=== PATIENT | male | born 1935 | race Caucasian/White ===

== ENCOUNTER → 2016-07-04 | Outpatient (CLI) | payer MEDICARE, OTHER ==
[~2016-07-04] MED LIST: CALCTAB5 PO; CARB200T PO; CHOL20009 PO; CYAN500T13 PO; DOXA4TAB2 PO; FRRS300 PO; MULT-190 PO; MULTTAB63 PO; OFLO0.3S4; PRDFOPS; RIVA1TAB4 PO; SIMV40TA2 PO
[2016-07-04 12:12] LABS: HEMATOCRIT 36.6 % (42-52); MEAN CELL VOLUME 89.5 fL (80-100); MEAN CORPUSCULAR HEMOGLOBIN 30.6 pg (25-34); MEAN CORPUSCULAR HGB CONC 34.2 g/dl (32-36); MEAN PLATELET VOLUME 10.5 fL (7.4-10.4); PLATELET COUNT 210 K/uL (130-400); RED BLOOD COUNT 4.09 M/uL (4.7-6.1); WHITE BLOOD COUNT 5.32 K/uL (4.8-10.8)
[2016-07-04 12:43] LABS: BLOOD UREA NITROGEN 10 mg/dl (7-18); BUN/CREATININE RATIO 10.7 (10-20); CALCIUM 8.6 mg/dl (8.5-10.1); CARBON DIOXIDE 29 mmol/L (21-32); CHLORIDE 95 mmol/L (98-107); GLUCOSE 104 mg/dl (70-99); POTASSIUM 4.4 mmol/L (3.5-5.1); SODIUM 131 mmol/L (136-145)
--- NOTE | 2016-07-05 09:42 | CODING QUERY NO DIAGNOSIS ---
TREATMENT RENDERED WITHOUT A DIAGNOSIS To promote full compliance with coding requirements relating to patient care, physician participation is requested in all cases of biomedical service engineer uncertainty. Please assist us with providing a diagnosis/symptom for the test(s) below: A diagnosis/symptom was not documented on your Order. A valid diagnosis/symptom is required to bill all insurances. Please remember that we are unable to code a diagnosis of rule out, probable, possible, questionable, or suspected. Tests that require a diagnosis: DOS: 07/04/16 * CBC DIAGNOSIS: * PRP DIAGNOSIS: * CARBAMAZEPINE DIAGNOSIS: Provider Signature: Date: Thank you Cande Dominguez [facility] Information Management Once completed, please kindly fax back to [phone] For questions please call [phone]
== END | disposition home or self-care (01) ==
LOC: C.LABWYN 15:02
PROVIDERS: ATTEND Internal Medicine
DX: D64.9 Anemia, unspecified (principal); R56.9 Unspecified convulsions; E87.5 Hyperkalemia

== ENCOUNTER → 2016-11-13 | Outpatient (CLI) | payer MEDICARE ==
[2016-11-13 16:57] LABS: URINE APPEARANCE CLEAR (CLEAR); URINE BILIRUBIN NEG (NEG); URINE COLOR DK YELLOW; URINE NITRITE NEG (NEG); URINE SPECIFIC GRAVITY 1.024 (1.000-1.030); UROBILINOGEN NEG (NEG)
[2016-11-13 16:59] LABS: MANUAL MICROSCOPIC REQUIRED? NO; REVIEW REQ? NO
== END | disposition home or self-care (01) ==
LOC: C.LAB 15:13
PROVIDERS: ATTEND Internal Medicine
DX: N39.0 Urinary tract infection, site not specified (principal)

== ENCOUNTER → 2017-04-17 | Outpatient (CLI) | payer MEDICARE ==
[2017-04-17 09:33] LABS: HEMATOCRIT 35.4 % (42-52); HEMOGLOBIN 12.3 g/dL (14.0-18.0); MEAN CELL VOLUME 90.8 fL (80-100); MEAN CORPUSCULAR HEMOGLOBIN 31.5 pg (25-34); MEAN CORPUSCULAR HGB CONC 34.7 g/dl (32-36); MEAN PLATELET VOLUME 10.1 fL (7.4-10.4); PLATELET COUNT 213 K/uL (130-400); RED CELL DISTRIBUTION WIDTH CV 12.6 % (11.5-14.5); RED CELL DISTRIBUTION WIDTH SD 41.7 fL (36.4-46.3); WHITE BLOOD COUNT 4.66 K/uL (4.8-10.8)
[2017-04-17 09:40] LABS: BLOOD UREA NITROGEN 9 mg/dl (7-18); CALCIUM 8.5 mg/dl (8.5-10.1); CARBON DIOXIDE 27 mmol/L (21-32); CREATININE 0.82 mg/dl (0.60-1.40); GLUCOSE 118 mg/dl (70-99); POTASSIUM 3.9 mmol/L (3.5-5.1); SODIUM 126 mmol/L (136-145)
== END | disposition home or self-care (01) ==
LOC: C.LABWYN 08:12
PROVIDERS: ATTEND Internal Medicine
DX: G40.909 Epilepsy, unspecified, not intractable, without status epilepticus (principal); I26.99 Other pulmonary embolism without acute cor pulmonale; R53.1 Weakness; I45.10 Unspecified right bundle-branch block; N40.0 Benign prostatic hyperplasia without lower urinary tract symptoms; I10 Essential (primary) hypertension; E78.5 Hyperlipidemia, unspecified; F32.9 Major depressive disorder, single episode, unspecified; D47.2 Monoclonal gammopathy

== ENCOUNTER → 2017-05-01 | Outpatient (CLI) | payer MEDICARE ==
[2017-05-01 09:26] LABS: BLOOD UREA NITROGEN 12 mg/dl (7-18); CALCIUM 8.7 mg/dl (8.5-10.1); CARBON DIOXIDE 25 mmol/L (21-32); CREATININE 0.83 mg/dl (0.60-1.40); GLUCOSE 109 mg/dl (70-99); POTASSIUM 4.2 mmol/L (3.5-5.1); SODIUM 127 mmol/L (136-145)
== END | disposition home or self-care (01) ==
LOC: C.LABWYN 08:33
PROVIDERS: ATTEND Internal Medicine
DX: E87.1 Hypo-osmolality and hyponatremia (principal)

== ENCOUNTER → 2017-06-19 | Outpatient (CLI) | payer MEDICARE ==
[2017-06-19 09:37] LABS: BLOOD UREA NITROGEN 12 mg/dl (7-18); CALCIUM 8.4 mg/dl (8.5-10.1); CARBON DIOXIDE 28 mmol/L (21-32); GLUCOSE 103 mg/dl (70-99); POTASSIUM 4.3 mmol/L (3.5-5.1); SODIUM 128 mmol/L (136-145)
== END | disposition home or self-care (01) ==
LOC: C.LABWYN 08:59
PROVIDERS: ATTEND Internal Medicine
DX: E87.1 Hypo-osmolality and hyponatremia (principal)

== ENCOUNTER 2018-06-22 23:30 | Inpatient (IN) ==
[2018-06-22 23:39] LABS: Basophils # (auto) 0.07 K/uL (0-0.2); Eosinophils # (auto) 0.13 K/uL (0-0.5); Eosinophils % (auto) 1.9 %; Hematocrit (blood only) 33.2 % (42-52); Hemoglobin 11.2 g/dL (14.0-18.0); Immature Granulocytes # (auto) 0.01 K/uL (0.00-0.02); Immature Granulocytes % (auto) 0.1 %; Lymphocytes # (auto) 2.01 K/uL (1.2-3.4); Lymphocytes % (auto) 29.9 %; Mean Corpuscular Hgb Conc 33.7 g/dL (32-36); Mean Corpuscular Volume 95.1 fL (80-100); Mean Platelet Volume 9.7 fL (7.4-10.4); Monocytes # (auto) 0.88 K/uL (0.11-0.59); Monocytes % (auto) 13.1 %; Neutrophils # (auto) 3.63 K/uL (1.4-6.5); Platelet Count 169 K/uL (130-400); RDW Coefficient of Variation 12.9 % (11.5-14.5); RDW Standard Deviation 44.1 fL (36.4-46.3); Red Blood Count 3.49 M/uL (4.7-6.1); White Blood Count 6.73 K/uL (4.8-10.8)
[2018-06-22 23:53] LABS: INR 1.1 (0.9-1.1); Partial Thromboplastin Ratio 1.3; Partial Thromboplastin Time 34.2 Seconds (21.0-31.0); Prothrombin Time 11.2 Seconds (9.0-12.0)
[2018-06-23] LABS: Alanine Aminotransferase 21 U/L (12-78); Albumin Level 3.3 gm/dl (3.4-5.0); Aspartate Aminotransferase 14 U/L (15-37); Blood Urea Nitrogen 21 mg/dl (7-18); Calcium 8.4 mg/dl (8.5-10.1); Carbon Dioxide 27 mmol/L (21-32); Chloride 106 mmol/L (98-107); Creatinine Clr Calc Pharmacy 55.7 ml/min; Est GFR (African American) 68.1; Est GFR (Non-African American) 58.7; Glucose 106 mg/dl (70-99); Magnesium 2.1 mg/dl (1.8-2.4); Potassium 4.3 mmol/L (3.5-5.1); Sodium 139 mmol/L (136-145)
[2018-06-23 00:05] LABS: Albumin Globulin Ratio 0.8 (0.9-2); Alkaline Phosphatase 52 U/L (45-117); Bilirubin,Total 0.3 mg/dl (0.2-1); Globulin 4.3 gm/dl (2.5-4.0); Total Protein 7.6 gm/dl (6.4-8.2); Troponin I < 0.015 ng/ml (0-0.045)
[2018-06-23 00:48] LABS: Lyme Ab IgM w/WB Rflx Negative (Negative)
[2018-06-23 01:05] LABS: Lyme Ab IgG w/WB Rflx Positive (Negative)
--- NOTE | 2018-06-23 03:18 | Emergency Department Note ---
Entered by Owen Bhatti acting as a scribe for Sumanth Hernandez MD History of Present Illness General Chief complaint: Stroke/CVA Symptoms Source: patient and EMS Limitations: no limitations History of Present Illness Onset (ago): hour(s) (4 and half) Location: head Pain Consistency: + constant Quality: + constant Associated symptoms: + denies other symptoms (numbness), + weakness and + other (slurred speech, falls); no headaches The patient is a 83 year old male who presents to the Emergency Room with complaints of stroke-like symptoms starting possibly 4 and half hours ago. Per EMS, the patient lives at a intermediate and his last well time was before 1900 but they are unsure the exact time. EMS notes the patient fell more than 3 times tonight. EMS states the patient has difficulty walking and has slurred speech. The patient he does not know when his symptoms started and notes it could have been yesterday. He thinks he had trouble speaking starting yesterday. He states he feels weak but notes his head does not hurt. He notes he had brain surgery before for having too much fluid. He denies numbness on one side, headache, and tick bites. He states he got the flu shot this year and his tetanus is UTD. He states he smoked before but does not now. RN notes sow the patient has a hx of PE, and takes xarelto. Home Medications Home Medications Medication Instructions Recorded Confirmed Type acetaminophen [Tylenol] 325 - 650 mg PO Q4 PRN 06/23/18 06/23/18 History amlodipine 5 mg PO DAILY 06/23/18 06/23/18 History amoxicillin 500 mg PO QID 06/23/18 06/23/18 History ascorbic acid (vitamin C) 1 g PO DAILY 06/23/18 06/23/18 History calcium carbonate [Calcium 600] 600 mg PO DAILY 06/23/18 06/23/18 History carbamazepine 200 mg PO UD 06/23/18 06/23/18 History carbamazepine 300 mg PO QAM 06/23/18 06/23/18 History cholecalciferol (vitamin D3) 1,000 unit PO DAILY 06/23/18 06/23/18 History [Vitamin D3] cyanocobalamin (vitamin B-12) 500 mcg PO DAILY 06/23/18 06/23/18 History dextromethorphan-guaifenesin 5 ml PO Q4 PRN 06/23/18 06/23/18 History [Tussin DM] diclofenac sodium 50 mg PO BID PRN 06/23/18 06/23/18 History doxazosin 4 mg PO DAILY 06/23/18 06/23/18 History ferrous sulfate 325 mg PO DAILY 06/23/18 06/23/18 History ipratropium-albuterol 3 ml INHALATION TID PRN 06/23/18 06/23/18 History levothyroxine 25 mg PO DAILY 06/23/18 06/23/18 History loperamide 2 mg PO Q4 PRN 06/23/18 06/23/18 History lorazepam 0.5 mg PO TID PRN 06/23/18 06/23/18 History quetiapine 50 mg PO HS 06/23/18 06/23/18 History rivaroxaban [Xarelto] 20 mg PO QPM 06/23/18 06/23/18 History sennosides-docusate sodium 1 tab PO BID PRN 06/23/18 06/23/18 History [Senexon-S] sertraline 75 mg PO DAILY 06/23/18 06/23/18 History simvastatin 40 mg PO QPM 06/23/18 06/23/18 History vit C-E-zinc afm-jlaujy-ntvjih 1 tab PO DAILY 06/23/18 06/23/18 History [[facility]] Allergies Allergy/AdvReac Type Severity Reaction Status Date / Time No Known Allergies Allergy Unverified 06/23/18 00:36 Past Med/Surg History Medical History Hyperlipidemia (Chronic) Pulmonary embolism Social History Communication Ability: Effective Feels Safe at Home: Yes Smoking Status: Former smoker Review of Systems See HPI for pertinent positives & negatives. and A total of 10 systems reviewed and were otherwise negative Physical Exam Vital Signs Vital Signs - 24 hr 06/22/18 23:47 06/23/18 00:08 06/23/18 02:00 Temperature 37.1 C Temperature Source Oral Sepsis Recent Fever Within 48 Hours No Sepsis New/Unexplained Change in Mental Status No Sepsis Action Taken by Nursing No Action Required Pulse Rate 68 Pulse Rate [Apical] 59 L 61 Respiratory Rate 18 18 19 Blood Pressure 203/81 H Blood Pressure [Right Arm] 195/77 H 160/115 H Blood Pressure Mean 121 Blood Pressure Mean [Right Arm] 116 130 Pulse Oximetry 92 93 93 Oxygen Delivery Method Room Air Room Air Constitutional: Vital signs reviewed. Eyes: Pupils are equal round reactive to light. Conjunctiva are noninjected. ENT: Pharynx is clear without erythema or exudate. Mucous membranes are moist. Neck supple without meningeal signs. Respiratory: Clear to auscultation bilaterally. Breath sounds are equal bilaterally. Cardiovascular: Regular rate and rhythm. No rubs or gallops. GI: Soft, nondistended and nontender. Bowel sounds are present. Musculoskeletal: No peripheral edema. No lower extremity tenderness. Integumentary: No cyanosis. Neurological: The patient is awake and alert. Cranial nerves II-XII are intact except for right sided facial droop sparing the forehead. Motor is 5 out of 5 all extremities. Sensation is intact to light touch all extremities. No pronator drift. No limb ataxia. Speech is very slurred. Psychiatric: Normal affect. Course 2330: Past medical records reviewed. The patient was evaluated in room B1, and a complete history and physical examination were performed. 2354: I spoke with Dr. Jerez - Radiology. He states there are no acute findings on the CT head. 0123: I reevaluated the patient. He has no changes in symptoms. Administered Medications Medical Decision Making Differential Diagnosis Differential Diagnosis: ICH, CVA, concussion, Quintana's palsy, and metabolic derangement. Medical Records Attestation: I reviewed the patient's medical records. Home Medications Current Medication List: was personally reviewed by me Laboratory Data Attestation: I reviewed the patient's lab results. Result diagrams: 06/22/18 23:31 06/22/18 23:31 Lab Results 06/22/18 06/22/18 06/22/18 Range/Units 23:31 23:31 23:31 WBC 6.73 (4.8-10.8) K/uL RBC 3.49 L (4.7-6.1) M/uL Hgb 11.2 L (14.0-18.0) g/dL Hct 33.2 L (42-52) % MCV 95.1 (80-100) fL MCH 32.1 (25-34) pg MCHC 33.7 (32-36) g/dL RDW Std Deviation 44.1 (36.4-46.3) fL RDW Coeff of Luis 12.9 (11.5-14.5) % Plt Count 169 (130-400) K/uL MPV 9.7 (7.4-10.4) fL Immature Gran % (Auto) 0.1 % Neut % (Auto) 54.0 % Lymph % (Auto) 29.9 % [place] % (Auto) 13.1 % Eos % (Auto) 1.9 % Baso % (Auto) 1.0 % Immature Gran # (Auto) 0.01 (0.00-0.02) K/uL Neut # (Auto) 3.63 (1.4-6.5) K/uL Lymph # (Auto) 2.01 (1.2-3.4) K/uL [place] # (Auto) 0.88 H (0.11-0.59) K/uL Eos # (Auto) 0.13 (0-0.5) K/uL Baso # (Auto) 0.07 (0-0.2) K/uL PT 11.2 (9.0-12.0) Seconds INR 1.1 (0.9-1.1) APTT 34.2 H (21.0-31.0) Seconds PTT Ratio 1.3 Sodium 139 (136-145) mmol/L Potassium 4.3 (3.5-5.1) mmol/L Chloride 106 (98-107) mmol/L Carbon Dioxide 27 (21-32) mmol/L Anion Gap 5.0 (3-11) BUN 21 H (7-18) mg/dl Creatinine 1.14 (0.6-1.4) mg/dl Est Cr Clr Drug Dosing 55.7 ml/min Est GFR ( Amer) 68.1 Est GFR (Non-Af Amer) 58.7 BUN/Creatinine Ratio 18.0 (10-20) Glucose 106 H (70-99) mg/dl Calcium 8.4 L (8.5-10.1) mg/dl Magnesium 2.1 (1.8-2.4) mg/dl Total Bilirubin 0.3 (0.2-1) mg/dl AST 14 L (15-37) U/L ALT 21 (12-78) U/L Alkaline Phosphatase 52 (45-117) U/L Troponin I < 0.015 (0-0.045) ng/ml Total Protein 7.6 (6.4-8.2) gm/dl Albumin 3.3 L (3.4-5.0) gm/dl Globulin 4.3 H (2.5-4.0) gm/dl Albumin/Globulin Ratio 0.8 L (0.9-2) Lyme Disease IgG Ab (Negative) Lyme Disease IgM Ab (Negative) 06/22/18 Range/Units 23:31 WBC (4.8-10.8) K/uL RBC (4.7-6.1) M/uL Hgb (14.0-18.0) g/dL Hct (42-52) % MCV (80-100) fL MCH (25-34) pg MCHC (32-36) g/dL RDW Std Deviation (36.4-46.3) fL RDW Coeff of Luis (11.5-14.5) % Plt Count (130-400) K/uL MPV (7.4-10.4) fL Immature Gran % (Auto) % Neut % (Auto) % Lymph % (Auto) % [place] % (Auto) % Eos % (Auto) % Baso % (Auto) % Immature Gran # (Auto) (0.00-0.02) K/uL Neut # (Auto) (1.4-6.5) K/uL Lymph # (Auto) (1.2-3.4) K/uL [place] # (Auto) (0.11-0.59) K/uL Eos # (Auto) (0-0.5) K/uL Baso # (Auto) (0-0.2) K/uL PT (9.0-12.0) Seconds INR (0.9-1.1) APTT (21.0-31.0) Seconds PTT Ratio Sodium (136-145) mmol/L Potassium (3.5-5.1) mmol/L Chloride (98-107) mmol/L Carbon Dioxide (21-32) mmol/L Anion Gap (3-11) BUN (7-18) mg/dl Creatinine (0.6-1.4) mg/dl Est Cr Clr Drug Dosing ml/min Est GFR ( Amer) Est GFR (Non-Af Amer) BUN/Creatinine Ratio (10-20) Glucose (70-99) mg/dl Calcium (8.5-10.1) mg/dl Magnesium (1.8-2.4) mg/dl Total Bilirubin (0.2-1) mg/dl AST (15-37) U/L ALT (12-78) U/L Alkaline Phosphatase (45-117) U/L Troponin I (0-0.045) ng/ml Total Protein (6.4-8.2) gm/dl Albumin (3.4-5.0) gm/dl Globulin (2.5-4.0) gm/dl Albumin/Globulin Ratio (0.9-2) Lyme Disease IgG Ab Positive H (Negative) Lyme Disease IgM Ab Negative (Negative) Imaging Data Radiologist's Impression: Radiology results as stated below per my review and the radiologist's interpretation: ADDENDUM - Added by Ryan Barragan M.D. on 06/22/2018 at 11:57 (-7:00) Clarification: The volume loss involving the left frontal lobe could be from prior insult such as infarct; however, it could also be from removal of previous tumor. Please correlate with neuro surgical history. ADDENDUM - Added by Ryan Barragan M.D. on 06/22/2018 11:55 Pm (-7:00) Left frontal lobe and overlying calvarium postsurgical changes have been present since the prior study from 06/11/15. 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 Chronic ischemic small vessel white matter disease without midline shift or hydrocephalus. 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. Diffuse parenchymal atrophy, No acute intracranial hemorrhage or acute infarct. Calvarial posterior changes involving the frontal regions anteriorly and laterally. Radiologist: Ryan Barragan M.D. ECG Data Attestation: I personally reviewed and interpreted this ECG as follows: Indication: other (stroke) Rate (beats per minute): 67 Rhythm: normal sinus Findings: no PVC and no ST elevation Blood Pressure Blood Pressure Findings: Elevated blood pressure Blood Pressure Disposition: Referred to patients primary care provider [facility] Narrative I did perform a limited focused review of portions of the patient's old chart on the electronic medical record. The patient has had no recent pertinent visits to this hospital. I did provide medical command for the patient. I did call a stroke alert. I did evaluate the patient as noted above. He is presenting with a right facial droop sparing the forehead. He also has dysarthria. He was also noted to have difficulty walking at his home and he fell 3 times. IV access was established. The patient was placed on a continuous monitoring analyst. I did order and p ersonally review the patient's 12-lead EKG as described above. Twelve-lead EKG is unremarkable. I did order and review the patient's blood work as noted in the electronic medical record. His blood work is unremarkable. Lyme IgG is positive but Lyme IgM is negative. I did order a CT of the head. I did review the images myself as well as the radiology report as described above. He has no evidence of acute intracranial abnormality. I did discuss the test results with the patient. He has persistent symptoms. I did recommend hospitalization for further workup for CVA including MRI of the brain. I did discuss the case with the hospitalist and geriatric case manager. Impression & Plan Facial droop, Ataxia, Dysarthria, Multiple falls Discharge Plan Visit Data Chief Complaint: Stroke/CVA Symptoms ED Provider: Sumanth Hernandez Discharge Problem: Facial droop, Ataxia, Dysarthria, Multiple falls Patient Disposition: Being Evaluated by Hospitalist Forms Stand Alone Forms: My [facility] Prescriptions Prescriptions: No Action amlodipine 5 mg tablet 5 mg PO DAILY RF: 0 levothyroxine 25 mcg tablet 25 mg PO DAILY RF: 0 calcium carbonate [Calcium 600] 600 mg calcium (1,500 mg) Tablet 600 mg PO DAILY RF: 0 ferrous sulfate 325 mg (65 mg iron) Tablet 325 mg PO DAILY RF: 0 doxazosin 4 mg tablet 4 mg PO DAILY RF: 0 carbamazepine 200 mg capsule, ER multiphase 12 hr 200 mg PO UD RF: 0 carbamazepine 300 mg capsule, ER multiphase 12 hr 300 mg PO QAM RF: 0 cholecalciferol (vitamin D3) [Vitamin D3] 1,000 unit Tablet 1,000 unit PO DAILY RF: 0 Ocuvite [facility] 50 mg-15 unit- 4.5 mg-2.5 mg Tablet,Chewable 1 tab PO DAILY RF: 0 amoxicillin 500 mg capsule 500 mg PO QID RF: 0 ascorbic acid (vitamin C) 1,000 mg Tablet 1 g PO DAILY RF: 0 simvastatin 40 mg tablet 40 mg PO QPM RF: 0 cyanocobalamin (vitamin B-12) 500 mcg Tablet 500 mcg PO DAILY RF: 0 sertraline 50 mg tablet 75 mg PO DAILY RF: 0 quetiapine 50 mg tablet 50 mg PO HS RF: 0 Xarelto 20 mg tablet 20 mg PO QPM RF: 0 acetaminophen [Tylenol] 325 mg Tablet 325 - 650 mg PO Q4 PRN (Reason: Fever Or Pain) RF: 0 ipratropium-albuterol 0.5 mg-3 mg(2.5 mg base)/3 mL Solution For Nebulization 3 ml INHALATION TID PRN (Reason: Cough) RF: 0 loperamide 2 mg Capsule 2 mg PO Q4 PRN (Reason: Diarrhea) RF: 0 sennosides-docusate sodium [Senexon-S] 8.6-50 mg Tablet 1 tab PO BID PRN (Reason: Constipation) RF: 0 dextromethorphan-guaifenesin [Tussin DM] 10-100 mg/5 mL Syrup 5 ml PO Q4 PRN (Reason: Cough) RF: 0 lorazepam 0.5 mg Tablet 0.5 mg PO TID PRN (Reason: Anxiety) RF: 0 diclofenac sodium 50 mg tablet,delayed release (DR/EC) 50 mg PO BID PRN (Reason: Pain) RF: 0 Referrals Referrals: Conner Elias [Primary Care Provider] - The scribe's documentation has been prepared under my direction and personally reviewed by me in its entirety. I confirm that the note above accurately reflects all work, treatment, procedures, and medical decision making performed by me.
--- NOTE | 2018-06-23 03:41 | History & Physical Report ---
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 Concern for CVA. Stroke like Symptoms: -CT head: L frontal lobe volume loss likely from prior infarct vs removal of previous tumor; Left frontal lobe and overlying calvarium postsurgical changes present since prior study from 06/11/15; Chronic ischemic small vessel white matter disease without midline shift or hydrocephalus. 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; Diffuse parenchymal atrophy; No acute intracranial hemorrhage or acute infarct -Lyme IgM neg, IgG +, western blot pending -EKG 67 NSR QTc 409 -MRI brain w/ot contrast ordered -CTA head and neck ordered -Started on Aspirin 81mg daily -Continued home Simvastatin -HgA1c and lipid profile ordered -NPO pending speech eval on mIVF NS 100mls/hr -On Stroke protocol HTN -continue home amlodipine Hypothyroidism -continue home levothyroxine ?COPD -Continue home ipratropium/albuterol prn and guaifenesin for cough Hx of diarrhea -Continue home loperamide PRN Hx of anemia -Hgb 11.2 previous Hgb 12 -Continue home iron supplement -Contnue to monitor CBC BPH -Continue home doxazosin Mood disorder -Continue home ativan for anxiety -Continue home quetiapine, sertraline and carbamazepine DVT prop: Xarelto Dispo: med tele Ordered PT/OT/Speech (2) Multiple falls: (3) Dysarthria: (4) Hx of pulmonary embolus: History of Present Illness Primary Care Provider: Wanda Ledezmahills 83yoM with hx of resected brain tumor?, previous CVA, 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 Per EMS, pt had > 3 falls today. Pt was reported to have difficulty walking, slurred speech and R sided facial droop. Per pt fell couple of days ago and again yesterday "while trying to put clothes in dresser drawers". Pt reports no hx of facial changes/droop previously. Able to report accurately full name, , being in hospital in [place] but reports it is July 2017. Pt denies any BOLAND/dizziness, neck pain, back pain; pain, weakness/numbness/tingling in extremties; cp, sob, abdominal pain, n/v, d/c, hematuria, increased urinary requency, dysuria, hematochezia, melena. Allergies Allergy/AdvReac Type Severity Reaction Status Date / Time No Known Allergies Allergy Unverified 06/23/18 00:36 Home Medications Home Medications Medication Instructions Recorded Confirmed Type acetaminophen [Tylenol] 325 - 650 mg PO Q4 PRN 06/23/18 06/23/18 History amlodipine 5 mg PO DAILY 06/23/18 06/23/18 History amoxicillin 500 mg PO QID 06/23/18 06/23/18 History ascorbic acid (vitamin C) 1 g PO DAILY 06/23/18 06/23/18 History calcium carbonate [Calcium 600] 600 mg PO DAILY 06/23/18 06/23/18 History carbamazepine 200 mg PO UD 06/23/18 06/23/18 History carbamazepine 300 mg PO QAM 06/23/18 06/23/18 History cholecalciferol (vitamin D3) 1,000 unit PO DAILY 06/23/18 06/23/18 History [Vitamin D3] cyanocobalamin (vitamin B-12) 500 mcg PO DAILY 06/23/18 06/23/18 History dextromethorphan-guaifenesin 5 ml PO Q4 PRN 06/23/18 06/23/18 History [Tussin DM] diclofenac sodium 50 mg PO BID PRN 06/23/18 06/23/18 History doxazosin 4 mg PO DAILY 06/23/18 06/23/18 History ferrous sulfate 325 mg PO DAILY 06/23/18 06/23/18 History ipratropium-albuterol 3 ml INHALATION TID PRN 06/23/18 06/23/18 History levothyroxine 25 mg PO DAILY 06/23/18 06/23/18 History loperamide 2 mg PO Q4 PRN 06/23/18 06/23/18 History lorazepam 0.5 mg PO TID PRN 06/23/18 06/23/18 History quetiapine 50 mg PO HS 06/23/18 06/23/18 History rivaroxaban [Xarelto] 20 mg PO QPM 06/23/18 06/23/18 History sennosides-docusate sodium 1 tab PO BID PRN 06/23/18 06/23/18 History [Senexon-S] sertraline 75 mg PO DAILY 06/23/18 06/23/18 History simvastatin 40 mg PO QPM 06/23/18 06/23/18 History vit C-E-zinc trc-glotpc-[id number] 1 tab PO DAILY 06/23/18 06/23/18 History [Ocuvite [facility]] Past Med/Surg History Medical History Hyperlipidemia (Chronic) Pulmonary embolism Social History Communication Ability: Effective Beliefs That Will Affect Care: None Current Living Situation: Alone and Personal Care Facility Feels Safe at Home: Yes Safety Concerns: Feels Safe At This Time Smoking Status: Former smoker Hx Alcohol Use: No Hx Substance Use: No Review of Systems as per HPI Physical Exam Vital Signs (Past 24 Hours): Last Vital Signs Temp 37.1 C 06/22/18 23:47 Pulse 61 06/23/18 02:00 Resp 19 06/23/18 02:00 BP 160/115 H 06/23/18 02:00 Pulse Ox 93 06/23/18 02:00 Physical Exam: General: In NAD, resting comfortably in bed Neuro: Alert and oriented x 3 (person, place, situation but not time); exhibiting significant dysarthria, CN 2-12 intact except for facial droop on R side sparing forehead, strength 5/5 bilateral upper and lower extremities, sensation equal bilateral upper and lower extremities CV: RRR, no m/r/g Pulm: CTAB, equal breath sounds bilaterally, On RA GI: +BS, non-distened, NTTP in all quadrants Extremities: trace b/l LE edema, no calf TTP MSK: no C-spine, T or L spine tenderness to palpation of spinous processes Skin: abrasions with dried blood on bilateral face (temporal regions) and R sided neck region Results & Data Laboratory Results Abnormal lab results 06/22/18 06/22/18 06/22/18 Range/Units 23:31 23:31 23:31 RBC 3.49 L (4.7-6.1) M/uL Hgb 11.2 L (14.0-18.0) g/dL Hct 33.2 L (42-52) % [place] # (Auto) 0.88 H (0.11-0.59) K/uL APTT 34.2 H (21.0-31.0) Seconds BUN 21 H (7-18) mg/dl Glucose 106 H (70-99) mg/dl Calcium 8.4 L (8.5-10.1) mg/dl AST 14 L (15-37) U/L Albumin 3.3 L (3.4-5.0) gm/dl Globulin 4.3 H (2.5-4.0) gm/dl Albumin/Globulin Ratio 0.8 L (0.9-2) Lyme Disease IgG Ab (Negative) 06/22/18 Range/Units 23:31 RBC (4.7-6.1) M/uL Hgb (14.0-18.0) g/dL Hct (42-52) % [place] # (Auto) (0.11-0.59) K/uL APTT (21.0-31.0) Seconds BUN (7-18) mg/dl Glucose (70-99) mg/dl Calcium (8.5-10.1) mg/dl AST (15-37) U/L Albumin (3.4-5.0) gm/dl Globulin (2.5-4.0) gm/dl Albumin/Globulin Ratio (0.9-2) Lyme Disease IgG Ab Positive H (Negative) Code Status & VTE Plan Code Status Full VTE Prophylaxis Plan VTE Prophylaxis will be ordered: Yes Supervising Physician Co-Signing Physician Notes Attending addendum: I have physically seen this patient, have supervised the medical residents activities, and agree with the H&P unless as otherwise noted. Assessment and Plan: Strokelike symptoms-- Admit via stroke without TPA protocol. Order CTA head and neck. Order MRI brain without contrast. Aspirin 81 mg daily. Order hemoglobin A1c and fasting lipid panel. NSS at 100 mils per hour. Permissive hypertension. Remainder of orders and notations as noted.
[2018-06-23] MEDS ORDERED: ACETAMINOPHEN 325 MG TAB PO PRN (07:20)
[2018-06-23] MEDS ORDERED: ALUMINUM/MAGNESIUM SUSP 30 ML UDC PO PRN (07:20)
[2018-06-23] MEDS ORDERED: ONDANSETRON INJ 2 MG/ML 2 ML VIAL IV PRN (07:20)
[2018-06-23] MEDS ORDERED: LOPERAMIDE HCL 2 MG CAP PO PRN (07:20)
[2018-06-23] MEDS ORDERED: LORazepam 0.5 MG TAB PO PRN (07:20)
[2018-06-23] MEDS ORDERED: ALBUT/IPRATROP 3MG/0.5MG NEB 3 ML VIAL INH PRN (07:20)
[2018-06-23] MEDS ORDERED: GUAIFENESIN/DEXTROM SYRUP 100MG/10MG 5ML UDC PO PRN (07:20)
[2018-06-23] MEDS ORDERED: POLYETHYLENE (MIRALAX) 17 GM PACK PO PRN (07:20)
[2018-06-23] MEDS ORDERED: MAGNESIUM HYDROXIDE SUSP 30 ML UDC PO PRN (07:20)
[2018-06-23] MEDS ORDERED: PHARMACIST DISCHARGE MED REC CONSULT PRN (07:20)
[2018-06-23] MEDS ORDERED: carBAMazepine 200 MG TABLET PO SCH ×2 (08:00→12:00)
--- NOTE | 2018-06-23 08:57 | CT Scan Report ---
CT OF THE HEAD WITHOUT CONTRAST CLINICAL HISTORY: Stroke evaluation. Facial droop. Confusion. COMPARISON STUDY: Head CT June 11, 2015. CT DOSE: 614.27 mGy.cm TECHNIQUE: Helical axial images of the head were obtained without IV contrast. Automated exposure con trol was utilized for the study. A dose lowering technique was utilized adhering to the principles o f ALARA. FINDINGS: No acute intracranial hemorrhage, midline shift or mass effect is present. Encephalomalacia within the left frontal lobe is unchanged. Ventricular system is stable. Basilar cisterns are patent . There are no extra axial collections. Hypodensity within left basal ganglia is chronic. White matte r hypodensity suggests small vessel disease. There are no findings to suggest acute dural sinus throm bosis or acute territorial infarct. The left frontal parietal craniotomy is noted. IMPRESSION: No acute intracranial findings. No change in appearance of the brain. Electronically signed by: Joey Cruz M.D. 06/23/2018 8:56 AM
[2018-06-23] MEDS ORDERED: OPTIRAY 320 125ml IV PRN (09:52)
--- NOTE | 2018-06-23 10:25 | CT Scan Report ---
CT ANGIOGRAPHY OF THE NECK WITH CONTRAST CLINICAL HISTORY: NEW R sided facial droop and slurred speech COMPARISON STUDY: No previous studies for comparison. Technique: CT angiography of the carotid and vertebral arteries was obtained using [employer] 320 IV and 3D reconstruction on an independent workstation. NASCET criteria was utilized. Automated exposure c ontrol was utilized for the study. A dose lowering technique was utilized adhering to the principles of ALARA. Findings: There is moderate plaque within the proximal left internal carotid artery without stenosis. There is mild plaque within the proximal right internal carotid artery without stenosis. The right v ertebral is dominant and patent. There is moderate to severe stenosis at the origin of the left verte bral artery which is difficult to assess given extensive calcified plaque. There is no dissection wit hin the major vessels of the neck. Lung apices are clear. There is no cervical lymphadenopathy. There is mild enlargement of the left submandibular gland. There is left facial infiltration. There is no abscess. There is a periapical lucency of a left mandibular molar. Note is made of a tiny 8 mm rim-en hancing fluid collection along the medial aspect of the left body of the mandible. IMPRESSION: 1. Mild to moderate atherosclerotic plaque within the bilateral internal carotid arteries without sig nificant stenosis. 2. 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 Dominant, patent right kalen tebral artery. 3. Left facial infiltration consistent with cellulitis. This is due to a periapical abscess of a left mandibular molar with a tiny associated 8 mm abscess along the medial aspect of the body of the left hemimandible. Electronically signed by: Joey Cruz M.D. 06/23/2018 10:23 AM
--- NOTE | 2018-06-23 10:31 | CT Scan Report ---
CTA ANGIOGRAPHY OF THE HEAD CLINICAL HISTORY: NEW R sided facial droop and slurred speech COMPARISON STUDY: Head CT June 11, [address] June 22, 2018. TECHNIQUE: Helical axial images of the head were obtained following uneventful intravenous administr ation of 118 cc of Optiray 320. Automated exposure control was utilized for the study. A dose lower ing technique was utilized adhering to the principles of ALARA. CT DOSE: 593.99 mGy.cm FINDINGS: Please note that the CTA of the neck will be reported separately. 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 Postoperative appearance is unchanged since CT of June 11, 2015. Surgical clips wi thin the left frontal convexity are noted. Encephalomalacia within the left frontal lobe is noted. Ve ntricular system is stable. Basilar cisterns are patent. No acute intracranial hemorrhage, midline sh ift or mass effect is present. Note is made of severe narrowing versus short segment occlusion within a sylvian branch of the left middle cerebral artery shown on axial image 108 of 263. Otherwise, the anterior circulation is unremarkable with exception of moderate plaque within the bilateral cavernous carotids. The right vertebral artery is dominant. The left vertebral artery is diminutive, likely on a congenital basis. Bilateral posterior cerebral arteries are patent. There is no intracranial aneur ysm or dissection. IMPRESSION: 1. Severe stenosis versus short segment occlusion of a sylvian branch of the left middle cerebral art maral. 2. No intracranial aneurysm. 3. Status post left frontoparietal craniotomy. Encephalomalacia within the left frontal lobe. Stable postoperative findings since CT of June 11, 2015. Electronically signed by: Joey Cruz M.D. 06/23/2018 10:30 AM
[2018-06-23] MEDS: DOXAZosin MESYLATE 4 MG TAB PO SCH (10:56)
[2018-06-23] MEDS: SODIUM CHLORIDE 0.9% 1000ML 1,000 ML IV SCH ×2 (10:56→20:15)
[2018-06-23] MEDS: ASPIRIN 81 MG ECTAB PO SCH (10:57)
[2018-06-23] MEDS: FERROUS SULFATE 325 MG TAB PO SCH (10:57)
[2018-06-23] MEDS: AMLODIPINE BESYLATE 5 MG TAB PO SCH (10:58)
[2018-06-23] MEDS: CEROVITE ADV FORMULA TAB PO SCH (10:58)
[2018-06-23] MEDS: CYANOCOBALAMIN 500 MCG TABLET (VITAMIN B-12) PO SCH (10:58)
[2018-06-23] MEDS: SERTRALINE HCL 50 MG TABLET PO SCH (10:59)
[2018-06-23] MEDS: LEVOTHYROXINE SODIUM 25 MCG TABLET PO SCH (11:00)
--- NOTE | 2018-06-23 12:08 | Neurology Consultation ---
Date of Consultation June 23, 2018 Assessment & Plan (1) Acute CVA (cerebrovascular accident): This is a 83-year-old right-handed male who presents with acute to subacute symptoms of moderate to severe right facial droop, moderate dysarthria, mild mixed aphasia, and multiple falls which seem consistent with left hemispheric ischemic stroke. I believe he probably has some cognitive deficits at baseline per my previous evaluation of him in 2013 due to left frontal hemorrhagic stroke. Etiology is not clear at this time and is somewhat concerning considering that he appears to have had a stroke while on Xarelto. At this time my guess would be most likely etiology would be large vessel atherosclerotic disease considering findings on CTA. Stroke risk factors include dyslipidemia and history of PE. 2) patient is on Tegretol since his initial neurosurgery for seizure prophylaxis, but per my knowledge and previous evaluation he has never had a clinical seizure. Recommendations: Agree with trying to obtain an MRI if we are able to. Typically do not advocate for adding antiplatelets to anticoagulation for stroke prevention, but considering his CTA with significant atherosclerotic disease in multiple areas, I think he may benefit from low-dose aspirin 81 mg daily in addition to his home Xarelto. Patient needs an echocardiogram to complete his stroke workup to look for cardioembolic sources for stroke. I did order a Tegretol level to monitor for drug toxicity (since this could also contribute to dizziness and falls if in a toxic level) Follow-up PT/OT and speech therapies for discharge planning. Blood pressure recommendations while in hospital 175/95-150/80 (MAPS 90-110) Avoid hypotension and dehydration Stroke risk factor modifications and recommendations: Blood pressure recommendations for the first month post hospital discharge 150/ 90-130/80, and after that blood pressure recommendations 130/80-110/70 Total cholesterol goal 100- 200 and LDL goal less than 100 Hemoglobin A1c goal less than 7 Encourage cardiovascular exercise at least 3 times a week for 30 minutes. Follow-up in neurology clinic in 1 month for post stroke hospital follow-up. If there is any questions or concerns, feel free to call/page me. History of Present Illness Reason for Consultation: Consult for stroke symptoms Attending Physician: Carlitos Julio, DO History of Present Illness This is a 83-year-old male who presents for evaluation of stroke symptoms. This morning the patient reports that his symptoms have been going on for a couple weeks, but by ER and admission notes, it was reported as more like days. There may be some expressive or mixed aphasia contributing to the confusion between days and weeks by the patient's report. Patient has never had any focal weakness before. The patient was sent from his assisted due to multiple for falls in the last 24 hours. He also had new right facial droop and slurred speech. Patient also reports that he is having trouble swallowing. He denies any focal weakness with his extremities. Denies any numbness. Denies any changes with his vision. Denies any pain or abnormal headaches. Patient has been on Xarelto for history of a PE. I did review his outpatient chart. The patient did see me in neurology clinic a few times for evaluation and management of antiepileptics in 2013. Per his history at that time he had had some sort of hemorrhagic stroke in the left frontal area that sounded like it was due to aneurysm status post clipping. The patient did not have any facial droop or dysarthria at that time. The patient at that time reporting no history of seizures but was on Tegretol for seizure prophylaxis after his neurosurgery. We did discuss at the time potentially taking him off antiepileptics, understanding that there would be some risk of seizures considering his encephalomalacia in the left frontal area. Patient decided to stay on Tegretol since he was not having any side effects at the time. Patient has not been seen in neurology clinic since 2013. CT of the head did not show any acute changes CTA of the head and neck noted severe stenosis versus occlusion of the sylvian branch of the left MCA. CTA of the neck noted mild to moderate atherosclerotic plaque bilaterally in the ICAs as well as moderate to severe left vertebral stenosis. Also was noted abscess of the left mandibular molar. CBC and complete metabolic panel are unremarkable. Lipid profile and hemoglobin A1c are pending. Past medical history significant for what sounds like aneurysm clipping secondary to hemorrhagic stroke. Denies any family history of stroke or heart attack or clotting disorder. Social history: Patient lives in a assisted. Reports that staff manages his medications. Denies any missed medications. For the last year has been walking with the assistance of a walker. Denies any current tobacco use. No regular alcohol use. Allergies Allergy/AdvReac Type Severity Reaction Status Date / Time No Known Allergies Allergy Unverified 06/23/18 00:36 Home Medications Home Medications Medication Instructions Recorded Confirmed Type acetaminophen [Tylenol] 325 - 650 mg PO Q4 PRN 06/23/18 06/23/18 History amlodipine 5 mg PO DAILY 06/23/18 06/23/18 History amoxicillin 500 mg PO QID 06/23/18 06/23/18 History ascorbic acid (vitamin C) 1 g PO DAILY 06/23/18 06/23/18 History calcium carbonate [Calcium 600] 600 mg PO DAILY 06/23/18 06/23/18 History carbamazepine 200 mg PO UD 06/23/18 06/23/18 History carbamazepine 300 mg PO QAM 06/23/18 06/23/18 History cholecalciferol (vitamin D3) 1,000 unit PO DAILY 06/23/18 06/23/18 History [Vitamin D3] cyanocobalamin (vitamin B-12) 500 mcg PO DAILY 06/23/18 06/23/18 History dextromethorphan-guaifenesin 5 ml PO Q4 PRN 06/23/18 06/23/18 History [Tussin DM] diclofenac sodium 50 mg PO BID PRN 06/23/18 06/23/18 History doxazosin 4 mg PO DAILY 06/23/18 06/23/18 History ferrous sulfate 325 mg PO DAILY 06/23/18 06/23/18 History ipratropium-albuterol 3 ml INHALATION TID PRN 06/23/18 06/23/18 History levothyroxine 25 mg PO DAILY 06/23/18 06/23/18 History loperamide 2 mg PO Q4 PRN 06/23/18 06/23/18 History lorazepam 0.5 mg PO TID PRN 06/23/18 06/23/18 History quetiapine 50 mg PO HS 06/23/18 06/23/18 History rivaroxaban [Xarelto] 20 mg PO QPM 06/23/18 06/23/18 History sennosides-docusate sodium 1 tab PO BID PRN 06/23/18 06/23/18 History [Senexon-S] sertraline 75 mg PO DAILY 06/23/18 06/23/18 History simvastatin 40 mg PO QPM 06/23/18 06/23/18 History vit C-E-zinc dro-povbht-ednrxk 1 tab PO DAILY 06/23/18 06/23/18 History [facility] Patient History Medical History Hyperlipidemia (Chronic) Pulmonary embolism Social History Preferred Language: [place] Communication Ability: Impaired Home Health Billing Specialist Required: No Beliefs That Will Affect Care: None Current Living Situation: Alone and Personal Care Facility Feels Safe at Home: Yes Safety Concerns: Feels Safe At This Time Smoking Status: Former smoker Hx Alcohol Use: No Hx Substance Use: No Review of Systems Complete review of systems otherwise negative except for the above-noted in HPI Physical Exam Vital Signs (Past 24 Hours): Last Vital Signs Temp 36.6 C 06/23/18 11:16 Pulse 59 L 06/23/18 11:16 Resp 16 06/23/18 11:16 BP 180/71 H 06/23/18 11:16 Pulse Ox 92 06/23/18 11:16 Physical Exam: Gen.: Patient is alert and oriented in no acute distress lying in bed Heart: Regular rate and rhythm Extremities: No gross deformities or rashes noted Neurological examination: Mental status: Patient is alert and oriented to person place and year. Able to give his own history, although question how accurate some of the details are. ok fund of knowledge. Attention concentration normal for the situation. Remote and recent memory may have some impairment Speech is often fluent but does seem to have some component of mild mixed aphasia and moderate dysarthria. Cranial nerves: Visual barnett intact to counting. Funduscopic examination was unremarkable with no signs of papilledema. Pupils equally round and reactive to light. Extraocular muscles intact without nystagmus. Moderate to severe right lower facial droop. Facial sensation intact. Tongue midline. Good palatal elevation. Good shoulder shrug bilaterally. Hearing grossly intact voice. Strength: 5/5 both proximal and distal in all extremities. No arm drift.Tone is normal. Sensation: Grossly intact to light touch in all extremities Deep tendon reflexes: +1 in bilateral biceps and patellar. Toes are downgoing to plantar stimulation bilaterally Coordination: Patient has good finger to nose without dysmetria and good heel to thomas without ataxia. Station within the bed is normal.
[2018-06-23] MEDS: ENOXAPARIN 100 MG/1ML SYR SQ SCH (20:16)
[2018-06-23] MEDS: SIMVASTATIN 40 MG TAB PO SCH (20:18)
[2018-06-23] MEDS: carBAMazepine 200 MG TABLET PO SCH (20:18)
[2018-06-23] MEDS: QUETIAPINE FUMARATE 25 MG TABLET PO SCH (20:18)
[2018-06-23] MEDS ORDERED: RIVAROXABAN 20 MG TAB PO SCH (21:00)
--- NOTE | 2018-06-23 22:55 | History & Physical Bridge Note ---
Date of Service June 23, 2018 History & Physical Bridge Note I have examined the patient, reviewed the History & Physical and in the interval since the performance of the History & Physical I have noted the following changes of clinical significance: discussed the case with Dr. Cosme, appreciate her recommendations cannot get MRI due to prior aneurysm clips, there are no records for this procedure could consider getting repeat CT in 48 hours pharmacy expressed concern over the interaction with Xarelto and Tegretol Tegretol actually decreases the efficacy of Xarelto by 30%, so in theory the patient could have been undercoagulated discussed with Dr. Cosme, she recommended tapering off of Tegretol 200mg BID x 2 weeks then 200mg daily x 2 weeks then stop in the meantime, for full anticoagulation, will start Lovenox 1mg/Kg q12 hold Xarelto for a month until off of Tegretol could either use Lovenox as outpatient or start Coumadin but that would only be for a month
[2018-06-24] MEDS: SODIUM CHLORIDE 0.9% 1000ML 1,000 ML IV SCH ×2 (05:47→13:37)
[2018-06-24] MEDS: LEVOTHYROXINE SODIUM 25 MCG TABLET PO SCH (05:47)
[2018-06-24] MEDS: FERROUS SULFATE 325 MG TAB PO SCH (07:40)
[2018-06-24] MEDS: carBAMazepine 200 MG TABLET PO SCH ×2 (07:40→21:31)
[2018-06-24] MEDS: SERTRALINE HCL 50 MG TABLET PO SCH (07:41)
[2018-06-24] MEDS: AMLODIPINE BESYLATE 5 MG TAB PO SCH (07:41)
[2018-06-24] MEDS: CYANOCOBALAMIN 500 MCG TABLET (VITAMIN B-12) PO SCH (07:41)
[2018-06-24] MEDS: CEROVITE ADV FORMULA TAB PO SCH (07:41)
[2018-06-24] MEDS: ASPIRIN 81 MG ECTAB PO SCH (07:41)
[2018-06-24] MEDS: DOXAZosin MESYLATE 4 MG TAB PO SCH (07:41)
[2018-06-24] MEDS: ENOXAPARIN 100 MG/1ML SYR SQ SCH ×2 (07:42→21:30)
[2018-06-24 09:03] LABS: Basophils # (auto) 0.07 K/uL (0-0.2); Basophils % (auto) 1.5 %; Eosinophils # (auto) 0.16 K/uL (0-0.5); Eosinophils % (auto) 3.4 %; Hematocrit (blood only) 33.6 % (42-52); Hemoglobin 11.5 g/dL (14.0-18.0); Lymphocytes # (auto) 1.27 K/uL (1.2-3.4); Lymphocytes % (auto) 27.2 %; Mean Corpuscular Hgb Conc 34.2 g/dL (32-36); Mean Corpuscular Volume 94.9 fL (80-100); Mean Platelet Volume 9.3 fL (7.4-10.4); Monocytes # (auto) 0.34 K/uL (0.11-0.59); Monocytes % (auto) 7.3 %; Neutrophils # (auto) 2.83 K/uL (1.4-6.5); Neutrophils % (auto) 60.6 %; Platelet Count 163 K/uL (130-400); RDW Coefficient of Variation 12.5 % (11.5-14.5); RDW Standard Deviation 43.1 fL (36.4-46.3); Red Blood Count 3.54 M/uL (4.7-6.1); White Blood Count 4.67 K/uL (4.8-10.8)
[2018-06-24 09:44] LABS: BUN Creatinine Ratio 11.8 (10-20); Calcium 8.3 mg/dl (8.5-10.1); Creatinine Clr Calc Pharmacy 59.8 ml/min; Est GFR (African American) 81.7; Est GFR (Non-African American) 70.5; Potassium 3.9 mmol/L (3.5-5.1)
[2018-06-24 09:51] LABS: Estimated Average Glucose 120 mg/dl; Hemoglobin A1C 5.8 % (4.5-5.6)
--- NOTE | 2018-06-24 15:06 | Hospitalist Progress Note ---
Date of Service June 24, 2018 Assessment & Plan (1) Facial droop: 83yoM with hx of intracranial hemorrhage from aneurysm status post clipping 40 years ago, previous CVA, DVT with PE in 2016 on xarelto, hypothyroidism, COPD, HTN, HL, anemia, BPH, and anxiety presents with multiple falls, slurred speech and R sided facial droop. -Initial CT head: L frontal lobe volume loss likely from prior infarct vs removal of previous tumor; Left frontal lobe and overlying calvarium postsurgical changes present since prior study from 06/11/15; Chronic ischemic small vessel white matter disease without midline shift or hydrocephalus. 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; Diffuse parenchymal atrophy; No acute intracranial hemorrhage or acute infarct MRI of the brain cannot be performed due to history of aneurysm clipping-a repeat CT of the head 36 hours after admission shows: There is a new 6 mm hypodense focus adjacent to the left basal ganglia. This could represent a subacute infarct. CT angiogram of the head does show stenosis versus occlusion of the sylvian branch of the left MCA-small vessel-no intervention possible New ischemic CVA is responsible for his symptoms-this is likely secondary to microvascular disease as he has no documented atrial fibrillation -Started on aspirin 81 mg daily which was added to his Xarelto due to cerebrovascular disease -Despite this occurring in the setting of taking Xarelto, is possible that the Tegretol decreased the efficacy of his Xarelto-weaning off Tegretol and will give Lovenox in the meantime x1 month, then can restart Xarelto -Lyme IgM neg, IgG +, western blot pending-ordered at the time of admission -Continued home Simvastatin -PT/OT/speech therapy consults appreciated -Neurology consultation appreciated -Continue telemetry monitoring for arrhythmia -Echocardiogram shows normal LVEF, no source of emboli (2) Acute CVA (cerebrovascular accident): As above (3) Multiple falls: Secondary to stroke as above (4) Dysarthria: Secondary to acute stroke as above (5) Hyperlipidemia: -Continue statin (6) History of pulmonary embolism: Holding Xarelto for now as above as Tegretol can decrease its efficacy -Bridged with full dose anticoagulation with Lovenox x1 month during Tegretol wean -Restart Xarelto in 1 month (7) HTN (hypertension), benign: Allow permissive hypertension in the setting of acute CVA -continue home amlodipine 5 mg daily -Can DC IV fluids at this point (8) Dental abscess: -Continue amoxicillin from home -He recently started taking p.o. diclofenac as prescribed by his dentist-we will avoid this in the setting of being on anticoagulation and with recent stroke -Treat pain with tramadol as needed-note, although this can lower the seizure threshold, he has never had a seizure and is being weaned off of his Tegretol (9) Hypothyroidism: -continue home levothyroxine -Check TSH in the morning (10) Reactive airway disease: Unclear diagnosis-need to check outpatient records Is on albuterol at home (11) Anemia: -Hgb 11.5 previous Hgb 12 and chronic for many years, normocytic, other cell lines and CBC are normal -Continue home iron supplement -Continue to monitor CBC (12) BPH (benign prostatic hyperplasia): Continue doxazosin Follow blood pressures and hold doxazosin if blood pressures drop below 140/90 (13) Depression with anxiety: -Continue home ativan for anxiety -Continue home quetiapine, sertraline (14) History of cerebral aneurysm repair: This was approximately 40 years ago and involved a hemorrhagic stroke with aneurysm clipping He has been on Tegretol ever since procedure prophylaxis but is never had a seizure -Weaning off Tegretol as above -He cannot have an MRI because of this clipping (15) DVT prophylaxis: Lovenox full dose Disposition-remain on telemetry Plan for SNF referral and rehab placement Subjective Patient denies headache but is having significant tooth pain at the site of his recent dental abscess infection. Still with slurred speech and facial droop. His daughter accompanies him at the bedside and says he did not have that prior to the day or 2 before admission. He does feel strong though throughout his body and was up with physical therapy today. Denies chest pain or shortness of breath. He is eating the pur�ed diet okay but is frustrated by that. No problems with constipation or diarrhea, no problems with urinary retention. Telemetry with sinus bradycardia and normal sinus rhythm with rates in the 50s to 60s I discussed the case with neurology on the phone. Review of Systems All systems reviewed & are unremarkable except as noted in HPI & below Physical Exam Vital Signs (Past 24 Hours): Last Vital Signs Temp 36.6 C 06/24/18 15:03 Pulse 62 06/24/18 15:03 Resp 18 06/24/18 15:03 BP 175/69 H 06/24/18 15:03 Pulse Ox 94 06/24/18 15:03 Constitutional: WD/WN, vitals as above Eyes: PERRL, conjunctivae normal, anicteric sclerae ENMT: external ear and nose normal, oropharynx normal Neck: trachea midline, no thyromegaly Respiratory: normal respiratory effort, lungs clear to auscultation Cardiovascular: RRR, no murmur, no edema Gastrointestinal (Abdomen): normal bowel sounds, soft, nontender, no hepatosplenomegaly Musculoskeletal: Extremities: extremities normal to inspection; no cyanosis and no clubbing Skin: no rashes, warm and dry Neurologic: normal touch/pain/proprioception, moves all extremities (5 out of 5 strength in upper and lower extremities bilaterally) and awake; + CN's not intact (With right-sided facial droop, otherwise intact) and + abnormal deep tendon reflexes (DTRs 1+ throughout) Speech / Cognition: + abnormal speech (With some dysarthria) Psychiatric: A+Ox3, euthymic affect Results & Data Laboratory Results 06/24/18 06/24/18 06/23/18 Range/Units 08:49 08:49 08:44 WBC 4.67 L (4.8-10.8) K/uL RBC 3.54 L (4.7-6.1) M/uL Hgb 11.5 L (14.0-18.0) g/dL Hct 33.6 L (42-52) % MCV 94.9 (80-100) fL MCH 32.5 (25-34) pg MCHC 34.2 (32-36) g/dL RDW Std Deviation 43.1 (36.4-46.3) fL RDW Coeff of Luis 12.5 (11.5-14.5) % Plt Count 163 (130-400) K/uL MPV 9.3 (7.4-10.4) fL Immature Gran % (Auto) 0.0 % Neut % (Auto) 60.6 % Lymph % (Auto) 27.2 % Mingo % (Auto) 7.3 % Eos % (Auto) 3.4 % Baso % (Auto) 1.5 % Immature Gran # (Auto) 0.00 (0.00-0.02) K/uL Neut # (Auto) 2.83 (1.4-6.5) K/uL Lymph # (Auto) 1.27 (1.2-3.4) K/uL Mingo # (Auto) 0.34 (0.11-0.59) K/uL Eos # (Auto) 0.16 (0-0.5) K/uL Baso # (Auto) 0.07 (0-0.2) K/uL Sodium 135 L (136-145) mmol/L Potassium 3.9 (3.5-5.1) mmol/L Chloride 103 (98-107) mmol/L Carbon Dioxide 28 (21-32) mmol/L Anion Gap 4.0 (3-11) BUN 12 (7-18) mg/dl Creatinine 0.98 (0.6-1.4) mg/dl Est Cr Clr Drug Dosing 59.8 ml/min Est GFR ( Amer) 81.7 Est GFR (Non-Af Amer) 70.5 BUN/Creatinine Ratio 11.8 (10-20) Glucose 164 H (70-99) mg/dl Estimat Average Glucose 120 mg/dl Hemoglobin A1c 5.8 H (4.5-5.6) % Calcium 8.3 L (8.5-10.1) mg/dl Triglycerides 129 (0-150) mg/dl Cholesterol 159 (0-200) mg/dl LDL Cholesterol, Calc 72 mg/dl VLDL Cholesterol, Calc 26 mg/dl HDL Cholesterol 61 mg/dl Cholesterol/HDL Ratio [address] head noncontrast today: HEAD CT NONCONTRAST CT DOSE: 614.27 mGy.cm HISTORY: Facial droop. Stroke symptoms. TECHNIQUE: Multiaxial CT images of the head were performed without the use of intravenous contrast. Automated exposure control was utilized for this study. A dose lowering technique was utilized adhering to the principles of ALARA. Comparison: Head CT 06/22/2018. Findings: The paranasal sinuses and mastoid air cells are clear. Prior left frontal craniotomy is again noted with underlying encephalomalacia within the left frontal lobe. This remains unchanged. Atrophy and microvascular ischemic changes are again noted. Left basilar ganglia hypodensity appears chronic. There is no mass, hematoma, midline shift. There appears be a new 6 mm hypodense focus adjacent to the left basal ganglia on image 18. This could represent a subacute infarct. Impression: 1. There is a new 6 mm hypodense focus adjacent to the left basal ganglia. This could represent a subacute infarct. 2. Chronic and postoperative changes are again noted as described above.
[2018-06-24] MEDS ORDERED: TRAMADOL HCL 50 MG TABLET PO PRN (15:09)
--- NOTE | 2018-06-24 17:03 | CT Scan Report ---
HEAD CT NONCONTRAST CT DOSE: 614.27 mGy.cm HISTORY: Facial droop. Stroke symptoms. TECHNIQUE: Multiaxial CT images of the head were performed without the use of intravenous contrast. A utomated exposure control was utilized for this study. A dose lowering technique was utilized adheri ng to the principles of ALARA. Comparison: Head CT 06/22/2018. Findings: The paranasal sinuses and mastoid air cells are clear. Prior left frontal craniotomy is aga in noted with underlying encephalomalacia within the left frontal lobe. This remains unchanged. Atrop hy and microvascular ischemic changes are again noted. Left basilar ganglia hypodensity appears chron ic. There is no mass, hematoma, midline shift. There appears be a new 6 mm hypodense focus adjacent t o the left basal ganglia on image 18. This could represent a subacute infarct. Impression: 1. There is a new 6 mm hypodense focus adjacent to the left basal ganglia. This could represent a sub acute infarct. 2. Chronic and postoperative changes are again noted as described above. Electronically signed by: Antoni Salguero M.D. 06/24/2018 5:01 PM
[2018-06-24] MEDS: AMOXICILLIN 500 MG CAP PO SCH ×2 (17:12→21:29)
[2018-06-24] MEDS: QUETIAPINE FUMARATE 25 MG TABLET PO SCH (21:30)
[2018-06-24] MEDS: SIMVASTATIN 40 MG TAB PO SCH (21:31)
[2018-06-25] MEDS: LEVOTHYROXINE SODIUM 25 MCG TABLET PO SCH (05:45)
[2018-06-25 07:10] LABS: Basophils # (auto) 0.06 K/uL (0-0.2); Basophils % (auto) 1.3 %; Eosinophils % (auto) 4.5 %; Hematocrit (blood only) 32.8 % (42-52); Hemoglobin 11.2 g/dL (14.0-18.0); Immature Granulocytes # (auto) 0.01 K/uL (0.00-0.02); Immature Granulocytes % (auto) 0.2 %; Lymphocytes # (auto) 1.52 K/uL (1.2-3.4); Lymphocytes % (auto) 34.2 %; Mean Corpuscular Hgb Conc 34.1 g/dL (32-36); Mean Corpuscular Volume 93.4 fL (80-100); Mean Platelet Volume 9.8 fL (7.4-10.4); Monocytes # (auto) 0.54 K/uL (0.11-0.59); Monocytes % (auto) 12.1 %; Neutrophils # (auto) 2.12 K/uL (1.4-6.5); Neutrophils % (auto) 47.7 %; Platelet Count 186 K/uL (130-400); RDW Coefficient of Variation 12.5 % (11.5-14.5); RDW Standard Deviation 42.3 fL (36.4-46.3); Red Blood Count 3.51 M/uL (4.7-6.1); White Blood Count 4.45 K/uL (4.8-10.8)
[2018-06-25 07:43] LABS: BUN Creatinine Ratio 11.5 (10-20); Calcium 8.3 mg/dl (8.5-10.1); Creatinine Clr Calc Pharmacy 67.3 ml/min; Est GFR (African American) 91.9; Est GFR (Non-African American) 79.3; Potassium 3.8 mmol/L (3.5-5.1)
[2018-06-25] MEDS: AMLODIPINE BESYLATE 5 MG TAB PO SCH (08:19)
[2018-06-25] MEDS: CYANOCOBALAMIN 500 MCG TABLET (VITAMIN B-12) PO SCH (08:19)
[2018-06-25] MEDS: CEROVITE ADV FORMULA TAB PO SCH (08:19)
[2018-06-25] MEDS: AMOXICILLIN 500 MG CAP PO SCH ×4 (08:20→20:01)
[2018-06-25] MEDS: ENOXAPARIN 100 MG/1ML SYR SQ SCH ×2 (08:20→20:02)
[2018-06-25] MEDS: carBAMazepine 200 MG TABLET PO SCH ×2 (08:21→20:02)
[2018-06-25] MEDS: ASPIRIN 81 MG ECTAB PO SCH (08:21)
[2018-06-25] MEDS: FERROUS SULFATE 325 MG TAB PO SCH (08:21)
[2018-06-25] MEDS: SERTRALINE HCL 50 MG TABLET PO SCH (08:22)
[2018-06-25] MEDS: DOXAZosin MESYLATE 4 MG TAB PO SCH (08:22)
--- NOTE | 2018-06-25 09:58 | Neurology Progress Note ---
Date of Service June 25, 2018 Assessment & Plan (1) Acute CVA (cerebrovascular accident): Acute subcortical left hemispheric ischemic stroke with evidence of a left MCA branch occlusion on angiography. Clinically, this patient has a very mild aphasia and right facial droop. He does not appear to have an associated hemiparesis or hemiplegia. patient should continue with Xarelto and aspirin. (2) Encounter for monitoring anticonvulsant therapy: This patient has been taking Tegretol since his initial Neurosurgery for seizure prophylaxis. In reviewing Dr. Sandy's consultation report and in speaking with the patient further, it sounds like he has never had a clinical seizure. It has been recommended that he taper off his Tegretol as there is a potential interaction with his Xarelto. For the time being, I agree with reducing his dosage of Tegretol to 200 milligrams twice daily. He should probably follow up with either Dr. Sandy or myself for further management of his anticonvulsant taper. Subjective Follow-up for stroke and anticonvulsant management The patient is an 83-year-old male who presented with acute/subacute moderate right facial droop, dysarthria, and mild aphasia. He was found to have a new 6 millimeter infarct within the left basal ganglia and a short segment occlusion of the sylvian branch of the left middle cerebral artery. History also notable for prior left frontal craniotomy with residual left frontal encephalomalacia. He has been taking Tegretol for many years for seizure prevention although in reviewing available records it appears as if he has never had a seizure. He has a history of DVT and pulmonary embolism and his been taking Xarelto. The patient continues to exhibit a moderate right facial droop and dysarthria this morning. He denies headache, vision loss, or weakness of the limbs. Constitutional: no fever Eyes: no blind spots Neurologic: as per Subjective / HPI Physical Exam Vital Signs (Past 24 Hours): Last Vital Signs Temp 37 C 06/25/18 07:00 Pulse 60 06/25/18 08:18 Resp 18 06/25/18 07:00 BP 173/67 H 06/25/18 08:18 Pulse Ox 95 06/25/18 07:00 Physical Exam: The patient is alert and oriented to person and hospital. Attention normal. He has mild difficulty with naming, repetition, and reading. He appears to have a normal fund of knowledge with regards to vocabulary. Visual barnett full to confrontation. Pupils equal round reactive to light and accommodation. Eye movements intact. There is mild right facial weakness. Hearing intact. Palate elevates to midline. Shoulder shrug intact. Tongue protrudes to midline. Sensation intact in all 4 limbs. Deep tendon reflexes intact and symmetrical. Plantar responses equivocal. There is no dysmetria with [id number] or heel to thomas bilaterally. Patient appears to have normal strength for all 4 limbs. There is no hemiparesis. Muscle tone normal. No abnormal movements observed. Results & Data Diagnostic Findings A CT of the head completed on June 23, 2018 revealed a new 6 millimeter hypodense focus adjacent to the left basal ganglia, likely consistent with a subacute infarct. There chronic postoperative changes noted with evidence of a prior left frontal craniotomy and underlying encephalomalacia of the left frontal lobe. Images and report reviewed. CTA of the neck reveals mild to moderate atherosclerotic plaque within the bilateral internal carotid arteries, no significant stenosis. There is moderate to severe stenosis at the origin of the left vertebral artery. CTA of the head reveals severe stenosis versus short segment occlusion of the sylvian branch of the left middle cerebral artery. No intracranial aneurysms.
--- NOTE | 2018-06-25 14:21 | Fluoroscopy Report ---
FL video swallow CLINICAL HISTORY: 83 years-old Male with assess for aspiration, coughing with meals. Chronic dysphag ia with clinical concern for aspiration TECHNIQUE: Video fluoroscopic evaluation of swallowing was performed in the AP and lateral projection s by the speech pathology staff. The patient is fed nectar-thick and thin liquid barium, a barium coa cherelle wafer, and barium pudding. FLUOROSCOPY TIME: 2.7 minutes. COMPARISON STUDY: CTA of the chest 06/11/2015. FINDINGS: There is laryngeal penetration without aspiration noted with nectar thick liquid. Mild esop hageal dysmotility with nectar thick and pudding consistencies. No aspiration identified. Pooling of contrast noted within the piriform sinuses and vallecula. Degenerative spurring noted about the spine . Distal esophageal dysmotility. IMPRESSION: 1. Penetration with nectar thick liquid. No aspiration. 2. Please see the speech pathologist report for detailed findings and recommendations. Electronically signed by: Sina Sanchez M.D. 06/25/2018 2:20 PM
--- NOTE | 2018-06-25 18:41 | Hospitalist Progress Note ---
Date of Service June 25, 2018 Assessment & Plan (1) Facial droop: This pt is an 83yoM with hx of intracranial hemorrhage from aneurysm status post clipping 40 years ago, previous CVA, DVT with PE in 2016 on xarelto, hypothyroidism, COPD, HTN, HL, anemia, BPH, and anxiety presents with multiple falls, slurred speech and R sided facial droop. -Initial CT head: L frontal lobe volume loss likely from prior infarct vs removal of previous tumor; Left frontal lobe and overlying calvarium posts urgical changes present since prior study from 06/11/15; Chronic ischemic small vessel white matter disease without midline shift or hydrocephalus. 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; Diffuse parenchymal atrophy; No acute intracranial hemorrhage or acute infarct MRI of the brain could not be performed due to history of aneurysm clipping-a repeat CT of the head 36 hours after admission shows: There is a new 6 mm hypodense focus adjacent to the left basal ganglia. This could represent a subacute infarct. CT angiogram of the head does show stenosis versus occlusion of the sylvian branch of the left MCA-small vessel-no intervention possible New ischemic CVA is responsible for his symptoms-this is likely secondary to microvascular disease as he has no documented atrial fibrillation -Started on aspirin 81 mg daily which was added to his Xarelto due to cerebrovascular disease -Despite this occurring in the setting of taking Xarelto, is possible that the Tegretol decreased the efficacy of his Xarelto-weaning off Tegretol and will give Lovenox in the meantime x1 month, then can restart Xarelto -Lyme IgM neg, IgG +, western blot pending-ordered at the time of admission -Continued home Simvastatin -PT/OT/speech therapy consults appreciated -with associated mild-moderate oropharyngeal dysphagia-needs continued speech therapy -Neurology consultation appreciated-recommends f/u in Neuro clinic within 1 month of discharge for further management of antiepileptic drugs and post-stroke follow up -Continue telemetry monitoring for arrhythmia-none so far -Echocardiogram shows normal LVEF, no source of emboli (2) Acute CVA (cerebrovascular accident): As above (3) Multiple falls: Secondary to stroke as above (4) Dysarthria: Persists, secondary to acute stroke as above (5) Hyperlipidemia: -Continue statin (6) History of pulmonary embolism: Holding Xarelto for now as above as Tegretol can decrease its efficacy -Bridged with full dose anticoagulation with Lovenox x1 month during Tegretol wean -Restart Xarelto in 1 month once off Tegretol (7) HTN (hypertension), benign: Allow permissive hypertension in the setting of acute CVA -continue home amlodipine 5 mg daily (8) Dental abscess: -Continue amoxicillin from home x 10 day course-today day#5 -He recently started taking p.o. diclofenac as prescribed by his dentist-we will avoid this in the setting of being on anticoagulation and with recent stroke -Treat pain with tramadol as needed-note, although this can lower the seizure threshold, he has never had a seizure and is being weaned off of his Tegretol (9) Hypothyroidism: TSH here is mildly elevated at 5.08 -continue home levothyroxine (10) Reactive airway disease: Unclear diagnosis-review of outpatient records shows no PFs and no Pulm consults, however he has not been seen in the [facility] system in almost 4 years. Does have a remote history of smoking, so could be COPD Is on albuterol at home (11) Anemia: -Hgb 11.5 previous Hgb 12 and chronic for many years, normocytic, other cell lines and CBC are normal. 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, then records state it "resolved" and no further f/u was needed -Continue home iron supplement -Continue to monitor CBC (12) BPH (benign prostatic hyperplasia): Continue doxazosin Follow blood pressures and hold doxazosin if blood pressures drop below 140/90 (13) History of cerebral aneurysm repair: This was approximately 40 years ago and involved a hemorrhagic stroke with aneurysm clipping He has been on Tegretol ever since procedure prophylaxis but is never had a seizure -Weaning off Tegretol as above -He cannot have an MRI because of this clipping (14) Dysphagia: mild-moderate OP dysphagia on Video swallow, no aspiration With some esophageal dysmotility -appreciate Speech recommendations -needs continued speech therapy after discharge (15) Bipolar 1 disorder: Diagnosed in young adulthood and reports to me he was actually seprated from the [employer] because of this diagnosis. Case Man notes report he was hospitalized for inpatient Mental Health treatment as recent as 2018 -Continue home ativan for anxiety -Continue home quetiapine, sertraline -he is being weaned off the Tegretol for seizure prophylaxis, but question if on this as a mood stabilizer as well?? Will watch mood carefully as weaning off Tegretol (16) DVT prophylaxis: Lovenox full dose Disposition-remain on telemetry Plan for SNF referral and rehab placement-awaiting placement Physical Exam Vital Signs (Past 24 Hours): Last Vital Signs Temp 36.9 C 06/25/18 15:17 Pulse 69 06/25/18 16:16 Resp 18 06/25/18 15:17 BP 150/71 H 06/25/18 15:17 Pulse Ox 94 06/25/18 15:17 Constitutional: WD/WN, vitals as above Eyes: PERRL, conjunctivae normal, anicteric sclerae ENMT: external ear and nose normal, oropharynx normal Neck: trachea midline, no thyromegaly Respiratory: normal respiratory effort, lungs clear to auscultation Cardiovascular: RRR, no murmur, no edema Gastrointestinal (Abdomen): normal bowel sounds, soft, nontender, no hepatosplenomegaly Musculoskeletal: Extremities: extremities normal to inspection; no cyanosis and no clubbing Skin: no rashes, warm and dry Neurologic: normal touch/pain/proprioception, moves all extremities (5 out of 5 strength in upper and lower extremities bilaterally) and awake; + CN's not intact (With right-sided facial droop, otherwise intact) and + abnormal deep tendon reflexes (DTRs 1+ throughout) Speech / Cognition: + abnormal speech (With some dysarthria) Psychiatric: A+Ox3, euthymic affect
[2018-06-25] MEDS: QUETIAPINE FUMARATE 25 MG TABLET PO SCH (20:01)
[2018-06-25] MEDS: SIMVASTATIN 40 MG TAB PO SCH (20:02)
[2018-06-26] MEDS: LEVOTHYROXINE SODIUM 25 MCG TABLET PO SCH (06:02)
[2018-06-26] MEDS ORDERED: FERROUS SULFATE 325 MG/7.4 ML UDP PO SCH (09:00)
[2018-06-26] MEDS: CYANOCOBALAMIN 500 MCG TABLET (VITAMIN B-12) PO SCH (09:02)
[2018-06-26] MEDS: CEROVITE ADV FORMULA TAB PO SCH (09:02)
[2018-06-26] MEDS: SERTRALINE HCL 50 MG TABLET PO SCH (09:02)
[2018-06-26] MEDS: AMLODIPINE BESYLATE 5 MG TAB PO SCH (09:02)
[2018-06-26] MEDS: ASPIRIN 81 MG CHEW PO SCH (09:02)
[2018-06-26] MEDS: DOXAZosin MESYLATE 4 MG TAB PO SCH (09:04)
[2018-06-26] MEDS: AMOXICILLIN 500 MG CAP PO SCH ×4 (09:04→20:38)
[2018-06-26] MEDS: ENOXAPARIN 100 MG/1ML SYR SQ SCH ×2 (09:04→20:38)
[2018-06-26] MEDS: carBAMazepine 200 MG TABLET PO SCH ×2 (09:06→20:38)
--- NOTE | 2018-06-26 15:08 | Psychiatric Consultation ---
Date of Consultation June 26, 2018 Impression / Recommendations Impression 83-year-old gentleman admitted medically with stroke symptoms. He is being referred to [facility] for rehab thus requiring the target process. We are consulted to participate in that as well as evaluate mood. The patient readily admits that he is sad because a woman he had fallen in love with rejected him and then . His amorous behaviors do not seem to be associated with his bipolar disorder, and are confirmed with his daughter that these have been long-standing baseline behaviors. He is being weaned off of Tegretol due to its interactions with his anticoagulants. I think this is a fine idea as I think Tegretol has a lot of dirty side effects that an elderly man can do without. That having been said, the question would be does he need another mood stabilizer. It is difficult to know in this case as the patient denies that he has been symptomatic with either sophie or severe depression over the years until now. He is certainly still on Zoloft 75 mg which is a good medicine to target his low mood, but without a mood stabilizer in place, places him at risk of activation. He is on Seroquel 50 mg at bedtime which could be used as a low level mood stabilizer if the patient begins to be activated as I would like to increase his Zoloft to 100 mg daily. I think that he would benefit from seeing a talk therapist given the sadness over this relationship and perhaps to identify some of the behaviors that have been causing him problems as the daughter says his amorous side has caused them to move him from at least one previous personal long term. If the patient needs a mood stabilizer down the road, one could consider Lamictal which would have fewer side effects and I do not see an obvious interaction between that and Xarelto. At this point I do not think that he meets criteria for inpatient mental health treatment, I believe that he is safe to move forward to a intermediate as his bipolarity is not causing him any behavioral difficulties. I will asked the liaison nurse to explore possible options for counseling once he returns to [place]. (1) Bipolar 1 disorder: - TARGET- the patient is stable psychiatrically to receive treatment in a intermediate environment - Recommend increasing Zoloft to 100 mg to target mood, but with caution to activating bipolar disorder - If mood unstable, consider lamictal which would have fewer side effects, and no obvious interaction with Xaralto - Will have liaison explore possible counseling option s Risk Factors Assessment Do You Have Access To A Gun?: No CPT Code 09054 Psych History Identifying Data 83-year-old resident of [facility], admitted with stroke symptoms. We are consulted to evaluate bipolar disorder in the setting of the need to go to a intermediate for rehab. Information is gathered from the patient, the electronic medical record and his daughter who is at the bedside. Chief Complaint "Really sad.". History of Present Illness He is admitted medically. the patient is an 83-year-old gentleman, currently residing at [facility], who is experiencing multiple falls and was referred to the emergency department due to concerns for a stroke. It is now being recommended that he go for rehab at [facility] and will need to go through the target process. The patient tells me that he has carried a diagnosis of bipolar disorder for a very long time but says that he has not seen a psychiatrist in is much is 40-50 years. His daughter said that he recently had a hospitalization at [facility] in March because of somewhat aggressive and amorous behavior toward females at his personal long term. Apparently he was tried on lithium where he had multiple elevated lithium levels with some degree of renal impairment. This was therefore discontinued and he came to our hospital on carbamazepine. Because carbamazepine can interfere with the anticoagulants they have started to wean off of this. Other psychiatric medications currently include Zoloft 75 mg daily as well as Seroquel 50 mg at at bedtime. The patient is a somewhat dubious historian, frequently deferring to his daughter to help answer questions. It is unclear whether this is long- standing or whether this is secondary to his most recent cerebral event. In terms of his mood, the patient describes himself as "really sad" and this relates to the fact that a woman he had fallen in love with at the personal long term recently . Prior to that however she had told him that she wanted nothing to do with him and so had already been feeling depressed. His daughter describes that this has been a lifelong pattern for him. The patient has been 3 times, twice and once , and the patient does not wait very long before he goes about finding another partner. The daughter and her brother both believe that the patient needs to be in a relationship in order to feel whole. Patient himself agrees with this. Nonetheless, they describe this as baseline behaviors, not something necessarily associated with a manic episode. The patient reports that he is not having and has never had suicidal thoughts. He reports good sleep and appetite. The daughter however says that he refused both breakfast and lunch today saying that he was too sad to eat. T he patient denies anxiety. He denies ever having had auditory or visual hallucinations. When asked about manic episodes, he says he has not had one in as long as he can remember. The daughter denies seeing anything that would be congruent with a manic episode either. Past Psychiatric History Previous Psych History: Remote diagnosis of bipolar disorder per the patient. Not currently in any psychiatric services Current Psychiatric Diagnosis: Bipolar disorder Outpatient Services: None Previous Psych Admissions: [facility] in March 2018 Do You Have Access To A Gun?: No History of Previous Suicide Attempt: Yes Describe Attempts in the Past: 40 years ago Allergies Allergy/AdvReac Type Severity Reaction Status Date / Time No Known Allergies Allergy Unverified 06/23/18 00:36 Home Medications Home Medications Medication Instructions Recorded Confirmed Type acetaminophen [Tylenol] 325 - 650 mg PO Q4 PRN 06/23/18 06/23/18 History amlodipine 5 mg PO DAILY 06/23/18 06/23/18 History amoxicillin 500 mg PO QID 06/23/18 06/23/18 History ascorbic acid (vitamin C) 1 g PO DAILY 06/23/18 06/23/18 History calcium carbonate [Calcium 600] 600 mg PO DAILY 06/23/18 06/23/18 History carbamazepine 200 mg PO UD 06/23/18 06/23/18 History carbamazepine 300 mg PO QAM 06/23/18 06/23/18 History cholecalciferol (vitamin D3) 1,000 unit PO DAILY 06/23/18 06/23/18 History [Vitamin D3] cyanocobalamin (vitamin B-12) 500 mcg PO DAILY 06/23/18 06/23/18 History dextromethorphan-guaifenesin 5 ml PO Q4 PRN 06/23/18 06/23/18 History [Tussin DM] diclofenac sodium 50 mg PO BID PRN 06/23/18 06/23/18 History doxazosin 4 mg PO DAILY 06/23/18 06/23/18 History ferrous sulfate 325 mg PO DAILY 06/23/18 06/23/18 History ipratropium-albuterol 3 ml INHALATION TID PRN 06/23/18 06/23/18 History levothyroxine 25 mg PO DAILY 06/23/18 06/23/18 History loperamide 2 mg PO Q4 PRN 06/23/18 06/23/18 History lorazepam 0.5 mg PO TID PRN 06/23/18 06/23/18 History quetiapine 50 mg PO HS 06/23/18 06/23/18 History rivaroxaban [Xarelto] 20 mg PO QPM 06/23/18 06/23/18 History sennosides-docusate sodium 1 tab PO BID PRN 06/23/18 06/23/18 History [Senexon-S] sertraline 75 mg PO DAILY 06/23/18 06/23/18 History simvastatin 40 mg PO QPM 06/23/18 06/23/18 History vit C-E-zinc fon-yfsoaz-zlamwo 1 tab PO DAILY 06/23/18 06/23/18 History [[facility]] Family History Noncontributory Substance Abuse History Denies drugs and alcohol Personal History Living Arrangements: Personal Care Facility Highest Grade Completed: Graduate School Highest Grade Completed Comment: Masters degree in [employer] Employment Status: Retired (Worked in [employer] at [employer]) Marital Status: ( 3 times, once , twice ) Number Of Children: 2 Beliefs That Will Affect Care: None Patient History Medical History Hyperlipidemia (Chronic) Pulmonary embolism Social History Communication Ability: Effective Beliefs That Will Affect Care: None Current Living Situation: Alone and Personal Care Facility Feels Safe at Home: Yes Safety Concerns: Feels Safe At This Time Smoking Status: Former smoker Hx Alcohol Use: No Hx Substance Use: No Physical Exam Psychiatric Orientation: alert and cooperative Difficulty retrieving information but new to look to the paper for the current day date and year Apperance: appropriately dressed and appropriately groomed Right-sided facial droop, wearing glasses Eye Contact: good eye contact Motor Behavior: no abnormal motor movements Speech: normal rate/rhythm/volume of speech (Minor slur, slightly dysarthric) Affect: + depressed affect and + tearful affect Mood: + depressed mood Thought Process: goal directed thought process Thought Content: reality based without delusions (Trouble retrieving words and information) Suicidal Thoughts: denies suicidal thoughts Homicidal Thoughts: denies homicidal thoughts Hallucinations: no auditory hallucinations and no visual hallucinations Cognition: recent memory grossly intact, attention grossly intact and language grossly intact Estimated Intelligence: average estimated intelligence Insight: + limited insight Judgement: + limited judgement Vital Signs (Past 24 Hours) Last Vital Signs Temp 36.7 C 06/26/18 11:21 Pulse 63 06/26/18 11:21 Resp 18 06/26/18 11:21 BP 176/70 H 06/26/18 11:21 Pulse Ox 94 06/26/18 11:21 Review of Systems All systems reviewed & are unremarkable except as noted in HPI & below Results & Data Medications Administered Acetaminophen (Tylenol) 650 mg PO Q4H PRN PRN Reason: Pain or Fever Stop: 07/23/18 07:19 Last Admin: 06/26/18 13:19 Dose: 650 mg Documented by: [id number] Amlodipine Besylate (Norvasc) 5 mg PO DAILY [facility] Stop: 07/23/18 08:59 Last Admin: 06/26/18 09:02 Dose: 5 mg Documented by: [id number] Admin: 06/25/18 08:19 Dose: 5 mg Documented by: [id number] Admin: 06/24/18 07:41 Dose: 5 mg Documented by: [id number] Admin: 06/23/18 10:58 Dose: 5 mg Documented by: [id number] Amoxicillin (Amoxil) 500 mg PO QID [facility]; Protocol Stop: 06/26/18 23:59 Last Admin: 06/26/18 12:24 Dose: 500 mg Documented by: [id number] Admin: 06/26/18 09:04 Dose: 500 mg Documented by: [id number] Admin: 06/25/18 20:01 Dose: 500 mg Documented by: [id number] Admin: 06/25/18 17:26 Dose: 500 mg Documented by: [id number] Admin: 06/25/18 12:19 Dose: 500 mg Documented by: [id number] Admin: 06/25/18 08:20 Dose: 500 mg Documented by: [id number] Admin: 06/24/18 21:29 Dose: 500 mg Documented by: [id number] Admin: 06/24/18 17:12 Dose: 500 mg Documented by: [id number] Aspirin (Aspirin Chew) 81 mg PO QAM TONIE Stop: 07/26/18 08:59 Last Admin: 06/26/18 09:02 Dose: 81 mg Documented by: [id number] Carbamazepine (Tegretol) 200 mg PO BID TONIE Stop: 07/23/18 20:59 Last Admin: 06/26/18 09:06 Dose: 200 mg Documented by: [id number] Admin: 06/25/18 20:02 Dose: 200 mg Documented by: [id number] Admin: 06/25/18 08:21 Dose: 200 mg Documented by: [id number] Admin: 06/24/18 21:31 Dose: 200 mg Documented by: [id number] Admin: 06/24/18 07:40 Dose: 200 mg Documented by: [id number] Admin: 06/23/18 20:18 Dose: 200 mg Documented by: [id number] Cyanocobalamin (Vitamin B-12) 500 mcg PO DAILY TONIE Stop: 07/23/18 08:59 Last Admin: 06/26/18 09:02 Dose: 500 mcg Documented by: [id number] Admin: 06/25/18 08:19 Dose: 500 mcg Documented by: [id number] Admin: 06/24/18 07:41 Dose: 500 mcg Documented by: [id number] Admin: 06/23/18 10:58 Dose: 500 mcg Documented by: [id number] Doxazosin Mesylate (Cardura) 4 mg PO DAILY TONIE Stop: 07/23/18 08:59 Last Admin: 06/26/18 09:04 Dose: 4 mg Documented by: [id number] Admin: 06/25/18 08:22 Dose: 4 mg Documented by: [id number] Admin: 06/24/18 07:41 Dose: 4 mg Documented by: [id number] Admin: 06/23/18 10:56 Dose: 4 mg Documented by: [id number] Enoxaparin Sodium (Lovenox) 90 mg SQ Q12 TONIE Stop: 07/23/18 20:59 Last Admin: 06/26/18 09:04 Dose: 90 mg Documented by: [id number] Admin: 06/25/18 20:02 Dose: 90 mg Documented by: [id number] Admin: 06/25/18 08:20 Dose: 90 mg Documented by: [id number] Admin: 06/24/18 21:30 Dose: 90 mg Documented by: [id number] Admin: 06/24/18 07:42 Dose: 90 mg Documented by: [id number] Admin: 06/23/18 20:16 Dose: 90 mg Documented by: [id number] Ioversol (Optiray 320 125ml) 118 ml IV ONCE PRN PRN Reason: Interaction Checking Stop: 06/27/18 09:51 Last Admin: 06/23/18 09:53 Dose: 118 ml Documented by: [id number] Levothyroxine Sodium (Synthroid) 25 mcg PO DAILYBB [facility] Stop: 07/23/18 07:59 Last Admin: 06/26/18 06:02 Dose: 25 mcg Documented by: [id number] Admin: 06/25/18 05:45 Dose: 25 mcg Documented by: [id number] Admin: 06/24/18 05:47 Dose: 25 mcg Documented by: [id number] Admin: 06/23/18 11:00 Dose: 25 mcg Documented by: [id number] Multivitamins/Minerals (Multivitamin W/ Minerals Tab) 1 tab PO DAILY TONIE Stop: 07/23/18 08:59 Last Admin: 06/26/18 09:02 Dose: 1 tab Documented by: [id number] Admin: 06/25/18 08:19 Dose: 1 tab Documented by: [id number] Admin: 06/24/18 07:41 Dose: 1 tab Documented by: [id number] Admin: 06/23/18 10:58 Dose: 1 tab Documented by: [id number] Quetiapine Fumarate (Seroquel) 50 mg PO HS TONIE Stop: 07/23/18 20:59 Last Admin: 06/25/18 20:01 Dose: 50 mg Documented by: [id number] Admin: 06/24/18 21:30 Dose: 50 mg Documented by: [id number] Admin: 06/23/18 20:18 Dose: 50 mg Documented by: [id number] Sertraline HCl (Zoloft) 75 mg PO DAILY TONIE Stop: 07/23/18 08:59 Last Admin: 06/26/18 09:02 Dose: 75 mg Documented by: [id number] Admin: 06/25/18 08:22 Dose: 75 mg Documented by: [id number] Admin: 06/24/18 07:41 Dose: 75 mg Documented by: [id number] Admin: 06/23/18 10:59 Dose: 75 mg Documented by: [id number] Simvastatin (Zocor) 40 mg PO QPM TONIE Stop: 07/23/18 20:59 Last Admin: 06/25/18 20:02 Dose: 40 mg Documented by: [id number] Admin: 06/24/18 21:31 Dose: 40 mg Documented by: [id number] Admin: 06/23/18 20:18 Dose: 40 mg Documented by: [id number]
[2018-06-26] MEDS: QUETIAPINE FUMARATE 25 MG TABLET PO SCH (20:38)
[2018-06-26] MEDS: SIMVASTATIN 40 MG TAB PO SCH (20:38)
--- NOTE | 2018-06-26 23:52 | Hospitalist Progress Note ---
Date of Service June 26, 2018 Assessment & Plan (1) Facial droop: This pt is an 83yoM with hx of intracranial hemorrhage from aneurysm status post clipping 40 years ago, previous CVA, DVT with PE in 2016 on xarelto, hypothyroidism, COPD, HTN, HL, anemia, BPH, and anxiety presents with multiple falls, slurred speech and R sided facial droop. -Initial CT head: L frontal lobe volume loss likely from prior infarct vs removal of previous tumor; Left frontal lobe and overlying calvarium posts urgical changes present since prior study from 06/11/15; Chronic ischemic small vessel white matter disease without midline shift or hydrocephalus. 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; Diffuse parenchymal atrophy; No acute intracranial hemorrhage or acute infarct MRI of the brain could not be performed due to history of aneurysm clipping-a repeat CT of the head 36 hours after admission shows: There is a new 6 mm hypodense focus adjacent to the left basal ganglia. This could represent a subacute infarct. CT angiogram of the head does show stenosis versus occlusion of the sylvian branch of the left MCA-small vessel-no intervention possible New ischemic CVA is responsible for his symptoms-this is likely secondary to microvascular disease as he has no documented atrial fibrillation -Started on aspirin 81 mg daily which was added to his Xarelto due to cerebrovascular disease -Despite this occurring in the setting of taking Xarelto, is possible that the Tegretol decreased the efficacy of his Xarelto-weaning off Tegretol and will give Lovenox in the meantime x1 month, then can restart Xarelto -Lyme IgM neg, IgG +, western blot pending-ordered at the time of admission -Continued home Simvastatin -PT/OT/speech therapy consults appreciated -with associated mild-moderate oropharyngeal dysphagia-needs continued speech therapy -Neurology consultation appreciated-recommends f/u in Neuro clinic within 1 month of discharge for further management of antiepileptic drugs and post-stroke follow up -Continue telemetry monitoring for arrhythmia-none so far -Echocardiogram shows normal LVEF, no source of emboli (2) Acute CVA (cerebrovascular accident): As above (3) Multiple falls: Secondary to stroke as above (4) Dysarthria: Persists, secondary to acute stroke as above (5) Hyperlipidemia: -Continue statin (6) History of pulmonary embolism: Holding Xarelto for now as above as Tegretol can decrease its efficacy -Bridged with full dose anticoagulation with Lovenox x1 month during Tegretol wean -Restart Xarelto in 1 month once off Tegretol (7) HTN (hypertension), benign: Allow permissive hypertension in the setting of acute CVA -continue home amlodipine 5 mg daily (8) Dental abscess: -Continue amoxicillin from home x 7 day course-today day#7 -He recently started taking p.o. diclofenac as prescribed by his dentist-we will avoid this in the setting of being on anticoagulation and with recent stroke -Treat pain with tramadol as needed-note, although this can lower the seizure threshold, he has never had a seizure and is being weaned off of his Tegretol (9) Hypothyroidism: TSH here is mildly elevated at 5.08 -continue home levothyroxine (10) Reactive airway disease: Unclear diagnosis-review of outpatient records shows no PFs and no Pulm consults, however he has not been seen in the [facility] system in almost 4 years. Does have a remote history of smoking, so could be COPD Is on albuterol at home (11) Anemia: -Hgb 11.5 previous Hgb 12 and chronic for many years, normocytic, other cell lines and CBC are normal. 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, then records state it "resolved" and no further f/u was needed -dc home iron supplement as cannot tolerate liquid iron needed here as cannot crush Fe tabs -Continue to monitor CBC (12) BPH (benign prostatic hyperplasia): Continue doxazosin Follow blood pressures and hold doxazosin if blood pressures drop below 140/90 (13) History of cerebral aneurysm repair: This was approximately 40 years ago and involved a hemorrhagic stroke with aneurysm clipping He has been on Tegretol ever since procedure prophylaxis but is never had a seizure -Weaning off Tegretol as above -He cannot have an MRI because of this clipping (14) Dysphagia: mild-moderate OP dysphagia on Video swallow, no aspiration With some esophageal dysmotility -appreciate Speech recommendations -needs continued speech therapy after discharge (15) Bipolar 1 disorder: Diagnosed in young adulthood and reports to me he was actually seprated from the [employer] because of this diagnosis. Case Man notes report he was hospitalized for inpatient Mental Health treatment as recent as 2018 and he was started on ZOloft and Seroquel then Now with tearful affect, perseveration on topic of a lady friend from personal custodial who . Consult Psych appreciated--> increase ZOloft to 100mg daily, ok to wean off Tegretol and consider lamictal possibly as mood stabilizer -Continue ativan for anxiety prn -Continue home quetiapine, sertraline -he is being weaned off the Tegretol for seizure prophylaxis (16) DVT prophylaxis: Lovenox full dose Disposition-remain on telemetry Plan for SNF referral and rehab placement-awaiting placement Subjective Pt very tearful today, keeps saying he "lost the love of my life." Says "she used my name and then went with other men." Daughter confirms that he is referring to a woman who did pass away at his personal custodial that he became infatuated with who did not return his favor. Pt denies nausea but does not want to eat. Denies SI. Denies headache, no chest pain, no SOB. Review of Systems All systems reviewed & are unremarkable except as noted in HPI & below Physical Exam Vital Signs (Past 24 Hours): Last Vital Signs Temp 36.7 C 06/26/18 22:55 Pulse 63 06/26/18 22:55 Resp 18 06/26/18 22:55 BP 181/78 H 06/26/18 22:55 Pulse Ox 95 06/26/18 22:55 Constitutional: WD/WN, vitals as above Eyes: PERRL, conjunctivae normal, anicteric sclerae ENMT: external ear and nose normal, oropharynx normal Neck: trachea midline, no thyromegaly Respiratory: normal respiratory effort, lungs clear to auscultation Cardiovascular: RRR, no murmur, no edema Gastrointestinal (Abdomen): normal bowel sounds, soft, nontender, no hepatosplenomegaly Musculoskeletal: Extremities: extremities normal to inspection; no cyanosis and no clubbing Skin: no rashes, warm and dry Neurologic: normal touch/pain/proprioception, moves all extremities (5 out of 5 strength in upper and lower extremities bilaterally) and awake; + CN's not intact (With right-sided facial droop, otherwise intact) and + abnormal deep tendon reflexes (DTRs 1+ throughout) Speech / Cognition: + abnormal speech (With some dysarthria) Psychiatric: Orientation: alert, oriented to person and cooperative Affect: + depressed affect and + tearful affect Suicidal Thoughts: denies suicidal thoughts
[2018-06-27] MEDS: LEVOTHYROXINE SODIUM 25 MCG TABLET PO SCH (06:18)
[2018-06-27] MEDS: carBAMazepine 200 MG TABLET PO SCH (09:00)
[2018-06-27] MEDS ORDERED: SERTRALINE HCL 100 MG TABLET PO SCH (09:00)
[2018-06-27] MEDS: CEROVITE ADV FORMULA TAB PO SCH (09:01)
[2018-06-27] MEDS: DOXAZosin MESYLATE 4 MG TAB PO SCH (09:01)
[2018-06-27] MEDS: AMLODIPINE BESYLATE 5 MG TAB PO SCH (09:01)
[2018-06-27] MEDS: CYANOCOBALAMIN 500 MCG TABLET (VITAMIN B-12) PO SCH (09:01)
[2018-06-27] MEDS: ASPIRIN 81 MG CHEW PO SCH (09:01)
[2018-06-27] MEDS: ENOXAPARIN 100 MG/1ML SYR SQ SCH (09:01)
--- NOTE | 2018-06-27 13:23 | Discharge Summary ---
Date of Service June 27, 2018 Admission HPI Per Admitting Provider He is admitted medically. the patient is an 83-year-old gentleman, currently residing at [facility], who is experiencing multiple falls and was referred to the emergency department due to concerns for a stroke. It is now being recommended that he go for rehab at [facility] and will need to go through the target process. The patient tells me that he has carried a diagnosis of bipolar disorder for a very long time but says that he has not seen a psychiatrist in is much is 40-50 years. His daughter said that he recently had a hospitalization at [facility] in March because of somewhat aggr essive and amorous behavior toward females at his personal half-way. Apparently he was tried on lithium where he had multiple elevated lithium levels with some degree of renal impairment. This was therefore discontinued and he came to our hospital on carbamazepine. Because carbamazepine can interfere with the anticoagulants they have started to wean off of this. Other psychiatric medications currently include Zoloft 75 mg daily as well as Seroquel 50 mg at at bedtime. The patient is a somewhat dubious historian, frequently deferring to his daughter to help answer questions. It is unclear whether this is long- standing or whether this is secondary to his most recent cerebral event. In terms of his mood, the patient describes himself as "really sad" and this relates to the fact that a woman he had fallen in love with at the personal half-way recently . Prior to that however she had told him that she wanted nothing to do with him and so had already been feeling depressed. His daughter describes that this has been a lifelong pattern for him. The patient has been 3 times, twice and once , and the patient does not wait very long before he goes about finding another partner. The daughter and her brother both believe that the patient needs to be in a relationship in order to feel whole. Patient himself agrees with this. Nonetheless, they describe this as baseline behaviors, not something necessarily associated with a manic episode. The patient reports that he is not having and has never had suicidal thoughts. He reports good sleep and appetite. The daughter however says that he refused both breakfast and lunch today saying that he was too sad to eat. The patient denies anxiety. He denies ever having had auditory or visual hallucinations. When asked about manic episodes, he says he has not had one in as long as he can remember. The daughter denies seeing anything that would be congruent with a manic episode either. Principal Diagnosis Acute ischemic CVA Discharge Exam Constitutional WD/WN, vitals as above Eyes PERRL, conjunctivae normal, anicteric sclerae ENMT external ear and nose normal, oropharynx normal Neck trachea midline, no thyromegaly Respiratory normal respiratory effort, lungs clear to auscultation Cardiovascular RRR, no murmur, no edema Gastrointestinal (Abdomen) normal bowel sounds, soft, nontender, no hepatosplenomegaly Musculoskeletal Extremities: extremities normal to inspection; no cyanosis and no clubbing Skin no rashes, warm and dry Neurologic normal touch/pain/proprioception, moves all extremities (5 out of 5 strength in upper and lower extremities bilaterally) and awake; + CN's not intact (With right-sided facial droop, otherwise intact) and + abnormal deep tendon reflexes (DTRs 1+ throughout) Speech / Cognition: + abnormal speech (With some dysarthria) Psychiatric A+Ox3, euthymic affect Affect: euthymic affect Discharge Data Allergies Allergy/AdvReac Type Severity Reaction Status Date / Time No Known Allergies Allergy Unverified 06/23/18 00:36 Consultations 06/23/18 00:24 ED Decision to Admit Stat 06/23/18 07:20 Consult Case Management - Discharge Planning Routine Consult Neurology Routine 06/25/18 10:27 Consult Case Management - Discharge Planning Routine 06/26/18 09:38 Consult Psychiatry Routine Ordered Studies 06/22/18 23:26 CT head/brain wo con Urgent 06/23/18 07:20 CT angio head w con Routine CT angio neck with con Routine 06/24/18 15:07 CT head/brain wo con Routine 06/25/18 13:30 FL video swallow Routine ECHO Hospital Course (1) Facial droop: This pt is an 83yoM with hx of intracranial hemorrhage from aneurysm status post clipping 40 years ago, previous CVA, DVT with PE in 2016 on xarelto, hypothyroidism, COPD, HTN, HL, anemia, BPH, and anxiety presents with multiple falls, slurred speech and R sided facial droop. -Initial CT head: L frontal lobe volume loss likely from prior infarct vs removal of previous tumor; Left frontal lobe and overlying calvarium postsurgical changes present since prior study from 06/11/15; Chronic ischemic small vessel white matter disease without midline shift or hydrocephalus. 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; Diffuse parenchymal atrophy; No acute intracranial hemorrhage or acute infarct MRI of the brain could not be performed due to history of aneurysm clipping-a repeat CT of the head 36 hours after admission shows: There is a new 6 mm hypodense focus adjacent to the left basal ganglia. This could represent a subacute infarct. CT angiogram of the head does show stenosis versus occlusion of the sylvian branch of the left MCA-small vessel-no intervention possible New ischemic CVA is responsible for his symptoms-this is likely secondary to microvascular disease as he has no documented atrial fibrillation -Started on aspirin 81 mg daily which was added to his Xarelto due to cerebrovas cular disease -Despite this occurring in the setting of taking Xarelto, is possible that the Tegretol decreased the efficacy of his Xarelto-weaning off Tegretol and will give Lovenox in the meantime x1 month, then can restart Xarelto -Lyme IgM neg, IgG +, western blot pending-ordered at the time of admission -Continued home Simvastatin -PT/OT/speech therapy consults appreciated -with associated mild-moderate oropharyngeal dysphagia-needs continued speech therapy -Neurology consultation appreciated-recommends f/u in Neuro clinic within 1 month of discharge for further management of antiepileptic drugs and post-stroke follow up -was on telemetry monitoring for arrhythmia-none so far -Echocardiogram shows normal LVEF, no source of emboli (2) Acute CVA (cerebrovascular accident): As above (3) Multiple falls: Secondary to stroke as above (4) Dysarthria: Persists but with some improvement, secondary to acute stroke as above (5) Hyperlipidemia: -Continue statin (6) History of pulmonary embolism: Holding Xarelto for now as above as Tegretol can decrease its efficacy -Bridged with full dose anticoagulation with Lovenox x1 month during Tegretol wean -Restart Xarelto in 1 month once off Tegretol (7) HTN (hypertension), benign: Allow permissive hypertension in the setting of acute CVA -continue home amlodipine 5 mg daily (8) Dental abscess: -compelted a 7 day course of amoxicillin from his dentist -He recently started taking p.o. diclofenac as prescribed by his dentist-we will avoid this in the setting of being on anticoagulation and with recent stroke -Treat pain with tramadol as needed-note, although this can lower the seizure threshold, he has never had a seizure and is being weaned off of his Tegretol -f/u with Dentist for tooth extraction in August as scheduled or sooner prn worsening dental pain (9) Hypothyroidism: TSH here is mildly elevated at 5.08 -continue home levothyroxine -check TSH in 4 weeks (10) Reactive airway disease: Unclear diagnosis-review of outpatient records shows no PFs and no Pulm consults, however he has not been seen in the [facility] system in almost 4 years. Does have a remote history of smoking, so could be COPD Is on albuterol at home (11) Anemia: -Hgb 11.5 previous Hgb 12 and chronic for many years, normocytic, other cell lines and CBC are normal. 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, then records state it "resolved" and no further f/u was needed -dcd home iron supplement as cannot tolerate liquid iron needed here as cannot crush Fe tabs -Continue to monitor CBC (12) BPH (benign prostatic hyperplasia): Continue doxazosin (13) History of cerebral aneurysm repair: This was approximately 40 years ago and involved a hemorrhagic stroke with aneurysm clipping He has been on Tegretol ever since procedure prophylaxis but is never had a seizure -Weaning off Tegretol as above -He cannot have an MRI because of this clipping (14) Dysphagia: mild-moderate OP dysphagia on Video swallow, no aspiration With some esophageal dysmotility -appreciate Speech recommendations -needs continued speech therapy after discharge (15) Bipolar 1 disorder: Diagnosed in young adulthood and reports to me he was actually seprated f [employer] because of this diagnosis. Case Managment notes report he was hospitalized for inpatient Mental Health treatment as recent as 2018 and he was started on ZOloft and Seroquel then On day prior to discharge, he had a tearful affect, perseveration on topic of a lady friend from personal half-way who . Consult Psych appreciated--> increase ZOloft to 100mg daily, ok to wean off Te gretol and consider lamictal possibly as mood stabilizer Pt much improved on the day of discharge, stating "I'm happy" -Continue home quetiapine, sertraline at increased dose of 100mg daily -he is being weaned off the Tegretol for seizure prophylaxis -should have f/u with Psychiatry as an outpt (16) DVT prophylaxis: Lovenox full dose Disposition-stable for dc to SNF for rehab Total Time Total Time Spent Total Time Spent (In Minutes): >30 min Total Time Includes: Examination of the Patient, Discharge Planning and Medication Reconciliation Discharge Plan Discharge Items Patient Disposition: Transfer Long Term Fac Reason For Visit: CONCERN FOR CVA Discharge Diagnosis: Acute CVA Condition: Good Discharge Goals: Diagnostic testing, Improve disease control, Learn about illness and Therapeutic intervention Activity: As commented below Lifting: Gradually increase as tolerated Bathing: No limitations Exercise/Sports: As tolerated Driving/Machine Use Comment: No driving Non-emergency contact: Primary Care Provider and Neurologist Call non-emergency contact if: you have any medication questions and your symptoms worsen Follow-up/Referrals: Erin Sandy DO [Physician] - (Please make appointment within 2-3 weeks) Conner Elias [Primary Care Provider] - Diet: Heart Healthy Addtl Provider Instructions: Mr. Velazquez was admitted with a new onset right facial droop and right sided weakness with falls. He was found to have a new ischemic stroke. He was on Xarelto at the time of admission and it was thought that perhaps the Tegretol was decreasing the efficacy of the Xarelto. His Tegretol is being weaned off and he should follow with Neurology for this. He will be on Lovenox full dose until Tegretol weaned off, and then can restart Xarelto in approximately one month from now. A baby ASA was added to his regimen as well. He has persistent dysphagia, dysarthria, and right sided facial droop but strength in extremities is good. He needs continued PT/OT, and Speech therapy after discharge. Prescriptions: New enoxaparin 100 mg/mL Syringe 90 mg subcut Q12 25 Days Qty: 45 RF: 0 acetaminophen [Mapap (acetaminophen)] 325 mg Tablet 650 mg PO Q4H PRN (Reason: pain) Qty: 30 RF: 0 sertraline 100 mg Tablet 100 mg PO DAILY Qty: 30 RF: 0 tramadol 50 mg Tablet 50 mg PO Q4H PRN (Reason: pain) Qty: 12 RF: 0 aspirin 81 mg Tablet,Chewable 81 mg PO QAM Qty: 30 RF: 0 Continued amlodipine 5 mg tablet 5 mg PO DAILY RF: 0 levothyroxine 25 mcg tablet 25 mg PO DAILY RF: 0 calcium carbonate [Calcium 600] 600 mg calcium (1,500 mg) Tablet 600 mg PO DAILY RF: 0 doxazosin 4 mg tablet 4 mg PO DAILY RF: 0 cholecalciferol (vitamin D3) [Vitamin D3] 1,000 unit Tablet 1,000 unit PO DAILY RF: 0 Ocuvite Eye Health 50 mg-15 unit- 4.5 mg-2.5 mg Tablet,Chewable 1 tab PO DAILY RF: 0 ascorbic acid (vitamin C) 1,000 mg Tablet 1 g PO DAILY RF: 0 simvastatin 40 mg tablet 40 mg PO QPM RF: 0 cyanocobalamin (vitamin B-12) 500 mcg Tablet 500 mcg PO DAILY RF: 0 quetiapine 50 mg tablet 50 mg PO HS RF: 0 acetaminophen [Tylenol] 325 mg Tablet 325 - 650 mg PO Q4 PRN (Reason: Fever Or Pain) RF: 0 ipratropium-albuterol 0.5 mg-3 mg(2.5 mg base)/3 mL Solution For Nebulization 3 ml INHALATION TID PRN (Reason: Cough) RF: 0 loperamide 2 mg Capsule 2 mg PO Q4 PRN (Reason: Diarrhea) RF: 0 sennosides-docusate sodium [Senexon-S] 8.6-50 mg Tablet 1 tab PO BID PRN (Reason: Constipation) RF: 0 dextromethorphan-guaifenesin [Tussin DM] 10-100 mg/5 mL Syrup 5 ml PO Q4 PRN (Reason: Cough) RF: 0 Changed carbamazepine 200 mg capsule, ER multiphase 12 hr 200 mg PO BID Qty: 0 RF: 0 Discontinued ferrous sulfate 325 mg (65 mg iron) Tablet 325 mg PO DAILY RF: 0 carbamazepine 300 mg capsule, ER multiphase 12 hr 300 mg PO QAM RF: 0 amoxicillin 500 mg capsule 500 mg PO QID RF: 0 sertraline 50 mg tablet 75 mg PO DAILY RF: 0 Xarelto 20 mg tablet 20 mg PO QPM RF: 0 lorazepam 0.5 mg Tablet 0.5 mg PO TID PRN (Reason: Anxiety) RF: 0 diclofenac sodium 50 mg tablet,delayed release (DR/EC) 50 mg PO BID PRN (Reason: Pain) RF: 0 Stand-Alone Forms: [facility] Discharge Orders: Discharge Order (Routine); Ordered 06/27/18 Ordered By: Dominique Tate Skilled Items Patient informed of condition?: Yes DNR: Yes Discharge Level of Care: Skilled Communicable Disease: No Discharge Prognosis: Improving Admission Data Admit Date/Time: 06/23/18 04:04 Attending Provider: Dominique Tate Admit Provider: Abdiel Ba Primary Care Provider: Conner Elias Other Providers: Abdiel Ba ; Erin Sandy Melissa C Service: Telemetry Medical Other Pending Studies at Discharge: No
[2018-06-29 00:59] LABS: 18KDIGG Band REACTIVE (NONREACTIVE); 23KDIGG Band REACTIVE (NONREACTIVE); 23KDIGM Band NONREACTIVE (NONREACTIVE); 28KDIGG Band REACTIVE (NONREACTIVE); 30KDIGG Band NONREACTIVE (NONREACTIVE); 39KDIGG Band REACTIVE (NONREACTIVE); 39KDIGM Band REACTIVE (NONREACTIVE); 41KDIGG Band REACTIVE (NONREACTIVE); 41KDIGM Band NONREACTIVE (NONREACTIVE); 45KDIGG Band REACTIVE (NONREACTIVE); 58KDIGG Band REACTIVE (NONREACTIVE); 66KDIGG Band REACTIVE (NONREACTIVE); 93KDIGG Band REACTIVE (NONREACTIVE); Lyme Antibodies, WB IgG POSITIVE (NEGATIVE); Lyme Antibodies, WB IgM NEGATIVE (NEGATIVE)
== END 2018-06-27 15:30 | DRG 66 ==
LOC: ED 23:30 → SUATTDRO 06-23 04:04 → 2W 06-23 04:04

== ENCOUNTER 2020-04-28 19:49 | Observation (INO) ==
--- NOTE | 2020-04-28 20:04 | Emergency Department Note ---
History of Present Illness General Chief complaint: Chest Pain Stated complaint: CHEST PAIN Time Seen by Provider: 04/28/20 19:49 Source: patient and EMS Mode of arrival: EMS Limitations: no limitations History of Present Illness Provider complaint: Chest pain Onset (ago): hour(s) less than 1 Location: chest Radiation: non-radiation Severity: moderate Pain Consistency: + now resolved Quality: + other (Pressure) Relieved By: + medication (Nitroglycerin and fentanyl) Associated symptoms: + shortness of breath; no cough, no diaphoresis, no fever/chills, no malaise and no nausea/vomiting Treatments prior to arrival: aspirin and other (2 sublingual nitroglycerin and fentanyl 50 mcg IV) This is an 85-year-old male who presents with chest discomfort starting less than an hour prior to arrival. The patient describes it as a pressure in the middle of his chest without radiation. He states it is better now after he was given aspirin, nitroglycerin and IV fentanyl by the ambulance. He no longer has any chest discomfort. He described it as a pressure and heaviness. It was ass ociated with shortness of breath and the ug designer noted that his O2 saturation was 88% on room air. He is not normally on oxygen. He denies any leg swelling or pain. He did have a Covid test recently but he does not know when and that was negative. He did have some loss of taste but denies any other symptoms such as fever, cough, myalgias or chills. He denies any abdominal pain, vomiting or diarrhea or urinary symptoms. He has had no leg swelling or pain. He denies any history of cardiac disease. Home Medications Medication Instructions Recorded Confirmed [facility] 1 tab PO DAILY 06/23/18 04/28/20 History amlodipine 5 mg PO DAILY 06/23/18 04/28/20 History ascorbic acid (vitamin C) 1,000 mg PO DAILY 06/23/18 04/28/20 History calcium carbonate [Calcium 600] 600 mg PO DAILY 06/23/18 04/28/20 History cholecalciferol (vitamin D3) 1,000 unit PO DAILY 06/23/18 04/28/20 History [Vitamin D3] cyanocobalamin (vitamin B-12) 500 mcg PO DAILY 06/23/18 04/28/20 History doxazosin 4 mg PO DAILY 06/23/18 04/28/20 History levothyroxine 25 mg PO DAILY 06/23/18 04/28/20 History loperamide 2 mg PO Q4H PRN 06/23/18 04/28/20 History quetiapine 50 mg PO HS 06/23/18 04/28/20 History simvastatin 40 mg PO QPM 06/23/18 04/28/20 History aspirin 81 mg PO QAM #30 tab 06/27/18 04/28/20 Rx rivaroxaban 20 mg tablet 20 mg PO QPM 12/31/18 04/28/20 History docusate sodium 100 mg PO BID 10/01/19 04/28/20 History sennosides-docusate sodium [Senna 1 tab-cap PO DAILY 10/01/19 04/28/20 History Plus] acetaminophen 325 mg tablet 650 mg PO BID MDD 3 GMS APAP10/10/19 04/28/20 History HOURS amoxicillin 2,000 mg PO DIRECTED PRN 04/28/20 04/28/20 History sertraline 50 mg PO DAILY 04/28/20 04/28/20 History sertraline 100 mg PO DAILY 04/28/20 04/28/20 History tramadol [Ultram] 50 mg PO Q6H PRN 04/28/20 04/28/20 History Allergies Allergy/AdvReac Type Severity Reaction Status Date / Time No Known Allergies Allergy Verified 04/28/20 20:54 Past Med/Surg History Medical History (Updated 04/28/20 @ 20:52 by Sumanth Hernandez MD) Epistaxis History of pulmonary embolism Hyperlipidemia Ischemic stroke Pulmonary embolism Surgical History History of brain surgery Family History Family/Other No pertinent family history Social History Smoking Status: Never smoker Hx Alcohol Use: No Hx Substance Use: No Preferred Language: Ukrainian Communication Ability: Effective 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 and A total of 10 systems reviewed and were otherwise negative Physical Exam Vital Signs Vital Signs - 24 hr 04/28/20 19:55 04/28/20 20:07 04/28/20 20:43 Temperature 37.1 C Temperature Source Oral Pulse Rate 71 57 L Pulse Rate from SpO2 Sensor 56 L Respiratory Rate 20 19 Respiratory Effort / Characteristics Non-Labored Spontaneous Respiratory Depth Normal Respiratory Pattern Regular Blood Pressure 136/70 140/53 L Blood Pressure Mean 92 82 Blood Pressure Position Semi-fowlers Pulse Oximetry 90 90 96 Oxygen Delivery Method Room Air Room Air Nasal Cannula Oxygen Flow Rate 2 Sepsis Recent Fever Within 48 Hours No Sepsis New/Unexplained Change in Mental Status No Sepsis Action Taken by Nursing No Action Required Oxygen Flow Rate - Titration 2 Pulse Oximetry Post Tiitration 94 04/28/20 21:00 04/28/20 21:30 04/28/20 22:00 Temperature Temperature Source Pulse Rate 56 L 56 L 59 L Pulse Rate from SpO2 Sensor 56 L 57 L 59 L Respiratory Rate 19 17 16 Respiratory Effort / Characteristics Respiratory Depth Respiratory Pattern Blood Pressure 136/59 L 133/61 121/96 Blood Pressure Mean 84 85 104 Blood Pressure Position Pulse Oximetry 95 96 95 Oxygen Delivery Method Nasal Cannula Nasal Cannula Nasal Cannula Oxygen Flow Rate 2 2 2 Sepsis Recent Fever Within 48 Hours Sepsis New/Unexplained Change in Mental Status Sepsis Action Taken by Nursing Oxygen Flow Rate - Titration Pulse Oximetry Post Tiitration 04/28/20 22:30 Temperature Temperature Source Pulse Rate 56 L Pulse Rate from SpO2 Sensor 57 L Respiratory Rate 18 Respiratory Effort / Characteristics Respiratory Depth Respiratory Pattern Blood Pressure 145/69 H Blood Pressure Mean 94 Blood Pressure Position Pulse Oximetry 95 Oxygen Delivery Method Nasal Cannula Oxygen Flow Rate 2 Sepsis Recent Fever Within 48 Hours Sepsis New/Unexplained Change in Mental Status Sepsis Action Taken by Nursing Oxygen Flow Rate - Titration Pulse Oximetry Post Tiitration Constitutional: Vital signs reviewed. Room air O2 saturation is 89%. Eyes: Pupils are equal round reactive to light. Conjunctiva are noninjected. ENT: Pharynx is clear without erythema or exudate. Mucous membranes are moist. Neck supple without meningeal signs. Respiratory: Clear to auscultation bilaterally. Breath sounds are equal bilaterally. Cardiovascular: Regular rate and rhythm. No rubs or gallops. GI: Soft, nondistended and nontender. Bowel sounds are present. Musculoskeletal: No peripheral edema. No lower extremity tenderness. Integumentary: No cyanosis. or jaundice. Neurological: The patient is awake and alert. No focal deficits. Psychiatric: Normal affect. Not anxious appearing. Medical Decision Making Differential Diagnosis Unstable angina, [place], pneumonia, COVID-19, pulmonary embolism, GERD Medical Records Attestation: I reviewed the patient's medical records. I did perform a limited focused review of portions of the patient's old chart on the electronic medical record. The patient has had no recent pertinent visits to this hospital. Home Medications Current Medication List: was personally reviewed by me Additional Comments: He is anticoagulated with rivaroxaban Laboratory Data Attestation: I reviewed the patient's lab results. Result diagrams: 04/28/20 Unknown 04/28/20 Unknown Lab Results 04/28/20 04/28/20 04/28/20 Range/Units 20:15 20:15 Unknown WBC 6.01 (4.8-10.8) K/uL RBC 3.91 L (4.7-6.1) M/uL Hgb 11.5 L (14.0-18.0) g/dL Hct 35.5 L (42-52) % MCV 90.8 (80-100) fL MCH 29.4 (25-34) pg MCHC 32.4 (32-36) g/dL RDW Std Deviation 47.3 H (36.4-46.3) fL RDW Coeff of Luis 14.3 (11.5-14.5) % Plt Count 164 (130-400) K/uL MPV 10.5 H (7.4-10.4) fL Immature Gran % (Auto) 0.0 % Neut % (Auto) 58.9 % Lymph % (Auto) 26.3 % [place] % (Auto) 10.1 % Eos % (Auto) 4.2 % Baso % (Auto) 0.5 % Neut # (Auto) 3.54 (1.4-6.5) K/uL Lymph # (Auto) 1.58 (1.2-3.4) K/uL [place] # (Auto) 0.61 H (0.11-0.59) K/uL Eos # (Auto) 0.25 (0-0.5) K/uL Baso # (Auto) 0.03 (0-0.2) K/uL Immature Gran # (Auto) 0.00 (0.00-0.02) K/uL PT (9.0-12.0) Seconds INR (0.9-1.1) APTT (21.0-31.0) Seconds PTT Ratio Sodium (136-145) mmol/L Potassium (3.5-5.1) mmol/L Chloride (98-107) mmol/L Carbon Dioxide (21-32) mmol/L Anion Gap (3-11) BUN (7-18) mg/dl Creatinine (0.6-1.4) mg/dl Est Cr Clr Drug Dosing ml/min Est GFR ( Amer) Est GFR (Non-Af Amer) BUN/Creatinine Ratio (10-20) Glucose (70-99) mg/dl Calcium (8.5-10.1) mg/dl Total Bilirubin (0.2-1) mg/dl AST (15-37) U/L ALT (12-78) U/L Alkaline Phosphatase (45-117) U/L Troponin I (0-0.045) ng/ml Total Protein (6.4-8.2) gm/dl Albumin (3.4-5.0) gm/dl Globulin (2.5-4.0) gm/dl Albumin/Globulin Ratio (0.9-2) Lipase (73-393) U/L COVID-19 Eval Order Covid19 [facility]Now [facility] SARS-CoV-2, RNA, NAAT NEGATIVE (NEGATIVE) 04/28/20 04/28/20 Range/Units Unknown Unknown WBC (4.8-10.8) K/uL RBC (4.7-6.1) M/uL Hgb (14.0-18.0) g/dL Hct (42-52) % MCV (80-100) fL MCH (25-34) pg MCHC (32-36) g/dL RDW Std Deviation (36.4-46.3) fL RDW Coeff of Luis (11.5-14.5) % Plt Count (130-400) K/uL MPV (7.4-10.4) fL Immature Gran % (Auto) % Neut % (Auto) % Lymph % (Auto) % [place] % (Auto) % Eos % (Auto) % Baso % (Auto) % Neut # (Auto) (1.4-6.5) K/uL Lymph # (Auto) (1.2-3.4) K/uL [place] # (Auto) (0.11-0.59) K/uL Eos # (Auto) (0-0.5) K/uL Baso # (Auto) (0-0.2) K/uL Immature Gran # (Auto) (0.00-0.02) K/uL PT 13.0 H (9.0-12.0) Seconds INR 1.2 H (0.9-1.1) APTT 38.3 H (21.0-31.0) Seconds PTT Ratio 1.4 Sodium 139 (136-145) mmol/L Potassium 4.1 (3.5-5.1) mmol/L Chloride 108 H (98-107) mmol/L Carbon Dioxide 26 (21-32) mmol/L Anion Gap 5.0 (3-11) BUN 22 H (7-18) mg/dl Creatinine 1.30 (0.6-1.4) mg/dl Est Cr Clr Drug Dosing 47.4 ml/min Est GFR ( Amer) 57.3 Est GFR (Non-Af Amer) 49.4 BUN/Creatinine Ratio 16.8 (10-20) Glucose 132 H (70-99) mg/dl Calcium 8.6 (8.5-10.1) mg/dl Total Bilirubin 0.4 (0.2-1) mg/dl AST 9 L (15-37) U/L ALT 16 (12-78) U/L Alkaline Phosphatase 56 (45-117) U/L Troponin I < 0.015 (0-0.045) ng/ml Total Protein 7.7 (6.4-8.2) gm/dl Albumin 3.4 (3.4-5.0) gm/dl Globulin 4.3 H (2.5-4.0) gm/dl Albumin/Globulin Ratio 0.8 L (0.9-2) Lipase 165 (73-393) U/L COVID-19 Eval Order SARS-CoV-2, RNA, NAAT (NEGATIVE) Imaging Data Radiologist's Impression: SINGLE VIEW CHEST CLINICAL HISTORY: Atypical chest pain. FINDINGS: 2 AP, portable, upright chest radiographs are compared to chest x-ray and chest CT dated 10/01/2019. The examination is degraded by portable technique and patient rotation. The heart is enlarged noting atherosclerotic calcification of the thoracic aorta. The pulmonary vasculature is noncongested. A large hiatal hernia is noted. Bilateral calcified granulomas are similar to previous. There is bibasilar scarring/atelectasis. No airspace consolidation, large pleural effusion, or pneumothorax is seen. The skeletal structures are osteopenic. The bony thorax is grossly intact. IMPRESSION: 1. Cardiomegaly without radiographic evidence of congestive failure. 2. Large hiatal hernia. 3. No airspace consolidation or large pleural effusion is identified. ACT 112: Negative or not required by law. Electronically signed by: Bogdan Garnett M.D. 04/28/2020 8:35 PM Dictated: 04/28/202032 Transcribed: 04/28/202032 ECG Data Attestation: I personally reviewed and interpreted this ECG as follows: Indication: + chest pain Rate (beats per minute): 77 Rhythm: + normal sinus ECG [place]: + Normal ECG ST segments: no ST elevation ECG Findings: no PVCs Comparison ECG Date: from (October 01, 2019) Change: no significant change MDM Narrative I did provide prehospital medical command for the patient. He was given aspirin, 2 sublingual nitroglycerin and fentanyl 50 mcg IV prior to arrival. I did evaluate the patient as noted above. He is chest pain-free. I did place an order for continuous cardiac monitoring. The monitor showed normal sinus rhythm at a rate of 78 bpm. His O2 saturation is 89% on room air. He was placed on 2 L of oxygen via nasal cannula. I did order and personally review the patient's 12-lead EKG as described above. He has no acute ischemic changes on his twelve-lead EKG. I did order and personally reviewed the images of the patient's chest x-ray as described above. There is no evidence of pneumonia. I did order and review the patient's blood work as noted in the electronic medical record. He does not have leukocytosis. His hemoglobin is 11.5. Platelets are within normal limits. Electrolytes are unremarkable and troponin is negative. I did reassess the patient. He is not having any chest discomfort at this time. I did discuss the test results with him. COVID-19 screening is pending. He will be hospitalized for repeat cardiac biomarkers and further evaluation. I did discuss the case with the shoe caser and the hospitalist was informed. Impression & Plan Chest pain Discharge Plan Visit Data Chief Complaint: Chest Pain Stated Complaint: CHEST PAIN ED Provider: Sumanth Hernandez Discharge Problem: Chest pain Patient Disposition: Being Evaluated by Hospitalist Forms Stand Alone Forms: [facility] Prescriptions Prescriptions: No Action Xarelto 20 mg tablet 20 mg PO QPM RF: 0 amlodipine 5 mg tablet 5 mg PO DAILY RF: 0 levothyroxine 25 mcg tablet 25 mg PO DAILY RF: 0 calcium carbonate [Calcium 600] 600 mg calcium (1,500 mg) Tablet 600 mg PO DAILY RF: 0 doxazosin 4 mg tablet 4 mg PO DAILY RF: 0 cholecalciferol (vitamin D3) [Vitamin D3] 1,000 unit Tablet 1,000 unit PO DAILY RF: 0 Ocuvite [facility] 50 mg-15 unit- 4.5 mg-2.5 mg Tablet,Chewable 1 tab PO DAILY RF: 0 ascorbic acid (vitamin C) 1,000 mg Tablet 1,000 mg PO DAILY RF: 0 simvastatin 40 mg tablet 40 mg PO QPM RF: 0 cyanocobalamin (vitamin B-12) 500 mcg Tablet 500 mcg PO DAILY RF: 0 quetiapine 50 mg tablet 50 mg PO HS RF: 0 loperamide 2 mg Capsule 2 mg PO Q4H PRN (Reason: Diarrhea) RF: 0 aspirin 81 mg Tablet,Chewable 81 mg PO QAM Qty: 30 RF: 0 acetaminophen [Tylenol] 325 mg tablet 650 mg PO BID MDD 3 GMS APAP/24 HOURS RF: 0 docusate sodium 100 mg Capsule 100 mg PO BID RF: 0 sennosides-docusate sodium [Senna Plus] 8.6-50 mg Tablet 1 tab-cap PO DAILY RF: 0 amoxicillin 500 mg Capsule 2,000 mg PO DIRECTED PRN (Reason: Pre Treat - Dental Procedure) RF: 0 sertraline 50 mg tablet 50 mg PO DAILY RF: 0 sertraline 100 mg tablet 100 mg PO DAILY RF: 0 tramadol [Ultram] 50 mg tablet 50 mg PO Q6H PRN (Reason: Pain) RF: 0 Referrals Referrals: Conner Elias [Primary Care Provider] - Discharge Problem: Chest pain Qualifiers: Chest pain type: unspecified Qualified Code(s): R07.9 - Chest pain, unspecified
[2020-04-28 20:14] LABS: Basophils # (auto) 0.03 K/uL (0-0.2); Basophils % (auto) 0.5 %; Eosinophils # (auto) 0.25 K/uL (0-0.5); Eosinophils % (auto) 4.2 %; Hematocrit (blood only) 35.5 % (42-52); Hemoglobin 11.5 g/dL (14.0-18.0); Lymphocytes # (auto) 1.58 K/uL (1.2-3.4); Lymphocytes % (auto) 26.3 %; Mean Corpuscular Hemoglobin 29.4 pg (25-34); Mean Corpuscular Hgb Conc 32.4 g/dL (32-36); Mean Corpuscular Volume 90.8 fL (80-100); Mean Platelet Volume 10.5 fL (7.4-10.4); Monocytes # (auto) 0.61 K/uL (0.11-0.59); Monocytes % (auto) 10.1 %; Neutrophils # (auto) 3.54 K/uL (1.4-6.5); Neutrophils % (auto) 58.9 %; Platelet Count 164 K/uL (130-400); RDW Coefficient of Variation 14.3 % (11.5-14.5); RDW Standard Deviation 47.3 fL (36.4-46.3); Red Blood Count 3.91 M/uL (4.7-6.1); White Blood Count 6.01 K/uL (4.8-10.8)
[2020-04-28 20:19] LABS: INR 1.2 (0.9-1.1); Partial Thromboplastin Ratio 1.4; Partial Thromboplastin Time 38.3 Seconds (21.0-31.0)
[2020-04-28 20:29] LABS: Alanine Aminotransferase 16 U/L (12-78); Albumin Level 3.4 gm/dl (3.4-5.0); Aspartate Aminotransferase 9 U/L (15-37); BUN Creatinine Ratio 16.8 (10-20); Blood Urea Nitrogen 22 mg/dl (7-18); Calcium 8.6 mg/dl (8.5-10.1); Carbon Dioxide 26 mmol/L (21-32); Chloride 108 mmol/L (98-107); Creatinine Clr Calc Pharmacy 47.4 ml/min; Est GFR (African American) 57.3; Est GFR (Non-African American) 49.4; Glucose 132 mg/dl (70-99); Lipase 165 U/L (73-393); Potassium 4.1 mmol/L (3.5-5.1); Sodium 139 mmol/L (136-145)
[2020-04-28 20:34] LABS: Albumin Globulin Ratio 0.8 (0.9-2); Alkaline Phosphatase 56 U/L (45-117); Bilirubin,Total 0.4 mg/dl (0.2-1); Globulin 4.3 gm/dl (2.5-4.0); Total Protein 7.7 gm/dl (6.4-8.2); Troponin I < 0.015 ng/ml (0-0.045)
--- NOTE | 2020-04-28 20:37 | XRay Report ---
SINGLE VIEW CHEST CLINICAL HISTORY: Atypical chest pain. FINDINGS: 2 AP, portable, upright chest radiographs are compared to chest x-ray and chest CT dated 10/01/2019. The examination is degraded by portable technique and patient rotation. The heart is enlarged noting atherosclerotic calcification of the thoracic aorta. The pulmonary vasculature is noncongeste d. A large hiatal hernia is noted. Bilateral calcified granulomas are similar to previous. There is b ibasilar scarring/atelectasis. No airspace consolidation, large pleural effusion, or pneumothorax is seen. The skeletal structures are osteopenic. The bony thorax is grossly intact. IMPRESSION: 1. Cardiomegaly without radiographic evidence of congestive failure. 2. Large hiatal hernia. 3. No airspace consolidation or large pleural effusion is identified. ACT 112: Negative or not required by law. Electronically signed by: Bogdan Garnett M.D. 04/28/2020 8:35 PM
--- NOTE | 2020-04-28 21:41 | History & Physical Report ---
Date of Service April 28, 2020 Assessment & Plan (1) Chest pain: Suhas Velazquez is an 85 y/o M w/ hx of large hiatal hernia, HTN, HLD, ischemic stroke, PE (on Xarelto 20 mg daily), hypothyroidism, bipolar 1, and anxiety/depression who presents from [facility] w/ chest pressure complaint vs diffuse abdominal tightness. Stable. - chest pressure initially described as atypical angina (location, not exertional, relieved by nitro) - lower suspicion for PE despite slightly increased O2 requirement and mild SOB at onset of symptoms - on chronic anticoagulation. abrupt resolution of symptoms upon EMS ASA, nitro, fentanyl IV - HPI hx somewhat inconsistent: midsternal chest pressure vs diffuse abdominal tightness - HEART score calculated at time of inpatient admission by resident: 6: moderate, risk of MACE 12-16.6% (moderately suspicious hx, nonspecific repol disturbance, age >65, 3 or more risk factors or hx of atherosclerotic disease, normal troponin) - GIULIANA score: 3 points (13% risk at 14 days for all-cause mortality, new or recurrent NH, or severe recurrent ischemia requiring urgent revascularization). (1 point each for age, asa use, st changes >0.5mm) - compared patient's ecg obtained at arrival w/ ecg x2 performed by EMS en- route, and w/ old eg in 10/2019. No significant changes. The borderline ST elevations in V1-V2 were previously present. - med/surg w/ tele - CBC, CMP in AM, TTE (last in 06/24/18 EF 55-60% normal echo) , trend troponins. ecg prn per nursing if chest pain returns - if cardiac workup negative, consider outpatient GI workup because of the large hiatal hernia which may contribute to patient's symptoms (e.g. -> gastric ulcer). also need to consider aspiration pna/pneumonitis - nitrate relieving symptoms may also be consistent w/ relieving pressure from hiatal hernia because of vasodiation - less likely mesenteric ischemia because lack of pain out of proportion w/ presentation - no reproducible chest wall TTP. less likely musculoskeletal etiology - if reoccurrence of chest or abdominal pain this admission, and cardiac workup negative, consider GI consult - ordered pantoprazole 40 mg PO qam - ordered nitro sl prn for chest pain medications update: scheduled tylenol and amoxicillin which were on meds list held because per patient, no recent dental work in at least 6 months. held home Ultram prn. held home Imodium prn - patient took evening medications prior to ED arrival. Therefore, no doses were missed. - per [facility] paper documentation, POA is patient's son (not first contact listed in chart). FEN/GI: heart healthy diet. no mIVF dvt ppx: continue home Xarelto 20 mg PO qhs therapeutic anticoag code status: DNR/DNI dispo: med/surg tele Present on Admission?: Yes (2) HTN (hypertension), benign: - some elevated blood pressures during admission, max of 167/81 - continue home amlodipine 5 mg PO qam and home doxazosin 5 mg PO qam - caution against orthostatic hypotension; consider changing timing of administration or the medication during outpatient f/u Present on Admission?: Yes (3) Hiatal hernia: - large hiatal hernia on 04/28/20 - was also present on 10/01/19 chest CTA, which also showed mild mass effect along the heart - mild thickening of distal esophagus - refer to chest pain section above Present on Admission?: Yes (4) History of pulmonary embolism: - episode in 2016 - on chronic anticoagulation - symptom resolution upon EMS administration of nitro, asa, fentanyl -> less consistent w/ acute PE this admission - continue home Xarelto 20 mg PO qhs Present on Admission?: Yes (5) Bipolar 1 disorder: - continue home quetiapine 50 mg PO qhs Present on Admission?: Yes (6) Hypothyroidism: - continue home levothyroxine 25 mcg PO daily Present on Admission?: Yes (7) BPH (benign prostatic hyperplasia): - one possible contributor to generalized abdominal pain - less likely responsible for patient's symptoms Present on Admission?: Yes (8) Hyperlipidemia: - continue home simvastatin 40 mg PO qhs Present on Admission?: Yes (9) Anxiety and depression: - continue home sertraline hcl 100 mg PO daily. chart lists both 100mg and 50 mg. please verify amount. only 100mg is ordered for now Present on Admission?: Yes (10) History of cerebral aneurysm repair: Present on Admission?: Yes (11) History of seizure: - hx of seizure disorder, off medications since 2019 - does not follow neurology regularly Present on Admission?: Yes (12) Reactive airway disease: - no inhalers on home meds list - no SOB and no O2 use at baseline Present on Admission?: Yes (13) History of ischemic stroke: - 2019 stroke. acute subcortical L hemispheric ischemic stroke. pt said mild facial droop resolved. per dr almanzar in old note, very mild aphasia and r facial droop at the time - continue Xarelto as per above Present on Admission?: Yes (14) Encounter for screening for COVID-19: - 04/28/20 covid RNA, NAAT negative (15) DVT prophylaxis: - continue home therapeutic Xarelto 20 mg PO daily - not held at time of admission because lower suspicion for need for surgical procedure; patient's hx of stroke and PE, so at higher risk if held compared to patient taking for afib History of Present Illness Suhas Velazquez is an 85 y/o M w/ hx of HTN, HLD, ischemic stroke, PE (on Xarelto 20 mg daily), hypothyroidism, bipolar 1, anxiety/depression, and large hiatal hernia who presents from [facility] w/ chest pressure complaint. The episode started at 1900 today (5/10 intensity, not alleviated by laying down, no alleviating or exacerbating factors) while he was casually walking back to his bed. Mid chest pressure, felt tight, like someone was sitting on chest. + associated sob. No radiation. No back pain. No headache, blurry vision, dizziness, f/c, v, diaphoresis, palpitations, jaw pain, arm pain, numbness/tingling, abd pain, constipation, bloody stool/urine, dysuria, urinary symptoms, weakness, myalgias. Before EMS arrival, took home meds ~7pm. Ambulance was called by [facility] promptly. [facility] staff did not give him any medications for the chest pain. He denies hx similar pains. No recent exercise or falls/trauma. No recent travel. not taking hormones. denies loss of taste/smell. Denies covid exposures or sick contact. Denies constipation, bloating, flatus, or burping. Denies falls. 20 pack year tobacco hx, quit 30 years ago. No current SOB or chest pain. These symptoms resolved completely after EMS administered nitro SL x2, asa 325, and 50 mg IV fentanyl. Last meal at 5pm. update: 10 minutes after completion of initial interview, patient clarified that the discomfort/tightness was actually abdominal, from groin up to epigastrium and not midsternal cp. Some minor memory issues noted on exam, but patient appeared to be mostly reliable historian. collaborated w/ EMS records. ED course: ecg, cxr, labs, continued 2L nasal cannula Primary Care Provider: Wanda Prieto Allergies Allergy/AdvReac Type Severity Reaction Status Date / Time No Known Allergies Allergy Verified 04/28/20 20:54 Home Medications Medication Instructions Recorded Confirmed Type Ocuvite Eye Health 1 tab PO DAILY 06/23/18 04/28/20 History amlodipine 5 mg PO DAILY 06/23/18 04/28/20 History ascorbic acid (vitamin C) 1,000 mg PO DAILY 06/23/18 04/28/20 History calcium carbonate [Calcium 600] 600 mg PO DAILY 06/23/18 04/28/20 History cholecalciferol (vitamin D3) 1,000 unit PO DAILY 06/23/18 04/28/20 History [Vitamin D3] cyanocobalamin (vitamin B-12) 500 mcg PO DAILY 06/23/18 04/28/20 History doxazosin 4 mg PO DAILY 06/23/18 04/28/20 History levothyroxine 25 mg PO DAILY 06/23/18 04/28/20 History loperamide 2 mg PO Q4H PRN 06/23/18 04/28/20 History quetiapine 50 mg PO HS 06/23/18 04/28/20 History simvastatin 40 mg PO QPM 06/23/18 04/28/20 History aspirin 81 mg PO QAM #30 tab 06/27/18 04/28/20 Rx rivaroxaban 20 mg tablet 20 mg PO QPM 12/31/18 04/28/20 History docusate sodium 100 mg PO BID 10/01/19 04/28/20 History sennosides-docusate sodium [Senna 1 tab-cap PO DAILY 10/01/19 04/28/20 History Plus] acetaminophen 325 mg tablet 650 mg PO BID MDD 3 GMS APAP10/10/19 04/28/20 History HOURS amoxicillin 2,000 mg PO DIRECTED PRN 04/28/20 04/28/20 History sertraline 50 mg PO DAILY 04/28/20 04/28/20 History sertraline 100 mg PO DAILY 04/28/20 04/28/20 History tramadol [Ultram] 50 mg PO Q6H PRN 04/28/20 04/28/20 History pantoprazole 40 mg PO QAM 30 Days #30 tab 04/29/20 Rx Past Med/Surg History Medical History (Updated 04/30/20 @ 00:05 by Ramos Coyne) Chest pain DVT prophylaxis Epistaxis Hiatal hernia History of pulmonary embolism Hx of pulmonary embolus Hyperlipidemia Ischemic stroke Pulmonary embolism Seizure Surgical History History of brain surgery Family History Family/Other No pertinent family history Social History (Updated 04/28/20 @ 23:34 by Warren Castrejon MD) Smoking Status: Former smoker packs per day: 1; Years Smoked: 20; Number of Years Since Quit: 30; Hx Alcohol Use: No Hx Substance Use: No Preferred Language: French Communication Ability: Effective Wedding Planning Internship Required: No Beliefs That Will Affect Care: None marital status: Single Current Living Situation: Alone and Personal Care Facility Feels Safe at Home: Yes Assistive Devices: Walker Review of Systems Review of Systems: All systems reviewed & are unremarkable except as noted in HPI & below + nausea + diarrhea x 1 episode Physical Exam Physical Exam: Vitals reviewed. satting 95 on 2L. hypertensive 160s systolic / 60s-80s diastolic. normotensive earlier in evening. afebrile. General: A&Ox4. NAD. Cooperative. HEENT: Atraumatic, normocephalic. EOMI. Pulm: CTAB. -wheezes, -rales, -rhonchi. No respiratory distress. slightly diminished air movement bibasilar on expiration Cardiac: RRR, -mrg. Radial pulses intact and symmetrical. No LE edema. Abdominal: Nontender, nondistended, soft to deep palpation. + bowel sounds. Musculoskeletal: no chest wall tenderness Neuro: CN II-XII intact. 5+/5 strength of extremities, sensation intact. Results & Data Results & Data ([facility]) Vital Signs (Past 12 Hours) Vital Signs Temp Pulse Resp BP Pulse Ox 04/28/20 20:43 57 L 19 140/53 L 96 04/28/20 20:07 90 04/28/20 19:55 37.1 C 71 20 136/70 90 Diagnostic Findings 04/28/20 cxr 1. Cardiomegaly without radiographic evidence of congestive failure. 2. Large hiatal hernia. 3. No airspace consolidation or large pleural effusion is identified. ECG Additional Comments: no acute ischemic changes per ED physician interpretation. per my (resident Dr. Castrejon) interpretation, no significant change from EMS ecg and prior 10/01/19 ecg, mainly some borderline ST elevations in leads V1-V2 Code Status & VTE Plan Code Status DNR/DNI VTE Prophylaxis Plan VTE Prophylaxis will be ordered: Yes Supervising Physician Co-Signing Physician Notes Attending addendum: I have physically seen this patient, have supervised the medical residents activities, and agree with the H&P unless as otherwise noted. Assessment and Plan: Chest pain/hypertension- The patient will be admitted to telemetry for serial cardiac enzymes, serial EKG's, cardiac rhythm monitoring and a 2-D echocardiogram with Dopplers. Relieved by sublingual nitroglycerin Continue amlodipine, aspirin, doxazosin. Pulmonary embolism history- Continue Xarelto Hyperlipidemia- Continue simvastatin 40 mg every evening. Check a fasting lipid panel GERD- Continue pantoprazole 40 mg every morning Anxiety and depression/bipolar disorder type I- Continue quetiapine, and sertraline. Remaining orders and notations as noted Resident Activity Tracking Resident Involvement: Resident Care Provided Care Provided: Adult Hospital Medicine (1) Chest pain Chest pain type: unspecified Qualified Code(s): R07.9 - Chest pain, unspecified
[2020-04-28] MEDS ORDERED: QUEtiapine FUMARATE 25 MG TABLET PO SCH (23:12)
[2020-04-28] MEDS ORDERED: SIMVASTATIN 40 MG TAB PO SCH (23:12)
[2020-04-28] MEDS ORDERED: RIVAROXABAN 20 MG TAB PO ONE (23:27)
[2020-04-29] MEDS ORDERED: QUEtiapine FUMARATE 25 MG TABLET PO ONE (00:02)
[2020-04-29] MEDS ORDERED: RIVAROXABAN 20 MG TAB PO ONE (00:02)
[2020-04-29] MEDS ORDERED: NITROGLYCERIN SL 0.4 MG/TAB TAB SL PRN (00:03)
[2020-04-29] MEDS ORDERED: SIMVASTATIN 40 MG TAB PO ONE (00:03)
[2020-04-29] MEDS ORDERED: ACETAMINOPHEN 325 MG TAB PO PRN (00:03)
[2020-04-29 06:19] LABS: Basophils # (auto) 0.05 K/uL (0-0.2); Basophils % (auto) 0.9 %; Eosinophils # (auto) 0.25 K/uL (0-0.5); Eosinophils % (auto) 4.3 %; Hemoglobin 11.3 g/dL (14.0-18.0); Immature Granulocytes # (auto) 0.01 K/uL (0.00-0.02); Immature Granulocytes % (auto) 0.2 %; Lymphocytes # (auto) 2.04 K/uL (1.2-3.4); Lymphocytes % (auto) 35.4 %; Mean Corpuscular Hemoglobin 29.4 pg (25-34); Mean Corpuscular Hgb Conc 32.3 g/dL (32-36); Mean Corpuscular Volume 90.9 fL (80-100); Mean Platelet Volume 10.3 fL (7.4-10.4); Monocytes # (auto) 0.55 K/uL (0.11-0.59); Monocytes % (auto) 9.5 %; Neutrophils # (auto) 2.86 K/uL (1.4-6.5); Neutrophils % (auto) 49.7 %; Platelet Count 155 K/uL (130-400); RDW Coefficient of Variation 14.4 % (11.5-14.5); RDW Standard Deviation 47.8 fL (36.4-46.3); Red Blood Count 3.85 M/uL (4.7-6.1); White Blood Count 5.76 K/uL (4.8-10.8)
[2020-04-29] MEDS ORDERED: LEVOTHYROXINE SODIUM 25 MCG TABLET PO SCH (06:30)
[2020-04-29 06:53] LABS: Albumin Level 3.1 gm/dl (3.4-5.0); BUN Creatinine Ratio 18.8 (10-20); Calcium 8.5 mg/dl (8.5-10.1); Creatinine Clr Calc Pharmacy 53.6 ml/min; Est GFR (African American) 69.3; Est GFR (Non-African American) 59.8; Potassium 3.9 mmol/L (3.5-5.1)
[2020-04-29 06:56] LABS: Albumin Globulin Ratio 0.8 (0.9-2); Bilirubin,Total 0.6 mg/dl (0.2-1); Globulin 3.9 gm/dl (2.5-4.0)
[2020-04-29] MEDS ORDERED: PANTOprazole 40 MG TAB PO SCH (09:00)
[2020-04-29] MEDS ORDERED: SERTRALINE HCL 50 MG TABLET PO SCH (09:00)
[2020-04-29] MEDS ORDERED: DOXAZosin MESYLATE 4 MG TAB PO SCH (09:00)
[2020-04-29] MEDS ORDERED: SERTRALINE HCL 100 MG TABLET PO SCH (09:00)
[2020-04-29] MEDS ORDERED: CYANOCOBALAMIN 500 MCG TABLET (VITAMIN B-12) PO SCH (09:00)
[2020-04-29] MEDS ORDERED: amLODIPine BESYLATE 5 MG TAB PO SCH (09:00)
[2020-04-29] MEDS ORDERED: CALCIUM 600MG + VIT D 400 IU TAB PO SCH (09:00)
[2020-04-29] MEDS ORDERED: DOCUSATE SODIUM 100 MG CAP PO SCH (09:00)
[2020-04-29] MEDS ORDERED: CHOLECALCIFEROL 1,000 UNITS 25 MCG TAB PO SCH (09:00)
[2020-04-29] MEDS ORDERED: DOCUSATE SODIUM/SENNA 50/8.6MG TAB PO SCH (09:00)
[2020-04-29] MEDS ORDERED: ASCORBIC ACID 500 MG TAB PO SCH (09:00)
--- NOTE | 2020-04-29 09:37 | XCELERA ---
[id number]
--- NOTE | 2020-04-29 10:05 | Electrocardiogram Report ---
Test Reason : Blood Pressure : / mmHG Vent. Rate : 077 BPM Atrial Rate : 077 BPM P-R Int : 184 ms QRS Dur : 088 ms QT Int : 410 ms P-R-T Axes : -13 083 027 degrees QTc Int : 463 ms Normal sinus rhythm Low voltage QRS Poor R wave progression, consider anterior NH vs. lead placement vs. LVH Abnormal ECG When compared with ECG of 01-OCT-2019 21:03, QT has lengthened Confirmed by Prakash Frank ([id number]) on 04/29/2020 10:05:03 AM Referred By: Conner Muñoz [place] Confirmed By:Emile Frank
--- NOTE | 2020-04-29 13:21 | Discharge Summary ---
Date of Service April 29, 2020 Admission HPI Per Admitting Provider Suhas Velazquez is an 85 y/o M w/ hx of HTN, HLD, ischemic stroke, PE (on Xarelto 20 mg daily), hypothyroidism, bipolar 1, anxiety/depression, and large hiatal hernia who presents from [facility] w/ chest pressure complaint. The episode started at 1900 today (5/10 intensity, not alleviated by laying down, no alleviating or exacerbating factors) while he was casually walking back to his bed. Mid chest pressure, felt tight, like someone was sitting on chest. + associated sob. No radiation. No back pain. No headache, blurry vision, dizziness, f/c, v, diaphoresis, palpitations, jaw pain, arm pain, numbness/tingling, abd pain, constipation, bloody stool/urine, dysuria, urinary symptoms, weakness, myalgias. Before EMS arrival, took home meds ~7pm. Ambulance was called by [facility] promptly. [facility] staff did not give him any medications for the chest pain. He denies hx similar pains. No recent exercise or falls/trauma. No recent travel. not taking hormones. denies loss of taste/smell. Denies covid exposures or sick contact. Denies constipation, bloating, flatus, or burping. Denies falls. 20 pack year tobacco hx, quit 30 years ago. No current SOB or chest pain. These symptoms resolved completely after EMS administered nitro SL x2, asa 325, and 50 mg IV fentanyl. Last meal at 5pm. update: 10 minutes after completion of initial interview, patient clarified that the discomfort/tightness was actually abdominal, from groin up to epigastrium and not midsternal cp. Some minor memory issues noted on exam, but patient appeared to be mostly reliable historian. collaborated w/ EMS records. ED course: ecg, cxr, labs, continued 2L nasal cannula Primary Care Provider: [facility] Admission Exam Per Admitting Provider Vitals reviewed. satting 95 on 2L. hypertensive 160s systolic / 60s-80s diastolic. normotensive earlier in evening. afebrile. General: A&Ox4. NAD. Cooperative. HEENT: Atraumatic, normocephalic. EOMI. Pulm: CTAB. -wheezes, -rales, -rhonchi. No respiratory distress. slightly diminished air movement bibasilar on expiration Cardiac: RRR, -mrg. Radial pulses intact and symmetrical. No LE edema. Abdominal: Nontender, nondistended, soft to deep palpation. + bowel sounds. Musculoskeletal: no chest wall tenderness Neuro: CN II-XII intact. 5+/5 strength of extremities, sensation intact. Principal Diagnosis Chest Pain Discharge Exam Constitutional: in no apparent distress, sitting comfortably in bed. Eyes: EOMI, pupils equal and reactive bilaterally, no scleral icterus Cardiac: RRR, no murmurs, gallops or rubs. Normal S1, S2 Pulm: CTA BL, no wheezes, rhonchi, crackles or rubs, moving air well throughout both lungs Abd: soft, nontender, nondistended, normal bowel sounds, no rebound or guarding, mild epigastric tenderness to palpation Chest: nontender to palpation of sternum, left chest Extremities: 2+ peripheral pulses, no edema Neuro: no focal deficits, moving all 4 limbs, A&Ox3 Discharge Data Allergies Allergy/AdvReac Type Severity Reaction Status Date / Time No Known Allergies Allergy Verified 04/28/20 20:54 Consultations 04/28/20 21:05 ED Decision to Admit Stat Hospital Course (1) Chest pain: Suhas Velazquez is an 85 y/o M w/ hx of large hiatal hernia, HTN, HLD, ischemic stroke, PE (on Xarelto 20 mg daily), hypothyroidism, bipolar 1, and anxiety/depression who presents from [facility] w/ chest pressure complaint vs diffuse abdominal tightness. Chest Pain Workup Mr. Velazquez's chest pain was somewhat difficult to pinpoint as he initially stated it lasted a longer period of time and then said it only resolved in 10 minutes because he received nitro and fentanyl by EMS. Troponins were negative, ECHO showed type II diastolic dysfunction without focal hypo or akinesis, no valvular abnormalities, no aortic stenosis. EKG showed some concern for anterior Q waves but otherwise stable as prior EKGs. Given lack of focal findings on ECHO, lack of troponin elevation, no repeated pain episodes, patient most likely had chest pain secondary to chronic hiatal hernia. Started on Pantoprazole 40 mg daily for gastric protection. Would recommend stress echo in near future to ensure patient does not have high degree CAD causing unstable angina/demand ischemia. Patient instructed to return to hospital for chest pain, shortness of breath, chest tightness. All other chronic medical conditions managed per home regimen. (2) HTN (hypertension), benign: (3) Hiatal hernia: (4) History of pulmonary embolism: (5) Bipolar 1 disorder: (6) Hypothyroidism: (7) BPH (benign prostatic hyperplasia): (8) Hyperlipidemia: (9) Anxiety and depression: (10) History of cerebral aneurysm repair: (11) History of seizure: (12) Reactive airway disease: (13) History of ischemic stroke: (14) Encounter for screening for COVID-19: (15) DVT prophylaxis: Total Time Total Time Spent Total Time Spent (In Minutes): see attending attestation Discharge Plan Discharge Items Patient Disposition: Personal Correction Reason For Visit: CHEST PRESSURE Discharge Diagnosis: Chest pressure Activity: Per Instructions section Non-emergency contact: Primary Care Provider Call non-emergency contact if: you have any medication questions and your symptoms worsen Follow-up/Referrals: Conner Elias [Primary Care Provider] - Diet: Heart Healthy and Low Sodium (2gm) Addtl Attending Provider Instructions: You were seen in the hospital for chest pain and shortness of breath that could have been secondary to coronary artery disease or your hiatal hernia. You have a high risk for a heart attack in the future, however your current tests have all been negative and do not show any signs of current or recent stress to your heart. Given your risk factors, we recommend you get a stress echocardiogram completed with your primary care provider/cardiology in the near future to assess your heart function status and whether you need medication help. You also have a large hiatal hernia that could have been contributing to the pain. You were discharged home on Pantoprazole 40 mg once a day which will help you reduce the amount of acid irritation in your stomach that can cause abdominal pain. If you have acute chest pain, shortness of breath, or chest pressure that radiates into your neck, left arm or back, get medical attention immediately. Pending Studies at Discharge: No Stand-Alone Forms: My Dropmysite, Smoking Cessation Skilled Items Lines: None Urinary Catheter: No Medications and DC Order Prescriptions: New pantoprazole 40 mg Tablet,Delayed Release (Dr/Ec) 40 mg PO QAM 30 Days Qty: 30 RF: 0 Continued Xarelto 20 mg tablet 20 mg PO QPM RF: 0 amlodipine 5 mg tablet 5 mg PO DAILY RF: 0 levothyroxine 25 mcg tablet 25 mg PO DAILY RF: 0 calcium carbonate [Calcium 600] 600 mg calcium (1,500 mg) Tablet 600 mg PO DAILY RF: 0 doxazosin 4 mg tablet 4 mg PO DAILY RF: 0 cholecalciferol (vitamin D3) [Vitamin D3] 1,000 unit Tablet 1,000 unit PO DAILY RF: 0 Ocuvite Eye Health 50 mg-15 unit- 4.5 mg-2.5 mg Tablet,Chewable 1 tab PO DAILY RF: 0 ascorbic acid (vitamin C) 1,000 mg Tablet 1,000 mg PO DAILY RF: 0 simvastatin 40 mg tablet 40 mg PO QPM RF: 0 cyanocobalamin (vitamin B-12) 500 mcg Tablet 500 mcg PO DAILY RF: 0 quetiapine 50 mg tablet 50 mg PO HS RF: 0 loperamide 2 mg Capsule 2 mg PO Q4H PRN (Reason: Diarrhea) RF: 0 aspirin 81 mg Tablet,Chewable 81 mg PO QAM Qty: 30 RF: 0 acetaminophen [Tylenol] 325 mg tablet 650 mg PO BID MDD 3 GMS APAP/24 HOURS RF: 0 docusate sodium 100 mg Capsule 100 mg PO BID RF: 0 sennosides-docusate sodium [Senna Plus] 8.6-50 mg Tablet 1 tab-cap PO DAILY RF: 0 amoxicillin 500 mg Capsule 2,000 mg PO DIRECTED PRN (Reason: Pre Treat - Dental Procedure) RF: 0 sertraline 50 mg tablet 50 mg PO DAILY RF: 0 sertraline 100 mg tablet 100 mg PO DAILY RF: 0 tramadol [Ultram] 50 mg tablet 50 mg PO Q6H PRN (Reason: Pain) RF: 0 Discharge Orders: Discharge Order (Routine); Ordered 04/29/20 Ordered By: Ankita Bauer Admission Data Admit Date/Time: 04/28/20 22:53 Attending Provider: Raj Queen Admit Provider: Warren Castrejon Primary Care Provider: Conner Elias Other Providers: Abdiel Ba Smriti Other Interventions: Discharge Summary Assessment (RN) Last Done: 04/29/20 14:14 Supervising Physician Co-Signing Physician Notes Attending attestation Pt seen and examined in concert with Dr. Bauer. In agreement with the documented findings as noted in the resident documentation with any exceptions or additions as noted here. Resolution of chest pressure complaint in EMS without recurrence. Mild belching/bloating. On examination, S1/S2 nl RRR no MCG. CTAB. Abd NT/ND BS+ve Chest pain - likely noncardiac in origin with neg troponins, echo w/ gr II diastolic dysfxn - follow up outpatient with cardiology, may yet benefit from stress echo. Precautions re: worsening/changing sx. COntinue PPI therapy. Else see resident documentation as noted. Total attending time spent with this patient's case on the day of discharge: 40 minutes. Resident Activity Tracking Resident Involvement: Resident Care Provided Care Provided: Adult Hospital Medicine
--- NOTE | 2020-04-29 16:57 | Electrocardiogram Report ---
Test Reason : Blood Pressure : / mmHG Vent. Rate : 061 BPM Atrial Rate : 061 BPM P-R Int : 188 ms QRS Dur : 100 ms QT Int : 408 ms P-R-T Axes : 038 076 073 degrees QTc Int : 410 ms Normal sinus rhythm Low voltage QRS Incomplete right bundle branch block Cannot rule out Anteroseptal infarct (cited on or before 29-APR-2020) Abnormal ECG When compared with ECG of 28-APR-2020 19:54, QT has shortened Confirmed by Prakash Frank ([id number]) on 04/29/2020 4:56:38 PM Referred By: Conner Muñoz [place] Confirmed By:Emile Frank
[2020-04-29] MEDS ORDERED: RIVAROXABAN 20 MG TAB PO SCH (21:00)
--- NOTE | 2020-04-30 05:14 | Billing Data ---
Date of Service April 30, 2020 Coding Level of Care Code 55511 OBS Care - Level 3
== END 2020-04-29 14:49 | disposition home or self-care (01) ==
LOC: 2N 19:49 → ED 19:49 → SUATTDRO 22:53 → 2N 23:15

== ENCOUNTER 2023-01-05 15:38 | Observation (INO) ==
[2023-01-05 16:25] LABS: Basophils # (auto) 0.09 K/uL (0.00-0.20); Basophils % (auto) 1.2 %; Eosinophils # (auto) 0.23 K/uL (0.00-0.50); Hematocrit (blood only) 30.5 % (42.0-52.0); Hemoglobin 10.1 g/dl (14.0-18.0); Immature Granulocytes # (auto) 0.02 K/uL (0.01-0.20); Immature Granulocytes % (auto) 0.3 %; Lymphocytes % (auto) 15.8 %; Mean Corpuscular Hemoglobin 30.8 pg (25.0-34.0); Mean Corpuscular Hgb Conc 33.1 g/dL (32.0-36.0); Mean Platelet Volume 11.3 fL (9.4-12.4); Monocytes # (auto) 0.86 K/uL (0.11-0.59); Monocytes % (auto) 11.3 %; Neutrophils # (auto) 5.21 K/uL (1.40-6.50); Neutrophils % (auto) 68.4 %; Platelet Count 143 K/uL (130-400); RDW Coefficient of Variation 13.2 % (11.5-14.5); RDW Standard Deviation 44.9 fL (36.4-46.3); Red Blood Count 3.28 M/uL (4.70-6.10); White Blood Count 7.61 K/ul (4.8-10.8)
--- NOTE | 2023-01-05 16:28 | XRay Report ---
XR chest 1V not portable HISTORY: 87 years-old Male Sepsis acute sepsis COMPARISON: 04/28/2020 TECHNIQUE: AP view of the chest FINDINGS: Cardiac silhouette is enlarged. Large hiatal hernia redemonstrated. Calcified granuloma subpleural ri ght upper lobe is again seen. No pneumothorax, pleural effusion or overt pulmonary edema. Bibasilar a telectasis. Bones appear grossly intact. IMPRESSION: 1. Cardiomegaly without acute process. 2. Hiatal hernia with mild bibasilar atelectasis. 3. Unchanged calcified granuloma of the right upper lobe. ACT 112: Negative or not required by law. The above report was generated using voice recognition software. It may contain grammatical, syntax o r spelling errors. Electronically signed by: Adan Sanchez M.D. 01/05/2023 4:27 PM
[2023-01-05 16:42] LABS: Albumin Globulin Ratio 1.1 (0.9-2); Albumin Level 4.1 gm/dl (3.4-5.0); BUN Creatinine Ratio 24.5 (10-20); Bilirubin,Total 0.6 mg/dl (0.2-1.0); Calcium 9.1 mg/dl (8.6-10.3); Creatinine Clr Calc Pharmacy 52.3 ml/min; Est GFR (African American) 79.5 ml/min; Est GFR (Non-African American) 68.6 ml/min; Globulin 3.8 gm/dl (2.5-4.0); Magnesium 2.1 mg/dl (1.7-2.4); Potassium 4.7 mmol/L (3.5-5.1); Total Protein 7.9 gm/dl (6.0-8.3)
[2023-01-05 16:48] LABS: Troponin I High Sensitivity 3.7 pg/ml (0-20)
[2023-01-05 16:55] LABS: Partial Thromboplastin Ratio 1.2; Prothrombin Time 10.5 Seconds (9.0-12.0)
[2023-01-05] MEDS ORDERED: fentaNYL citrate PF 100 MCG/2 ML VIAL IV STA (17:03)
--- NOTE | 2023-01-05 17:06 | Emergency Department Note ---
Impression & Plan Cellulitis of right leg ED Provider Note HISTORY OF PRESENT ILLNESS: Patient is an 87-year-old male presenting with right ankle pain. Patient states that he woke up this morning and noticed significant swelling and redness to the medial right ankle. He reports no injury to the ankle. States that over the last few hours the ankle has become more swollen and significantly more painful. Denies any history of blood clots in his legs, but does report an isolated history of PEs a number of years ago. He denies any fevers. Denies any chest pain or shortness of breath. Patient reports he took 50 mg of tramadol a few hours prior to arrival, with minimal relief in symptoms. He reports the pain is a constant throbbing sensation. He denies any wounds to the ankle or foot. Patient is on Xarelto. ROS: as above PHYSICAL EXAM: Constitutional: Patient appears in no acute distress. HENT: Head: Normocephalic and atraumatic. Eyes: EOMI, PERRL Mouth/Throat: Mucous membranes moist. Neck: Trachea midline. Neck supple. Cardiovascular: RRR, No murmurs, rubs or gallops. Intact distal pulses. Pulmonary/Chest: No respiratory distress. Breath sounds clear and equal bilaterally. No wheezes or rales. No chest wall tenderness to palpation. Abdominal: Abdomen soft, no tenderness, rebound or guarding. Musculoskeletal: - RLE: Erythema and swelling to the medial ankle overlying the medial malleolus. Erythema tracks upward to the medial mid calf and down into the foot. Ankle is tender to palpation. Patient is able to wiggle toes and dorsiflex and plantarflex ankle without significant pain. No open wounds appreciated. Intact DP pulse Skin: Warm and dry. No rash, erythema, pallor or cyanosis Psychiatric: Appropriate mood and affect for situation. Neurological: Alert and keenly responsive. CN II-XII grossly intact, moving all extremities equally and fully. MDM: - Vitals signs showed hypertension - History obtained via patient. Patient presents with right ankle pain and swelling. Patient reports he woke up this morning and noticed significant swelling and redness to the medial right ankle. Denies any injury to the ankle. States over the last few hours has become more swollen and significantly more painful. Denies any fevers at home. Denies any wounds to the foot. Denies any DVT history. He is on Xarelto for history of PEs - Chronic conditions affecting care: HLD; PE - Differential diagnoses include, but are not limited to: Necrotizing fasciitis; cellulitis; ankle trauma; DVT - Order placed for continuous cardiac monitoring. At this time, monitor showed rate of 60 bpm with normal sinus rhythm, per my interpretation. - External medical records reviewed. - Laboratory workup interpreted by myself showed normal WBC; stable e lectrolytes; normal lactate; normal creatinine; normal procalcitonin - US of RLE negative for DVT - UA negative for infection - CXR negative for pneumonia, per my interpretation - Xray of right ankle negative for fracture or gas present, per my interpretation - Patient given IV vancomycin in ER for cellulitis. Given 50 mcg IV fentanyl for pain control. - Patient has significant pain in ankle on reassessment. I believe this is more a cellulitic process at this time. - Discussion was had with social contact worker about patient's case and need for admission - Hospitalist consulted for admission - [facility]. 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 Beliefs That Will Affect Care: None marital status: Single Current Living Situation: Alone and Personal Care Facility Feels Safe at Home: Yes Assistive Devices: Walker Allergies Allergies Allergy/AdvReac Type Severity Reaction Status Date / Time No Known Allergies Allergy Verified 01/05/23 19:13 Home Meds Home Medications Medication Instructions Recorded Confirmed acetaminophen 325 mg tablet 650 mg PO BID 01/05/23 01/05/23 (Tylenol) amlodipine 5 mg tablet 5 mg PO DAILY 01/05/23 01/05/23 amoxicillin 500 mg capsule 2,000 mg PO UD 01/05/23 01/05/23 ascorbic acid (vitamin C) 1,000 mg 1 g PO DAILY 01/05/23 01/05/23 tablet (Vitamin C) aspirin 81 mg chewable tablet 81 mg PO DAILY 01/05/23 01/05/23 calcium carbonate 600 mg calcium 600 mg PO DAILY 01/05/23 01/05/23 (1,500 mg) tablet (Calcium) cholecalciferol (vitamin D3) 25 25 mcg PO DAILY 01/05/23 01/05/23 mcg (1,000 unit) tablet (Vitamin D3) cyanocobalamin (vitamin B-12) 500 500 mcg PO DAILY 01/05/23 01/05/23 mcg tablet (Vitamin B-12) docusate sodium 100 mg capsule 100 mg PO BID 01/05/23 01/05/23 doxazosin 4 mg tablet 4 mg PO DAILY 01/05/23 01/05/23 ferrous sulfate 325 mg (65 mg 325 mg PO BID 01/05/23 01/05/23 iron) tablet finasteride 5 mg tablet 5 mg PO DAILY 01/05/23 01/05/23 levothyroxine 25 mcg tablet 25 mcg PO DAILY 01/05/23 01/05/23 loperamide 2 mg capsule 2 mg PO Q4H PRN Diarrhea 01/05/23 01/05/23 lorazepam 0.5 mg tablet 0.5 mg PO TID PRN Anxiety 01/05/23 01/05/23 [id number] 100 mcg-lut 1.66 1 tab PO DAILY 01/05/23 01/05/23 mg-zeaxanth 0.83 mg tablet,delay rel. (Icaps MV) pantoprazole 40 mg tablet,delayed 40 mg PO DAILY 01/05/23 01/05/23 release quetiapine 50 mg tablet 50 mg PO HS 01/05/23 01/05/23 rivaroxaban 20 mg tablet (Xarelto) 20 mg PO QPM 01/05/23 01/05/23 sennosides 8.6 mg-docusate sodium 2 tab-cap PO BID 01/05/23 01/05/23 50 mg capsule (Senna Plus) sertraline 100 mg tablet 100 mg PO DAILY 01/05/23 01/05/23 sertraline 50 mg tablet 50 mg PO DAILY 01/05/23 01/05/23 simvastatin 40 mg tablet 40 mg PO QPM 01/05/23 01/05/23 tramadol 50 mg tablet 50 mg PO Q6H PRN Pain 01/05/23 01/05/23 vit C 250 mg-vit E 90 mg-zinc 40 1 tab PO DAILY 01/05/23 01/05/23 mg-copper 1 [id number] capsule (PreserVision AREDS-2) Results & Data (ED) Vital Signs Vital Signs - 24 hr 01/05/23 15:43 01/05/23 17:11 01/05/23 18:03 Temperature 36.8 C Temperature Source Oral Pulse Rate 58 L 61 Pulse Rate from SpO2 Sensor Pulse Rhythm Regular Pulse Strength Normal Respiratory Rate 18 Respiratory Effort / Characteristics Non-Labored Spontaneous Respiratory Depth Normal Respiratory Pattern Regular Blood Pressure 177/68 H Blood Pressure Mean 104 Blood Pressure Position Sitting Pulse Oximetry 93 Oxygen Delivery Method Room Air Room Air Sepsis Recent Fever Within 48 Hours No Sepsis New/Unexplained Change in Mental Status No Sepsis Action Taken by Nursing No Action Required 01/05/23 17:00 01/05/23 17:01 01/05/23 17:30 Temperature Temperature Source Pulse Rate 57 L Pulse Rate from SpO2 Sensor 59 L Pulse Rhythm Pulse Strength Respiratory Rate 26 H Respiratory Effort / Characteristics Respiratory Depth Respiratory Pattern Blood Pressure 177/71 H 146/63 H Blood Pressure Mean 135 105 Blood Pressure Position Pulse Oximetry 93 Oxygen Delivery Method Sepsis Recent Fever Within 48 Hours Sepsis New/Unexplained Change in Mental Status Sepsis Action Taken by Nursing 01/05/23 17:30 01/05/23 18:00 01/05/23 18:01 Temperature Temperature Source Pulse Rate 53 L 72 79 Pulse Rate from SpO2 Sensor 55 L 65 64 Pulse Rhythm Pulse Strength Respiratory Rate 18 22 20 Respiratory Effort / Characteristics Respiratory Depth Respiratory Pattern Blood Pressure Blood Pressure Mean Blood Pressure Position Pulse Oximetry 92 92 87 L Oxygen Delivery Method Sepsis Recent Fever Within 48 Hours Sepsis New/Unexplained Change in Mental Status Sepsis Action Taken by Nursing 01/05/23 18:01 01/05/23 18:30 01/05/23 18:31 Temperature Temperature Source Pulse Rate 71 60 Pulse Rate from SpO2 Sensor Pulse Rhythm Pulse Strength Respiratory Rate 21 19 Respiratory Effort / Characteristics Respiratory Depth Respiratory Pattern Blood Pressure 166/72 H Blood Pressure Mean 126 Blood Pressure Position Pulse Oximetry Oxygen Delivery Method Sepsis Recent Fever Within 48 Hours Sepsis New/Unexplained Change in Mental Status Sepsis Action Taken by Nursing 01/05/23 18:31 01/05/23 21:06 Temperature Temperature Source Pulse Rate 59 L Pulse Rate from SpO2 Sensor Pulse Rhythm Pulse Strength Respiratory Rate Respiratory Effort / Characteristics Respiratory Depth Respiratory Pattern Blood Pressure 161/89 H Blood Pressure Mean 93 Blood Pressure Position Pulse Oximetry Oxygen Delivery Method Sepsis Recent Fever Within 48 Hours Sepsis New/Unexplained Change in Mental Status Sepsis Action Taken by Nursing Laboratory Data 01/05/23 16:10 01/05/23 16:10 Lab Results 01/05/23 01/05/23 01/05/23 Range/Units 16:10 16:10 16:10 WBC 7.61 (4.8-10.8) K/ul RBC 3.28 L (4.70-6.10) M/uL Hgb 10.1 L (14.0-18.0) g/dl Hct 30.5 L (42.0-52.0) % MCV 93.0 (80.0-100.0) fL MCH 30.8 (25.0-34.0) pg MCHC 33.1 (32.0-36.0) g/dL RDW Std Deviation 44.9 (36.4-46.3) fL RDW Coeff of Luis 13.2 (11.5-14.5) % Plt Count 143 (130-400) K/uL MPV 11.3 (9.4-12.4) fL Immature Gran % (Auto) 0.3 % Neut % (Auto) 68.4 % Lymph % (Auto) 15.8 % Real % (Auto) 11.3 % Eos % (Auto) 3.0 % Baso % (Auto) 1.2 % Neut # (Auto) 5.21 (1.40-6.50) K/uL Lymph # (Auto) 1.20 (1.20-3.40) K/uL Real # (Auto) 0.86 H (0.11-0.59) K/uL Eos # (Auto) 0.23 (0.00-0.50) K/uL Baso # (Auto) 0.09 (0.00-0.20) K/uL Immature Gran # (Auto) 0.02 (0.01-0.20) K/uL PT 10.5 (9.0-12.0) Seconds INR 1.0 (0.9-1.1) APTT 34.0 H (21.0-31.0) Seconds PTT Ratio 1.2 Sodium (136-145) mmol/L Potassium (3.5-5.1) mmol/L Chloride (98-107) mmol/L Carbon Dioxide (21-32) mmol/L Anion Gap (3-11) BUN (6-23) mg/dl Creatinine (0.6-1.4) mg/dl Est Cr Clr Drug Dosing ml/min Est GFR ( Amer) ml/min Est GFR (Non-Af Amer) ml/min BUN/Creatinine Ratio (10-20) Glucose (70-99(Fasting)) mg/dl Lactate 1.2 (0.4-2.0) mmol/L Calcium (8.6-10.3) mg/dl Magnesium (1.7-2.4) mg/dl Total Bilirubin (0.2-1.0) mg/dl AST (13-39) U/L ALT (7-52) U/L Alkaline Phosphatase (34-104) U/L Total Creatine Kinase (30-223) U/L Troponin I High Sens (0-20) pg/ml Total Protein (6.0-8.3) gm/dl Albumin (3.4-5.0) gm/dl Globulin (2.5-4.0) gm/dl Albumin/Globulin Ratio (0.9-2) Procalcitonin (0-0.5) ng/ml TSH (0.300-4.500) uIu/ml Urine Color Urine Appearance (Clear) Urine pH (4.5-7.5) Ur Specific Benton (1.000-1.030) Urine Protein (Negative) Urine Glucose (UA) (Negative) Urine Ketones (Negative) Urine Blood (Negative) Urine Nitrite (Negative) Urine Bilirubin (Negative) Urine Urobilinogen (Negative) Ur Leukocyte Esterase (Negative) Urine WBC (Auto) (0-5) /hpf Urine RBC (Auto) (0-4) /hpf U Hyaline Cast (Auto) (0-5) /lpf U Epithel Cells (Auto) (0-5) /lpf Urine Bacteria (Auto) (Negative) SARS-CoV-2, RNA, NAAT (NEGATIVE) 01/05/23 01/05/23 01/05/23 Range/Units 16:10 16:10 16:12 WBC (4.8-10.8) K/ul RBC (4.70-6.10) M/uL Hgb (14.0-18.0) g/dl Hct (42.0-52.0) % MCV (80.0-100.0) fL MCH (25.0-34.0) pg MCHC (32.0-36.0) g/dL RDW Std Deviation (36.4-46.3) fL RDW Coeff of Luis (11.5-14.5) % Plt Count (130-400) K/uL MPV (9.4-12.4) fL Immature Gran % (Auto) % Neut % (Auto) % Lymph % (Auto) % Real % (Auto) % Eos % (Auto) % Baso % (Auto) % Neut # (Auto) (1.40-6.50) K/uL Lymph # (Auto) (1.20-3.40) K/uL Real # (Auto) (0.11-0.59) K/uL Eos # (Auto) (0.00-0.50) K/uL Baso # (Auto) (0.00-0.20) K/uL Immature Gran # (Auto) (0.01-0.20) K/uL PT (9.0-12.0) Seconds INR (0.9-1.1) APTT (21.0-31.0) Seconds PTT Ratio Sodium 134 L (136-145) mmol/L Potassium 4.7 (3.5-5.1) mmol/L Chloride 100 (98-107) mmol/L Carbon Dioxide 27 (21-32) mmol/L Anion Gap 7 (3-11) BUN 24 H (6-23) mg/dl Creatinine 0.98 (0.6-1.4) mg/dl Est Cr Clr Drug Dosing 52.3 ml/min Est GFR ( Amer) 79.5 ml/min Est GFR (Non-Af Amer) 68.6 ml/min BUN/Creatinine Ratio 24.5 H (10-20) Glucose 98 (70-99(Fasting)) mg/dl Lactate (0.4-2.0) mmol/L Calcium 9.1 (8.6-10.3) mg/dl Magnesium 2.1 (1.7-2.4) mg/dl Total Bilirubin 0.6 (0.2-1.0) mg/dl AST 14 (13-39) U/L ALT 9 (7-52) U/L Alkaline Phosphatase 51 (34-104) U/L Total Creatine Kinase 62 (30-223) U/L Troponin I High Sens 3.7 (0-20) pg/ml Total Protein 7.9 (6.0-8.3) gm/dl Albumin 4.1 (3.4-5.0) gm/dl Globulin 3.8 (2.5-4.0) gm/dl Albumin/Globulin Ratio 1.1 (0.9-2) Procalcitonin < 0.05 (0-0.5) ng/ml TSH 2.874 (0.300-4.500) uIu/ml Urine Color Urine Appearance (Clear) Urine pH (4.5-7.5) Ur Specific Benton (1.000-1.030) Urine Protein (Negative) Urine Glucose (UA) (Negative) Urine Ketones (Negative) Urine Blood (Negative) Urine Nitrite (Negative) Urine Bilirubin (Negative) Urine Urobilinogen (Negative) Ur Leukocyte Esterase (Negative) Urine WBC (Auto) (0-5) /hpf Urine RBC (Auto) (0-4) /hpf U Hyaline Cast (Auto) (0-5) /lpf U Epithel Cells (Auto) (0-5) /lpf Urine Bacteria (Auto) (Negative) SARS-CoV-2, RNA, NAAT (NEGATIVE) 01/05/23 01/05/23 01/05/23 Range/Units 16:55 20:45 22:00 WBC (4.8-10.8) K/ul RBC (4.70-6.10) M/uL Hgb (14.0-18.0) g/dl Hct (42.0-52.0) % MCV (80.0-100.0) fL MCH (25.0-34.0) pg MCHC (32.0-36.0) g/dL RDW Std Deviation (36.4-46.3) fL RDW Coeff of Lusi (11.5-14.5) % Plt Count (130-400) K/uL MPV (9.4-12.4) fL Immature Gran % (Auto) % Neut % (Auto) % Lymph % (Auto) % Real % (Auto) % Eos % (Auto) % Baso % (Auto) % Neut # (Auto) (1.40-6.50) K/uL Lymph # (Auto) (1.20-3.40) K/uL Real # (Auto) (0.11-0.59) K/uL Eos # (Auto) (0.00-0.50) K/uL Baso # (Auto) (0.00-0.20) K/uL Immature Gran # (Auto) (0.01-0.20) K/uL PT (9.0-12.0) Seconds INR (0.9-1.1) APTT (21.0-31.0) Seconds PTT Ratio Sodium (136-145) mmol/L Potassium (3.5-5.1) mmol/L Chloride (98-107) mmol/L Carbon Dioxide (21-32) mmol/L Anion Gap (3-11) BUN (6-23) mg/dl Creatinine (0.6-1.4) mg/dl Est Cr Clr Drug Dosing ml/min Est GFR ( Amer) ml/min Est GFR (Non-Af Amer) ml/min BUN/Creatinine Ratio (10-20) Glucose (70-99(Fasting)) mg/dl Lactate 0.9 (0.4-2.0) mmol/L Calcium (8.6-10.3) mg/dl Magnesium (1.7-2.4) mg/dl Total Bilirubin (0.2-1.0) mg/dl AST (13-39) U/L ALT (7-52) U/L Alkaline Phosphatase (34-104) U/L Total Creatine Kinase (30-223) U/L Troponin I High Sens (0-20) pg/ml Total Protein (6.0-8.3) gm/dl Albumin (3.4-5.0) gm/dl Globulin (2.5-4.0) gm/dl Albumin/Globulin Ratio (0.9-2) Procalcitonin (0-0.5) ng/ml TSH (0.300-4.500) uIu/ml Urine Color Yellow Urine Appearance Clear (Clear) Urine pH 7.0 (4.5-7.5) Ur Specific Benton 1.021 (1.000-1.030) Urine Protein Negative (Negative) Urine Glucose (UA) Negative (Negative) Urine Ketones Negative (Negative) Urine Blood Negative (Negative) Urine Nitrite Negative (Negative) Urine Bilirubin Negative (Negative) Urine Urobilinogen Negative (Negative) Ur Leukocyte Esterase Trace H (Negative) Urine WBC (Auto) 0 (0-5) /hpf Urine RBC (Auto) 0-4 (0-4) /hpf U Hyaline Cast (Auto) 0 (0-5) /lpf U Epithel Cells (Auto) 0-5 (0-5) /lpf Urine Bacteria (Auto) Negative (Negative) SARS-CoV-2, RNA, NAAT NEGATIVE (NEGATIVE) Administered Medications Doxycycline Hyclate 100 mg/ (Dextrose) 100 mls @ 50 mls/hr IV NOW STA Stop: 01/05/23 23:31 Last Admin: 01/05/23 22:27 Dose: 50 mls/hr Documented By: BLACK Ioversol (Optiray 320 100ml) 93 ml IV ONCE ONE Stop: 01/05/23 23:15 Last Admin: 01/05/23 23:14 Dose: 93 ml Documented By: BENSON Discontinued Medications Acetaminophen (Acetaminophen 325 Mg Tab) 650 mg PO NOW STA Stop: 01/05/23 21:31 Last Admin: 01/05/23 22:28 Dose: 650 mg Documented By: BLACK Fentanyl Citrate (Fentanyl Citrate Pf 100 Mcg/2 Ml Vial) 50 mcg IV NOW STA Stop: 01/05/23 17:04 Last Admin: 01/05/23 23:13 Dose: Not Given Documented By: BLACK Vancomycin HCl 1,500 mg/ (Sodium Chloride) 530 mls @ 200 mls/hr IV NOW ONE Stop: 01/05/23 23:33 Last Admin: 01/05/23 21:34 Dose: Not Given Documented By: VIOLETTE Lisinopril (Lisinopril 2.5 Mg Tab) 2.5 mg PO NOW ONE Stop: 01/05/23 22:10 Last Admin: 01/05/23 23:13 Dose: Not Given Documented By: J Imaging Data Radiologist's Impression: Chest X-Ray 01/05/23 15:48 XR chest 1V not portable HISTORY: 87 years-old Male Sepsis acute sepsis COMPARISON: 04/28/2020 TECHNIQUE: AP view of the chest FINDINGS: Cardiac silhouette is enlarged. Large hiatal hernia redemonstrated. Calcified granuloma subpleural right upper lobe is again seen. No pneumothorax, pleural effusion or overt pulmonary edema. Bibasilar atelectasis. Bones appear grossly intact. IMPRESSION: 1. Cardiomegaly without acute process. 2. Hiatal hernia with mild bibasilar atelectasis. 3. Unchanged calcified granuloma of the right upper lobe. ACT 112: Negative or not required by law. The above report was generated using voice recognition software. It may contain grammatical, syntax or spelling errors. Electronically signed by: Adan Sanchez M.D. 01/05/2023 4:27 PM Venous Doppler Study 01/05/23 15:48 ULTRASOUND RIGHT LOWER EXTREMITY VENOUS CLINICAL HISTORY: Right leg swelling. COMPARISON STUDY: Right lower extremity venous ultrasound dated 06/24/2022. TECHNIQUE: Real-time, grayscale, and color Doppler sonography of the deep veins of the right lower extremity was performed from the inguinal crease to the calf. Compression and augmentation were utilized. FINDINGS: There is no sonographic evidence of deep venous thrombosis identified in the right lower extremity. The common femoral, superficial femoral, and popliteal veins are patent and normally compressible. The greater saphenous vein and the profunda femoris vein at the junction with the common femoral vein are clear. The visualized calf veins are patent. IMPRESSION: There is no sonographic evidence of deep venous thrombosis identified in the right lower extremity. ACT 112: Negative or not required by law. Electronically signed by: Bogdan Garnett M.D. 01/05/2023 7:54 PM Ankle X-Ray 01/05/23 17:03 XR ankle RT 2V HISTORY: 87 years-old Male right ankle pain acute right ankle pain COMPARISON: 06/29/2022 TECHNIQUE: 2 views of the right ankle FINDINGS: Diffuse soft tissue swelling, with pronounced at the level of the ankle. Arterial calcifications. No acute fracture, dislocation or opaque foreign body. 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 Degenerative spurring of the calcaneus. IMPRESSION: Soft tissue swelling without acute osseous abnormality. ACT 112: Negative or not required by law. The above report was generated using voice recognition software. It may contain grammatical, syntax or spelling errors. Electronically signed by: Adan Sanchez M.D. 01/05/2023 5:20 PM Discharge Plan Visit Data Chief Complaint: Swelling/Edema to Extremity Stated Complaint: R CALF AND FOOT SWELLING, RED AND HOT TO TOUCH ED Provider: Padmini Desouza Discharge Problem: Cellulitis of right leg Forms Stand Alone Forms: My [facility] Prescriptions Prescriptions: No Action amoxicillin 500 mg Capsule 2,000 mg PO UD Rx Instructions: Take 1 hour prior to dental procedure. ascorbic acid (vitamin C) [Vitamin C] 1,000 mg Tablet 1 g PO DAILY acetaminophen [Tylenol] 325 mg Tablet 650 mg PO BID loperamide 2 mg Capsule 2 mg PO Q4H PRN (Reason: Diarrhea) Rx Instructions: administer after each loose stool until symptoms controlled; do not exceed 8 mg per 24 hrs sertraline 100 mg tablet 100 mg PO DAILY amlodipine 5 mg tablet 5 mg PO DAILY tramadol 50 mg Tablet 50 mg PO Q6H PRN (Reason: Pain) simvastatin 40 mg tablet 40 mg PO QPM levothyroxine 25 mcg tablet 25 mcg PO DAILY calcium carbonate [Calcium 600] 600 mg calcium (1,500 mg) Tablet 600 mg PO DAILY lorazepam 0.5 mg tablet 0.5 mg PO TID PRN (Reason: Anxiety) cyanocobalamin (vitamin B-12) [Vitamin B-12] 500 mcg Tablet 500 mcg PO DAILY pantoprazole 40 mg tablet,delayed release (DR/EC) 40 mg PO DAILY ferrous sulfate 325 mg (65 mg iron) Tablet 325 mg PO BID docusate sodium 100 mg Capsule 100 mg PO BID doxazosin 4 mg tablet 4 mg PO DAILY aspirin [Child Aspirin] 81 mg Tablet,Chewable 81 mg PO DAILY sertraline 50 mg tablet 50 mg PO DAILY finasteride 5 mg tablet 5 mg PO DAILY quetiapine 50 mg tablet 50 mg PO HS cholecalciferol (vitamin D3) [Vitamin D3] 25 mcg (1,000 unit) Tablet 25 mcg PO DAILY Icaps MV 100-1.66-0.83 mcg-mg-mg Tablet,Delayed Release (Dr/Ec) 1 tab PO DAILY Xarelto 20 mg tablet 20 mg PO QPM PreserVision AREDS-2 250-90-40-1 mg Capsule 1 tab PO DAILY Senna Plus 8.6-50 mg Capsule 2 tab-cap PO BID Referrals Referrals: Conner Elias [Primary Care Provider] -
[2023-01-05 17:14] LABS: Appearance Urine Clear (Clear); Bacteria Urine Automated Negative (Negative); Bilirubin Urine Negative (Negative); Blood Urine Negative (Negative); Cast Urine Automated 0 /lpf (0-5); Color Urine Yellow; Epithelial Cell Urine Auto 0-5 /lpf (0-5); Glucose Urine UA Negative (Negative); Ketones Urine Negative (Negative); Leukocyte Esterase Urine Trace (Negative); Nitrite Urine Negative (Negative); Protein Urine Negative (Negative); RBC Urine Automated 0-4 /hpf (0-4); Specific Gravity Urine 1.021 (1.000-1.030); Urobilinogen Urine Negative (Negative); WBC Urine Automated 0 /hpf (0-5)
--- NOTE | 2023-01-05 17:21 | XRay Report ---
XR ankle RT 2V HISTORY: 87 years-old Male right ankle pain acute right ankle pain COMPARISON: 06/29/2022 TECHNIQUE: 2 views of the right ankle FINDINGS: Diffuse soft tissue swelling, with pronounced at the level of the ankle. Arterial calcifications. No acute fracture, dislocation or opaque foreign body. Mild to moderate osteoarthritis of the ankle, hin dfoot and midfoot. Degenerative spurring of the calcaneus. IMPRESSION: Soft tissue swelling without acute osseous abnormality. ACT 112: Negative or not required by law. The above report was generated using voice recognition software. It may contain grammatical, syntax o r spelling errors. Electronically signed by: Adan Sanchez M.D. 01/05/2023 5:20 PM
--- NOTE | 2023-01-05 19:56 | Ultrasound Report ---
ULTRASOUND RIGHT LOWER EXTREMITY VENOUS CLINICAL HISTORY: Right leg swelling. COMPARISON STUDY: Right lower extremity venous ultrasound dated 06/24/2022. TECHNIQUE: Real-time, grayscale, and color Doppler sonography of the deep veins of the right lower ex tremity was performed from the inguinal crease to the calf. Compression and augmentation were utilize d. FINDINGS: There is no sonographic evidence of deep venous thrombosis identified in the right lower ex tremity. The common femoral, superficial femoral, and popliteal veins are patent and normally jass sible. The greater saphenous vein and the profunda femoris vein at the junction with the common femor al vein are clear. The visualized calf veins are patent. IMPRESSION: There is no sonographic evidence of deep venous thrombosis identified in the right lower extremity. ACT 112: Negative or not required by law. Electronically signed by: Bogdan Garnett M.D. 01/05/2023 7:54 PM
[2023-01-05] MEDS ORDERED: VANCOMYCIN HCL 1,500 MG in SODIUM CHLORIDE 0.9% 500 ML IV ONE (20:55)
[2023-01-05] MEDS ORDERED: VANCOMYCIN CONSULT ACTIVE PRN (20:55)
[2023-01-05] MEDS ORDERED: DOXAZosin MESYLATE 4 MG TAB PO STA (21:30)
[2023-01-05] MEDS ORDERED: ACETAMINOPHEN 325 MG TAB PO STA (21:30)
[2023-01-05] MEDS ORDERED: ACETAMINOPHEN 325 MG TAB PO PRN (21:30)
[2023-01-05] MEDS ORDERED: oxyCODONE HCL IR 5 MG TAB (IMMEDIATE RELEASE) PO PRN (21:31)
[2023-01-05] MEDS ORDERED: DOXYCYCLINE HYCLATE 100 MG in DEXTROSE 5% MINI-B 100 ML IV STA (21:32)
[2023-01-05] MEDS ORDERED: lisinopril 2.5 MG TAB PO ONE (22:09)
--- NOTE | 2023-01-05 22:15 | History & Physical Report ---
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 Patient requests for daughter to be given periodic updates. Ms. Emma Givens, contact #[phone]. Text document was generated using [employer] voice recognition software. It may contain grammatical or spelling errors. Kindly contact undersigned for clarification of any documentation item in question. History of Present Illness Chief Complaint: Right ankle/leg pain Primary [facility] History obtained from patient and records. Patient is a fair historian. 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 Last confinement April 2020 for chest pain attributed to chronic hiatal hernia. Patient discharged on Protonix. Patient seen at the ER on 2 occasions last May 2022 for RLE pain secondary to cellulitis. Unclear if patient had antecedent trauma as per documentation. Unremarkable x-rays. Patient completed outpatient Keflex and doxycycline course. Wound cultures eventually grew MRSA. Patient woke up this morning and not the swelling on the right ankle and subsequent spread to foot and lower leg. No trauma as per patient. No fever, no chills no chest pain, no SOB. No headache complaints. Patient brought to ER for evaluation. SBP 170s upon arrival at the ER. Lowest O2 sats of 87 on room air documented at the ER. 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 Allergies Allergy/AdvReac Type Severity Reaction Status Date / Time No Known Allergies Allergy Verified 01/05/23 19:13 Home Medications Medication Instructions Recorded Confirmed Type acetaminophen 325 mg tablet 650 mg PO BID 01/05/23 01/05/23 History (Tylenol) amlodipine 5 mg tablet 5 mg PO DAILY 01/05/23 01/05/23 History amoxicillin 500 mg capsule 2,000 mg PO UD 01/05/23 01/05/23 History ascorbic acid (vitamin C) 1,000 mg 1 g PO DAILY 01/05/23 01/05/23 History tablet (Vitamin C) aspirin 81 mg chewable tablet 81 mg PO DAILY 01/05/23 01/05/23 History calcium carbonate 600 mg calcium 600 mg PO DAILY 01/05/23 01/05/23 History (1,500 mg) tablet (Calcium) cholecalciferol (vitamin D3) 25 25 mcg PO DAILY 01/05/23 01/05/23 History mcg (1,000 unit) tablet (Vitamin D3) cyanocobalamin (vitamin B-12) 500 500 mcg PO DAILY 01/05/23 01/05/23 History mcg tablet (Vitamin B-12) docusate sodium 100 mg capsule 100 mg PO BID 01/05/23 01/05/23 History doxazosin 4 mg tablet 4 mg PO DAILY 01/05/23 01/05/23 History ferrous sulfate 325 mg (65 mg 325 mg PO BID 01/05/23 01/05/23 History iron) tablet finasteride 5 mg tablet 5 mg PO DAILY 01/05/23 01/05/23 History levothyroxine 25 mcg tablet 25 mcg PO DAILY 01/05/23 01/05/23 History loperamide 2 mg capsule 2 mg PO Q4H PRN Diarrhea 01/05/23 01/05/23 History lorazepam 0.5 mg tablet 0.5 mg PO TID PRN Anxiety 01/05/23 01/05/23 History rinreeqt-imx-YF 100 mcg-lut 1.66 1 tab PO DAILY 01/05/23 01/05/23 History mg-zeaxanth 0.83 mg tablet,delay rel. (Icaps MV) pantoprazole 40 mg tablet,delayed 40 mg PO DAILY 01/05/23 01/05/23 History release quetiapine 50 mg tablet 50 mg PO HS 01/05/23 01/05/23 History rivaroxaban 20 mg tablet (Xarelto) 20 mg PO QPM 01/05/23 01/05/23 History sennosides 8.6 mg-docusate sodium 2 tab-cap PO BID 01/05/23 01/05/23 History 50 mg capsule (Senna Plus) sertraline 100 mg tablet 100 mg PO DAILY 01/05/23 01/05/23 History sertraline 50 mg tablet 50 mg PO DAILY 01/05/23 01/05/23 History simvastatin 40 mg tablet 40 mg PO QPM 01/05/23 01/05/23 History tramadol 50 mg tablet 50 mg PO Q6H PRN Pain 01/05/23 01/05/23 History vit C 250 mg-vit E 90 mg-zinc 40 1 tab PO DAILY 01/05/23 01/05/23 History mg-copper 1 [id number] capsule (PreserVision AREDS-2) Past Med/Surg History Medical History Chest pain DVT prophylaxis Encounter for screening for COVID-19 Epistaxis Hiatal hernia History of pulmonary embolism Hx of pulmonary embolus Hyperlipidemia Ischemic stroke Pulmonary embolism Seizure Surgical History History of brain surgery Family History Family/Other No pertinent family history Social History Smoking Status: Former smoker Tobacco Type: Cigarettes packs per day: 1; Cigarettes Per Day: 28; Do You Dip or Chew Tobacco: No; Hx Alcohol Use: No Hx Substance Use: No Preferred Language: Mongolian Communication Ability: Effective Braille Teacher Required: No Beliefs That Will Affect Care: None marital status: Single Current Living Situation: Intermediate Current Living Situation Comment: [facility] Other Information That Helps Us Care for You: No Feels Safe at Home: Yes Safety Concerns: Feels Safe At This Time Assistive Devices: Glasses and Walker Review of Systems Review of Systems: As per HPI, all other systems reviewed and negative Physical Exam Physical Exam: GENERAL: Slightly uncomfortable, pleasant, no respiratory distress SKIN: Pallor, warm HEENT: [place] palpebral conjunctivae, no ptosis, chronic right facial droop, dry buccal mucosa, nasal cannula in place NECK : Supple, no tenderness CHEST : CTA, no tenderness HEART : Bradycardic, systolic murmur ABDOMEN: Some distention, nontender EXTREMITIES : Tender right ankle swelling extending to distal tibia-fibula and midfoot, no other conspicuous deformities noted NEUROLOGIC : Coherent, oriented to place, chronic right facial droop, gait and stance not assessed Results & Data Results & Data Vital Signs (Past 12 Hours) Vital Signs Temp Pulse Resp BP Pulse Ox O2 Del Method 01/05/23 21:06 59 L 01/05/23 18:31 161/89 H 01/05/23 18:31 60 19 01/05/23 18:30 71 21 01/05/23 18:01 166/72 H 01/05/23 18:01 79 20 87 L 01/05/23 18:00 72 22 92 01/05/23 17:30 53 L 18 92 01/05/23 17:30 146/63 H 01/05/23 17:01 57 L 26 H 93 01/05/23 17:00 177/71 H 01/05/23 18:03 Room Air 01/05/23 17:11 61 01/05/23 15:43 36.8 C 58 L 18 177/68 H 93 Room Air Laboratory Results Laboratory Results WBC 7.61 K/ul (4.8-10.8) 01/05/23 16:10 RBC 3.28 M/uL (4.70-6.10) L 01/05/23 16:10 Hgb 10.1 g/dl (14.0-18.0) L 01/05/23 16:10 Hct 30.5 % (42.0-52.0) L 01/05/23 16:10 MCV 93.0 fL (80.0-100.0) 01/05/23 16:10 MCH 30.8 pg (25.0-34.0) 01/05/23 16:10 MCHC 33.1 g/dL (32.0-36.0) 01/05/23 16:10 RDW Std Deviation 44.9 fL (36.4-46.3) 01/05/23 16:10 RDW Coeff of Luis 13.2 % (11.5-14.5) 01/05/23 16:10 Plt Count 143 K/uL (130-400) 01/05/23 16:10 MPV 11.3 fL (9.4-12.4) 01/05/23 16:10 Immature Gran % (Auto) 0.3 % 01/05/23 16:10 Neut % (Auto) 68.4 % 01/05/23 16:10 Lymph % (Auto) 15.8 % 01/05/23 16:10 [place] % (Auto) 11.3 % 01/05/23 16:10 Eos % (Auto) 3.0 % 01/05/23 16:10 Baso % (Auto) 1.2 % 01/05/23 16:10 Neut # (Auto) 5.21 K/uL (1.40-6.50) 01/05/23 16:10 Lymph # (Auto) 1.20 K/uL (1.20-3.40) 01/05/23 16:10 [place] # (Auto) 0.86 K/uL (0.11-0.59) H 01/05/23 16:10 Eos # (Auto) 0.23 K/uL (0.00-0.50) 01/05/23 16:10 Baso # (Auto) 0.09 K/uL (0.00-0.20) 01/05/23 16:10 Immature Gran # (Auto) 0.02 K/uL (0.01-0.20) 01/05/23 16:10 PT 10.5 Seconds (9.0-12.0) 01/05/23 16:10 INR 1.0 (0.9-1.1) 01/05/23 16:10 APTT 34.0 Seconds (21.0-31.0) H 01/05/23 16:10 PTT Ratio 1.2 01/05/23 16:10 Sodium 134 mmol/L (136-145) L 01/05/23 16:10 Potassium 4.7 mmol/L (3.5-5.1) 01/05/23 16:10 Chloride 100 mmol/L (98-107) 01/05/23 16:10 Carbon Dioxide 27 mmol/L (21-32) 01/05/23 16:10 Anion Gap 7 (3-11) 01/05/23 16:10 BUN 24 mg/dl (6-23) H 01/05/23 16:10 Creatinine 0.98 mg/dl (0.6-1.4) 01/05/23 16:10 Est Cr Clr Drug Dosing 52.3 ml/min 01/05/23 16:10 Est GFR ( Amer) 79.5 ml/min 01/05/23 16:10 Est GFR (Non-Af Amer) 68.6 ml/min 01/05/23 16:10 BUN/Creatinine Ratio 24.5 (10-20) H 01/05/23 16:10 Glucose 98 mg/dl (70-99(Fasting)) 01/05/23 16:10 Lactate 0.9 mmol/L (0.4-2.0) 01/05/23 20:45 Calcium 9.1 mg/dl (8.6-10.3) 01/05/23 16:10 Magnesium 2.1 mg/dl (1.7-2.4) 01/05/23 16:10 Total Bilirubin 0.6 mg/dl (0.2-1.0) 01/05/23 16:10 AST 14 U/L (13-39) 01/05/23 16:10 ALT 9 U/L (7-52) 01/05/23 16:10 Alkaline Phosphatase 51 U/L (34-104) 01/05/23 16:10 Total Creatine Kinase 62 U/L (30-223) 01/05/23 16:10 Troponin I High Sens 3.7 pg/ml (0-20) 01/05/23 16:10 Total Protein 7.9 gm/dl (6.0-8.3) 01/05/23 16:10 Albumin 4.1 gm/dl (3.4-5.0) 01/05/23 16:10 Globulin 3.8 gm/dl (2.5-4.0) 01/05/23 16:10 Albumin/Globulin Ratio 1.1 (0.9-2) 01/05/23 16:10 Procalcitonin < 0.05 ng/ml (0-0.5) 01/05/23 16:10 Urine Color Yellow 01/05/23 16:55 Urine Appearance Clear (Clear) 01/05/23 16:55 Urine pH 7.0 (4.5-7.5) 01/05/23 16:55 Ur Specific [place] 1.021 (1.000-1.030) 01/05/23 16:55 Urine Protein Negative (Negative) 01/05/23 16:55 Urine Glucose (UA) Negative (Negative) 01/05/23 16:55 Urine Ketones Negative (Negative) 01/05/23 16:55 Urine Blood Negative (Negative) 01/05/23 16:55 Urine Nitrite Negative (Negative) 01/05/23 16:55 Urine Bilirubin Negative (Negative) 01/05/23 16:55 Urine Urobilinogen Negative (Negative) 01/05/23 16:55 Ur Leukocyte Esterase Trace (Negative) H 01/05/23 16:55 Urine WBC (Auto) 0 /hpf (0-5) 01/05/23 16:55 Urine RBC (Auto) 0-4 /hpf (0-4) 01/05/23 16:55 U Hyaline Cast (Auto) 0 /lpf (0-5) 01/05/23 16:55 U Epithel Cells (Auto) 0-5 /lpf (0-5) 01/05/23 16:55 Urine Bacteria (Auto) Negative (Negative) 01/05/23 16:55 Impressions Chest X-Ray 01/05/23 15:48 XR chest 1V not portable HISTORY: 87 years-old Male Sepsis acute sepsis COMPARISON: 04/28/2020 TECHNIQUE: AP view of the chest FINDINGS: Cardiac silhouette is enlarged. Large hiatal hernia redemonstrated. Calcified granuloma subpleural right upper lobe is again seen. No pneumothorax, pleural effusion or overt pulmonary edema. Bibasilar atelectasis. Bones appear grossly intact. IMPRESSION: 1. Cardiomegaly without acute process. 2. Hiatal hernia with mild bibasilar atelectasis. 3. Unchanged calcified granuloma of the right upper lobe. ACT 112: Negative or not required by law. The above report was generated using voice recognition software. It may contain grammatical, syntax or spelling errors. Electronically signed by: Adan Sanchez M.D. 01/05/2023 4:27 PM Venous Doppler Study 01/05/23 15:48 ULTRASOUND RIGHT LOWER EXTREMITY VENOUS CLINICAL HISTORY: Right leg swelling. COMPARISON STUDY: Right lower extremity venous ultrasound dated 06/24/2022. TECHNIQUE: Real-time, grayscale, and color Doppler sonography of the deep veins of the right lower extremity was performed from the inguinal crease to the calf. Compression and augmentation were utilized. FINDINGS: There is no sonographic evidence of deep venous thrombosis identified in the right lower extremity. The common femoral, superficial femoral, and popliteal veins are patent and normally compressible. The greater saphenous vein and the profunda femoris vein at the junction with the common femoral vein are clear. The visualized calf veins are patent. IMPRESSION: There is no sonographic evidence of deep venous thrombosis identified in the right lower extremity. ACT 112: Negative or not required by law. Electronically signed by: Bogdan Garnett M.D. 01/05/2023 7:54 PM Ankle X-Ray 01/05/23 17:03 XR ankle RT 2V HISTORY: 87 years-old Male right ankle pain acute right ankle pain COMPARISON: 06/29/2022 TECHNIQUE: 2 views of the right ankle FINDINGS: Diffuse soft tissue swelling, with pronounced at the level of the ankle. Arterial calcifications. No acute fracture, dislocation or opaque foreign body. 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 Degenerative spurring of the calcaneus. IMPRESSION: Soft tissue swelling without acute osseous abnormality. ACT 112: Negative or not required by law. The above report was generated using voice recognition software. It may contain grammatical, syntax or spelling errors. Electronically signed by: Adan Sanchez M.D. 01/05/2023 5:[address] right ankle: Normal right ankle CT. Diagnostic Findings EKG as per my interpretation : Rate 55, sinus bradycardia, normal axis, incomplete RBBB, septal infarct, no ischemia
[2023-01-05] MEDS ORDERED: DOXAZosin MESYLATE TAB 2 MG TAB PO STA (22:20)
[2023-01-05] MEDS ORDERED: MoRPHine SULFATE 2 MG/ML CARP IV PRN (22:24)
[2023-01-05] MEDS ORDERED: PROMETHAZINE HCL 6.25 MG in SODIUM CHLORIDE 0.9% 50 ML IV PRN (22:25)
[2023-01-05] MEDS ORDERED: OPTIRAY 320 100ml IV ONE (23:14)
[2023-01-06] MEDS: oxyCODONE HCL IR 5 MG TAB (IMMEDIATE RELEASE) PO PRN (00:47)
[2023-01-06] MEDS: QUEtiapine FUMARATE 25 MG TABLET PO SCH ×2 (00:47→20:46)
--- NOTE | 2023-01-06 01:12 | CT Scan Report ---
Exam(s): CT RIGHT ANKLE With Contrast IV Amt: 93ML OF OPTIRAY 320 EXAM: CT Right Lower Extremity With Intravenous Contrast, Ankle CLINICAL HISTORY: Reason for exam: recurrent swelling ro abscess. TECHNIQUE: Axial computed tomography images of the right ankle with intravenous contrast. CTDI is 24.91 mGy and DLP is 658.68 mGy-cm. Automated exposure control was utilized for the study. A dose lowering technique was utilized adhering to the principles of ALARA. CONTRAST: Patient received 93ML OF OPTIRAY 320 of IV contrast COMPARISON: No relevant prior studies available. FINDINGS: Bones/joints: No acute fracture. No dislocation. Soft tissues: Unremarkable. No abnormal contrast enhancement. IMPRESSION: Normal right ankle CT. Electronically signed by: Dell Pelaez MD 01/06/23 01:11 AM
[2023-01-06] MEDS ORDERED: SODIUM CHLORIDE 0.9% 1,000 ML IV ONE (03:04)
[2023-01-06] MEDS: RIVAROXABAN 20 MG TAB PO SCH ×2 (04:04→17:15)
[2023-01-06 06:02] LABS: Basophils # (auto) 0.06 K/uL (0.00-0.20); Basophils % (auto) 0.9 %; Eosinophils % (auto) 3.1 %; Hematocrit (blood only) 27.2 % (42.0-52.0); Hemoglobin 8.8 g/dl (14.0-18.0); Immature Granulocytes # (auto) 0.01 K/uL (0.01-0.20); Immature Granulocytes % (auto) 0.2 %; Lymphocytes # (auto) 1.39 K/uL (1.20-3.40); Lymphocytes % (auto) 21.5 %; Mean Corpuscular Hemoglobin 29.8 pg (25.0-34.0); Mean Corpuscular Hgb Conc 32.4 g/dL (32.0-36.0); Mean Corpuscular Volume 92.2 fL (80.0-100.0); Mean Platelet Volume 11.5 fL (9.4-12.4); Monocytes # (auto) 0.94 K/uL (0.11-0.59); Monocytes % (auto) 14.6 %; Neutrophils # (auto) 3.86 K/uL (1.40-6.50); Neutrophils % (auto) 59.7 %; Platelet Count 146 K/uL (130-400); RDW Coefficient of Variation 13.2 % (11.5-14.5); RDW Standard Deviation 44.2 fL (36.4-46.3); Red Blood Count 2.95 M/uL (4.70-6.10); White Blood Count 6.46 K/ul (4.8-10.8)
[2023-01-06 06:18] LABS: BUN Creatinine Ratio 20.7 (10-20); Calcium 8.2 mg/dl (8.6-10.3); Creatinine Clr Calc Pharmacy 62.5 ml/min; Est GFR (African American) 89.3 ml/min; Est GFR (Non-African American) 77.1 ml/min; Potassium 4.1 mmol/L (3.5-5.1)
[2023-01-06] MEDS: amLODIPine BESYLATE 5 MG TAB PO SCH (08:50)
[2023-01-06] MEDS: DOCUSATE SODIUM/SENNA 50/8.6MG TAB PO SCH ×2 (08:50→20:57)
[2023-01-06] MEDS: ASPIRIN 81 MG CHEW PO SCH (08:50)
[2023-01-06] MEDS: FERROUS SULFATE 325 MG TAB PO SCH ×2 (08:50→20:46)
[2023-01-06] MEDS: DOCUSATE SODIUM 100 MG CAP PO SCH ×2 (08:51→20:45)
[2023-01-06] MEDS: CEROVITE ADV FORMULA TAB PO SCH (08:51)
[2023-01-06] MEDS: FINASTERIDE 5 MG TAB PO SCH (08:51)
[2023-01-06] MEDS: DOXAZosin MESYLATE 4 MG TAB PO SCH (08:51)
[2023-01-06] MEDS: DOXYCYCLINE HYCLATE 100 MG CAP PO SCH ×2 (08:51→20:57)
[2023-01-06] MEDS: SERTRALINE HCL 50 MG TABLET PO SCH (08:52)
[2023-01-06] MEDS: PANTOprazole 40 MG TAB PO SCH (08:52)
[2023-01-06] MEDS: cefTRIAXone SODIUM 2,000 MG in DEXTROSE 5% 50 ML IV SCH (14:50)
--- NOTE | 2023-01-06 16:37 | Hospitalist Progress Note ---
Date of Service January 06, 2023 Assessment & Plan (1) Cellulitis of right leg: Plan: Recurrent RLE cellulitis H/O MRSA R ankle CT:Normal right ankle CT. --Venous Doppler:There is no sonographic evidence of deep venous thrombosis i dentified in the right lower extremity. MRI could not be performed as cerebral aneurysm clips as per outpatient documentation Bone scan pending Blood cultures pending Continue doxycycline, Rocephin Consider orthopedics if needed Uncontrolled hypertension Likely due to pain Continue Amlodipine Hypoxia Acute Bronchitis Likely atelectasis contributing --CXR:Cardiomegaly without acute process. Hiatal hernia with mild bibasilar atelectasis. Unchanged calcified granuloma of the right upper lobe. Check BioFire, procalcitonin On empiric antibiotics as above Supplemental oxygen as needed H/O P.Afib/PE/DVT Currently not on any rate or rhythm control medications On Xarelto for anticoagulation H/O CVA H/O Cerebral aneurysm clipping Hyperlipidemia Continue aspirin, statin H/O Cognitive impairment H/O MGUS/chronic anemia Anxiety/mood disorder Past tobacco abuse BPH Continue home medications Monitor CBC Reorient frequently to minimize delirium DVT Px: Xarelto Code Status DNR/DNI Admission and Anticipated Discharge Date Admission Date: January 05, 2023 Subjective Patient is seen and examined bedside States having right ankle pain associated with swelling Also reports cough Denies any chest pain, dyspnea, dizziness No other complaints Review of Systems Review of Systems: All systems reviewed & are unremarkable except as noted in Subjective Physical Exam Physical Exam: Physical Exam: Vitals signs as noted above General Appearance:Thin, frail, elderly, apparent distress Head: normocephalic, Atraumatic Eyes: normal inspection, EOMI Neck: supple, Trachea midline Respiratory/Chest: Normal breath sounds, basal crackles, No accessory muscle use Cardiovascular: S1, S2, + murmur Abdomen/GI:Soft, Non tender, Bowel sounds present Extremities/Musculoskeletal:normal inspection, R ankle swelling, tender, erythema Neurologic/Psych:AAOX3, grossly no focal neurological deficits Skin: normal color, warm Results & Data Results & Data Vital Signs (Past 12 Hours) Vital Signs Temp Pulse Resp BP BP Pulse Ox O2 Del Method 01/06/23 15:52 36.9 C 64 20 125/62 93 Nasal Cannula 01/06/23 12:06 36.6 C 65 20 135/53 L 94 Nasal Cannula 01/06/23 07:42 36.7 C 52 L 20 158/66 H 94 Nasal Cannula 01/06/23 07:22 Room Air O2 Flow Rate 01/06/23 15:52 2 01/06/23 12:06 2 01/06/23 07:42 2 01/06/23 07:22 Laboratory Results Short CBC 01/05/23 01/06/23 Range/Units 16:10 04:29 WBC 7.61 6.46 (4.8-10.8) K/ul Hgb 10.1 L 8.8 L (14.0-18.0) g/dl Hct 30.5 L 27.2 L (42.0-52.0) % Plt Count 143 146 (130-400) K/uL BMP 01/05/23 01/06/23 16:10 04:29 Sodium 134 L 135 L Potassium 4.7 4.1 Chloride 100 102 Carbon Dioxide 27 29 BUN 24 H 18 Creatinine 0.98 0.87 Glucose 98 96 Calcium 9.1 8.2 L Cardiac Enzymes 01/05/23 Range/Units 16:10 Total Creatine Kinase 62 (30-223) U/L Liver Function 01/05/23 Range/Units 16:10 Total Bilirubin 0.6 (0.2-1.0) mg/dl AST 14 (13-39) U/L ALT 9 (7-52) U/L Alkaline Phosphatase 51 (34-104) U/L Albumin 4.1 (3.4-5.0) gm/dl Urine 01/05/23 Range/Units 16:55 Urine Color Yellow Urine Appearance Clear (Clear) Urine pH 7.0 (4.5-7.5) Ur Specific [place] 1.021 (1.000-1.030) Urine Protein Negative (Negative) Urine Glucose (UA) Negative (Negative)
[2023-01-06 18:20] LABS: Adenovirus PCR Not Detected (NotDetected); Bordetella parapertussis PCR Not Detected (NotDetected); Bordetella pertussis PCR Not Detected (NotDetected); Chlamydia pneumoniae PCR Not Detected (NotDetected); Coronavirus 229E PCR Not Detected (NotDetected); Coronavirus CoV-2 (COVID19)PCR Not Detected (NotDetected); Coronavirus HKU1 PCR Not Detected (NotDetected); Coronavirus NL63 PCR Not Detected (NotDetected); Coronavirus OC43PCR Not Detected (NotDetected); Human Metapneumovirus PCR Not Detected (NotDetected); Influenza A PCR Not Detected (NotDetected); Influenza B PCR Not Detected (NotDetected); Mycoplasma pneumoniae PCR Not Detected (NotDetected); Parainfluenza Virus 1 PCR Not Detected (NotDetected); Parainfluenza Virus 2 PCR Not Detected (NotDetected); Parainfluenza Virus 3 PCR Not Detected (NotDetected); Parainfluenza Virus 4 PCR Not Detected (NotDetected); Respiratory Syncytial VirusPCR Not Detected (NotDetected); Rhinovirus/Enterovirus PCR Not Detected (NotDetected)
[2023-01-07] MEDS: oxyCODONE HCL IR 5 MG TAB (IMMEDIATE RELEASE) PO PRN (00:14)
[2023-01-07 05:02] LABS: Hematocrit (blood only) 27.4 % (42.0-52.0); Hemoglobin 8.9 g/dl (14.0-18.0); Mean Corpuscular Hemoglobin 29.9 pg (25.0-34.0); Mean Corpuscular Hgb Conc 32.5 g/dL (32.0-36.0); Mean Corpuscular Volume 91.9 fL (80.0-100.0); Mean Platelet Volume 11.2 fL (9.4-12.4); Platelet Count 158 K/uL (130-400); RDW Coefficient of Variation 13.2 % (11.5-14.5); RDW Standard Deviation 43.8 fL (36.4-46.3); Red Blood Count 2.98 M/uL (4.70-6.10); White Blood Count 7.15 K/ul (4.8-10.8)
[2023-01-07 05:32] LABS: BUN Creatinine Ratio 17.2 (10-20); Calcium 8.3 mg/dl (8.6-10.3); Creatinine Clr Calc Pharmacy 58.5 ml/min; Est GFR (African American) 84.7 ml/min; Potassium 4.2 mmol/L (3.5-5.1)
[2023-01-07] MEDS: DOXYCYCLINE HYCLATE 100 MG CAP PO SCH ×2 (08:04→22:27)
[2023-01-07] MEDS: DOCUSATE SODIUM/SENNA 50/8.6MG TAB PO SCH ×2 (08:04→22:26)
[2023-01-07] MEDS: ASPIRIN 81 MG CHEW PO SCH (08:04)
[2023-01-07] MEDS: FERROUS SULFATE 325 MG TAB PO SCH ×2 (08:05→22:26)
[2023-01-07] MEDS: FINASTERIDE 5 MG TAB PO SCH (08:05)
[2023-01-07] MEDS: CEROVITE ADV FORMULA TAB PO SCH (08:05)
[2023-01-07] MEDS: PANTOprazole 40 MG TAB PO SCH (08:05)
[2023-01-07] MEDS: DOCUSATE SODIUM 100 MG CAP PO SCH ×2 (08:05→22:28)
[2023-01-07] MEDS: DOXAZosin MESYLATE 4 MG TAB PO SCH (08:06)
[2023-01-07] MEDS: SERTRALINE HCL 50 MG TABLET PO SCH (08:06)
[2023-01-07] MEDS: amLODIPine BESYLATE 5 MG TAB PO SCH (08:06)
[2023-01-07] MEDS ORDERED: SODIUM CHLORIDE 0.9% 250 ML IV PRN (13:14)
[2023-01-07] MEDS ORDERED: OXYMETAZOLINE 0.05% 30 ML BTL PRN (13:17)
[2023-01-07] MEDS: cefTRIAXone SODIUM 2,000 MG in DEXTROSE 5% 50 ML IV SCH (15:14)
[2023-01-07] MEDS: RIVAROXABAN 20 MG TAB PO SCH (15:32)
--- NOTE | 2023-01-07 16:12 | Hospitalist Progress Note ---
Date of Service January 07, 2023 Assessment & Plan (1) Cellulitis of right leg: Plan: Recurrent RLE cellulitis H/O MRSA R ankle CT:Normal right ankle CT. --Venous Doppler:There is no sonographic evidence of deep venous thrombosis i dentified in the right lower extremity. MRI could not be performed as cerebral aneurysm clips as per outpatient documentation Bone scan pending Blood cultures no growth to date Continue doxycycline, Rocephin Consider orthopedics if needed Continue current management Uncontrolled hypertension Likely due to pain Continue Amlodipine BP Variable Hypoxia Acute Bronchitis Likely atelectasis contributing --CXR:Cardiomegaly without acute process. Hiatal hernia with mild bibasilar atelectasis. Unchanged calcified granuloma of the right upper lobe. Normal procalcitonin Negative BioFire On empiric antibiotics as above Supplemental oxygen as needed H/O P.Afib/PE/DVT Currently not on any rate or rhythm control medications On Xarelto for anticoagulation Transient epistaxis Suspected hematuria Repeat urinalysis Monitor H&H H/O CVA H/O Cerebral aneurysm clipping Hyperlipidemia Continue aspirin, statin H/O Cognitive impairment H/O MGUS/chronic anemia Anxiety/mood disorder Past tobacco abuse BPH Continue home medications Monitor CBC Reorient frequently to minimize delirium DVT Px: Xarelto Code Status DNR/DNI Admission and Anticipated Discharge Date Admission Date: January 05, 2023 Subjective Patient is seen and examined bedside Less cough today Leg pain, erythema better RN noticed minimal transient epistaxis, hematuria Denies any chest pain, dyspnea, dizziness Review of Systems Review of Systems: All systems reviewed & are unremarkable except as noted in Subjective Physical Exam Physical Exam: Physical Exam: Vitals signs as noted above General Appearance:Thin, frail, elderly, apparent distress Head: normocephalic, Atraumatic Eyes: normal inspection, EOMI Neck: supple, Trachea midline Respiratory/Chest: Normal breath sounds, basal crackles, No accessory muscle use Cardiovascular: S1, S2, + murmur Abdomen/GI:Soft, Non tender, Bowel sounds present Extremities/Musculoskeletal:normal inspection, R ankle swelling, tender, erythema Neurologic/Psych:AAOX3, grossly no focal neurological deficits Skin: normal color, warm Results & Data Results & Data Vital Signs (Past 12 Hours) Vital Signs Temp Pulse Resp BP Pulse Ox O2 Del Method O2 Flow Rate 01/07/23 14:58 36.7 C 61 20 145/71 H 93 Nasal Cannula 2 01/07/23 12:57 Nasal Cannula 2 01/07/23 11:51 36.8 C 49 L 18 132/54 L 90 Room Air 01/07/23 08:19 Nasal Cannula 2 01/07/23 07:32 37.2 C 64 19 123/57 L 91 Room Air 01/07/23 04:22 37.7 C H 62 20 120/43 L 91 Room Air Laboratory Results Short CBC 01/07/23 Range/Units 04:02 WBC 7.15 (4.8-10.8) K/ul Hgb 8.9 L (14.0-18.0) g/dl Hct 27.4 L (42.0-52.0) % Plt Count 158 (130-400) K/uL BMP 01/07/23 04:02 Sodium 136 Potassium 4.2 Chloride 104 Carbon Dioxide 28 BUN 16 Creatinine 0.93 Glucose 104 H Calcium 8.3 L
[2023-01-07 19:24] LABS: A calco-baum cmplx NotReported Not Detected (NotDetected); Bact fragilis Not Reported Not Detected (NotDetected); C auris Not Reported Not Detected (NotDetected); Calbicans Not Reported Not Detected (NotDetected); Candida glabrata Not Reported Not Detected (NotDetected); Candida krusei Not Reported Not Detected (NotDetected); Cneoformans/gatti Not Reported Not Detected (NotDetected); Cparapsilosis Not Reported Not Detected (NotDetected); E cloacae compx Not Reported Not Detected (NotDetected); Efaecalis Not Reported Not Detected (NotDetected); Efaecium Not Reported Not Detected (NotDetected); Enterobacterales Not Reported Not Detected (NotDetected); Escherichia coli Not Reported Not Detected (NotDetected); H influenzae Not Reported Not Detected (NotDetected); K aerogenes Not Reported Not Detected (NotDetected); Koxytoca Not Reported Not Detected (NotDetected); Kpneumoniae grp Not Reported Not Detected (NotDetected); Lmonocyt Not Reported Not Detected (NotDetected); N meningitidis Not Reported Not Detected (NotDetected); P aeruginosa Not Reported Not Detected (NotDetected); Proteus spp Not Reported Not Detected (NotDetected); Salmonella spp Not Reported Not Detected (NotDetected); Smarcescens Not Reported Not Detected (NotDetected); Staph lugdunensis Not Reported Not Detected (NotDetected); Staph spp. Not Reported Not Detected (NotDetected); Staphaureus Not Reported Not Detected (NotDetected); Staphepi Not Reported Not Detected (NotDetected); Stenmaltophilia Not Reported Not Detected (NotDetected); Strep agal(GrpB) Not Reported Not Detected (NotDetected); Strep pneum Not Reported Not Detected (NotDetected); Strep pyog (GrpA) Not Reported Not Detected (NotDetected); Strep spp Not Reported Not Detected (NotDetected)
[2023-01-07 21:24] LABS: Hematocrit (blood only) 27.1 % (42.0-52.0); Hemoglobin 9.1 g/dl (14.0-18.0)
[2023-01-07] MEDS: QUEtiapine FUMARATE 25 MG TABLET PO SCH (22:27)
[2023-01-08] MEDS: LORazepam 0.5 MG TAB PO PRN ×2 (00:59→21:34)
[2023-01-08 04:42] LABS: Hematocrit (blood only) 27.6 % (42.0-52.0); Hemoglobin 9.2 g/dl (14.0-18.0); Mean Corpuscular Hemoglobin 30.1 pg (25.0-34.0); Mean Corpuscular Hgb Conc 33.3 g/dL (32.0-36.0); Mean Corpuscular Volume 90.2 fL (80.0-100.0); Mean Platelet Volume 11.4 fL (9.4-12.4); Platelet Count 151 K/uL (130-400); RDW Standard Deviation 42.9 fL (36.4-46.3); Red Blood Count 3.06 M/uL (4.70-6.10)
[2023-01-08 04:59] LABS: BUN Creatinine Ratio 17.8 (10-20); Calcium 8.3 mg/dl (8.6-10.3); Creatinine Clr Calc Pharmacy 60.4 ml/min; Est GFR (African American) 88.1 ml/min; Potassium 4.3 mmol/L (3.5-5.1)
[2023-01-08 05:21] LABS: Prothrombin Time 11.4 Seconds (9.0-12.0)
[2023-01-08] MEDS: CEROVITE ADV FORMULA TAB PO SCH (09:00)
[2023-01-08] MEDS: DOCUSATE SODIUM 100 MG CAP PO SCH ×2 (09:00→21:35)
[2023-01-08] MEDS: DOXYCYCLINE HYCLATE 100 MG CAP PO SCH ×2 (09:00→21:39)
[2023-01-08] MEDS: FERROUS SULFATE 325 MG TAB PO SCH ×2 (09:00→21:35)
[2023-01-08] MEDS: DOCUSATE SODIUM/SENNA 50/8.6MG TAB PO SCH ×2 (09:00→21:35)
[2023-01-08] MEDS: FINASTERIDE 5 MG TAB PO SCH (09:00)
[2023-01-08] MEDS: PANTOprazole 40 MG TAB PO SCH (09:00)
[2023-01-08] MEDS: ASPIRIN 81 MG CHEW PO SCH (09:01)
[2023-01-08] MEDS: SERTRALINE HCL 50 MG TABLET PO SCH (09:01)
[2023-01-08] MEDS: DOXAZosin MESYLATE 4 MG TAB PO SCH (09:01)
[2023-01-08] MEDS: amLODIPine BESYLATE 5 MG TAB PO SCH (09:01)
[2023-01-08 09:19] LABS: Appearance Urine Clear (Clear); Bacteria Urine Automated Negative (Negative); Bilirubin Urine Negative (Negative); Blood Urine Negative (Negative); Cast Urine Automated 0 /lpf (0-5); Color Urine Yellow; Glucose Urine UA Negative (Negative); Ketones Urine Negative (Negative); Leukocyte Esterase Urine Trace (Negative); Nitrite Urine Negative (Negative); Protein Urine Negative (Negative); RBC Urine Automated 0-4 /hpf (0-4); Specific Gravity Urine 1.022 (1.000-1.030); Urobilinogen Urine Negative (Negative); pH Urine 7.5 (4.5-7.5)
[2023-01-08] MEDS ORDERED: POLYETHYLENE (MIRALAX) 17 GM PACK PO ONE (09:57)
[2023-01-08] MEDS ORDERED: bisacodyL 10 MG SUPP PR PRN (09:58)
--- NOTE | 2023-01-08 12:14 | Electrocardiogram Report ---
Test Reason : Blood Pressure : / mmHG Vent. Rate : 058 BPM Atrial Rate : 058 BPM P-R Int : 134 ms QRS Dur : 094 ms QT Int : 388 ms P-R-T Axes : 000 061 040 degrees QTc Int : 380 ms Sinus bradycardia Incomplete right bundle branch block Anteroseptal infarct (cited on or before 29-APR-2020) Abnormal ECG When compared with ECG of 24-JUN-2022 21:09, Premature atrial complexes are no longer Present Confirmed by Dario Jennings ([id number]) on 01/08/2023 12:14:45 PM Referred By: REFERRED SELF Confirmed By:Dario Jennings
[2023-01-08] MEDS: SODIUM CHLORIDE 0.65% NA SOLN 45 ML (OCEAN) SCH ×2 (12:54→21:39)
[2023-01-08] MEDS: cefTRIAXone SODIUM 2,000 MG in DEXTROSE 5% 50 ML IV SCH (12:57)
--- NOTE | 2023-01-08 15:14 | Nuclear Medicine Report ---
NM bone 3 phase ltd HISTORY: 87 years-old Male recurrent r ankle/tib/fib swelling ro osteomyeliti chronic pain and swell ing of the right foot and ankle COMPARISON: CT right ankle 01/05/2023 TECHNIQUE: Anterior and posterior whole anterior and posterior planar three-phase scintigraphic bone scan images of the foot and ankles were obtained following the intravenous administration of 21.0 mCi technetium 99 MDP. FINDINGS: Evaluation of the comparison CT right ankle x-rays no acute fracture, dislocation or osseous erosive change. There is moderately increased blood flow, and blood pool activity within the right hindfoot distribut ion within the region of the posterior calcaneus/Achilles tendon. Additionally, there is mildly incre ased tracer activity surrounding the right patella on the delayed images, likely degenerative. Mildly increased delayed activity within the right ankle is likely secondary to osteoarthritis. No abnormal tracer uptake within the left ankle or foot. IMPRESSION: 1. Moderately increased uptake within the right posterior calcaneus/Achilles distribution without cor relate finding on the prior CT imaging may be related to tendinosis/encephalopathy of the Achilles. 2. No definite scintigraphic evidence to suggest osteomyelitis. ACT 112: Negative or not required by law. The above report was generated using voice recognition software. It may contain grammatical, syntax o r spelling errors. Electronically signed by: Adan Sanchez M.D. 01/08/2023 3:12 PM
--- NOTE | 2023-01-08 15:37 | Hospitalist Progress Note ---
Date of Service January 08, 2023 Assessment & Plan (1) Cellulitis of right leg: Plan: Recurrent RLE cellulitis H/O MRSA R ankle CT:Normal right ankle CT. --Venous Doppler:There is no sonographic evidence of deep venous thrombosis i dentified in the right lower extremity. MRI could not be performed as cerebral aneurysm clips as per outpatient documentation Bone scan: Moderately increased uptake within the right posterior calcaneus/Achilles distribution without correlate finding on the prior CT imaging may be related to tendinosis/encephalopathy of the Achilles. No definite scintigraphic evidence to suggest osteomyelitis. Blood cultures pending Continue doxycycline, Rocephin Clinically improving PT OT evaluation Abnormal blood cultures 1/4 blood cultures growing gram-positive bacilli Likely contamination Repeat blood cultures obtained Continue antibiotics as above Uncontrolled hypertension Likely due to pain Continue Amlodipine BP Variable Monitor Hypoxia Acute Bronchitis Likely atelectasis contributing --CXR:Cardiomegaly without acute process. Hiatal hernia with mild bibasilar atelectasis. Unchanged calcified granuloma of the right upper lobe. Normal procalcitonin Negative BioFire On empiric antibiotics as above Saturating well on room H/O P.Afib/PE/DVT Currently not on any rate or rhythm control medications On Xarelto for anticoagulation Transient epistaxis Suspected hematuria No hematuria urinalysis Monitor H&H Added Nasal Saline H/O CVA H/O Cerebral aneurysm clipping Hyperlipidemia Continue aspirin, statin H/O Cognitive impairment H/O MGUS/chronic anemia Anxiety/mood disorder Past tobacco abuse BPH Continue home medications Monitor CBC Reorient frequently to minimize delirium DVT Px: Xarelto Code Status DNR/DNI Disposition PT OT prior to discharge Admission and Anticipated Discharge Date Admission Date: January 05, 2023 Subjective Patient is seen and examined bedside Patient states having constipation Cough much improved Leg pain continues to improve as well Blood cultures growing gram-positive Denies any chest pain, dyspnea, dizziness, abdominal pain, nausea, vomiting Review of Systems Review of Systems: All systems reviewed & are unremarkable except as noted in Subjective Physical Exam Physical Exam: Physical Exam: Vitals signs as noted above General Appearance:Thin, frail, elderly, apparent distress Head: normocephalic, Atraumatic Eyes: normal inspection, EOMI Neck: supple, Trachea midline Respiratory/Chest: Normal breath sounds, basal crackles, No accessory muscle use Cardiovascular: S1, S2, + murmur Abdomen/GI:Soft, Non tender, Bowel sounds present Extremities/Musculoskeletal:normal inspection, R ankle swelling, tender, erythema Neurologic/Psych:AAOX3, grossly no focal neurological deficits Skin: normal color, warm Results & Data Results & Data Vital Signs (Past 12 Hours) Vital Signs Temp Pulse Pulse Resp BP BP Pulse Ox 01/08/23 15:01 36.6 C 53 L 18 140/57 L 94 01/08/23 11:07 36.8 C 56 L 18 150/92 H 91 01/08/23 07:38 01/08/23 07:38 51 L 01/08/23 06:00 49 L 01/08/23 07:19 36.4 C L 62 18 154/77 H 90 01/08/23 04:26 37 C 53 L 18 136/45 L 91 O2 Del Method 01/08/23 15:01 Room Air 01/08/23 11:07 Room Air 01/08/23 07:38 Room Air 01/08/23 07:38 01/08/23 06:00 01/08/23 07:19 Room Air 01/08/23 04:26 Room Air Laboratory Results Short CBC 01/07/23 01/08/23 Range/Units 20:57 04:03 WBC 5.70 (4.8-10.8) K/ul Hgb 9.1 L 9.2 L (14.0-18.0) g/dl Hct 27.1 L 27.6 L (42.0-52.0) % Plt Count 151 (130-400) K/uL BMP 01/08/23 04:03 Sodium 137 Potassium 4.3 Chloride 103 Carbon Dioxide 28 BUN 16 Creatinine 0.90 Glucose 103 H Calcium 8.3 L Urine 01/08/23 Range/Units Unknown Urine Color Yellow Urine Appearance Clear (Clear) Urine pH 7.5 (4.5-7.5) Ur Specific Lyndon 1.022 (1.000-1.030) Urine Protein Negative (Negative) Urine Glucose (UA) Negative (Negative)
[2023-01-08] MEDS: RIVAROXABAN 20 MG TAB PO SCH (17:25)
[2023-01-08] MEDS: oxyCODONE HCL IR 5 MG TAB (IMMEDIATE RELEASE) PO PRN (21:34)
[2023-01-08] MEDS: QUEtiapine FUMARATE 25 MG TABLET PO SCH (21:35)
[2023-01-09 05:03] LABS: Hematocrit (blood only) 31.3 % (42.0-52.0); Hemoglobin 10.1 g/dl (14.0-18.0)
[2023-01-09] MEDS: CEROVITE ADV FORMULA TAB PO SCH (08:24)
[2023-01-09] MEDS: DOCUSATE SODIUM 100 MG CAP PO SCH ×2 (08:24→20:18)
[2023-01-09] MEDS: DOXYCYCLINE HYCLATE 100 MG CAP PO SCH ×2 (08:24→20:19)
[2023-01-09] MEDS: ASPIRIN 81 MG CHEW PO SCH (08:24)
[2023-01-09] MEDS: PANTOprazole 40 MG TAB PO SCH (08:24)
[2023-01-09] MEDS: DOXAZosin MESYLATE 4 MG TAB PO SCH (08:24)
[2023-01-09] MEDS: DOCUSATE SODIUM/SENNA 50/8.6MG TAB PO SCH ×2 (08:24→20:18)
[2023-01-09] MEDS: amLODIPine BESYLATE 5 MG TAB PO SCH (08:24)
[2023-01-09] MEDS: FINASTERIDE 5 MG TAB PO SCH (08:24)
[2023-01-09] MEDS: FERROUS SULFATE 325 MG TAB PO SCH ×2 (08:24→20:18)
[2023-01-09] MEDS: SERTRALINE HCL 50 MG TABLET PO SCH (08:25)
[2023-01-09] MEDS: SODIUM CHLORIDE 0.65% NA SOLN 45 ML (OCEAN) SCH ×2 (08:25→20:19)
[2023-01-09] MEDS ORDERED: SODIUM CHLORIDE 0.9% 500 ML IV ONE (14:30)
[2023-01-09] MEDS: cefTRIAXone SODIUM 2,000 MG in DEXTROSE 5% 50 ML IV SCH (14:59)
--- NOTE | 2023-01-09 16:45 | Hospitalist Progress Note ---
Date of Service January 09, 2023 Assessment & Plan (1) Cellulitis of right leg: Plan: Recurrent RLE cellulitis H/O MRSA R ankle CT:Normal right ankle CT. --Venous Doppler:There is no sonographic evidence of deep venous thrombosis identified in the right lower extremity. MRI could not be performed as cerebral aneurysm clips as per outpatient documentation Bone scan: Moderately increased uptake within the right posterior calcaneus/Achilles distribution without correlate finding on the prior CT imaging may be related to tendinosis/encephalopathy of the Achilles. No definite scintigraphic evidence to suggest osteomyelitis. Blood cultures pending Continue doxycycline, Rocephin PT OT evaluation Transition to p.o. antibiotics as able Abnormal blood cultures 1/4 blood cultures growing gram-positive bacilli Likely contamination Repeat blood cultures: No growth to date Continue antibiotics as above Uncontrolled hypertension Likely due to pain Continue Amlodipine BP Variable Monitor Chronic sinus bradycardia Asymptomatic No pauses on monitor Currently not on any AV [place] blocking agents Hypoxia Acute Bronchitis Likely atelectasis contributing --CXR:Cardiomegaly without acute process. Hiatal hernia with mild bibasilar atelectasis. Unchanged calcified granuloma of the right upper lobe. Normal procalcitonin Negative BioFire On empiric antibiotics as above Saturating well on room H/O P.Afib/PE/DVT Currently not on any rate or rhythm control medications On Xarelto for anticoagulation Transient epistaxis Suspected hematuria No hematuria urinalysis Monitor H&H Added Nasal Saline H/O CVA H/O Cerebral aneurysm clipping Hyperlipidemia Continue aspirin, statin H/O Cognitive impairment H/O MGUS/chronic anemia Anxiety/mood disorder Past tobacco abuse BPH Continue home medications Monitor CBC Reorient frequently to minimize delirium DVT Px: Xarelto Code Status DNR/DNI Disposition Case management to help with discharge planning Admission and Anticipated Discharge Date Admission Date: January 05, 2023 Subjective Patient is seen and examined bedside Subjectively feels well today Sitting in chair during my encounter Offers no new complaints Cough continues to improve Leg pain resolved Denies any chest pain, dyspnea, dizziness, abdominal pain, nausea, vomiting Review of Systems Review of Systems: All systems reviewed & are unremarkable except as noted in Subjective Physical Exam Physical Exam: Physical Exam: Vitals signs as noted above General Appearance:Thin, frail, elderly, apparent distress Head: normocephalic, Atraumatic Eyes: normal inspection, EOMI Neck: supple, Trachea midline Respiratory/Chest: Normal breath sounds,CTA, No accessory muscle use Cardiovascular: S1, S2, + murmur Abdomen/GI:Soft, Non tender, Bowel sounds present Extremities/Musculoskeletal:normal inspection, R ankle swelling, tender, erythema improved Neurologic/Psych:AAOX3, grossly no focal neurological deficits Skin: normal color, warm Results & Data Results & Data Vital Signs (Past 12 Hours) Vital Signs Temp Pulse Pulse Resp BP BP Pulse Ox 01/09/23 16:34 50 L 01/09/23 15:12 36.8 C 60 16 153/67 H 91 01/09/23 13:08 53 L 01/09/23 12:25 101/63 01/09/23 12:02 36.4 C L 63 16 99/50 L 91 01/09/23 07:46 36.8 C 47 L 16 167/63 H 90 O2 Del Method 01/09/23 16:34 01/09/23 15:12 Room Air 01/09/23 13:08 01/09/23 12:25 01/09/23 12:02 Room Air 01/09/23 07:46 Room Air Laboratory Results Short CBC 01/09/23 Range/Units 04:21 Hgb 10.1 L (14.0-18.0) g/dl Hct 31.3 L (42.0-52.0) %
[2023-01-09] MEDS: RIVAROXABAN 20 MG TAB PO SCH (17:19)
[2023-01-09] MEDS: QUEtiapine FUMARATE 25 MG TABLET PO SCH (20:18)
[2023-01-09] MEDS: LORazepam 0.5 MG TAB PO PRN (20:24)
[2023-01-09] MEDS: oxyCODONE HCL IR 5 MG TAB (IMMEDIATE RELEASE) PO PRN (20:24)
[2023-01-10 05:21] LABS: Hematocrit (blood only) 27.8 % (42.0-52.0); Hemoglobin 9.1 g/dl (14.0-18.0)
[2023-01-10 05:36] LABS: BUN Creatinine Ratio 20.9 (10-20); Calcium 8.5 mg/dl (8.6-10.3); Creatinine Clr Calc Pharmacy 63.2 ml/min; Est GFR (African American) 89.7 ml/min; Est GFR (Non-African American) 77.4 ml/min; Potassium 4.1 mmol/L (3.5-5.1)
[2023-01-10] MEDS: SODIUM CHLORIDE 0.65% NA SOLN 45 ML (OCEAN) SCH (09:16)
[2023-01-10] MEDS: CEROVITE ADV FORMULA TAB PO SCH (09:16)
[2023-01-10] MEDS: DOXYCYCLINE HYCLATE 100 MG CAP PO SCH (09:16)
[2023-01-10] MEDS: ASPIRIN 81 MG CHEW PO SCH (09:17)
[2023-01-10] MEDS: DOCUSATE SODIUM 100 MG CAP PO SCH (09:17)
[2023-01-10] MEDS: PANTOprazole 40 MG TAB PO SCH (09:17)
[2023-01-10] MEDS: DOCUSATE SODIUM/SENNA 50/8.6MG TAB PO SCH (09:17)
[2023-01-10] MEDS: FERROUS SULFATE 325 MG TAB PO SCH (09:17)
[2023-01-10] MEDS: SERTRALINE HCL 50 MG TABLET PO SCH (09:18)
[2023-01-10] MEDS: FINASTERIDE 5 MG TAB PO SCH (09:18)
[2023-01-10] MEDS: DOXAZosin MESYLATE 4 MG TAB PO SCH (09:18)
--- NOTE | 2023-01-10 12:21 | Hospitalist Progress Note ---
Date of Service January 10, 2023 Assessment & Plan (1) Cellulitis of right leg: Plan: Recurrent RLE cellulitis H/O MRSA R ankle CT:Normal right ankle CT. --Venous Doppler:There is no sonographic evidence of deep venous thrombosis identified in the right lower extremity. MRI could not be performed as cerebral aneurysm clips as per outpatient documentation Bone scan: Moderately increased uptake within the right posterior calcaneus/Achilles distribution without correlate finding on the prior CT imaging may be related to tendinosis/encephalopathy of the Achilles. No definite scintigraphic evidence to suggest osteomyelitis. Blood cultures pending Continue doxycycline, Rocephin PT OT evaluation Repeat blood cultures negative to date Transition to p.o. antibiotics upon discharge Clinically improved Abnormal blood cultures 1/4 blood cultures growing gram-positive bacilli Likely contamination Repeat blood cultures: No growth to date Continue antibiotics as above Uncontrolled hypertension Likely due to pain Continue Amlodipine BP Variable Monitor Chronic sinus bradycardia Asymptomatic No pauses on monitor Currently not on any AV [place] blocking agents Hypoxia Acute Bronchitis Likely atelectasis contributing --CXR:Cardiomegaly without acute process. Hiatal hernia with mild bibasilar atelectasis. Unchanged calcified granuloma of the right upper lobe. Normal procalcitonin Negative BioFire On empiric antibiotics as above Saturating well on room H/O P.Afib/PE/DVT Currently not on any rate or rhythm control medications On Xarelto for anticoagulation Transient epistaxis Suspected hematuria No hematuria urinalysis Monitor H&H Added Nasal Saline H/O CVA H/O Cerebral aneurysm clipping Hyperlipidemia Continue aspirin, statin H/O Cognitive impairment H/O MGUS/chronic anemia Anxiety/mood disorder Past tobacco abuse BPH Continue home medications Monitor CBC Reorient frequently to minimize delirium DVT Px: Xarelto Code Status DNR/DNI Disposition Personal care facility today Admission and Anticipated Discharge Date Admission Date: January 05, 2023 Subjective Patient is seen and examined bedside Offers no new complaints States feeling well today Plan to be discharged to rehab facility today Denies any chest pain, dyspnea, dizziness, abdominal pain, nausea, vomiting Review of Systems Review of Systems: All systems reviewed & are unremarkable except as noted in Subjective Physical Exam Physical Exam: Physical Exam: Vitals signs as noted above General Appearance:Thin, frail, elderly, apparent distress Head: normocephalic, Atraumatic Eyes: normal inspection, EOMI Neck: supple, Trachea midline Respiratory/Chest: Normal breath sounds,CTA, No accessory muscle use Cardiovascular: S1, S2, + murmur Abdomen/GI:Soft, Non tender, Bowel sounds present Extremities/Musculoskeletal:normal inspection, R ankle swelling, tender, eryt awilda improved Neurologic/Psych:AAOX3, grossly no focal neurological deficits Skin: normal color, warm Results & Data Results & Data Vital Signs (Past 12 Hours) Vital Signs Temp Pulse Pulse Resp BP Pulse Ox O2 Del Method 01/10/23 11:29 36.8 C 63 18 107/56 L 90 Room Air 01/10/23 07:53 49 L 01/10/23 07:03 36.3 C L 55 L 18 178/77 H 91 Room Air 01/10/23 06:54 Room Air 01/10/23 04:00 36.8 C 45 L 18 141/68 H 94 Room Air Laboratory Results Short CBC 01/10/23 Range/Units 04:34 Hgb 9.1 L (14.0-18.0) g/dl Hct 27.8 L (42.0-52.0) % BMP 01/10/23 04:34 Sodium 137 Potassium 4.1 Chloride 102 Carbon Dioxide 29 BUN 18 Creatinine 0.86 Glucose 96 Calcium 8.5 L
--- NOTE | 2023-01-10 13:42 | Discharge Summary ---
Date of Service January 10, 2023 Admission HPI Per Admitting Provider History obtained from patient and records. Patient is a fair historian. 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 Last confinement April 2020 for chest pain attributed to chronic hiatal hernia. Patient discharged on Protonix. Patient seen at the ER on 2 occasions last May 2022 for RLE pain secondary to cellulitis. Unclear if patient had antecedent trauma as per documentation. Unremarkable x-rays. Patient completed outpatient Keflex and doxycycline course. Wound cultures eventually grew MRSA. Patient woke up this morning and not the swelling on the right ankle and subsequent spread to foot and lower leg. No trauma as per patient. No fever, no chills no chest pain, no SOB. No headache complaints. Patient brought to ER for evaluation. SBP 170s upon arrival at the ER. Lowest O2 sats of 87 on room air documented at the ER. 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 Admission Exam Per Admitting Provider GENERAL: Slightly uncomfortable, pleasant, no respiratory distress SKIN: Pallor, warm HEENT: [place] palpebral conjunctivae, no ptosis, chronic right facial droop, dry buccal mucosa, nasal cannula in place NECK : Supple, no tenderness CHEST : CTA, no tenderness HEART : Bradycardic, systolic murmur ABDOMEN: Some distention, nontender EXTREMITIES : Tender right ankle swelling extending to distal tibia-fibula and midfoot, no other conspicuous deformities noted NEUROLOGIC : Coherent, oriented to place, chronic right facial droop, gait and stance not assessed Principal Diagnosis Recurrent Right leg Cellulitis Acute Bronchitis Discharge Data Allergies Allergy/AdvReac Type Severity Reaction Status Date / Time No Known Allergies Allergy Verified 01/05/23 19:13 Consultations 01/05/23 20:59 ED Decision to Admit Stat Procedures Performed Laboratory Results WBC 5.70 K/ul (4.8-10.8) 01/08/23 04:03 RBC 3.06 M/uL (4.70-6.10) L 01/08/23 04:03 Hgb 9.1 g/dl (14.0-18.0) L 01/10/23 04:34 Hct 27.8 % (42.0-52.0) L 01/10/23 04:34 MCV 90.2 fL (80.0-100.0) 01/08/23 04:03 MCH 30.1 pg (25.0-34.0) 01/08/23 04:03 MCHC 33.3 g/dL (32.0-36.0) 01/08/23 04:03 RDW Std Deviation 42.9 fL (36.4-46.3) 01/08/23 04:03 RDW Coeff of Luis 13.0 % (11.5-14.5) 01/08/23 04:03 Plt Count 151 K/uL (130-400) 01/08/23 04:03 MPV 11.4 fL (9.4-12.4) 01/08/23 04:03 Immature Gran % (Auto) 0.2 % 01/06/23 04:29 Neut % (Auto) 59.7 % 01/06/23 04:29 Lymph % (Auto) 21.5 % 01/06/23 04:29 Archer % (Auto) 14.6 % 01/06/23 04:29 Eos % (Auto) 3.1 % 01/06/23 04:29 Baso % (Auto) 0.9 % 01/06/23 04:29 Neut # (Auto) 3.86 K/uL (1.40-6.50) 01/06/23 04:29 Lymph # (Auto) 1.39 K/uL (1.20-3.40) 01/06/23 04:29 Archer # (Auto) 0.94 K/uL (0.11-0.59) H 01/06/23 04:29 Eos # (Auto) 0.20 K/uL (0.00-0.50) 01/06/23 04:29 Baso # (Auto) 0.06 K/uL (0.00-0.20) 01/06/23 04:29 Immature Gran # (Auto) 0.01 K/uL (0.01-0.20) 01/06/23 04:29 PT 11.4 Seconds (9.0-12.0) 01/08/23 04:03 INR 1.0 (0.9-1.1) 01/08/23 04:03 APTT 34.0 Seconds (21.0-31.0) H 01/05/23 16:10 PTT Ratio 1.2 01/05/23 16:10 Sodium 137 mmol/L (136-145) 01/10/23 04:34 Potassium 4.1 mmol/L (3.5-5.1) 01/10/23 04:34 Chloride 102 mmol/L (98-107) 01/10/23 04:34 Carbon Dioxide 29 mmol/L (21-32) 01/10/23 04:34 Anion Gap 6 (3-11) 01/10/23 04:34 BUN 18 mg/dl (6-23) 01/10/23 04:34 Creatinine 0.86 mg/dl (0.6-1.4) 01/10/23 04:34 Est Cr Clr Drug Dosing 63.2 ml/min 01/10/23 04:34 Est GFR ( Amer) 89.7 ml/min 01/10/23 04:34 Est GFR (Non-Af Amer) 77.4 ml/min 01/10/23 04:34 BUN/Creatinine Ratio 20.9 (10-20) H 01/10/23 04:34 Glucose 96 mg/dl (70-99(Fasting)) 01/10/23 04:34 Lactate 0.9 mmol/L (0.4-2.0) 01/05/23 20:45 Calcium 8.5 mg/dl (8.6-10.3) L 01/10/23 04:34 Magnesium 2.0 mg/dl (1.7-2.4) 01/07/23 04:02 Total Bilirubin 0.6 mg/dl (0.2-1.0) 01/05/23 16:10 AST 14 U/L (13-39) 01/05/23 16:10 ALT 9 U/L (7-52) 01/05/23 16:10 Alkaline Phosphatase 51 U/L (34-104) 01/05/23 16:10 Total Creatine Kinase 62 U/L (30-223) 01/05/23 16:10 Troponin I High Sens 3.7 pg/ml (0-20) 01/05/23 16:10 Total Protein 7.9 gm/dl (6.0-8.3) 01/05/23 16:10 Albumin 4.1 gm/dl (3.4-5.0) 01/05/23 16:10 Globulin 3.8 gm/dl (2.5-4.0) 01/05/23 16:10 Albumin/Globulin Ratio 1.1 (0.9-2) 01/05/23 16:10 Procalcitonin < 0.05 ng/ml (0-0.5) 01/07/23 04:02 TSH 2.874 uIu/ml (0.300-4.500) 01/05/23 16:12 Urine Color Yellow 01/08/23 Unknown Urine Appearance Clear (Clear) 01/08/23 Unknown Urine pH 7.5 (4.5-7.5) 01/08/23 Unknown Ur Specific [place] 1.022 (1.000-1.030) 01/08/23 Unknown Urine Protein Negative (Negative) 01/08/23 Unknown Urine Glucose (UA) Negative (Negative) 01/08/23 Unknown Urine Ketones Negative (Negative) 01/08/23 Unknown Urine Blood Negative (Negative) 01/08/23 Unknown Urine Nitrite Negative (Negative) 01/08/23 Unknown Urine Bilirubin Negative (Negative) 01/08/23 Unknown Urine Urobilinogen Negative (Negative) 01/08/23 Unknown Ur Leukocyte Esterase Trace (Negative) H 01/08/23 Unknown Urine WBC (Auto) 1-5 /hpf (0-5) 01/08/23 Unknown Urine RBC (Auto) 0-4 /hpf (0-4) 01/08/23 Unknown U Hyaline Cast (Auto) 0 /lpf (0-5) 01/08/23 Unknown U Epithel Cells (Auto) 5-10 /lpf (0-5) H 01/08/23 Unknown Urine Bacteria (Auto) Negative (Negative) 01/08/23 Unknown Adenovirus (PCR) Not Detected (NotDetected) 01/06/23 17:00 B. pertussis DNA (PCR) Not Detected (NotDetected) 01/06/23 17:00 B.parapertussis DNA PCR Not Detected (NotDetected) 01/06/23 17:00 C. pneumoniae DNA (PCR) Not Detected (NotDetected) 01/06/23 17:00 Coronavirus OC43 (PCR) Not Detected (NotDetected) 01/06/23 17:00 Coronavirus HKU1 (PCR) Not Detected (NotDetected) 01/06/23 17:00 Coronavirus 229E (PCR) Not Detected (NotDetected) 01/06/23 17:00 SARS-CoV-2 (PCR) Not Detected (NotDetected) 01/06/23 17:00 Coronavirus NL63 (PCR) Not Detected (NotDetected) 01/06/23 17:00 Human Metapneumovir PCR Not Detected (NotDetected) 01/06/23 17:00 Influenza Type A (PCR) Not Detected (NotDetected) 01/06/23 17:00 Influenza Type B (PCR) Not Detected (NotDetected) 01/06/23 17:00 M. pneumoniae (PCR) Not Detected (NotDetected) 01/06/23 17:00 Parainfluenza 1 (PCR) Not Detected (NotDetected) 01/06/23 17:00 Parainfluenza 2 (PCR) Not Detected (NotDetected) 01/06/23 17:00 Parainfluenza 3 (PCR) Not Detected (NotDetected) 01/06/23 17:00 Parainfluenza 4 (PCR) Not Detected (NotDetected) 01/06/23 17:00 RSV (PCR) Not Detected (NotDetected) 01/06/23 17:00 Entero/Rhino (PCR) Not Detected (NotDetected) 01/06/23 17:00 SARS-CoV-2, RNA, NAAT NEGATIVE (NEGATIVE) 01/05/23 22:00 Bld Cult ID Panel PCR PCR Panel Negative (NotDetected) 01/05/23 16:03 Blood Type A Positive 01/07/23 20:57 Blood Type Recheck A Positive 01/07/23 04:02 Antibody Screen NEGATIVE 01/07/23 20:57 Crossmatch See Detail 01/07/23 20:57 Impressions Chest X-Ray 01/05/23 15:48 XR chest 1V not portable HISTORY: 87 years-old Male Sepsis acute sepsis COMPARISON: 04/28/2020 TECHNIQUE: AP view of the chest FINDINGS: Cardiac silhouette is enlarged. Large hiatal hernia redemonstrated. Calcified granuloma subpleural right upper lobe is again seen. No pneumothorax, pleural effusion or overt pulmonary edema. Bibasilar atelectasis. Bones appear grossly intact. IMPRESSION: 1. Cardiomegaly without acute process. 2. Hiatal hernia with mild bibasilar atelectasis. 3. Unchanged calcified granuloma of the right upper lobe. ACT 112: Negative or not required by law. The above report was generated using voice recognition software. It may contain grammatical, syntax or spelling errors. Electronically signed by: Adan Sanchez M.D. 01/05/2023 4:27 PM Venous Doppler Study 01/05/23 15:48 ULTRASOUND RIGHT LOWER EXTREMITY VENOUS CLINICAL HISTORY: Right leg swelling. COMPARISON STUDY: Right lower extremity venous ultrasound dated 06/24/2022. TECHNIQUE: Real-time, grayscale, and color Doppler sonography of the deep veins of the right lower extremity was performed from the inguinal crease to the calf. Compression and augmentation were utilized. FINDINGS: There is no sonographic evidence of deep venous thrombosis identified in the right lower extremity. The common femoral, superficial femoral, and popliteal veins are patent and normally compressible. The greater saphenous vein and the profunda femoris vein at the junction with the common femoral vein are clear. The visualized calf veins are patent. IMPRESSION: There is no sonographic evidence of deep venous thrombosis identified in the right lower extremity. ACT 112: Negative or not required by law. Electronically signed by: Bogdan Garnett M.D. 01/05/2023 7:54 PM Ankle X-Ray 01/05/23 17:03 XR ankle RT 2V HISTORY: 87 years-old Male right ankle pain acute right ankle pain COMPARISON: 06/29/2022 TECHNIQUE: 2 views of the right ankle FINDINGS: Diffuse soft tissue swelling, with pronounced at the level of the ankle. Arterial calcifications. No acute fracture, dislocation or opaque foreign body. 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 Degenerative spurring of the calcaneus. IMPRESSION: Soft tissue swelling without acute osseous abnormality. ACT 112: Negative or not required by law. The above report was generated using voice recognition software. It may contain grammatical, syntax or spelling errors. Electronically signed by: Adan Sacnhez M.D. 01/05/2023 5:[address] 01/05/23 22:49 Exam(s): CT RIGHT ANKLE With Contrast IV Amt: 93ML OF OPTIRAY 320 EXAM: CT Right Lower Extremity With Intravenous Contrast, Ankle CLINICAL HISTORY: Reason for exam: recurrent swelling ro abscess. TECHNIQUE: Axial computed tomography images of the right ankle with intravenous contrast. CTDI is 24.91 mGy and DLP is 658.68 mGy-cm. Automated exposure control was utilized for the study. A dose lowering technique was utilized adhering to the principles of ALARA. CONTRAST: Patient received 93ML OF OPTIRAY 320 of IV contrast COMPARISON: No relevant prior studies available. FINDINGS: Bones/joints: No acute fracture. No dislocation. Soft tissues: Unremarkable. No abnormal contrast enhancement. IMPRESSION: Normal right ankle CT. Electronically signed by: Dell Pelaez MD 01/06/23 01:11 AM Bone Scan Nuclear Medicine 01/08/23 06:06 NM bone 3 phase ltd HISTORY: 87 years-old Male recurrent r ankle/tib/fib swelling ro osteomyeliti chronic pain and swelling of the right foot and ankle COMPARISON: CT right ankle 01/05/2023 TECHNIQUE: Anterior and posterior whole anterior and posterior planar three- phase scintigraphic bone scan images of the foot and ankles were obtained following the intravenous administration of 21.0 mCi technetium 99 MDP. FINDINGS: Evaluation of the comparison CT right ankle x-rays no acute fracture, dislocation or osseous erosive change. There is moderately increased blood flow, and blood pool activity within the right hindfoot distribution within the region of the posterior calcaneus/Achilles tendon. Additionally, there is mildly increased tracer activity surrounding the right patella on the delayed images, likely degenera tive. Mildly increased delayed activity within the right ankle is likely secondary to osteoarthritis. No abnormal tracer uptake within the left ankle or foot. IMPRESSION: 1. Moderately increased uptake within the right posterior calcaneus/Achilles distribution without correlate finding on the prior CT imaging may be related to tendinosis/encephalopathy of the Achilles. 2. No definite scintigraphic evidence to suggest osteomyelitis. ACT 112: Negative or not required by law. The above report was generated using voice recognition software. It may contain grammatical, syntax or spelling errors. Electronically signed by: Adan Sanchez M.D. 01/08/2023 3:12 PM Ordered Studies 01/05/23 15:48 US venous doppler LE RT Urgent 01/05/23 22:49 CT ankle RT w con Stat Hospital Course (1) Cellulitis of right leg: Recurrent RLE cellulitis H/O MRSA R ankle CT:Normal right ankle CT. --Venous Doppler:There is no sonographic evidence of deep venous thrombosis identified in the right lower extremity. MRI could not be performed as cerebral aneurysm clips as per outpatient documentation Bone scan: Moderately increased uptake within the right posterior calcaneus/Achilles distribution without correlate finding on the prior CT imaging may be related to tendinosis/encephalopathy of the Achilles. No definite scintigraphic evidence to suggest osteomyelitis. Blood cultures pending Continue doxycycline, Rocephin PT OT evaluation Repeat blood cultures negative to date Transition to p.o. antibiotics upon discharge Clinically improved Abnormal blood cultures 1/4 blood cultures growing gram-positive bacilli Likely contamination Repeat blood cultures: No growth to date Continue antibiotics as above Uncontrolled hypertension Likely due to pain Continue Amlodipine BP Variable Monitor Chronic sinus bradycardia Asymptomatic No pauses on monitor Currently not on any AV oksana blocking agents Hypoxia Acute Bronchitis Likely atelectasis contributing --CXR:Cardiomegaly without acute process. Hiatal hernia with mild bibasilar atelectasis. Unchanged calcified granuloma of the right upper lobe. Normal procalcitonin Negative BioFire On empiric antibiotics as above Saturating well on room H/O P.Afib/PE/DVT Currently not on any rate or rhythm control medications On Xarelto for anticoagulation Transient epistaxis Suspected hematuria No hematuria urinalysis Monitor H&H Added Nasal Saline H/O CVA H/O Cerebral aneurysm clipping Hyperlipidemia Continue aspirin, statin H/O Cognitive impairment H/O MGUS/chronic anemia Anxiety/mood disorder Past tobacco abuse BPH Continue home medications Monitor CBC Reorient frequently to minimize delirium DVT Px: Xarelto Code Status DNR/DNI Disposition Personal care facility today Total Time Total Time Spent Total Time Spent (In Minutes): 55 minutes Discharge Plan Discharge Items Patient Disposition: Personal [facility] Reason For Visit: RESP FAILURE Discharge Diagnosis: Recurrent Right leg Cellulitis Acute Bronchitis Activity: Per Instructions section Exercise/Sports: Gradually increase as tolerated Non-emergency contact: Primary Care Provider Call non-emergency contact if: you have any medication questions, your symptoms worsen, your pain is concerning for you and you have a fever Follow-up/Referrals: Conner Elias [Primary Care Provider] - Diet: Heart Healthy Addtl Attending Provider Instructions: Follow-up with your primary care physician in 1 week -- Complete the antibiotic course as prescribed. --Your blood cultures are pending at the time of discharge. Follow-up with your physician for results. Seek immediate medical attention if your symptoms reoccur or worsen Please take all medications as instructed on discharge list below. Please call if you have any questions or problems. You can reach a [facility] hospitalist on duty at [facility] 24 hours a day by calling [phone] Pending Studies at Discharge: Yes Studies:: blood cultures Stand-Alone Forms: My [facility] [employer], Smoking Cessation Skilled Items Patient informed of condition?: Yes DNR: Yes Discharge Level of Care: Other Communicable Disease: No Discharge Prognosis: Stable Lines: None Urinary Catheter: No Medications and DC Order Prescriptions: New doxycycline hyclate 100 mg Capsule 100 mg PO BID Qty: 10 0RF cefdinir 300 mg capsule 300 mg PO BID 5 Days Qty: 10 0RF Advanced Probiotic 625 mg (10 billion cell) Capsule 2 cap PO DAILY Qty: 20 0RF Continued amoxicillin 500 mg Capsule 2,000 mg PO UD Rx Instructions: Take 1 hour prior to dental procedure. ascorbic acid (vitamin C) [Vitamin C] 1,000 mg Tablet 1 g PO DAILY acetaminophen [Tylenol] 325 mg Tablet 650 mg PO BID loperamide 2 mg Capsule 2 mg PO Q4H PRN (Reason: Diarrhea) Rx Instructions: administer after each loose stool until symptoms controlled; do not exceed 8 mg per 24 hrs sertraline 100 mg tablet 100 mg PO DAILY amlodipine 5 mg tablet 5 mg PO DAILY tramadol 50 mg Tablet 50 mg PO Q6H PRN (Reason: Pain) simvastatin 40 mg tablet 40 mg PO QPM levothyroxine 25 mcg tablet 25 mcg PO DAILY calcium carbonate [Calcium 600] 600 mg calcium (1,500 mg) Tablet 600 mg PO DAILY lorazepam 0.5 mg tablet 0.5 mg PO TID PRN (Reason: Anxiety) cyanocobalamin (vitamin B-12) [Vitamin B-12] 500 mcg Tablet 500 mcg PO DAILY pantoprazole 40 mg tablet,delayed release (DR/EC) 40 mg PO DAILY ferrous sulfate 325 mg (65 mg iron) Tablet 325 mg PO BID docusate sodium 100 mg Capsule 100 mg PO BID doxazosin 4 mg tablet 4 mg PO DAILY aspirin 81 mg Tablet,Chewable 81 mg PO DAILY sertraline 50 mg tablet 50 mg PO DAILY finasteride 5 mg tablet 5 mg PO DAILY quetiapine 50 mg tablet 50 mg PO HS cholecalciferol (vitamin D3) [Vitamin D3] 25 mcg (1,000 unit) Tablet 25 mcg PO DAILY Icaps MV 100-1.66-0.83 mcg-mg-mg Tablet,Delayed Release (Dr/Ec) 1 tab PO DAILY Xarelto 20 mg tablet 20 mg PO QPM PreserVision AREDS-2 250-90-40-1 mg Capsule 1 tab PO DAILY Senna Plus 8.6-50 mg Capsule 2 tab-cap PO BID Discharge Orders: Discharge Order (Routine); Ordered 01/10/23 Ordered By: Alejandro Watts Admission Data Admit Date/Time: 01/05/23 22:19 Attending Provider: Alejandro Watts Admit Provider: Santiago Schaffer Primary Care Provider: Conner Elias Other Providers: Santiago Schaffer Other Interventions: Discharge Summary Assessment (RN) Last Done: 01/10/23 12:38
[2023-01-10] MEDS ORDERED: cefTRIAXone SODIUM 2,000 MG in DEXTROSE 5 % MINI-B 50 ML IV SCH (14:00)
[2023-01-11] MEDS ORDERED: ADVANCED PROBIOTIC 1250 MG CAPSULE PO SCH (09:00)
== END 2023-01-10 13:09 | disposition home or self-care (01) | DRG 603 ==
LOC: ED 15:38 → INTOOBSV 22:19 → 2W 22:19

== ENCOUNTER 2023-02-01 14:28 | Inpatient (IN) ==
--- NOTE | 2023-02-01 14:40 | Emergency Department Note ---
Impression & Plan Acute lower GI bleeding, Anemia ED Provider Note NAME: DAVID MOY AGE: 87 SEX: M : 1935 ARRIVES VIA: Ambulance INFORMANT: Patient, ED PROVIDER(S): Dario Horner DO CHIEF COMPLAINT: Rectal bleeding HPI: The patient is an 87-year-old male who resides in a personal [facility] who presented to the emergency department for an evaluation of rectal bleeding. The patient was noted to have blood in his underwear prior to arrival. It is unclear if the patient was evaluated by a provider prior to coming to the emergency department. He does have a history of CVA in the past. He does take anticoagulants. He states has been compliant with his outpatient medications. He denies having any abdominal pain. He does complain of some nausea. ROS: See above HPI for pertinent positives & negatives. A total of 10 systems reviewed and were otherwise negative. PAST MEDICAL HISTORY: See Below PAST SURGICAL HISTORY: See Below FAMILY HISTORY: See Below SOCIAL HISTORY: See Below HOME MEDICATIONS: See Below ALLERGIES: See Below VITALS: See Below PHYSICAL EXAMINATION: GENERAL: Patient is awake alert in no acute distress patient is resting comfortably and showing no signs of anxiety EYES: The conjunctivae are pale. The pupils are round and reactive. EARS, NOSE, MOUTH AND THROAT: The nose is without any evidence of any deformity. NECK: The neck is nontender and supple. RESPIRATORY: Normal respiratory effort is noted there is no evidence of wheezing rhonchi or rales CARDIOVASCULAR: Regular rate and rhythm noted there no murmurs rubs or gallops normal S1 normal S2. GASTROINTESTINAL: The abdomen is soft and nondistended. There is no tenderness guarding or rigidity. Rectal exam revealed gross blood. MUSCULOSKELETAL/EXTREMITIES: There is no evidence of gross deformity full range of motion is noted in the hips and shoulders. SKIN: Skin is warm and dry. Skin was pale. NEUROLOGIC: Patient is awake alert and oriented x3 MEDICAL DECISION MAKING: The patient is an 87-year-old male who presented to the emergency department for evaluation of rectal bleeding. The patient was found to have 1 episode of rectal bleeding prior to arrival at his [facility]. The patient was found to have severe anemia on laboratory studies. Physical exam was not consistent with acute surgical abdomen. I discussed patient's laboratory and radiographic studies with him. He was consented for blood products by myself. [facility] evaluate the patient in the emergency department for further management and disposition. Triage Nursing notes reviewed. Prior medical records reviewed Vital Signs: reviewed and remarkable for no significant abnormalities Differential diagnosis: Etiologies such as appendicitis, diverticulitis, obstruction, inflammatory bowel disease, renal colic, PUD, biliary pathology, pancreatitis, mesenteric ischemia, aortic pathology, infections, genitourinary, UTI, perforated viscus, as well as others were entertained. ER treatment provided: See below Diagnostics interpreted by me: ECG: EKG was obtained in the emergency department. My interpretation is normal sinus rhythm at 67 bpm. There is no ectopy. Anterior Q waves were noted with lateral ST depressions. This was compared to a tracing from January 05, 2023. No changes were noted. Cardiac Monitoring: An order was placed for continuous cardiac monitoring. The monitor shows a rate of 68 bpm with sinus rhythm Laboratory studies: As stated above and show below. Imaging studies: See below. Radiographic imaging was reviewed by myself Consultation(s): I discussed this case with Rad[facility] ED COURSE: Procedures: none Critical Care: I have personally spent greater than 45 minutes of critical care time in the direct management of this patient. This includes bedside care, interpretation of diagnostic studies, and testing, discussion with consultants, patient, and family members, and other required patient management activities. This 45 minutes is in excess of all separately billable procedures. 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 Beliefs That Will Affect Care: None marital status: Single Current Living Situation: Prison Current Living Situation Comment: [facility] Feels Safe at Home: Yes Assistive Devices: Glasses and Walker Allergies Allergies Allergy/AdvReac Type Severity Reaction Status Date / Time No Known Allergies Allergy Verified 01/05/23 19:13 Home Meds Home Medications Medication Instructions Recorded Confirmed acetaminophen 325 mg tablet 650 mg PO BID 01/05/23 01/05/23 (Tylenol) amlodipine 5 mg tablet 5 mg PO DAILY 01/05/23 01/05/23 amoxicillin 500 mg capsule 2,000 mg PO UD 01/05/23 01/05/23 ascorbic acid (vitamin C) 1,000 mg 1 g PO DAILY 01/05/23 01/05/23 tablet (Vitamin C) aspirin 81 mg chewable tablet 81 mg PO DAILY 01/05/23 01/05/23 calcium carbonate 600 mg calcium 600 mg PO DAILY 01/05/23 01/05/23 (1,500 mg) tablet (Calcium) cholecalciferol (vitamin D3) 25 25 mcg PO DAILY 01/05/23 01/05/23 mcg (1,000 unit) tablet (Vitamin D3) cyanocobalamin (vitamin B-12) 500 500 mcg PO DAILY 01/05/23 01/05/23 mcg tablet (Vitamin B-12) docusate sodium 100 mg capsule 100 mg PO BID 01/05/23 01/05/23 doxazosin 4 mg tablet 4 mg PO DAILY 01/05/23 01/05/23 ferrous sulfate 325 mg (65 mg 325 mg PO BID 01/05/23 01/05/23 iron) tablet finasteride 5 mg tablet 5 mg PO DAILY 01/05/23 01/05/23 levothyroxine 25 mcg tablet 25 mcg PO DAILY 01/05/23 01/05/23 loperamide 2 mg capsule 2 mg PO Q4H PRN Diarrhea 01/05/23 01/05/23 lorazepam 0.5 mg tablet 0.5 mg PO TID PRN Anxiety 01/05/23 01/05/23 nojpqnyn-mrj-QC 100 mcg-lut 1.66 1 tab PO DAILY 01/05/23 01/05/23 mg-zeaxanth 0.83 mg tablet,delay rel. (Icaps MV) pantoprazole 40 mg tablet,delayed 40 mg PO DAILY 01/05/23 01/05/23 release quetiapine 50 mg tablet 50 mg PO HS 01/05/23 01/05/23 rivaroxaban 20 mg tablet (Xarelto) 20 mg PO QPM 01/05/23 01/05/23 sennosides 8.6 mg-docusate sodium 2 tab-cap PO BID 01/05/23 01/05/23 50 mg capsule (Senna Plus) sertraline 100 mg tablet 100 mg PO DAILY 01/05/23 01/05/23 sertraline 50 mg tablet 50 mg PO DAILY 01/05/23 01/05/23 simvastatin 40 mg tablet 40 mg PO QPM 01/05/23 01/05/23 tramadol 50 mg tablet 50 mg PO Q6H PRN Pain 01/05/23 01/05/23 vit C 250 mg-vit E 90 mg-zinc 40 1 tab PO DAILY 01/05/23 01/05/23 mg-copper 1 it-ktmmxv-cfnszb capsule (PreserVision AREDS-2) Previous Rx's Medication Instructions Recorded L.acidop,casei,lactis,rham-B.lact,peggy 2 cap PO DAILY #20 caps 01/10/23 625 mg (10 billion cell) capsule (Advanced Probiotic) doxycycline hyclate 100 mg capsule 100 mg PO BID #10 caps 01/10/23 Results & Data (ED) Vital Signs Vital Signs - 24 hr 02/01/23 14:42 02/01/23 14:55 Temperature 37 C Temperature Source Oral Pulse Rate 66 68 Respiratory Rate 18 Blood Pressure 145/55 H Blood Pressure Mean 85 Pulse Oximetry 98 Sepsis Recent Fever Within 48 Hours No Sepsis New/Unexplained Change in Mental Status No Sepsis Action Taken by Nursing No Action Required Home Medications Current Medication List: was personally reviewed by me Laboratory Data Attestation: I reviewed the patient's lab results. 02/01/23 14:45 02/01/23 14:45 Lab Results 02/01/23 Range/Units 14:45 WBC 13.71 H (4.8-10.8) K/ul RBC 1.18 L (4.70-6.10) M/uL Hgb 3.6 L* (14.0-18.0) g/dl Hct 11.4 L* (42.0-52.0) % MCV 96.6 (80.0-100.0) fL MCH 30.5 (25.0-34.0) pg MCHC 31.6 L (32.0-36.0) g/dL RDW Std Deviation 48.1 H (36.4-46.3) fL RDW Coeff of Luis 17.1 H (11.5-14.5) % Plt Count 181 (130-400) K/uL MPV 14.2 H (9.4-12.4) fL Sodium 136 (136-145) mmol/L Potassium 3.9 (3.5-5.1) mmol/L Chloride 105 (98-107) mmol/L Carbon Dioxide 24 (21-32) mmol/L Anion Gap 7 (3-11) BUN 73 H (6-23) mg/dl Creatinine 1.47 H (0.6-1.4) mg/dl Est Cr Clr Drug Dosing 35.4 ml/min Est GFR ( Amer) 48.7 ml/min Est GFR (Non-Af Amer) 42.0 ml/min BUN/Creatinine Ratio 49.7 H (10-20) Glucose 128 H (70-99(Fasting)) mg/dl Calcium 7.9 L (8.6-10.3) mg/dl Total Bilirubin 0.4 (0.2-1.0) mg/dl AST 29 (13-39) U/L ALT 13 (7-52) U/L Alkaline Phosphatase 30 L (34-104) U/L Troponin I High Sens 34.6 H (0-20) pg/ml Total Protein 5.6 L (6.0-8.3) gm/dl Albumin 3.0 L (3.4-5.0) gm/dl Globulin 2.6 (2.5-4.0) gm/dl Albumin/Globulin Ratio 1.2 (0.9-2) Lipase 34 (11-82) U/L Imaging Data Attestation: I personally reviewed and interpreted this imaging study as follows: My Impression: 1 view chest x-ray was obtained in the emergency department. My interpretation is no free air or definite infiltrate, final report pending. KUB was obtained in the emergency department. My interpretation is nonspecific bowel gas pattern, final report pending. Discharge Plan Visit Data Chief Complaint: Abdominal Pain Stated Complaint: AB PAIN ED Provider: Dario Horner Discharge Problem: Acute lower GI bleeding, Anemia Patient Disposition: Being Evaluated by Hospitalist Forms Stand Alone Forms: My [facility] Prescriptions Prescriptions: No Action amoxicillin 500 mg Capsule 2,000 mg PO UD Rx Instructions: Take 1 hour prior to dental procedure. ascorbic acid (vitamin C) [Vitamin C] 1,000 mg Tablet 1 g PO DAILY acetaminophen [Tylenol] 325 mg Tablet 650 mg PO BID loperamide 2 mg Capsule 2 mg PO Q4H PRN (Reason: Diarrhea) Rx Instructions: administer after each loose stool until symptoms controlled; do not exceed 8 mg per 24 hrs sertraline 100 mg tablet 100 mg PO DAILY amlodipine 5 mg tablet 5 mg PO DAILY tramadol 50 mg Tablet 50 mg PO Q6H PRN (Reason: Pain) simvastatin 40 mg tablet 40 mg PO QPM levothyroxine 25 mcg tablet 25 mcg PO DAILY calcium carbonate [Calcium 600] 600 mg calcium (1,500 mg) Tablet 600 mg PO DAILY lorazepam 0.5 mg tablet 0.5 mg PO TID PRN (Reason: Anxiety) cyanocobalamin (vitamin B-12) [Vitamin B-12] 500 mcg Tablet 500 mcg PO DAILY pantoprazole 40 mg tablet,delayed release (DR/EC) 40 mg PO DAILY ferrous sulfate 325 mg (65 mg iron) Tablet 325 mg PO BID docusate sodium 100 mg Capsule 100 mg PO BID doxazosin 4 mg tablet 4 mg PO DAILY aspirin 81 mg Tablet,Chewable 81 mg PO DAILY sertraline 50 mg tablet 50 mg PO DAILY finasteride 5 mg tablet 5 mg PO DAILY quetiapine 50 mg tablet 50 mg PO HS cholecalciferol (vitamin D3) [Vitamin D3] 25 mcg (1,000 unit) Tablet 25 mcg PO DAILY Icaps MV 100-1.66-0.83 mcg-mg-mg Tablet,Delayed Release (Dr/Ec) 1 tab PO DAILY Xarelto 20 mg tablet 20 mg PO QPM PreserVision AREDS-2 250-90-40-1 mg Capsule 1 tab PO DAILY Senna Plus 8.6-50 mg Capsule 2 tab-cap PO BID doxycycline hyclate 100 mg Capsule 100 mg PO BID Qty: 10 0RF Advanced Probiotic 625 mg (10 billion cell) Capsule 2 cap PO DAILY Qty: 20 0RF Referrals Referrals: Conner Elias [Primary Care Provider] - Discharge Problem: Anemia Qualifiers: Anemia type: unspecified type Qualified Code(s): D64.9 - Anemia, unspecified
[2023-02-01] MEDS ORDERED: SODIUM CHLORIDE 0.9% 250 ML IV PRN (15:17)
[2023-02-01 15:21] LABS: Albumin Globulin Ratio 1.2 (0.9-2); BUN Creatinine Ratio 49.7 (10-20); Bilirubin,Total 0.4 mg/dl (0.2-1.0); Calcium 7.9 mg/dl (8.6-10.3); Creatinine Clr Calc Pharmacy 35.4 ml/min; Est GFR (African American) 48.7 ml/min; Globulin 2.6 gm/dl (2.5-4.0); Potassium 3.9 mmol/L (3.5-5.1); Total Protein 5.6 gm/dl (6.0-8.3)
[2023-02-01 15:28] LABS: Hematocrit (blood only) 11.4 % (42.0-52.0); Hemoglobin 3.6 g/dl (14.0-18.0); Mean Corpuscular Hemoglobin 30.5 pg (25.0-34.0); Mean Corpuscular Hgb Conc 31.6 g/dL (32.0-36.0); Mean Corpuscular Volume 96.6 fL (80.0-100.0); Mean Platelet Volume 14.2 fL (9.4-12.4); Platelet Count 181 K/uL (130-400); RDW Coefficient of Variation 17.1 % (11.5-14.5); RDW Standard Deviation 48.1 fL (36.4-46.3); Red Blood Count 1.18 M/uL (4.70-6.10); Troponin I High Sensitivity 34.6 pg/ml (0-20); White Blood Count 13.71 K/ul (4.8-10.8)
[2023-02-01] MEDS ORDERED: PANTOPRAZOLE BOLUS/DRIP IV STA (15:39)
[2023-02-01] MEDS ORDERED: PANTOprazole 80 MG in DEXTROSE 5% 100 ML IV ONE (15:45)
--- NOTE | 2023-02-01 15:45 | History & Physical Report ---
Date of Service February 01, 2023 Assessment & Plan (1) Acute GI bleeding: (2) Symptomatic anemia: (3) ADRIAN (acute kidney injury): Plan This is an 87-year-old male who has a significant past medical history of PAF anticoagulated with Xarelto, history of DVT/PE, HTN, chronic sinus bradycardia, history of CVA, history of cerebral aneurysm clipping, hyperlipidemia, history of MGUS, chronic anemia, anxiety/mood disorder, BPH, past tobacco abuse and cognitive impairment who presents to ED secondary to reports of having blood in his undergarments prior to arrival. Acute GI Bleeding on chronic anemia Symptomatic anemia pt recently hospitalized and on DOD hgb was 9.1 on 01/10/23 hgb today 3.6 with elevated BUN/CR he is hemodynamically stable report is bloody stool past 1-2 days, poor appetite, syncopal episode and no abdominal pain pt is type and crossed for 4 units, will transfuse 3 now he is very dry, will not administer lasix at this time last echo 2020 with preserved EF and grade II diastolic dysfunction Elevated troponin Demand ischemia in setting of acute/chronic anemia ecg similar to previous will trend trop and update echocardiogram ADRIAN BUN and creatinine 73 and 1.47 Baseline 0.8 Likely prerenal in setting of acute blood loss and overall dehydration Leukocytosis Possibly reactive in setting of GI bleed No signs or symptoms of infection, monitor closely PAF Currently in sinus rhythm Holding Xarelto HTN holding amlodipine in setting of anemia Hx of PE/DVT xarelto on hold H/O CVA H/O Cerebral aneurysm clipping Hyperlipidemia continue statin hold asa in setting of bleed, resume as soon as able H/O Cognitive impairment H/O MGUS/chronic anemia Anxiety/mood disorder Past tobacco abuse BPH Continue home medications Monitor CBC Reorient frequently to minimize delirium DVT ppx: SCDs/xarelto on hold Pt was seen and examined in collaboration with Dr. Alvarez, please see addendum History of Present Illness Chief Complaint: Rectal bleeding. Primary Care Provider: Wanda Prieto This is an 87-year-old male who has a significant past medical history of PAF anticoagulated with Xarelto, history of DVT/PE, HTN, chronic sinus bradycardia, history of CVA, history of cerebral aneurysm clipping, hyperlipidemia, history of MGUS, chronic anemia, anxiety/mood disorder, BPH, past tobacco abuse and cognitive impairment who presents to ED secondary to reports of having blood in his undergarments prior to arrival. He currently resides at a personal care facility. He states he has been noticing BRBPR for last few days. He reports having difficulty moving his bowels. Overall poor intake and appetite last few days. He reports syncopal episode but is unsure of the nature of event or when this happened. He denies f/c/s, dizziness, chest pain, sob, n/v or diarrhea. He reports being very tired. He was recently hospitalized 01/05 to 01/10 secondary to right lower extremity cellulitis treated with IV antibiotics. In ED patient remained hemodynamically stable with significant lab abnormalities with a hemoglobin of 3.6 and hematocrit 11.4. He did have a mild leukocytosis at 13.71, BUN 73, creatinine 1.47 and slightly elevated troponin at 34.6. He was typed and crossed for 2 units to be transfused now. Hospital service was consulted for admission. Allergies Allergy/AdvReac Type Severity Reaction Status Date / Time No Known Allergies Allergy Verified 01/05/23 19:13 Home Medications Medication Instructions Recorded Confirmed Type acetaminophen 325 mg tablet 650 mg PO BID 01/05/23 02/01/23 History (Tylenol) amlodipine 5 mg tablet 5 mg PO DAILY 01/05/23 02/01/23 History amoxicillin 500 mg capsule 2,000 mg PO UD 01/05/23 02/01/23 History ascorbic acid (vitamin C) 1,000 mg 1 g PO DAILY 01/05/23 02/01/23 History tablet (Vitamin C) aspirin 81 mg chewable tablet 81 mg PO DAILY 01/05/23 02/01/23 History calcium carbonate 600 mg calcium 600 mg PO DAILY 01/05/23 02/01/23 History (1,500 mg) tablet (Calcium) cholecalciferol (vitamin D3) 25 25 mcg PO DAILY 01/05/23 02/01/23 History mcg (1,000 unit) tablet (Vitamin D3) cyanocobalamin (vitamin B-12) 500 500 mcg PO DAILY 01/05/23 02/01/23 History mcg tablet (Vitamin B-12) docusate sodium 100 mg capsule 100 mg PO BID 01/05/23 02/01/23 History doxazosin 4 mg tablet 4 mg PO DAILY 01/05/23 02/01/23 History ferrous sulfate 325 mg (65 mg 325 mg PO BID 01/05/23 02/01/23 History iron) tablet finasteride 5 mg tablet 5 mg PO DAILY 01/05/23 02/01/23 History levothyroxine 25 mcg tablet 25 mcg PO DAILY 01/05/23 02/01/23 History loperamide 2 mg capsule 2 mg PO Q4H PRN Diarrhea 01/05/23 02/01/23 History lorazepam 0.5 mg tablet 0.5 mg PO TID PRN Anxiety 01/05/23 02/01/23 History rfsjmuec-vht-BU 100 mcg-lut 1.66 1 tab PO DAILY 01/05/23 02/01/23 History mg-zeaxanth 0.83 mg tablet,delay rel. (Icaps MV) pantoprazole 40 mg tablet,delayed 40 mg PO DAILY 01/05/23 02/01/23 History release quetiapine 50 mg tablet 50 mg PO HS 01/05/23 02/01/23 History rivaroxaban 20 mg tablet (Xarelto) 20 mg PO QPM 01/05/23 02/01/23 History sennosides 8.6 mg-docusate sodium 2 tab-cap PO BID 01/05/23 02/01/23 History 50 mg capsule (Senna Plus) sertraline 100 mg tablet 100 mg PO DAILY 01/05/23 02/01/23 History sertraline 50 mg tablet 50 mg PO DAILY 01/05/23 02/01/23 History simvastatin 40 mg tablet 40 mg PO QPM 01/05/23 02/01/23 History tramadol 50 mg tablet 50 mg PO Q6H PRN Pain 01/05/23 02/01/23 History vit C 250 mg-vit E 90 mg-zinc 40 1 tab PO DAILY 01/05/23 02/01/23 History mg-copper 1 vw-ybfsdq-ibduxd capsule (PreserVision AREDS-2) L.acidop,casei,lactis,rham-B.lact,peggy 2 cap PO DAILY #20 caps 01/10/23 02/01/23 Rx 625 mg (10 billion cell) capsule (Advanced Probiotic) doxycycline hyclate 100 mg capsule 100 mg PO BID #10 caps 01/10/23 02/01/23 Rx Past Med/Surg History Medical History Encounter for screening for COVID-19 Chest pain Epistaxis History of pulmonary embolism Hiatal hernia Seizure Ischemic stroke DVT prophylaxis Hx of pulmonary embolus Pulmonary embolism Hyperlipidemia Surgical History History of brain surgery Family History Family/Other No pertinent family history Social History Smoking Status: Former smoker Tobacco Type: Cigarettes packs per day: 1; Cigarettes Per Day: 28; Do You Dip or Chew Tobacco: No; Hx Alcohol Use: No Hx Substance Use: No Preferred Language: Turkmen Communication Ability: Effective [employer] Required: No Beliefs That Will Affect Care: None marital status: Single Current Living Situation: Snf Current Living Situation Comment: [facility] walsh Feels Safe at Home: Yes Assistive Devices: Glasses and Walker Review of Systems Review of Systems: All systems reviewed & are unremarkable except as noted in HPI & below Physical Exam Physical Exam: please refer to Dr. Alvarez addendum for physical exam findings. Results & Data Results & Data Vital Signs (Past 12 Hours) Vital Signs Temp Pulse Resp BP Pulse Ox 02/01/23 14:55 37 C 68 18 145/55 H 98 02/01/23 14:42 66 Diagnostic Findings Chest X-Ray 02/01/23 14:37 XR chest 1V portable CLINICAL HISTORY: Lower GI bleed. COMPARISON STUDY: Chest CT October 01, 2019. Chest radiograph January 05, 2023. FINDINGS: There is no pneumothorax or pleural effusion. There is no evidence for pulmonary edema. A large hiatal hernia is again noted. Cardiomegaly is unchanged. There is no evidence for pulmonary edema. There is no consolidation to suggest pneumonia. Skinfold projects over the left chest. A calcified right upper lobe nodule is unchanged. This is benign. IMPRESSION: 1. No acute cardiopulmonary findings. No change in appearance of the chest. 2. Large hiatal hernia. ACT 112: Negative or not required by law. Electronically signed by: Joey Cruz M.D. 02/01/2023 3:42 PM KUB X-Ray 02/01/23 14:37 KUB CLINICAL HISTORY: Lower GI bleed. COMPARISON STUDY: None. FINDINGS: The bowel gas pattern is normal. A large hiatal hernia is again noted. No evidence for free air on supine exam. Amount of stool is within normal limits. IMPRESSION: 1. No evidence for a bowel obstruction. 2. Large hiatal hernia. ACT 112: Negative or not required by law. Electronically signed by: Joey Cruz M.D. 02/01/2023 3:43 PM Medications Administered Current Inpatient Medications Sodium Chloride (Nss) 250 mls @ 15 mls/hr IV .[id number] PRN PRN Reason: For Transfusion Duration Stop: 02/02/23 01:17 Pantoprazole Sodium 80 mg/ (Dextrose) 120 mls @ 400 mls/hr IV NOW ONE Stop: 02/01/23 15:56 Pantoprazole Sodium 40 mg/ (Dextrose) 100 mls @ 20 mls/hr IV Q5H TONIE Stop: 03/03/23 15:59 Pantoprazole Sodium (Pantoprazole Bolus/Drip) 1 each IV NOW STA Stop: 02/01/23 15:40 ECG Rate (beats per minute): 67 Rhythm: normal sinus Additional Comments: qtc 460ms COVID-19 Results Results COVID-19 Adm Lab Results: RBC 1.13 M/uL (4.70-6.10) L 02/01/23 WBC 12.71 K/ul (4.8-10.8) H 02/01/23 Hgb 3.5 g/dl (14.0-18.0) L* 02/01/23 Hct 11.0 % (42.0-52.0) L* 02/01/23 Plt Count 169 K/uL (130-400) 02/01/23 ANC 10.93 K/uL (1.4-6.5) H 02/01/23 ALC 1.02 K/uL (1.2-3.4) L 02/01/23 Neutrophils % (Manual) 86 % 02/01/23 Lymphocytes % (Manual) 8 % 02/01/23 Monocytes % (Manual) 6 % 02/01/23 Neutrophils # (Manual) 10.93 K/uL (1.40-6.50) H 02/01/23 Lymphocytes # (Manual) 1.02 K/uL (1.2-3.4) L 02/01/23 Monocytes # (Manual) 0.76 K/uL (0.11-0.59) H 02/01/23 Na 136 mmol/L (136-145) 02/01/23 K 3.9 mmol/L (3.5-5.1) 02/01/23 Cl 105 mmol/L (98-107) 02/01/23 CO2 24 mmol/L (21-32) 02/01/23 Anion Gap 7 (3-11) 02/01/23 BUN 73 mg/dl (6-23) H 02/01/23 BUN/Creatinine Ratio 49.7 (10-20) H 02/01/23 Glucose Level 128 mg/dl (70-99(Fasting)) H 02/01/23 Ca 7.9 mg/dl (8.6-10.3) L 02/01/23 Total Bilirubin 0.4 mg/dl (0.2-1.0) 02/01/23 AST/SGOT 29 U/L (13-39) 02/01/23 ALT/SGPT 13 U/L (7-52) 02/01/23 Alkaline Phosphatase 30 U/L (34-104) L 02/01/23 Total Protein 5.6 gm/dl (6.0-8.3) L 02/01/23 Albumin 3.0 gm/dl (3.4-5.0) L 02/01/23 Globulin 2.6 gm/dl (2.5-4.0) 02/01/23 Albumin/Globulin Ratio 1.2 (0.9-2) 02/01/23 PTT 20.2 Seconds (21.0-31.0) L 02/01/23 INR 1.1 (0.9-1.1) 02/01/23 SARS-CoV-2, RNA, NAAT NEGATIVE (NEGATIVE) 02/01/23 Chest X-Ray 02/01/23 Code Status & VTE Plan Code Status DNR/DNI Supervising Physician Co-Signing Physician Notes 87-year-old male with PMH of PAF on Xarelto, DVT/PE, HTN, dysarthria due to acute CVA, left basal ganglia embolic stroke, BPH, HLD, MGUS, chronic anemia, anxiety/mood disorder, past tobacco abuse and cognitive impairment presented to the ED secondary to reports of having bright red blood per rectum. Patient reports having bright red blood in his stool for few days and reports decreasing appetite for about the same duration. Patient reports generally he is constipated. Denies diarrhea currently. Denies any febrile illness or sore throat or cough or chest pain. Reports occasional palpitation. Reports feeling fatigue and tired. Has some dysarthria at baseline but easily comprehensible and appears mentating well. Patient denies any shortness of breath. Denies smoking tobacco or using alcohol products. Patient also reports passing out within the last couple of days but cannot provide more specifics on this. Admitting labs with leukocytosis [likely secondary to dehydration], hemoglobin of 3.6 [likely secondary to BRBPR], normal platelet count, creatinine of 1.47 [likely prerenal secondary to blood loss], troponin 34.6 [likely secondary to demand ischemia secondary to blood loss]. Admitting imagings CXR and KUB x-ray with no acute finding. We will get CTAP without contrast. He has acutely followings: Easy fatigability/tiredness/acute on chronic anemia/possible syncope/demand ischemia: Admitting hemoglobin of 3.6, repeat H&H, transfuse 3 units PRBC, follow H&H 1 hour after for further decision regarding further blood transfusion. He might need more blood transfusion. Patient is clinically dry, no need of IV Lasix in between blood transfusion at this point. N.p.o., PPI IV, GI consult, H&H every 6 hours. Hold blood thinners. Caution with blood pressure medication. Acute kidney injury: Creatinine elevated, likely prerenal secondary to blood loss, transfusing blood, consider gentle IV fluid with D5 NS at 50 mils an hour. Leukocytosis, likely secondary to dehydration, will get procalcitonin, patient denies any febrile illness or any suggestion of infection. Follow CTAP. Avoiding contrast due to acute kidney injury. Elevated troponin, likely demand ischemia, trend troponin, patient with no chest pain, continue with telemetry monitoring. On exam: GENERAL: Alert and oriented x2. NAD, on RA. Appears weak/frail. HEENT: No pallor, no icterus. Pupils equal, round and reactive to light. Oral mucosa dry. NECK: No JVD, no neck masses. HEART: S1 and S2 heard. Regular rate and rhythm. + systolic murmur @ A and P, no gallop. RESPIRATORY SYSTEM: Normal AP diameter. No accessory muscle use. No wheezing, no crackles. ABDOMEN: Soft, bowel sounds present, nontender, no distention. CENTRAL NERVOUS SYSTEM: No facial droop. Speech is clear. Obeys simple commands. Moves extremities. EXTREMITIES: No edema, no erythema seen. I have seen and examined the patient and have discussed the case with the provider above. I agree with the assessment and plan as stated.
[2023-02-01 15:47] LABS: ALC (manual) 0.82 K/uL (1.2-3.4); ANC (manual) 12.06 K/uL (1.4-6.5); Lymphocytes # (manual) 0.82 K/uL (1.2-3.4); Lymphocytes % (manual) 6 %; Monocytes # (manual) 0.82 K/uL (0.11-0.59); Monocytes % (manual) 6 %; Neutrophils # (manual) 12.06 K/uL (1.40-6.50); Neutrophils % (manual) 88 %
[2023-02-01 15:54] LABS: INR 1.1 (0.9-1.1); Partial Thromboplastin Ratio 0.7; Partial Thromboplastin Time 20.2 Seconds (21.0-31.0); Prothrombin Time 12.2 Seconds (9.0-12.0)
[2023-02-01] MEDS: PANTOprazole 40 MG in DEXTROSE 5% MINI-B 100 ML IV SCH ×2 (16:47→22:20)
[2023-02-01 17:00] LABS: Hemoglobin 3.5 g/dl (14.0-18.0); Mean Corpuscular Hgb Conc 31.8 g/dL (32.0-36.0); Mean Corpuscular Volume 97.3 fL (80.0-100.0); Mean Platelet Volume 12.9 fL (9.4-12.4); Platelet Count 169 K/uL (130-400); RDW Coefficient of Variation 16.7 % (11.5-14.5); RDW Standard Deviation 48.7 fL (36.4-46.3); Red Blood Count 1.13 M/uL (4.70-6.10); White Blood Count 12.71 K/ul (4.8-10.8)
[2023-02-01 17:26] LABS: ALC (manual) 1.02 K/uL (1.2-3.4); ANC (manual) 10.93 K/uL (1.4-6.5); Lymphocytes # (manual) 1.02 K/uL (1.2-3.4); Lymphocytes % (manual) 8 %; Monocytes # (manual) 0.76 K/uL (0.11-0.59); Monocytes % (manual) 6 %; Neutrophils # (manual) 10.93 K/uL (1.40-6.50); Neutrophils % (manual) 86 %
[2023-02-01] MEDS ORDERED: ACETAMINOPHEN 325 MG TAB PO PRN (18:02)
[2023-02-01] MEDS ORDERED: ONDANSETRON INJ 2 MG/ML 2 ML VIAL IV PRN (18:02)
[2023-02-01] MEDS ORDERED: LORazepam 0.5 MG TAB PO PRN (18:02)
[2023-02-01] MEDS ORDERED: ALUMINUM/MAGNESIUM SUSP 30 ML UDC PO PRN (18:02)
[2023-02-01] MEDS ORDERED: POLYETHYLENE (MIRALAX) 17 GM PACK PO PRN (18:02)
[2023-02-01] MEDS ORDERED: traMADol HCL 50 MG TABLET PO PRN (18:02)
[2023-02-01] MEDS ORDERED: MAGNESIUM HYDROXIDE SUSP 30 ML UDC PO PRN (18:02)
--- NOTE | 2023-02-01 18:23 | CT Scan Report ---
CT OF THE ABDOMEN AND PELVIS WITHOUT CONTRAST CLINICAL HISTORY: GI bleed. COMPARISON STUDY: KUB performed earlier today. TECHNIQUE: Axial images of the abdomen and pelvis were obtained without IV contrast. Images were revi ewed in the axial, sagittal, and coronal planes. Automated exposure control was utilized for the tam dy. A dose lowering technique was utilized adhering to the principles of ALARA. FINDINGS: A large hiatal hernia is partially imaged on this exam. This contains the stomach and porti on of the transverse colon. Mildly distended. There is decreased attenuation of cardiac blood. No pne umatosis, free air or portal venous gas is present. Evaluation of the abdomen and pelvis is suboptima l on this unenhanced exam. Liver, spleen, adrenal glands, pancreas and kidneys are unremarkable. A he patobiliary ductal dilatation. There is no hydronephrosis. There is no lymphadenopathy. No evidence f or a bowel obstruction. The rectum is moderately distended. There is a small amount unremarkable. The re is sigmoid diverticulosis without evidence for acute diverticulitis. No fluid collections are pres ent. No bowel wall thickening is identified on unenhanced exam. The appendix is normal. IMPRESSION: 1. No bowel obstruction. No bowel wall thickening on unenhanced exam. Sigmoid diverticulosis without evidence for acute diverticulitis. No source for GI bleed on unenhanced CT. 2. Large hiatal hernia which contains the stomach and portion of the transverse colon. 3. Gaseous distention of the rectum which contains a small amount of poorly formed stool. ACT 112: Negative or not required by law. Electronically signed by: Joey Cruz M.D. 02/01/2023 6:20 PM
[2023-02-01] MEDS ORDERED: D5W AND NSS 1,000 ML IV SCH (19:15)
[2023-02-01 19:57] LABS: Appearance Urine Clear (Clear); Bilirubin Urine Negative (Negative); Blood Urine Negative (Negative); Color Urine Yellow; Glucose Urine UA Negative (Negative); Ketones Urine Negative (Negative); Leukocyte Esterase Urine Negative (Negative); Nitrite Urine Negative (Negative); Protein Urine Negative (Negative); Specific Gravity Urine 1.019 (1.000-1.030); Urobilinogen Urine Negative (Negative)
[2023-02-01] MEDS: FERROUS SULFATE 325 MG TAB PO SCH (21:18)
[2023-02-01] MEDS: SIMVASTATIN 40 MG TAB PO SCH (21:18)
[2023-02-01] MEDS: QUEtiapine FUMARATE 25 MG TABLET PO SCH (21:18)
[2023-02-02 03:24] LABS: Albumin Globulin Ratio 1.2 (0.9-2); Albumin Level 2.7 gm/dl (3.4-5.0); BUN Creatinine Ratio 46.5 (10-20); Bilirubin,Total 0.8 mg/dl (0.2-1.0); Calcium 7.4 mg/dl (8.6-10.3); Creatinine Clr Calc Pharmacy 37.5 ml/min; Est GFR (Non-African American) 49.2 ml/min; Globulin 2.2 gm/dl (2.5-4.0); Magnesium 2.4 mg/dl (1.7-2.4); Potassium 3.5 mmol/L (3.5-5.1); Total Protein 4.9 gm/dl (6.0-8.3)
[2023-02-02 03:30] LABS: Hematocrit (blood only) 20.4 % (42.0-52.0); Hemoglobin 6.9 g/dl (14.0-18.0); Mean Corpuscular Hemoglobin 31.7 pg (25.0-34.0); Mean Corpuscular Hgb Conc 33.8 g/dL (32.0-36.0); Mean Corpuscular Volume 93.6 fL (80.0-100.0); Mean Platelet Volume 13.5 fL (9.4-12.4); Platelet Count 126 K/uL (130-400); RDW Coefficient of Variation 14.9 % (11.5-14.5); RDW Standard Deviation 46.2 fL (36.4-46.3); Red Blood Count 2.18 M/uL (4.70-6.10); White Blood Count 9.14 K/ul (4.8-10.8)
[2023-02-02 03:32] LABS: Basophils # (auto) 0.05 K/uL (0.00-0.20); Basophils % (auto) 0.5 %; Eosinophils # (auto) 0.13 K/uL (0.00-0.50); Eosinophils % (auto) 1.4 %; Immature Granulocytes # (auto) 0.04 K/uL (0.01-0.20); Immature Granulocytes % (auto) 0.4 %; Lymphocytes # (auto) 1.68 K/uL (1.20-3.40); Lymphocytes % (auto) 18.4 %; Monocytes # (auto) 0.99 K/uL (0.11-0.59); Monocytes % (auto) 10.8 %; Neutrophils # (auto) 6.25 K/uL (1.40-6.50); Neutrophils % (auto) 68.5 %; Polychromasia 1+
[2023-02-02] MEDS ORDERED: SODIUM CHLORIDE 0.9% 250 ML IV PRN ×2 (03:37→03:38)
[2023-02-02 03:46] LABS: Troponin I High Sensitivity 274.5 pg/ml (0-20)
[2023-02-02] MEDS: PANTOprazole 40 MG in DEXTROSE 5% MINI-B 100 ML IV SCH ×4 (03:55→22:15)
[2023-02-02] MEDS: LEVOTHYROXINE SODIUM 25 MCG TABLET PO SCH (06:30)
[2023-02-02] MEDS: SERTRALINE HCL 100 MG TABLET PO SCH (08:23)
[2023-02-02] MEDS: ADVANCED PROBIOTIC 1250 MG CAPSULE PO SCH (08:23)
[2023-02-02] MEDS: CEROVITE ADV FORMULA TAB PO SCH (08:23)
[2023-02-02] MEDS: FINASTERIDE 5 MG TAB PO SCH (08:23)
[2023-02-02] MEDS: DOXAZosin MESYLATE 4 MG TAB PO SCH (08:24)
[2023-02-02] MEDS: FERROUS SULFATE 325 MG TAB PO SCH ×2 (08:24→20:12)
[2023-02-02 08:53] LABS: Hematocrit (blood only) 22.8 % (42.0-52.0); Hemoglobin 7.7 g/dl (14.0-18.0)
[2023-02-02] MEDS ORDERED: SERTRALINE HCL 50 MG TABLET PO SCH (09:00)
--- NOTE | 2023-02-02 09:01 | Gastrointestinal Consultation ---
Date of Consultation February 02, 2023 Assessment & Plan (1) Symptomatic anemia: 87 year old male with history of PAF anticoagulated with Xarelto, history of DVT/PE, HTN, chronic sinus bradycardia, history of CVA and others below admitted through the ED w/ severe anemia, HGB 3.5 s/p 4 units RBC w/ HGB 7.7. There are mixed reports of bloody/dark output. Recommend to hold AC. Remain NPO. Agree w/ IV PPI bolus/drip and plan for EGD today. Trend H&H. Monitor and document GI output. Transfuse PRN per primary team. We appreciate assistance in the management of any serological abnormality and corrections to include: hemoglobin >7, INR <2, platelets >50,000, potassium levels >3.5 but <5.3, and sodium levels within 5 points of the reference range prior to endoscopic evaluation. Thank you for allowing us to participate in the care of this patient. Please call with any acute changes, questions or concerns. Please see addendum below with additional recommendation from my supervising physician. (2) Acute GI bleeding: Supervising Physician Co-Signing Physician Notes I personally saw and evaluated the patient on 02/02/2023 with STUART Holcomb and agree with her findings and plan of care. Abdomen soft and non-tender. 87 y/o M with history of CVA, atrial fibrillation on Xarelto, hx of DVT/PE, history of cerebral aneurysm with clipping admitted with rectal bleeding found to have a hgb of 3.5 from baseline of 9-10 3 weeks prior. He received 4 units of blood with most recent hgb of 7.7. patient denies any melena or hematemesis. He states he has been seeing bright red blood in his underwear and stool for 4-5 d ays. he is not the best historian and can no quantify how much. BUN 60 with Cr of 1.29. He states he had a colonoscopy many years ago but can not tell me if they ever found anything. Will plan for EGD today for further evaluation. Continue IV PPI 40 mg BID. Trend H/H and transfuse for hgb <7. Remain NPO. Hold all anticoagulation and NSAIDs. Corina Harding, Gastroenterology and Hepatology History of Present Illness Reason for Consultation: anemia Requesting Physician: Mac Attending Physician: Alejandro Watts MD History of Present Illness 87 year old male with history of PAF anticoagulated with Xarelto, history of DVT/PE, HTN, chronic sinus bradycardia, history of CVA, history of cerebral aneurysm clipping, hyperlipidemia, history of MGUS, chronic anemia, anxiety/mood disorder, BPH, past tobacco abuse admitted through the ED w/ severe anemia, HGB 3.5 and bloody output. GI was asked to evaluate. He is a poor historian, but denies any abd pain, nausea/vomiting. He suggests last BM was last evening but was unsure color of stools. S/P 4 units RBC. HGB this AM 7.7. BUN 60. CTAP 2022: No bowel obstruction. No bowel wall thickening on unenhanced exam. Sigmoid diverticulosis without evidence for acute diverticulitis. No source for GI bleed on unenhanced CT. Large hiatal hernia which contains the stomach and portion of the transverse colon. Gaseous distention of the rectum which contains a small amount of poorly formed stool. Allergies Allergy/AdvReac Type Severity Reaction Status Date / Time No Known Allergies Allergy Verified 01/05/23 19:13 Home Medications Medication Instructions Recorded Confirmed Type acetaminophen 325 mg tablet 650 mg PO BID 01/05/23 02/01/23 History (Tylenol) amlodipine 5 mg tablet 5 mg PO DAILY 01/05/23 02/01/23 History amoxicillin 500 mg capsule 2,000 mg PO UD 01/05/23 02/01/23 History ascorbic acid (vitamin C) 1,000 mg 1 g PO DAILY 01/05/23 02/01/23 History tablet (Vitamin C) aspirin 81 mg chewable tablet 81 mg PO DAILY 01/05/23 02/01/23 History calcium carbonate 600 mg calcium 600 mg PO DAILY 01/05/23 02/01/23 History (1,500 mg) tablet (Calcium) cholecalciferol (vitamin D3) 25 25 mcg PO DAILY 01/05/23 02/01/23 History mcg (1,000 unit) tablet (Vitamin D3) cyanocobalamin (vitamin B-12) 500 500 mcg PO DAILY 01/05/23 02/01/23 History mcg tablet (Vitamin B-12) docusate sodium 100 mg capsule 100 mg PO BID 01/05/23 02/01/23 History doxazosin 4 mg tablet 4 mg PO DAILY 01/05/23 02/01/23 History ferrous sulfate 325 mg (65 mg 325 mg PO BID 01/05/23 02/01/23 History iron) tablet finasteride 5 mg tablet 5 mg PO DAILY 01/05/23 02/01/23 History levothyroxine 25 mcg tablet 25 mcg PO DAILY 01/05/23 02/01/23 History loperamide 2 mg capsule 2 mg PO Q4H PRN Diarrhea 01/05/23 02/01/23 History lorazepam 0.5 mg tablet 0.5 mg PO TID PRN Anxiety 01/05/23 02/01/23 History cwytlorh-fkq-MM 100 mcg-lut 1.66 1 tab PO DAILY 01/05/23 02/01/23 History mg-zeaxanth 0.83 mg tablet,delay rel. (Icaps MV) pantoprazole 40 mg tablet,delayed 40 mg PO DAILY 01/05/23 02/01/23 History release quetiapine 50 mg tablet 50 mg PO HS 01/05/23 02/01/23 History rivaroxaban 20 mg tablet (Xarelto) 20 mg PO QPM 01/05/23 02/01/23 History sennosides 8.6 mg-docusate sodium 2 tab-cap PO BID 01/05/23 02/01/23 History 50 mg capsule (Senna Plus) sertraline 100 mg tablet 100 mg PO DAILY 01/05/23 02/01/23 History sertraline 50 mg tablet 50 mg PO DAILY 01/05/23 02/01/23 History simvastatin 40 mg tablet 40 mg PO QPM 01/05/23 02/01/23 History tramadol 50 mg tablet 50 mg PO Q6H PRN Pain 01/05/23 02/01/23 History vit C 250 mg-vit E 90 mg-zinc 40 1 tab PO DAILY 01/05/23 02/01/23 History mg-copper 1 sg-ozkqbp-tptznw capsule (PreserVision AREDS-2) L.acidop,casei,lactis,rham-B.lact,peggy 2 cap PO DAILY #20 caps 01/10/23 02/01/23 Rx 625 mg (10 billion cell) capsule (Advanced Probiotic) doxycycline hyclate 100 mg capsule 100 mg PO BID #10 caps 01/10/23 02/01/23 Rx Patient History Medical History Encounter for screening for COVID-19 Chest pain Epistaxis History of pulmonary embolism Hiatal hernia Seizure Ischemic stroke DVT prophylaxis Hx of pulmonary embolus Pulmonary embolism Hyperlipidemia Surgical History History of brain surgery Family History Family/Other No pertinent family history Social History Smoking Status: Former smoker Tobacco Type: Cigarettes packs per day: 1; Cigarettes Per Day: 28; Do You Dip or Chew Tobacco: No; Hx Alcohol Use: No Hx Substance Use: No Preferred Language: Japanese Communication Ability: Effective Edge [place]itter Required: No Beliefs That Will Affect Care: None marital status: Single Current Living Situation: Senior Living Current Living Situation Comment: [facility] Feels Safe at Home: Yes Assistive Devices: Glasses and Walker Review of Systems Review of Systems: All systems reviewed & are unremarkable except as noted in HPI & below Physical Exam Constitutional: WD/WN, vitals as above Respiratory: normal respiratory effort Cardiovascular: Rate/Rhythm: regular rate and regular rhythm Gastrointestinal (Abdomen): normal bowel sounds, soft, nontender, no hepatosp lenomegaly Skin: no rashes, warm and dry Results & Data Vital Signs (Past 12 Hours) Vital Signs Temp Pulse Resp BP BP Pulse Ox O2 Del Method 02/02/23 07:06 36.9 C 65 16 145/49 H 97 02/02/23 06:36 36.9 C 60 19 133/50 L 97 02/02/23 05:36 36.6 C 66 17 122/50 L 99 02/02/23 05:06 36.8 C 61 16 119/55 L 95 02/02/23 04:51 36.8 C 68 16 115/54 L 99 02/02/23 04:31 36.9 C 63 16 120/56 L 94 02/02/23 02:59 36.7 C 18 139/48 L 93 Room Air 02/02/23 01:03 37.2 C 61 17 129/54 L 96 02/02/23 00:44 37.2 C 71 18 116/54 L 94 02/01/23 23:44 37 C 66 19 142/53 H 95 02/01/23 23:14 37.1 C 72 16 123/52 L 96 02/01/23 23:00 66 02/01/23 22:59 37 C 66 17 128/53 L 95 02/01/23 22:39 36.9 C 70 17 128/59 L 93 02/01/23 22:28 36.8 C 69 16 137/61 95 02/01/23 21:52 36.7 C 66 17 119/56 L 94 Laboratory Results 02/02/23 02/02/23 02/01/23 Range/Units 08:37 02:33 19:41 WBC 9.14 (4.8-10.8) K/ul RBC 2.18 L (4.70-6.10) M/uL Hgb 7.7 L 6.9 L* D (14.0-18.0) g/dl Hct 22.8 L 20.4 L* (42.0-52.0) % MCV 93.6 (80.0-100.0) fL MCH 31.7 (25.0-34.0) pg MCHC 33.8 (32.0-36.0) g/dL RDW Std Deviation 46.2 (36.4-46.3) fL RDW Coeff of Luis 14.9 H (11.5-14.5) % Plt Count 126 L (130-400) K/uL MPV 13.5 H (9.4-12.4) fL Immature Gran % (Auto) 0.4 % Neut % (Auto) 68.5 % Lymph % (Auto) 18.4 % Eddy % (Auto) 10.8 % Eos % (Auto) 1.4 % Baso % (Auto) 0.5 % Neut # (Auto) 6.25 (1.40-6.50) K/uL Lymph # (Auto) 1.68 (1.20-3.40) K/uL Eddy # (Auto) 0.99 H (0.11-0.59) K/uL Eos # (Auto) 0.13 (0.00-0.50) K/uL Baso # (Auto) 0.05 (0.00-0.20) K/uL Immature Gran # (Auto) 0.04 (0.01-0.20) K/uL Neutrophils % (Manual) % Lymphocytes % (Manual) % Monocytes % (Manual) % Neutrophils # (Manual) (1.40-6.50) K/uL Total Absolute Neuts (1.4-6.5) K/uL Lymphocytes # (Manual) (1.2-3.4) K/uL Total Abs Lymphocytes (1.2-3.4) K/uL Monocytes # (Manual) (0.11-0.59) K/uL Polychromasia 1+ PT (9.0-12.0) Seconds INR (0.9-1.1) APTT (21.0-31.0) Seconds PTT Ratio Sodium 137 (136-145) mmol/L Potassium 3.5 (3.5-5.1) mmol/L Chloride 109 H (98-107) mmol/L Carbon Dioxide 25 (21-32) mmol/L Anion Gap 3 (3-11) BUN 60 H (6-23) mg/dl Creatinine 1.29 (0.6-1.4) mg/dl Est Cr Clr Drug Dosing 37.5 ml/min Est GFR ( Amer) 57.0 ml/min Est GFR (Non-Af Amer) 49.2 ml/min BUN/Creatinine Ratio 46.5 H (10-20) Glucose 112 H (70-99(Fasting)) mg/dl Calcium 7.4 L (8.6-10.3) mg/dl Magnesium 2.4 (1.7-2.4) mg/dl Total Bilirubin 0.8 (0.2-1.0) mg/dl AST 31 (13-39) U/L ALT 12 (7-52) U/L Alkaline Phosphatase 28 L (34-104) U/L Troponin I High Sens 274.5 H* D (0-20) pg/ml Total Protein 4.9 L (6.0-8.3) gm/dl Albumin 2.7 L (3.4-5.0) gm/dl Globulin 2.2 L (2.5-4.0) gm/dl Albumin/Globulin Ratio 1.2 (0.9-2) Lipase (11-82) U/L Urine Color Yellow Urine Appearance Clear (Clear) Urine pH 5.0 (4.5-7.5) Ur Specific [place] 1.019 (1.000-1.030) Urine Protein Negative (Negative) Urine Glucose (UA) Negative (Negative) Urine Ketones Negative (Negative) Urine Blood Negative (Negative) Urine Nitrite Negative (Negative) Urine Bilirubin Negative (Negative) Urine Urobilinogen Negative (Negative) Ur Leukocyte Esterase Negative (Negative) SARS-CoV-2, RNA, NAAT (NEGATIVE) Blood Type Antibody Screen Crossmatch 02/01/23 02/01/23 02/01/23 Range/Units 16:25 15:40 14:45 WBC 12.71 H 13.71 H (4.8-10.8) K/ul RBC 1.13 L 1.18 L (4.70-6.10) M/uL Hgb 3.5 L* 3.6 L* (14.0-18.0) g/dl Hct 11.0 L* 11.4 L* (42.0-52.0) % MCV 97.3 96.6 (80.0-100.0) fL MCH 31.0 30.5 (25.0-34.0) pg MCHC 31.8 L 31.6 L (32.0-36.0) g/dL RDW Std Deviation 48.7 H 48.1 H (36.4-46.3) fL RDW Coeff of Luis 16.7 H 17.1 H (11.5-14.5) % Plt Count 169 181 (130-400) K/uL MPV 12.9 H 14.2 H (9.4-12.4) fL Immature Gran % (Auto) % Neut % (Auto) % Lymph % (Auto) % Eddy % (Auto) % Eos % (Auto) % Baso % (Auto) % Neut # (Auto) (1.40-6.50) K/uL Lymph # (Auto) (1.20-3.40) K/uL Eddy # (Auto) (0.11-0.59) K/uL Eos # (Auto) (0.00-0.50) K/uL Baso # (Auto) (0.00-0.20) K/uL Immature Gran # (Auto) (0.01-0.20) K/uL Neutrophils % (Manual) 86 88 % Lymphocytes % (Manual) 8 6 % Monocytes % (Manual) 6 6 % Neutrophils # (Manual) 10.93 H 12.06 H (1.40-6.50) K/uL Total Absolute Neuts 10.93 H 12.06 H (1.4-6.5) K/uL Lymphocytes # (Manual) 1.02 L 0.82 L (1.2-3.4) K/uL Total Abs Lymphocytes 1.02 L 0.82 L (1.2-3.4) K/uL Monocytes # (Manual) 0.76 H 0.82 H (0.11-0.59) K/uL Polychromasia PT 12.2 H (9.0-12.0) Seconds INR 1.1 (0.9-1.1) APTT 20.2 L (21.0-31.0) Seconds PTT Ratio 0.7 Sodium 136 (136-145) mmol/L Potassium 3.9 (3.5-5.1) mmol/L Chloride 105 (98-107) mmol/L Carbon Dioxide 24 (21-32) mmol/L Anion Gap 7 (3-11) BUN 73 H (6-23) mg/dl Creatinine 1.47 H (0.6-1.4) mg/dl Est Cr Clr Drug Dosing 35.4 ml/min Est GFR ( Amer) 48.7 ml/min Est GFR (Non-Af Amer) 42.0 ml/min BUN/Creatinine Ratio 49.7 H (10-20) Glucose 128 H (70-99(Fasting)) mg/dl Calcium 7.9 L (8.6-10.3) mg/dl Magnesium (1.7-2.4) mg/dl Total Bilirubin 0.4 (0.2-1.0) mg/dl AST 29 (13-39) U/L ALT 13 (7-52) U/L Alkaline Phosphatase 30 L (34-104) U/L Troponin I High Sens 41.6 H 34.6 H (0-20) pg/ml Total Protein 5.6 L (6.0-8.3) gm/dl Albumin 3.0 L (3.4-5.0) gm/dl Globulin 2.6 (2.5-4.0) gm/dl Albumin/Globulin Ratio 1.2 (0.9-2) Lipase 34 (11-82) U/L Urine Color Urine Appearance (Clear) Urine pH (4.5-7.5) Ur Specific [place] (1.000-1.030) Urine Protein (Negative) Urine Glucose (UA) (Negative) Urine Ketones (Negative) Urine Blood (Negative) Urine Nitrite (Negative) Urine Bilirubin (Negative) Urine Urobilinogen (Negative) Ur Leukocyte Esterase (Negative) SARS-CoV-2, RNA, NAAT NEGATIVE (NEGATIVE) Blood Type A Positive Antibody Screen NEGATIVE Crossmatch See Detail
--- NOTE | 2023-02-02 11:07 | Electrocardiogram Report ---
Test Reason : Blood Pressure : / mmHG Vent. Rate : 065 BPM Atrial Rate : 065 BPM P-R Int : 172 ms QRS Dur : 082 ms QT Int : 422 ms P-R-T Axes : 080 079 073 degrees QTc Int : 438 ms Sinus rhythm with Premature atrial complexes Incomplete right bundle branch block Nonspecific ST abnormality Abnormal ECG When compared with ECG of 05-JAN-2023 15:58, Premature atrial complexes are now Present Non-specific change in ST segment in Inferior leads Nonspecific T wave abnormality, worse in Inferior leads QT has lengthened Confirmed by Prakash Frank ([id number]) on 02/02/2023 11:06:50 AM Referred By: Confirmed By:Emile Frank
--- NOTE | 2023-02-02 12:28 | Hospitalist Progress Note ---
Date of Service February 02, 2023 Assessment & Plan (1) Acute GI bleeding: (2) Symptomatic anemia: (3) ADRIAN (acute kidney injury): Plan Patient is an 87 yr old male with H/O PAF anticoagulated with Xarelto, history of DVT/PE, HTN, chronic sinus bradycardia, history of CVA, history of cerebral aneurysm clipping, hyperlipidemia, history of MGUS, chronic anemia, anxiety/mood disorder, BPH, past tobacco abuse and cognitive impairment who presents to ED secondary to reports of having blood in his undergarments prior to arrival. Acute GI Bleeding on chronic anemia Acute blood loss/Symptomatic anemia in setting of aspirin, Xarelto use Baseline Hb ~ 9-10 --CT ABD:No bowel obstruction. No bowel wall thickening on unenhanced exam. Sigmoid diverticulosis without evidence for acute diverticulitis. No source for GI bleed on unenhanced CT. Large hiatal hernia which contains the stomach and portion of the transverse colon. Gaseous distention of the rectum which contains a small amount of poorly formed stool. --S/P 4 units PRBCs Aspirin, Xarelto on hold Continue IV Protonix Appreciate GI input Monitor H&H and transfuse PRBCs as needed Planned for EGD today Further management based on EGD results Elevated troponin Demand ischemia in setting of acute/chronic anemia Trend troponin Patient denies any chest pain, dyspnea ADRIAN Baseline 0.8 Likely prerenal from blood loss anemia Chronic diastolic dysfunction Last ECHO 2020 with preserved EF and grade II diastolic dysfunction Cr 1.47> 1.2 Avoid nephrotoxic agents as able Received gentle IV fluids Monitor volume status Currently not on any maintenance diuretics Leukocytosis Likely reactive in setting of GI bleed No signs or symptoms of infection, monitor closely PAF Currently in sinus rhythm Hold Xarelto due to GI Bleed HTN Monitor BP Resume amlodipine as able Hx of PE/DVT Xarelto on hold H/O CVA H/O Cerebral aneurysm clipping Hyperlipidemia continue statin Hold asa in setting of bleed, resume as soon as able H/O Cognitive impairment H/O MGUS/chronic anemia Anxiety/mood disorder Past tobacco abuse BPH Continue home medications Monitor CBC Reorient frequently to minimize delirium DVT Px: SCDs/xarelto on hold Admission and Anticipated Discharge Date Admission Date: February 01, 2023 Subjective Patient is seen and examined at bedside No bleeding issues this morning States feeling tired and weak Denies any nausea, vomiting, chest pain, dyspnea Plan for endoscopy today No other complaints Review of Systems Review of Systems: All systems reviewed & are unremarkable except as noted in Subjective Physical Exam Physical Exam: Physical Exam: Vitals signs as noted above General Appearance:Thin, frail, elderly, apparent distress Head: normocephalic, Atraumatic Eyes: normal inspection, EOMI Neck: supple, Trachea midline Respiratory/Chest: Normal breath sounds,CTA, No accessory muscle use Cardiovascular: S1, S2, + murmur Abdomen/GI:Soft, Non tender, Bowel sounds present Extremities/Musculoskeletal:normal inspection, no edema Neurologic/Psych:AAO, grossly no focal neurological deficits Skin: normal color, warm Results & Data Results & Data Vital Signs (Past 12 Hours) Vital Signs Temp Pulse Pulse Resp BP BP Pulse Ox 02/02/23 11:46 37.1 C 56 L 16 126/51 L 94 02/02/23 07:06 36.9 C 65 16 145/49 H 97 02/02/23 07:00 67 02/02/23 06:36 36.9 C 60 19 133/50 L 97 02/02/23 05:36 36.6 C 66 17 122/50 L 99 02/02/23 05:06 36.8 C 61 16 119/55 L 95 02/02/23 04:51 36.8 C 68 16 115/54 L 99 02/02/23 04:31 36.9 C 63 16 120/56 L 94 02/02/23 02:59 36.7 C 18 139/48 L 93 02/02/23 01:03 37.2 C 61 17 129/54 L 96 02/02/23 00:44 37.2 C 71 18 116/54 L 94 O2 Del Method 02/02/23 11:46 Room Air 02/02/23 07:06 02/02/23 07:00 02/02/23 06:36 02/02/23 05:36 02/02/23 05:06 02/02/23 04:51 02/02/23 04:31 02/02/23 02:59 Room Air 02/02/23 01:03 02/02/23 00:44 Laboratory Results Short CBC 02/01/23 02/01/23 02/02/23 Range/Units 14:45 16:25 02:33 WBC 13.71 H 12.71 H 9.14 (4.8-10.8) K/ul Hgb 3.6 L* 3.5 L* 6.9 L* D (14.0-18.0) g/dl Hct 11.4 L* 11.0 L* 20.4 L* (42.0-52.0) % Plt Count 181 169 126 L (130-400) K/uL 02/02/23 Range/Units 08:37 WBC (4.8-10.8) K/ul Hgb 7.7 L (14.0-18.0) g/dl Hct 22.8 L (42.0-52.0) % Plt Count (130-400) K/uL BMP 02/01/23 02/02/23 14:45 02:33 Sodium 136 137 Potassium 3.9 3.5 Chloride 105 109 H Carbon Dioxide 24 25 BUN 73 H 60 H Creatinine 1.47 H 1.29 Glucose 128 H 112 H Calcium 7.9 L 7.4 L Liver Function 02/01/23 02/02/23 Range/Units 14:45 02:33 Total Bilirubin 0.4 0.8 (0.2-1.0) mg/dl AST 29 31 (13-39) U/L ALT 13 12 (7-52) U/L Alkaline Phosphatase 30 L 28 L (34-104) U/L Albumin 3.0 L 2.7 L (3.4-5.0) gm/dl Urine 02/01/23 Range/Units 19:41 Urine Color Yellow Urine Appearance Clear (Clear) Urine pH 5.0 (4.5-7.5) Ur Specific [place] 1.019 (1.000-1.030) Urine Protein Negative (Negative) Urine Glucose (UA) Negative (Negative)
--- NOTE | 2023-02-02 14:15 | History & Physical Bridge Note ---
Date of Service February 02, 2023 History & Physical Bridge Note I have examined the patient, reviewed the History & Physical and in the interval since the performance of the History & Physical I have noted the following changes of clinical significance: no changes noted The patient and I discussed upper endoscopy, we discussed the risks to include bleeding infection perforation pain and need for follow-up studies. The patient does have a history of presenting with a profound anemia requiring 4 units of tr ansfusion since admission, there is no melena reported although there was hematochezia as an outpatient. 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 1 would suspect that this may be the cause of his presentation.
[2023-02-02] MEDS ORDERED: fentaNYL citrate PF 100 MCG/2 ML VIAL ONE (14:29)
--- NOTE | 2023-02-02 14:35 | Anesthesiology Consultation ---
Date of Service February 02, 2023 Assessment & Plan Chart Review Chart Review: Acceptable Risk for Surgery Consults Requested none History Surgery Operation Date: 02/02/23 12:10 Proposed Procedures p Esophagogastroduodenoscopy Aashish Jackson DO Operation Date: 02/02/23 16:45 Proposed Procedures p Esophagogastroduodenoscopy Dr Manuel Jackson, DO Height/Weight Height: 5 ft 10 in Weight: 68.7 kg Allergies Allergy/AdvReac Type Severity Reaction Status Date / Time No Known Allergies Allergy Verified 01/05/23 19:13 Medications Home Medications Medication Instructions Recorded Confirmed Last Taken acetaminophen 325 mg tablet 650 mg PO BID 01/05/23 02/01/23 Unknown (Tylenol) amlodipine 5 mg tablet 5 mg PO DAILY 01/05/23 02/01/23 Unknown amoxicillin 500 mg capsule 2,000 mg PO UD 01/05/23 02/01/23 Unknown ascorbic acid (vitamin C) 1,000 mg 1 g PO DAILY 01/05/23 02/01/23 Unknown tablet (Vitamin C) aspirin 81 mg chewable tablet 81 mg PO DAILY 01/05/23 02/01/23 Unknown calcium carbonate 600 mg calcium 600 mg PO DAILY 01/05/23 02/01/23 Unknown (1,500 mg) tablet (Calcium) cholecalciferol (vitamin D3) 25 25 mcg PO DAILY 01/05/23 02/01/23 Unknown mcg (1,000 unit) tablet (Vitamin D3) cyanocobalamin (vitamin B-12) 500 500 mcg PO DAILY 01/05/23 02/01/23 Unknown mcg tablet (Vitamin B-12) docusate sodium 100 mg capsule 100 mg PO BID 01/05/23 02/01/23 Unknown doxazosin 4 mg tablet 4 mg PO DAILY 01/05/23 02/01/23 Unknown ferrous sulfate 325 mg (65 mg 325 mg PO BID 01/05/23 02/01/23 Unknown iron) tablet finasteride 5 mg tablet 5 mg PO DAILY 01/05/23 02/01/23 Unknown levothyroxine 25 mcg tablet 25 mcg PO DAILY 01/05/23 02/01/23 Unknown loperamide 2 mg capsule 2 mg PO Q4H PRN Diarrhea 01/05/23 02/01/23 Unknown lorazepam 0.5 mg tablet 0.5 mg PO TID PRN Anxiety 01/05/23 02/01/23 Unknown ngshvcgg-[id number]-KB 100 mcg-lut 1.66 1 tab PO DAILY 01/05/23 02/01/23 Unknown mg-zeaxanth 0.83 mg tablet,delay rel. (Icaps MV) pantoprazole 40 mg tablet,delayed 40 mg PO DAILY 01/05/23 02/01/23 Unknown release quetiapine 50 mg tablet 50 mg PO HS 01/05/23 02/01/23 Unknown rivaroxaban 20 mg tablet (Xarelto) 20 mg PO QPM 01/05/23 02/01/23 Unknown sennosides 8.6 mg-docusate sodium 2 tab-cap PO BID 01/05/23 02/01/23 Unknown 50 mg capsule (Senna Plus) sertraline 100 mg tablet 100 mg PO DAILY 01/05/23 02/01/23 Unknown sertraline 50 mg tablet 50 mg PO DAILY 01/05/23 02/01/23 Unknown simvastatin 40 mg tablet 40 mg PO QPM 01/05/23 02/01/23 Unknown tramadol 50 mg tablet 50 mg PO Q6H PRN Pain 01/05/23 02/01/23 Unknown vit C 250 mg-vit E 90 mg-zinc 40 1 tab PO DAILY 01/05/23 02/01/23 Unknown mg-copper 1 hf-suymaq-rapivh capsule (PreserVision AREDS-2) L.acidop,casei,lactis,rham-B.lact,peggy 2 cap PO DAILY #20 caps 01/10/23 02/01/23 Unknown 625 mg (10 billion cell) capsule (Advanced Probiotic) doxycycline hyclate 100 mg capsule 100 mg PO BID #10 caps 01/10/23 02/01/23 Unknown Active Medications Generic Name Dose Route Start Last Admin Trade Name Freq PRN Reason Stop Dose Admin Doxazosin Mesylate 4 mg 02/02/23 09:00 02/02/23 08:24 Doxazosin Mesylate 4 Mg Tab PO 03/04/23 08:59 4 mg DAILY TONIE Administration Ferrous Sulfate 325 mg 02/01/23 21:00 02/02/23 08:24 Ferrous Sulfate 325 Mg Tab PO 03/03/23 20:59 325 mg BID TONIE Administration Finasteride 5 mg 02/02/23 09:00 02/02/23 08:23 Finasteride 5 Mg Tab PO 03/04/23 08:59 5 mg DAILY TONIE Administration Pantoprazole Sodium 40 mg/ 100 mls @ 20 mls/hr 02/01/23 16:00 02/02/23 08:23 Dextrose IV 03/03/23 15:59 8 mg/hr Q5H TONIE 20 mls/hr Administration 8 MG/HR Dextrose/Sodium Chloride 1,000 mls @ 45 mls/hr 02/01/23 19:15 02/01/23 20:09 D5w And Nss IV 02/02/23 17:28 45 mls/hr .[id number] TONIE Administration Lactobacillus Acidophilus 2 cap 02/02/23 09:00 02/02/23 08:23 Advanced Probiotic 1250 Mg Capsule PO 03/04/23 08:59 2 cap DAILY TONIE Administration Levothyroxine Sodium 25 mcg 02/02/23 06:30 02/02/23 06:30 Levothyroxine Sodium 25 Mcg Tablet PO 03/04/23 06:29 25 mcg DAILYBB TONIE Administration Multivitamins/Minerals 1 tab 02/02/23 09:00 02/02/23 08:23 Cerovite Adv Formula Tab PO 03/04/23 08:59 1 tab DAILY TONIE Administration Quetiapine Fumarate 50 mg 02/01/23 21:00 02/01/23 21:18 Quetiapine Fumarate 25 Mg Tablet PO 03/03/23 20:59 50 mg HS TONIE Administration Sertraline HCl 150 mg 02/02/23 09:00 02/02/23 08:23 Sertraline Hcl 100 Mg Tablet PO 03/04/23 08:59 150 mg DAILY TONIE Administration Simvastatin 40 mg 02/01/23 21:00 02/01/23 21:18 Simvastatin 40 Mg Tab PO 03/03/23 20:59 40 mg QPM TONIE Administration NPO Date Last Intake of Fluids: 02/02/23 Time Last Intake of Fluids: 06:00 Last Intake of Fluids Comment: sip with meds Date Last Intake of Solids: 02/01/23 Last Intake of Solids Comment: unknown Past Medical History Medical History Encounter for screening for COVID-19 Chest pain Epistaxis History of pulmonary embolism Hiatal hernia Seizure Ischemic stroke DVT prophylaxis Hx of pulmonary embolus Pulmonary embolism Hyperlipidemia Past Family History Family History Family/Other No pertinent family history Past Surgical History Surgical History History of brain surgery Social History Smoking Status: Former smoker Smoking cigarettes per day: 28 Do You Dip or Chew Tobacco: No Hx Alcohol Use: No Hx Substance Use: No substance use type: does not use Physical Exam Vital Signs Last Vital Signs Temp 36.8 C 02/02/23 13:20 Pulse 52 L 02/02/23 13:20 Resp 18 02/02/23 13:20 BP 147/73 H 02/02/23 13:20 Pulse Ox 96 02/02/23 13:20 O2 Del Method Room Air 02/02/23 13:20 Testing Laboratory Results 02/02/23 08:37 02/02/23 02:33 PT 12.2 Seconds (9.0-12.0) H 02/01/23 14:45 INR 1.1 (0.9-1.1) 02/01/23 14:45 APTT 20.2 Seconds (21.0-31.0) L 02/01/23 14:45 Urine Color Yellow 02/01/23 19:41 Urine Appearance Clear (Clear) 02/01/23 19:41 Urine pH 5.0 (4.5-7.5) 02/01/23 19:41 Ur Specific [place] 1.019 (1.000-1.030) 02/01/23 19:41 Urine Protein Negative (Negative) 02/01/23 19:41 Urine Glucose (UA) Negative (Negative) 02/01/23 19:41 Urine Ketones Negative (Negative) 02/01/23 19:41 Urine Nitrite Negative (Negative) 02/01/23 19:41 Ur Leukocyte Esterase Negative (Negative) 02/01/23 19:41 Blood Type A Positive 02/01/23 14:45 Antibody Screen NEGATIVE 02/01/23 14:45
[2023-02-02] MEDS ORDERED: ONDANSETRON INJ 2 MG/ML 2 ML VIAL IV PRN (14:37)
[2023-02-02] MEDS ORDERED: PROMETHAZINE HCL 12.5 MG in SODIUM CHLORIDE 0.9% 50 ML IV PRN (14:37)
[2023-02-02] MEDS ORDERED: ePHEDrine sulfate 50 MG/ML AMP IV PRN (14:37)
[2023-02-02] MEDS ORDERED: fentaNYL citrate PF 100 MCG/2 ML VIAL IV PRN (14:37)
[2023-02-02] MEDS ORDERED: ATROPINE SULFATE 0.1 MG/ML 10ML SYR IV PRN (14:37)
[2023-02-02] MEDS ORDERED: HYDROmorphone INJ 2 MG/ML SYR/VIAL IV PRN (14:37)
[2023-02-02] MEDS ORDERED: ONDANSETRON INJ 2 MG/ML 2 ML VIAL ONE (14:54)
[2023-02-02] MEDS ORDERED: PROPOFOL IV EMULSION 10 MG/ML 20 ML VIAL IV ONE (14:54)
[2023-02-02] MEDS ORDERED: SUCCINYLCHOLINE CHLORIDE 20 MG/ML 10 ML VIAL IV ONE (14:54)
--- NOTE | 2023-02-02 15:11 | GI REPORT ---
Patient Name: Suhas Velazquez Procedure Date: 02/02/2023 2:54 PM Date of : 1935 Admit Type: Inpatient Age: 87 Gender: Male Attending MD: Ariel Jackson DO, Procedure: Upper GI endoscopy Providers: rAiel Jackson DO Referring MD: Conner Alvarado, Alejandro Watts Md Indications: Iron deficiency anemia secondary to chronic blood loss Medicines: General Anesthesia Complications: No immediate complications. Estimated blood loss: Minimal. Estimated Blood Loss: Estimated blood loss was minimal. Procedure: Pre-Anesthesia Assessment: - Prior to the procedure, a History and Physical was performed, and patient medications, allergies and sensitivities were reviewed. The patient's tolerance of previous anesthesia was reviewed. - The risks and benefits of the procedure and the sedation options and risks were discussed with the patient. All questions were answered and informed consent was obtained. - Patient identification and proposed procedure were verified prior to the procedure by the physician, the nurse and the outbound sales representative. The procedure was verified in the procedure room. - Pre-procedure physical examination revealed no contraindications to sedation. - ASA Grade Assessment: IV - A patient with severe systemic disease that is a constant threat to life. - After reviewing the risks and benefits, the patient was deemed in satisfactory condition to undergo the procedure. - The anesthesia plan was to use general anesthesia. - Immediately prior to administration of medications, the patient was re-assessed for adequacy to receive sedatives. - The heart rate, respiratory rate, oxygen saturations, blood pressure, adequacy of pulmonary ventilation, and response to care were monitored throughout the procedure. - The physical status of the patient was re-assessed after the procedure. After obtaining informed consent, the endoscope was passed under direct vision. Throughout the procedure, the patient's blood pressure, pulse, and oxygen saturations were monitored continuously. The Endoscope was introduced through the mouth, and advanced to the third part of duodenum. The upper GI endoscopy was accomplished without difficulty. The patient tolerated the procedure well. Findings: The examined esophagus was significantly tortuous. LA Grade C (one or more mucosal breaks continuous between tops of 2 or more mucosal folds, less than 75% circumference) esophagitis with no bleeding was found in the entire esophagus. Biopsies were taken with a cold forceps for histology. Estimated blood loss was minimal. The Z-line was found 29 cm from the incisors. A large type IV paraesophageal hernia was found. The proximal extent of the gastric folds (end of tubular esophagus) was 29 cm from the incisors. The hiatal narrowing was 41 cm from the incisors. The Z-line was 29 cm from the incisors. Diffuse moderate inflammation characterized by congestion (edema), erythema and granularity was found in the entire examined stomach. Biopsies were taken with a cold forceps for histology. The pathology specimen was placed into Bottle B. Estimated blood loss was minimal. The examined duodenum was normal. Biopsies were taken with a cold forceps for histology. The pathology specimen was placed into Bottle A. Estimated blood loss was minimal. Impression: - Tortuous esophagus. - LA Grade C reflux esophagitis with no bleeding. Biopsied. - Z-line, 29 cm from the incisors. - Large type IV paraesophageal hernia. - Gastritis. Biopsied. - Normal examined duodenum. Biopsied. Recommendation: - Return patient to [facility] care. - Advance diet as tolerated. - Await pathology results. - Use Prilosec (omeprazole) 40 mg PO daily indefinitely. - Use sucralfate tablets 1 gram PO QID. - Recommend an iron supplement indefinitely. - Anemia likely related to the patient's large paraesophageal hernia. Consider referral to a tertiary care center as this should be evaluated to determine if surgical repair can be offered. Ariel Jackson D.O. Ariel Jackson, 02/02/2023 3:11:09 PM This report has been signed electronically. Note Initiated On: 02/02/2023 2:54 PM Number of Addenda: 0 I attest to the content of the Intraoperative Record and orders documented therein, exceptions below {[id number]}
--- NOTE | 2023-02-02 15:15 | Post Operative Brief Note ---
Immediate Post Op Note v1 Date of Surgery February 02, 2023 Pre & Post Diagnosis Operation Date: 02/02/23 16:45 Anemia> I identified the patient and participated in the time-out.: Yes Procedure Operation Date: 02/02/23 16:45 Upper endoscopy Surgeon Ariel Jackson, Operator Vacuum none Estimated Blood Loss 0 Findings See Below (Esophagitis, intrathoracic stomach, gastritis)
--- NOTE | 2023-02-02 15:17 | Communication Note ---
Date of Service: February 02, 2023 Patient underwent upper endoscopy for his history of worsening anemia. The patient was found to have a very large paraesophageal hernia which correlates with his imaging studies showing a mostly intrathoracic stomach. This is likely the cause of the patient's anemia. The patient was also found to have esophagitis in addition to gastritis. Recommendations advance diet as tolerated Protonix or omeprazole 40 mg daily Carafate 1 g 4 times daily Iron supplement indefinitely Would suggest referral to a tertiary care center to determine if surgical correction of this complex hernia should be considered. Please Call with any additional questions or concerns GI to sign off
--- NOTE | 2023-02-02 15:39 | Anesthesiology Progress Note ---
Date of Service February 02, 2023 Anesthesia Post Procedure Vital Signs Vital Signs: Temp Pulse Pulse Pulse Resp BP BP 02/02/23 15:30 54 L 17 137/63 02/02/23 15:20 60 26 H 119/58 L 02/02/23 15:13 36.3 C L 68 26 H 144/101 H 02/02/23 13:20 36.8 C 52 L 18 147/73 H 02/02/23 11:46 37.1 C 56 L 16 126/51 L 02/02/23 07:06 36.9 C 65 16 145/49 H 02/02/23 07:00 67 02/02/23 06:36 36.9 C 60 19 133/50 L 02/02/23 05:36 36.6 C 66 17 122/50 L 02/02/23 05:06 36.8 C 61 16 119/55 L 02/02/23 04:51 36.8 C 68 16 115/54 L 02/02/23 04:31 36.9 C 63 16 120/56 L 02/02/23 02:59 36.7 C 18 139/48 L 02/02/23 01:03 37.2 C 61 17 129/54 L 02/02/23 00:44 37.2 C 71 18 116/54 L 02/01/23 23:44 37 C 66 19 142/53 H 02/01/23 23:14 37.1 C 72 16 123/52 L 02/01/23 23:00 66 02/01/23 22:59 37 C 66 17 128/53 L 02/01/23 22:39 36.9 C 70 17 128/59 L 02/01/23 22:28 36.8 C 69 16 137/61 02/01/23 21:52 36.7 C 66 17 119/56 L 02/01/23 20:52 36.6 C 64 16 118/63 02/01/23 20:22 36.8 C 67 16 136/56 L 02/01/23 20:07 36.5 C 64 17 130/58 L 02/01/23 19:54 36.6 C 18 113/41 L 02/01/23 19:48 36.3 C L 67 17 131/53 L 02/01/23 19:45 02/01/23 19:35 71 02/01/23 19:09 36.4 C L 63 16 131/56 L 02/01/23 18:30 36.5 C 63 18 125/41 L 02/01/23 17:30 36.5 C 67 17 113/56 L 02/01/23 17:00 36.4 C L 67 16 122/50 L 02/01/23 16:59 36.4 C L 64 16 122/50 L 02/01/23 16:44 36.7 C 62 21 123/44 L 02/01/23 16:40 36.5 C 67 18 132/42 L 02/01/23 16:35 36.3 C L 68 16 125/47 L 02/01/23 16:33 36.3 C L 68 24 130/51 L 02/01/23 16:30 130/51 L 02/01/23 16:30 66 26 H 02/01/23 16:26 70 20 02/01/23 16:26 125/40 L 02/01/23 16:25 36.5 C 66 24 125/40 L 02/01/23 16:15 65 18 02/01/23 16:01 117/48 L 02/01/23 16:01 69 19 02/01/23 16:00 69 16 02/01/23 15:45 68 22 Pulse Ox O2 Del Method O2 Flow Rate 02/02/23 15:30 94 Room Air 02/02/23 15:20 93 Room Air 02/02/23 15:13 95 Oxymask 4 02/02/23 13:20 96 Room Air 02/02/23 11:46 94 Room Air 02/02/23 07:06 97 02/02/23 07:00 02/02/23 06:36 97 02/02/23 05:36 99 02/02/23 05:06 95 02/02/23 04:51 99 02/02/23 04:31 94 02/02/23 02:59 93 Room Air 02/02/23 01:03 96 02/02/23 00:44 94 02/01/23 23:44 95 02/01/23 23:14 96 02/01/23 23:00 02/01/23 22:59 95 02/01/23 22:39 93 02/01/23 22:28 95 02/01/23 21:52 94 02/01/23 20:52 98 02/01/23 20:22 95 02/01/23 20:07 96 02/01/23 19:54 94 Room Air 02/01/23 19:48 92 02/01/23 19:45 Room Air 02/01/23 19:35 02/01/23 19:09 97 02/01/23 18:30 98 02/01/23 17:30 98 02/01/23 17:00 99 02/01/23 16:59 99 02/01/23 16:44 98 02/01/23 16:40 96 02/01/23 16:35 99 02/01/23 16:33 98 02/01/23 16:30 02/01/23 16:30 95 02/01/23 16:26 02/01/23 16:26 02/01/23 16:25 97 02/01/23 16:15 02/01/23 16:01 02/01/23 16:01 90 02/01/23 16:00 95 02/01/23 15:45 89 L Transfer of Care Handoff Completed per policy Notes Mental Status: alert / awake / arousable Patient Amnestic to Procedure: Yes Nausea / Vomiting: adequately controlled Pain: adequately controlled Airway Patency, RR, SpO2: stable & adequate BP & HR: stable & adequate Hydration State: stable & adequate Anesthetic Complications: no major complications apparent
--- NOTE | 2023-02-02 16:17 | Communication Note ---
Date of Service: February 02, 2023 Given recommendations from GI and endoscopy results, discussed with [facility]--triage officer Dr. Victor Manuel Pollack for possible acceptance for evaluation and possible repair of large paraesophageal hernia. discussed with Dr.Anthony Valentino [facility] Bariatric surgeon who recommend outpatient follow up as no urgent need for transfer. If patient develops obstruction, then he could be a potential inpatient transfer. Updated patient's family. Started on Carafate as recommended by GI. Patient could have occult bleeding from paraesophageal hernia. Risk versus benefits to be discussed discussed with patient/family regarding anticoagulation and Aspirin resumption. Patient likely at high risk for recurrence of bleeding if anticoagulation aspirin resumed.
[2023-02-02 16:35] LABS: Hemoglobin 7.8 g/dl (14.0-18.0)
[2023-02-02] MEDS: SUCRALFATE 1 GM/10 ML UDC PO SCH ×2 (17:31→20:12)
[2023-02-02] MEDS: SIMVASTATIN 40 MG TAB PO SCH (20:13)
[2023-02-02] MEDS: QUEtiapine FUMARATE 25 MG TABLET PO SCH (20:13)
[2023-02-02 23:30] LABS: Hemoglobin 7.8 g/dl (14.0-18.0)
[2023-02-03] MEDS: PANTOprazole 40 MG in DEXTROSE 5% MINI-B 100 ML IV SCH ×3 (02:58→19:13)
[2023-02-03] MEDS: LEVOTHYROXINE SODIUM 25 MCG TABLET PO SCH ×2 (06:15→08:57)
[2023-02-03 06:47] LABS: Hematocrit (blood only) 23.7 % (42.0-52.0); Mean Corpuscular Hemoglobin 31.3 pg (25.0-34.0); Mean Corpuscular Hgb Conc 33.8 g/dL (32.0-36.0); Mean Corpuscular Volume 92.6 fL (80.0-100.0); Mean Platelet Volume 12.9 fL (9.4-12.4); Platelet Count 135 K/uL (130-400); RDW Coefficient of Variation 16.4 % (11.5-14.5); RDW Standard Deviation 49.6 fL (36.4-46.3); Red Blood Count 2.56 M/uL (4.70-6.10); White Blood Count 8.25 K/ul (4.8-10.8)
[2023-02-03 07:47] LABS: BUN Creatinine Ratio 27.3 (10-20); Calcium 7.4 mg/dl (8.6-10.3); Est GFR (African American) 78.5 ml/min; Est GFR (Non-African American) 67.7 ml/min; Potassium 3.5 mmol/L (3.5-5.1)
[2023-02-03] MEDS: ADVANCED PROBIOTIC 1250 MG CAPSULE PO SCH (08:57)
[2023-02-03] MEDS: SUCRALFATE 1 GM/10 ML UDC PO SCH ×4 (08:57→20:05)
[2023-02-03] MEDS: CEROVITE ADV FORMULA TAB PO SCH (08:58)
[2023-02-03] MEDS: FERROUS SULFATE 325 MG TAB PO SCH ×2 (08:58→20:06)
[2023-02-03] MEDS: DOXAZosin MESYLATE 4 MG TAB PO SCH (08:58)
[2023-02-03] MEDS: FINASTERIDE 5 MG TAB PO SCH (08:58)
[2023-02-03] MEDS: SERTRALINE HCL 100 MG TABLET PO SCH (16:06)
--- NOTE | 2023-02-03 17:25 | Hospitalist Progress Note ---
Date of Service February 03, 2023 Assessment & Plan (1) Acute GI bleeding: (2) Symptomatic anemia: (3) ADRIAN (acute kidney injury): Plan Patient is an 87 yr old male with H/O PAF anticoagulated with Xarelto, history of DVT/PE, HTN, chronic sinus bradycardia, history of CVA, history of cerebral aneurysm clipping, hyperlipidemia, history of MGUS, chronic anemia, anxiety/mood disorder, BPH, past tobacco abuse and cognitive impairment who presents to ED secondary to reports of having blood in his undergarments prior to arrival. Acute GI Bleeding on chronic anemia Possible secondary to esophagitis, gastritis Acute blood loss/Symptomatic anemia in setting of aspirin, Xarelto use Large type IV paraesophageal hernia Baseline Hb ~ 9-10 --CT ABD:No bowel obstruction. No bowel wall thickening on unenhanced exam. Sigmoid diverticulosis without evidence for acute diverticulitis. No source for GI bleed on unenhanced CT. Large hiatal hernia which contains the stomach and portion of the transverse colon. Gaseous distention of the rectum which contains a small amount of poorly formed stool. --S/P 4 units PRBCs --S/P EGD:Tortuous esophagus. LA Grade C reflux esophagitis with no bleeding. Biopsied. Z-line, 29 cm from the incisors. Large type IV paraesophageal hernia. Gastritis. Biopsied. Normal examined duodenum. Biopsied. Aspirin, Xarelto on hold Continue IV Protonix>> transition to p.o. Protonix as able Appreciate GI input Monitor H&H and transfuse PRBCs as needed Advance diet as tolerated Follow-up pathology results Plan to be discharged on PPI 40 mg daily indefinitely Started on sucralfate Needs surgical evaluation for large paraesophageal hernia as outpatient Risks versus benefits to be discussed regarding restarting anticoagulation/aspirin Hb stable Elevated troponin Demand ischemia in setting of acute/chronic anemia Trend troponin --ECHO: Left ventricle wall motion is normal. Compared to prior echo, aortic valve stenosis gradient is increased. EF 65 to 70%. Patient denies any chest pain, dyspnea ADRIAN Baseline 0.8 Likely prerenal from blood loss anemia Chronic diastolic dysfunction Last ECHO 2020 with preserved EF and grade II diastolic dysfunction Cr 1.47> 1.2>0.99 Avoid nephrotoxic agents as able Received gentle IV fluids Monitor volume status Currently not on any maintenance diuretics Leukocytosis Likely reactive in setting of GI bleed No signs or symptoms of infection, monitor closely Resolved PAF Currently in sinus rhythm Hold Xarelto due to GI Bleed HTN Monitor BP Resume amlodipine as able Hx of PE/DVT Xarelto on hold H/O CVA H/O Cerebral aneurysm clipping Hyperlipidemia continue statin Hold asa as above H/O Cognitive impairment H/O MGUS/chronic anemia Anxiety/mood disorder Past tobacco abuse BPH Continue home medications Monitor CBC Reorient frequently to minimize delirium DVT Px: SCDs Xarelto on hold Disposition PT OT prior to discharge Admission and Anticipated Discharge Date Admission Date: February 01, 2023 Subjective Patient is seen and examined at bedside States feeling tired today Denies any bleeding issues Tolerating clear liquid diet Denies any nausea, vomiting, chest pain, dyspnea Review of Systems Review of Systems: All systems reviewed & are unremarkable except as noted in Subjective Physical Exam Physical Exam: Physical Exam: Vitals signs as noted above General Appearance:Thin, frail, elderly, apparent distress Head: normocephalic, Atraumatic Eyes: normal inspection, EOMI Neck: supple, Trachea midline Respiratory/Chest: Normal breath sounds,CTA, No accessory muscle use Cardiovascular: S1, S2, + murmur Abdomen/GI:Soft, Non tender, Bowel sounds present Extremities/Musculoskeletal:normal inspection, no edema Neurologic/Psych:AAO, grossly no focal neurological deficits Skin: normal color, warm Results & Data Results & Data Vital Signs (Past 12 Hours) Vital Signs Temp Pulse Resp BP Pulse Ox O2 Del Method 02/03/23 16:54 37.2 C 62 19 142/60 H 93 Room Air 02/03/23 11:33 37.4 C 59 L 19 115/50 L 95 Room Air 02/03/23 08:08 36.5 C 55 L 19 170/65 H 93 Room Air Laboratory Results Short CBC 02/02/23 02/03/23 Range/Units 22:28 05:35 WBC 8.25 (4.8-10.8) K/ul Hgb 7.8 L 8.0 L (14.0-18.0) g/dl Hct 23.0 L 23.7 L (42.0-52.0) % Plt Count 135 (130-400) K/uL BMP 02/03/23 05:35 Sodium 139 Potassium 3.5 Chloride 109 H Carbon Dioxide 24 BUN 27 H D Creatinine 0.99 D Glucose 112 H Calcium 7.4 L
[2023-02-03] MEDS: PANTOprazole 40 MG in SYRINGE 0 ML IV SCH (20:05)
[2023-02-03] MEDS: QUEtiapine FUMARATE 25 MG TABLET PO SCH (20:06)
[2023-02-03] MEDS: SIMVASTATIN 40 MG TAB PO SCH (20:06)
[2023-02-03 20:17] LABS: Hematocrit (blood only) 24.3 % (42.0-52.0)
[2023-02-04 07:15] LABS: Hematocrit (blood only) 24.5 % (42.0-52.0); Hemoglobin 8.1 g/dl (14.0-18.0); Mean Corpuscular Hemoglobin 31.3 pg (25.0-34.0); Mean Corpuscular Hgb Conc 33.1 g/dL (32.0-36.0); Mean Corpuscular Volume 94.6 fL (80.0-100.0); Mean Platelet Volume 11.5 fL (9.4-12.4); Platelet Count 130 K/uL (130-400); RDW Coefficient of Variation 15.9 % (11.5-14.5); RDW Standard Deviation 50.6 fL (36.4-46.3); Red Blood Count 2.59 M/uL (4.70-6.10); White Blood Count 6.26 K/ul (4.8-10.8)
[2023-02-04 07:30] LABS: BUN Creatinine Ratio 23.8 (10-20); Calcium 7.3 mg/dl (8.6-10.3); Creatinine Clr Calc Pharmacy 57.6 ml/min; Est GFR (African American) 90.6 ml/min; Est GFR (Non-African American) 78.2 ml/min; Magnesium 2.2 mg/dl (1.7-2.4); Potassium 3.6 mmol/L (3.5-5.1)
[2023-02-04] MEDS: ADVANCED PROBIOTIC 1250 MG CAPSULE PO SCH (11:11)
[2023-02-04] MEDS: DOXAZosin MESYLATE 4 MG TAB PO SCH (11:12)
[2023-02-04] MEDS: CEROVITE ADV FORMULA TAB PO SCH (11:12)
[2023-02-04] MEDS: FINASTERIDE 5 MG TAB PO SCH (11:13)
[2023-02-04] MEDS: FERROUS SULFATE 325 MG TAB PO SCH ×2 (11:15→20:22)
[2023-02-04] MEDS: SERTRALINE HCL 100 MG TABLET PO SCH (11:16)
[2023-02-04] MEDS: SUCRALFATE 1 GM/10 ML UDC PO SCH ×4 (11:16→20:23)
[2023-02-04] MEDS: PANTOprazole 40 MG in SYRINGE 0 ML IV SCH ×2 (11:16→20:22)
--- NOTE | 2023-02-04 16:14 | Hospitalist Progress Note ---
Date of Service February 04, 2023 Assessment & Plan (1) Acute GI bleeding: (2) Symptomatic anemia: (3) ADRIAN (acute kidney injury): Plan Patient is an 87 yr old male with H/O PAF anticoagulated with Xarelto, history of DVT/PE, HTN, chronic sinus bradycardia, history of CVA, history of cerebral aneurysm clipping, hyperlipidemia, history of MGUS, chronic anemia, anxiety/mood disorder, BPH, past tobacco abuse and cognitive impairment who presents to ED secondary to reports of having blood in his undergarments prior to arrival. Acute GI Bleeding on chronic anemia Possible secondary to esophagitis, gastritis Acute blood loss/Symptomatic anemia in setting of aspirin, Xarelto use Large type IV paraesophageal hernia Baseline Hb ~ 9-10 --CT ABD:No bowel obstruction. No bowel wall thickening on unenhanced exam. Sigmoid diverticulosis without evidence for acute diverticulitis. No source for GI bleed on unenhanced CT. Large hiatal hernia which contains the stomach and portion of the transverse colon. Gaseous distention of the rectum which contains a small amount of poorly formed stool. --S/P 4 units PRBCs --S/P EGD:Tortuous esophagus. LA Grade C reflux esophagitis with no bleeding. Biopsied. Z-line, 29 cm from the incisors. Large type IV paraesophageal hernia. Gastritis. Biopsied. Normal examined duodenum. Biopsied. Aspirin, Xarelto on hold Continue IV Protonix>> transition to p.o. Protonix as able Appreciate GI input Monitor H&H and transfuse PRBCs as needed Advance diet as tolerated Follow-up pathology results Plan to be discharged on PPI 40 mg daily indefinitely Started on sucralfate Needs surgical evaluation for large paraesophageal hernia as outpatient Discussed Risks Vs benefits regarding restarting anticoagulation/aspirin with patient's daughter: Given risks overweigh benefits, will hold on aspirin, Xarelto for now Advised to follow-up with PCP/GI/surgeon as outpatient for further recommendations. Patient and daughter understands and agrees with current m anagement. Hb 8.1 today Requested PT OT evaluation Case management to help with discharge planning Elevated troponin Demand ischemia in setting of acute/chronic anemia Trend troponin --ECHO: Left ventricle wall motion is normal. Compared to prior echo, aortic valve stenosis gradient is increased. EF 65 to 70%. Patient denies any chest pain, dyspnea ADRIAN Baseline 0.8 Likely prerenal from blood loss anemia Chronic diastolic dysfunction Last ECHO 2020 with preserved EF and grade II diastolic dysfunction Cr 1.47> 1.2>0.99>0.84 Avoid nephrotoxic agents as able Received gentle IV fluids Monitor volume status Currently not on any maintenance diuretics Dysphagia Secondary to paraesophageal hernia Pured diet for now Aspiration precautions Speech therapy eval Leukocytosis Likely reactive in setting of GI bleed No signs or symptoms of infection, monitor closely Resolved PAF Currently in sinus rhythm Hold Xarelto due to GI Bleed HTN Monitor BP Resume amlodipine as able Hx of PE/DVT Xarelto on hold H/O CVA H/O Cerebral aneurysm clipping Hyperlipidemia continue statin Hold asa as above H/O Cognitive impairment H/O MGUS/chronic anemia Anxiety/mood disorder Past tobacco abuse BPH Continue home medications Monitor CBC Reorient frequently to minimize delirium DVT Px: SCDs Xarelto on hold Disposition PT OT prior to discharge Admission and Anticipated Discharge Date Admission Date: February 01, 2023 Subjective Patient is seen and examined at bedside Feels more stronger today No recurrence of bleeding issues Updated patient's daughter over the phone Denies any nausea, vomiting, chest pain, dyspnea Difficulty tolerating low fiber diet Review of Systems Review of Systems: All systems reviewed & are unremarkable except as noted in Subjective Physical Exam Physical Exam: Physical Exam: Vitals signs as noted above General Appearance:Thin, frail, elderly, apparent distress Head: normocephalic, Atraumatic Eyes: normal inspection, EOMI Neck: supple, Trachea midline Respiratory/Chest: Normal breath sounds,CTA, No accessory muscle use Cardiovascular: S1, S2, + murmur Abdomen/GI:Soft, Non tender, Bowel sounds present Extremities/Musculoskeletal:normal inspection, no edema Neurologic/Psych:AAO, grossly no focal neurological deficits Skin: normal color, warm Results & Data Results & Data Vital Signs (Past 12 Hours) Vital Signs Temp Pulse Resp BP BP Pulse Ox O2 Del Method 02/04/23 11:34 36.4 C L 67 18 137/52 L 91 Room Air 02/04/23 07:30 Room Air 02/04/23 07:14 36.8 C 63 18 128/51 L 94 Room Air Laboratory Results Short CBC 02/03/23 02/04/23 Range/Units 20:03 06:05 WBC 6.26 (4.8-10.8) K/ul Hgb 8.0 L 8.1 L (14.0-18.0) g/dl Hct 24.3 L 24.5 L (42.0-52.0) % Plt Count 130 (130-400) K/uL [facility] 02/04/23 06:05 Sodium 138 Potassium 3.6 Chloride 107 Carbon Dioxide 27 BUN 20 Creatinine 0.84 Glucose 107 H Calcium 7.3 L
[2023-02-04] MEDS: SIMVASTATIN 40 MG TAB PO SCH (20:23)
[2023-02-04] MEDS: QUEtiapine FUMARATE 25 MG TABLET PO SCH (20:23)
[2023-02-05] MEDS: LEVOTHYROXINE SODIUM 25 MCG TABLET PO SCH (05:43)
[2023-02-05 06:41] LABS: Hematocrit (blood only) 24.4 % (42.0-52.0); Hemoglobin 8.1 g/dl (14.0-18.0)
[2023-02-05] MEDS: PANTOprazole 40 MG in SYRINGE 0 ML IV SCH (09:09)
[2023-02-05] MEDS: CEROVITE ADV FORMULA TAB PO SCH (09:11)
[2023-02-05] MEDS: FERROUS SULFATE 325 MG TAB PO SCH (09:11)
[2023-02-05] MEDS: ADVANCED PROBIOTIC 1250 MG CAPSULE PO SCH (09:11)
[2023-02-05] MEDS: SERTRALINE HCL 100 MG TABLET PO SCH (09:12)
[2023-02-05] MEDS: DOXAZosin MESYLATE 4 MG TAB PO SCH (09:12)
[2023-02-05] MEDS: FINASTERIDE 5 MG TAB PO SCH (09:12)
[2023-02-05] MEDS: SUCRALFATE 1 GM/10 ML UDC PO SCH (09:12)
[2023-02-05] MEDS ORDERED: amLODIPine BESYLATE 5 MG TAB PO SCH (09:15)
[2023-02-05] MEDS ORDERED: CALCIUM CARBONATE 500 MG CHEWABLE TAB PO SCH (09:30)
[2023-02-05] MEDS ORDERED: CHOLECALCIFEROL 1,000 UNITS 25 MCG TAB PO SCH (09:30)
[2023-02-05] MEDS ORDERED: CYANOCOBALAMIN (B-12) 500 MCG TABLET PO SCH (09:30)
--- NOTE | 2023-02-05 13:46 | Hospitalist Progress Note ---
Date of Service February 05, 2023 Assessment & Plan (1) Acute GI bleeding: (2) Symptomatic anemia: (3) ADRIAN (acute kidney injury): Plan Patient is an 87 yr old male with H/O PAF anticoagulated with Xarelto, history of DVT/PE, HTN, chronic sinus bradycardia, history of CVA, history of cerebral aneurysm clipping, hyperlipidemia, history of MGUS, chronic anemia, anxiety/mood disorder, BPH, past tobacco abuse and cognitive impairment who presents to ED secondary to reports of having blood in his undergarments prior to arrival. Acute GI Bleeding Possible secondary to esophagitis, gastritis Acute blood loss/Symptomatic anemia in setting of aspirin, Xarelto use Large type IV paraesophageal hernia Baseline Hb ~ 9-10 --CT ABD:No bowel obstruction. No bowel wall thickening on unenhanced exam. Sigmoid diverticulosis without evidence for acute diverticulitis. No source for GI bleed on unenhanced CT. Large hiatal hernia which contains the stomach and portion of the transverse colon. Gaseous distention of the rectum which contains a small amount of poorly formed stool. --S/P 4 units PRBCs --S/P EGD:Tortuous esophagus. LA Grade C reflux esophagitis with no bleeding. Biopsied. Z-line, 29 cm from the incisors. Large type IV paraesophageal hernia. Gastritis. Biopsied. Normal examined duodenum. Biopsied. Aspirin, Xarelto on hold Continue IV Protonix>> transition to p.o. Protonix as able Appreciate GI input Monitor H&H and transfuse PRBCs as needed Advance diet as tolerated Follow-up pathology results Plan to be discharged on PPI 40 mg daily indefinitely Started on sucralfate as well Needs surgical evaluation for large paraesophageal hernia as outpatient Discussed Risks Vs benefits regarding restarting anticoagulation/aspirin with patient's daughter: Given risks overweigh benefits, will hold on aspirin, Xarelto for now Advised to follow-up with PCP/GI/surgeon as outpatient for further recommendations. Patient and daughter understands and agrees with current management. Hb 8.1 today PT OT evaluation done Plan to discharge to personal care facility today Advised to follow-up with gastroenterology, surgery as outpatient Elevated troponin Demand ischemia in setting of acute/chronic anemia Trend troponin --ECHO: Left ventricle wall motion is normal. Compared to prior echo, aortic valve stenosis gradient is increased. EF 65 to 70%. Patient denies any chest pain, dyspnea ADRIAN Baseline 0.8 Likely prerenal from blood loss anemia Chronic diastolic dysfunction Last ECHO 2020 with preserved EF and grade II diastolic dysfunction Cr 1.47> 1.2>0.99>0.84 Avoid nephrotoxic agents as able Received gentle IV fluids Monitor volume status Currently not on any maintenance diuretics Resolved Dysphagia Secondary to paraesophageal hernia Pured diet for now Aspiration precautions Speech therapy eval done Leukocytosis Likely reactive in setting of GI bleed No signs or symptoms of infection, monitor closely Resolved PAF Currently in sinus rhythm Hold Xarelto due to GI Bleed HTN Monitor BP Resume amlodipine as able Hx of PE/DVT Xarelto on hold H/O CVA H/O Cerebral aneurysm clipping Hyperlipidemia continue statin Hold asa as above H/O Cognitive impairment H/O MGUS/chronic anemia Anxiety/mood disorder Past tobacco abuse BPH Continue home medications Monitor CBC Reorient frequently to minimize delirium DVT Px: SCDs Xarelto on hold Disposition PCF Admission and Anticipated Discharge Date Admission Date: February 01, 2023 Subjective Patient is seen and examined at bedside States feeling better today No new complaints Discussed with patient's friend at bedside Denies any nausea, vomiting, chest pain, dyspnea No recurrence of bleeding Plan to be discharged to personal care facility today Review of Systems Review of Systems: All systems reviewed & are unremarkable except as noted in Subjective Physical Exam Physical Exam: Physical Exam: Vitals signs as noted above General Appearance:Thin, frail, elderly, apparent distress Head: normocephalic, Atraumatic Eyes: normal inspection, EOMI Neck: supple, Trachea midline Respiratory/Chest: Normal breath sounds,CTA, No accessory muscle use Cardiovascular: S1, S2, + murmur Abdomen/GI:Soft, Non tender, Bowel sounds present Extremities/Musculoskeletal:normal inspection, no edema Neurologic/Psych:AAO, grossly no focal neurological deficits Skin: normal color, warm Results & Data Results & Data Vital Signs (Past 12 Hours) Vital Signs Temp Pulse Resp BP Pulse Ox O2 Del Method 02/05/23 11:52 36.7 C 51 L 17 141/48 H 93 Room Air 02/05/23 07:18 36.8 C 61 17 147/59 H 95 Room Air 02/05/23 03:39 36.7 C 50 L 17 145/54 H 93 Room Air Laboratory Results Short CBC 02/05/23 Range/Units 05:41 Hgb 8.1 L (14.0-18.0) g/dl Hct 24.4 L (42.0-52.0) %
--- NOTE | 2023-02-05 14:09 | Discharge Summary ---
Date of Service February 05, 2023 Admission HPI Per Admitting Provider This is an 87-year-old male who has a significant past medical history of PAF anticoagulated with Xarelto, history of DVT/PE, HTN, chronic sinus bradycardia, history of CVA, history of cerebral aneurysm clipping, hyperlipidemia, history of MGUS, chronic anemia, anxiety/mood disorder, BPH, past tobacco abuse and cognitive impairment who presents to ED secondary to reports of having blood in his undergarments prior to arrival. He currently resides at a personal care facility. He states he has been noticing BRBPR for last few days. He reports having difficulty moving his bowels. Overall poor intake and appetite last few days. He reports syncopal episode but is unsure of the nature of event or when this happened. He denies f/c/s, dizziness, chest pain, sob, n/v or diarrhea. He reports being very tired. He was recently hospitalized 01/05 to 01/10 secondary to right lower extremity cellulitis treated with IV antibiotics. In ED patient remained hemodynamically stable with significant lab abnormalities with a hemoglobin of 3.6 and hematocrit 11.4. He did have a mild leukocytosis at 13.71, BUN 73, creatinine 1.47 and slightly elevated troponin at 34.6. He was typed and crossed for 2 units to be transfused now. Hospital service was consulted for admission. Admission Exam Per Admitting Provider GENERAL: Alert and oriented x2. NAD, on RA. Appears weak/frail. HEENT: No pallor, no icterus. Pupils equal, round and reactive to light. Oral mucosa dry. NECK: No JVD, no neck masses. HEART: S1 and S2 heard. Regular rate and rhythm. + systolic murmur @ A and P, no gallop. RESPIRATORY SYSTEM: Normal AP diameter. No accessory muscle use. No wheezing, no crackles. ABDOMEN: Soft, bowel sounds present, nontender, no distention. CENTRAL NERVOUS SYSTEM: No facial droop. Speech is clear. Obeys simple commands. Moves extremities. EXTREMITIES: No edema, no erythema seen. Principal Diagnosis Acute GI Bleeding Esophagitis Gastritis Large type IV paraesophageal hernia Acute blood loss/Symptomatic anemia in setting of aspirin, Xarelto use Acute Kidney Injury Dysphagia Discharge Data Allergies Allergy/AdvReac Type Severity Reaction Status Date / Time No Known Allergies Allergy Verified 01/05/23 19:13 Consultations 02/01/23 15:35 ED Decision to Admit Stat 02/01/23 15:40 Consult Gastroenterology Routine Procedures Performed Operation Date: 02/02/23 16:45 <No data on this case meets the specified criteria> Laboratory Results WBC 6.26 K/ul (4.8-10.8) 02/04/23 06:05 RBC 2.59 M/uL (4.70-6.10) L 02/04/23 06:05 Hgb 8.1 g/dl (14.0-18.0) L 02/05/23 05:41 Hct 24.4 % (42.0-52.0) L 02/05/23 05:41 MCV 94.6 fL (80.0-100.0) 02/04/23 06:05 MCH 31.3 pg (25.0-34.0) 02/04/23 06:05 MCHC 33.1 g/dL (32.0-36.0) 02/04/23 06:05 RDW Std Deviation 50.6 fL (36.4-46.3) H 02/04/23 06:05 RDW Coeff of Luis 15.9 % (11.5-14.5) H 02/04/23 06:05 Plt Count 130 K/uL (130-400) 02/04/23 06:05 MPV 11.5 fL (9.4-12.4) 02/04/23 06:05 Immature Gran % (Auto) 0.4 % 02/02/23 02:33 Neut % (Auto) 68.5 % 02/02/23 02:33 Lymph % (Auto) 18.4 % 02/02/23 02:33 Love % (Auto) 10.8 % 02/02/23 02:33 Eos % (Auto) 1.4 % 02/02/23 02:33 Baso % (Auto) 0.5 % 02/02/23 02:33 Neut # (Auto) 6.25 K/uL (1.40-6.50) 02/02/23 02:33 Lymph # (Auto) 1.68 K/uL (1.20-3.40) 02/02/23 02:33 Love # (Auto) 0.99 K/uL (0.11-0.59) H 02/02/23 02:33 Eos # (Auto) 0.13 K/uL (0.00-0.50) 02/02/23 02:33 Baso # (Auto) 0.05 K/uL (0.00-0.20) 02/02/23 02:33 Immature Gran # (Auto) 0.04 K/uL (0.01-0.20) 02/02/23 02:33 Neutrophils % (Manual) 86 % 02/01/23 16:25 Lymphocytes % (Manual) 8 % 02/01/23 16:25 Monocytes % (Manual) 6 % 02/01/23 16:25 Neutrophils # (Manual) 10.93 K/uL (1.40-6.50) H 02/01/23 16:25 Total Absolute Neuts 10.93 K/uL (1.4-6.5) H 02/01/23 16:25 Lymphocytes # (Manual) 1.02 K/uL (1.2-3.4) L 02/01/23 16:25 Total Abs Lymphocytes 1.02 K/uL (1.2-3.4) L 02/01/23 16:25 Monocytes # (Manual) 0.76 K/uL (0.11-0.59) H 02/01/23 16:25 Polychromasia 1+ 02/02/23 02:33 PT 12.2 Seconds (9.0-12.0) H 02/01/23 14:45 INR 1.1 (0.9-1.1) 02/01/23 14:45 APTT 20.2 Seconds (21.0-31.0) L 02/01/23 14:45 PTT Ratio 0.7 02/01/23 14:45 Sodium 138 mmol/L (136-145) 02/04/23 06:05 Potassium 3.6 mmol/L (3.5-5.1) 02/04/23 06:05 Chloride 107 mmol/L (98-107) 02/04/23 06:05 Carbon Dioxide 27 mmol/L (21-32) 02/04/23 06:05 Anion Gap 4 (3-11) 02/04/23 06:05 BUN 20 mg/dl (6-23) 02/04/23 06:05 Creatinine 0.84 mg/dl (0.6-1.4) 02/04/23 06:05 Est Cr Clr Drug Dosing 57.6 ml/min 02/04/23 06:05 Est GFR ( Amer) 90.6 ml/min 02/04/23 06:05 Est GFR (Non-Af Amer) 78.2 ml/min 02/04/23 06:05 BUN/Creatinine Ratio 23.8 (10-20) H 02/04/23 06:05 Glucose 107 mg/dl (70-99(Fasting)) H 02/04/23 06:05 Calcium 7.3 mg/dl (8.6-10.3) L 02/04/23 06:05 Magnesium 2.2 mg/dl (1.7-2.4) 02/04/23 06:05 Total Bilirubin 0.8 mg/dl (0.2-1.0) 02/02/23 02:33 AST 31 U/L (13-39) 02/02/23 02:33 ALT 12 U/L (7-52) 02/02/23 02:33 Alkaline Phosphatase 28 U/L (34-104) L 02/02/23 02:33 Troponin I High Sens 440.0 pg/ml (0-20) H* D 02/02/23 16:07 Total Protein 4.9 gm/dl (6.0-8.3) L 02/02/23 02:33 Albumin 2.7 gm/dl (3.4-5.0) L 02/02/23 02:33 Globulin 2.2 gm/dl (2.5-4.0) L 02/02/23 02:33 Albumin/Globulin Ratio 1.2 (0.9-2) 02/02/23 02:33 Lipase 34 U/L (11-82) 02/01/23 14:45 Urine Color Yellow 02/01/23 19:41 Urine Appearance Clear (Clear) 02/01/23 19:41 Urine pH 5.0 (4.5-7.5) 02/01/23 19:41 Ur Specific Winston 1.019 (1.000-1.030) 02/01/23 19:41 Urine Protein Negative (Negative) 02/01/23 19:41 Urine Glucose (UA) Negative (Negative) 02/01/23 19:41 Urine Ketones Negative (Negative) 02/01/23 19:41 Urine Blood Negative (Negative) 02/01/23 19:41 Urine Nitrite Negative (Negative) 02/01/23 19:41 Urine Bilirubin Negative (Negative) 02/01/23 19:41 Urine Urobilinogen Negative (Negative) 02/01/23 19:41 Ur Leukocyte Esterase Negative (Negative) 02/01/23 19:41 SARS-CoV-2, RNA, NAAT NEGATIVE (NEGATIVE) 02/01/23 15:40 Blood Type A Positive 02/01/23 14:45 Antibody Screen NEGATIVE 02/01/23 14:45 Crossmatch See Detail 02/01/23 14:45 Impressions Chest X-Ray 02/01/23 14:37 XR chest 1V portable CLINICAL HISTORY: Lower GI bleed. COMPARISON STUDY: Chest CT October 01, 2019. Chest radiograph January 05, 2023. FINDINGS: There is no pneumothorax or pleural effusion. There is no evidence for pulmonary edema. A large hiatal hernia is again noted. Cardiomegaly is unchanged. There is no evidence for pulmonary edema. There is no consolidation to suggest pneumonia. Skinfold projects over the left chest. A calcified right upper lobe nodule is unchanged. This is benign. IMPRESSION: 1. No acute cardiopulmonary findings. No change in appearance of the chest. 2. Large hiatal hernia. ACT 112: Negative or not required by law. Electronically signed by: Joey Cruz M.D. 02/01/2023 3:42 PM KUB X-Ray 02/01/23 14:37 KUB CLINICAL HISTORY: Lower GI bleed. COMPARISON STUDY: None. FINDINGS: The bowel gas pattern is normal. A large hiatal hernia is again noted. No evidence for free air on supine exam. Amount of stool is within normal limits. IMPRESSION: 1. No evidence for a bowel obstruction. 2. Large hiatal hernia. ACT 112: Negative or not required by law. Electronically signed by: Joey Cruz M.D. 02/01/2023 3:43 PM Abdomen/Pelvis CT 02/01/23 16:20 CT OF THE ABDOMEN AND PELVIS WITHOUT CONTRAST CLINICAL HISTORY: GI bleed. COMPARISON STUDY: KUB performed earlier today. TECHNIQUE: Axial images of the abdomen and pelvis were obtained without IV contrast. Images were reviewed in the axial, sagittal, and coronal planes. Automated exposure control was utilized for the study. A dose lowering technique was utilized adhering to the principles of ALARA. FINDINGS: A large hiatal hernia is partially imaged on this exam. This contains the stomach and portion of the transverse colon. Mildly distended. There is decreased attenuation of cardiac blood. No pneumatosis, free air or portal venous gas is present. Evaluation of the abdomen and pelvis is suboptimal on this unenhanced exam. Liver, spleen, adrenal glands, pancreas and kidneys are unremarkable. A hepatobiliary ductal dilatation. There is no hydronephrosis. There is no lymphadenopathy. No evidence for a bowel obstruction. The rectum is moderately distended. There is a small amount unremarkable. There is sigmoid diverticulosis without evidence for acute diverticulitis. No fluid collections are present. No bowel wall thickening is identified on unenhanced exam. The appendix is normal. IMPRESSION: 1. No bowel obstruction. No bowel wall thickening on unenhanced exam. Sigmoid diverticulosis without evidence for acute diverticulitis. No source for GI bleed on unenhanced CT. 2. Large hiatal hernia which contains the stomach and portion of the transverse colon. 3. Gaseous distention of the rectum which contains a small amount of poorly formed stool. ACT 112: Negative or not required by law. Electronically signed by: Joey Cruz M.D. 02/01/2023 6:20 PM Ordered Studies 02/01/23 16:20 CT Abd and Pelvis [CT abd pelvis wo con] Stat Hospital Course (1) Acute GI bleeding: (2) Symptomatic anemia: (3) ADRIAN (acute kidney injury): Plan Patient is an 87 yr old male with H/O PAF anticoagulated with Xarelto, history of DVT/PE, HTN, chronic sinus bradycardia, history of CVA, history of cerebral aneurysm clipping, hyperlipidemia, history of MGUS, chronic anemia, anxiety/mood disorder, BPH, past tobacco abuse and cognitive impairment who presents to ED secondary to reports of having blood in his undergarments prior to arrival. Acute GI Bleeding Possible secondary to esophagitis, gastritis Acute blood loss/Symptomatic anemia in setting of aspirin, Xarelto use Large type IV paraesophageal hernia Baseline Hb ~ 9-10 --CT ABD:No bowel obstruction. No bowel wall thickening on unenhanced exam. Sigmoid diverticulosis without evidence for acute diverticulitis. No source for GI bleed on unenhanced CT. Large hiatal hernia which contains the stomach and portion of the transverse colon. Gaseous distention of the rectum which contains a small amount of poorly formed stool. --S/P 4 units PRBCs --S/P EGD:Tortuous esophagus. LA Grade C reflux esophagitis with no bleeding. Biopsied. Z-line, 29 cm from the incisors. Large type IV paraesophageal hernia. Gastritis. Biopsied. Normal examined duodenum. Biopsied. Aspirin, Xarelto on hold Continue IV Protonix>> transition to p.o. Protonix as able Appreciate GI input Monitor H&H and transfuse PRBCs as needed Advance diet as tolerated Follow-up pathology results Plan to be discharged on PPI 40 mg daily indefinitely Started on sucralfate as well Needs surgical evaluation for large paraesophageal hernia as outpatient Discussed Risks Vs benefits regarding restarting anticoagulation/aspirin with patient's daughter: Given risks overweigh benefits, will hold on aspirin, Xarelto for now Advised to follow-up with PCP/GI/surgeon as outpatient for further recommendations. Patient and daughter understands and agrees with current management. Hb 8.1 today PT OT evaluation done Plan to discharge to personal care facility today Advised to follow-up with gastroenterology, surgery as outpatient Elevated troponin Demand ischemia in setting of acute/chronic anemia Trend troponin --ECHO: Left ventricle wall motion is normal. Compared to prior echo, aortic valve stenosis gradient is increased. EF 65 to 70%. Patient denies any chest pain, dyspnea ADRIAN Baseline 0.8 Likely prerenal from blood loss anemia Chronic diastolic dysfunction Last ECHO 2020 with preserved EF and grade II diastolic dysfunction Cr 1.47> 1.2>0.99>0.84 Avoid nephrotoxic agents as able Received gentle IV fluids Monitor volume status Currently not on any maintenance diuretics Resolved Dysphagia Secondary to paraesophageal hernia Pured diet for now Aspiration precautions Speech therapy eval done Leukocytosis Likely reactive in setting of GI bleed No signs or symptoms of infection, monitor closely Resolved PAF Currently in sinus rhythm Hold Xarelto due to GI Bleed HTN Monitor BP Resume amlodipine as able Hx of PE/DVT Xarelto on hold H/O CVA H/O Cerebral aneurysm clipping Hyperlipidemia continue statin Hold asa as above H/O Cognitive impairment H/O MGUS/chronic anemia Anxiety/mood disorder Past tobacco abuse BPH Continue home medications Monitor CBC Reorient frequently to minimize delirium DVT Px: SCDs Xarelto on hold Disposition PCF Total Time Total Time Spent Total Time Spent (In Minutes): 58 minutes Discharge Plan Discharge Items Patient Disposition: Personal [facility] Reason For Visit: ANEMIA, GIB Discharge Diagnosis: Acute GI Bleeding Esophagitis Gastritis Large type IV paraesophageal hernia Acute blood loss/Symptomatic anemia in setting of aspirin, Xarelto use Acute Kidney Injury Dysphagia Activity: Per Instructions section Exercise/Sports: Gradually increase as tolerated Non-emergency contact: Primary Care Provider, Surgeon and Child Welfare Specialist Call non-emergency contact if: you have any medication questions, your symptoms worsen, your pain is concerning for you and you have a fever Follow-up/Referrals: Ariel Jackson DO [Physician] - (The GI office will contact you for a hospital follow up appointment.) Conner Elias [Primary Care Provider] - Diet: Low Fiber Diet Texture: Pureed (blended smooth) Addtl Attending Provider Instructions: Follow-up with your primary care physician in 1 week as advised Follow-up with your structural design engineer in 3-4 weeks Follow-up with surgeon at tertiary care facility ([facility]) for evaluation regarding paraesophageal hernia repair --- Aspiration precautions at all times as recommended by speech therapy --- Discuss with your primary care physician/structural design engineer regarding when you can restart taking aspirin, Xarelto.. Do not take aspirin, Xarelto for now. Do not take group of medications belonging to NSAIDs group -can cause worsen your risk for gastrointestinal bleeding, worsen your kidney function. List Of these medications includes but not limited to: Aspirin Diclofenac Ibuprofen, Motrin, Advil Toradol,ketorolac Naproxen, Aleve, Naprosyn You can take Tylenol as needed for pain or fever When buying [id number] pain medications please consult with pharmacy if you are not sure regarding ingredients, as a lot of the pain medications have combination of NSAIDs and Tylenol. Seek immediate medical attention if your symptoms reoccur or worsen Please take all medications as instructed on discharge list below. Please call if you have any questions or problems. You can reach a [facility] hospitalist on duty at [facility] 24 hours a day by calling [phone] Pending Studies at Discharge: No Stand-Alone Forms: My [facility] [place], Smoking Cessation Skilled Items Patient informed of condition?: Yes DNR: Yes Discharge Level of Care: Other Communicable Disease: No Discharge Prognosis: Stable Lines: None Urinary Catheter: No Medications and DC Order Prescriptions: New sucralfate [Carafate] 1 gram tablet 1 g PO ACHS 30 Days Qty: 120 0RF Continued pantoprazole 40 mg tablet,delayed release (DR/EC) 40 mg PO DAILY Qty: 30 0RF amoxicillin 500 mg Capsule 2,000 mg PO UD Rx Instructions: Take 1 hour prior to dental procedure. ascorbic acid (vitamin C) [Vitamin C] 1,000 mg Tablet 1 g PO DAILY acetaminophen [Tylenol] 325 mg Tablet 650 mg PO BID loperamide 2 mg Capsule 2 mg PO Q4H PRN (Reason: Diarrhea) Rx Instructions: administer after each loose stool until symptoms controlled; do not exceed 8 mg per 24 hrs sertraline 100 mg tablet 100 mg PO DAILY amlodipine 5 mg tablet 5 mg PO DAILY tramadol 50 mg Tablet 50 mg PO Q6H PRN (Reason: Pain) simvastatin 40 mg tablet 40 mg PO QPM levothyroxine 25 mcg tablet 25 mcg PO DAILY calcium carbonate [Calcium 600] 600 mg calcium (1,500 mg) Tablet 600 mg PO DAILY lorazepam 0.5 mg tablet 0.5 mg PO TID PRN (Reason: Anxiety) cyanocobalamin (vitamin B-12) [Vitamin B-12] 500 mcg Tablet 500 mcg PO DAILY ferrous sulfate 325 mg (65 mg iron) Tablet 325 mg PO BID docusate sodium 100 mg Capsule 100 mg PO BID doxazosin 4 mg tablet 4 mg PO DAILY sertraline 50 mg tablet 50 mg PO DAILY finasteride 5 mg tablet 5 mg PO DAILY quetiapine 50 mg tablet 50 mg PO HS cholecalciferol (vitamin D3) [Vitamin D3] 25 mcg (1,000 unit) Tablet 25 mcg PO DAILY Icaps MV 100-1.66-0.83 mcg-mg-mg Tablet,Delayed Release (Dr/Ec) 1 tab PO DAILY PreserVision AREDS-2 250-90-40-1 mg Capsule 1 tab PO DAILY Senna Plus 8.6-50 mg Capsule 2 tab-cap PO BID Advanced Probiotic 625 mg (10 billion cell) Capsule 2 cap PO DAILY Qty: 20 0RF Held aspirin 81 mg Tablet,Chewable 81 mg PO DAILY Hold Instructions: Do not restart until recommended by your physician Xarelto 20 mg tablet 20 mg PO QPM Hold Instructions: Do not restart until recommended by your physician Discontinued doxycycline hyclate 100 mg Capsule 100 mg PO BID Qty: 10 0RF Discharge Orders: Discharge Order (Routine); Ordered 02/05/23 Ordered By: Alejandro Watts Admission Data Admit Date/Time: 02/01/23 15:57 Attending Provider: Alejandro Watts Admit Provider: Erick Alvarez Primary Care Provider: Conner Elias Other Providers: Erick Alvarez; Corina Harding
[2023-02-05] MEDS ORDERED: DOCUSATE SODIUM 100 MG CAP PO SCH (21:00)
[2023-02-06] MEDS ORDERED: PANTOprazole 40 MG TAB PO SCH (09:00)
--- OUTSIDE RECORDS SUMMARY | 2023-02-08 05:02 | External Medical Summary | Continuity of Care Document ---
Author Name Unknown Organization [facility] [address] [facility] 2 Address [address] [facility] [address] [id number] Care Team Providers Care Inpatient Services Rn Name Role Phone Shorty Almaraz Primary Care Physician [phone] Encounter [facility] JOSÉ MIGUELLIZZYR [id number] Date(s): 11/27/22 - 11/27/22 [facility] [address] [facility] [address] [phone] Encounter Diagnosis History of basal cell cancer(Discharge Diagnosis) - 11/27/22 Discharge Disposition: Home or Self Care Attending Physician: MD Soto David L Referring Physician: MD Soto David L Allergies, Adverse Reactions, Alerts No Known Medication Allergies Assessment and Plan Extracted from: Title:Clinical Document Author:MD Soto David L Date:11/27/22 OUTPATIENT NOTE Name: DAVID VELAZQUEZ Patient Number:[id number] : 1935 Date of Service: 11/27/2022 _ Mr Velazquez checkup. He had basal cell carcinoma on the right lateral cheek right angle of the jaw and left cheek. He now presents for recheck. Eating states he has had some bleeding from the head of his penis been using Preparation H. Physical examination: Is a well-developed well-nourished white male type II skin. Alert and oriented x3 peer examination of scalp face ears and neck reveals multiple well-healed scars in the cheeks right jawline. Is a 1.5 cm erythematous pearly telangiectatic macule on the right sideburn. Examination of back chest abdomen hands arms and legs genital area are all unremarkable. Impression: #1 BCC in the right sideburn. #2 there is no evidence for any active balanitis or lesions on the genital area. Plan: After discussing the procedure risk benefits and scarring, he gives verbal consent for shave biopsy on the right preauricular area. After 1% Xylocaine with epinephrine, lesion the right preauricular area was shave biopsied and hemostasis was achieved aluminum chloride. Wound care instruction given. I will call with the pathology results. Return for recheck in 6 months. Medications acetaminophen 325 mg oral tablet Start: 08/20/18 10:18:00 EDT, 2 tab, PO, q4h, PRN: as needed for pain Start Date: 08/20/18 Status: Ordered amLODIPine 5 mg oral tablet Start: 08/20/18 10:13:00 EDT, 1 tab, PO, Daily Start Date: 08/20/18 Status: Ordered amoxicillin 500 mg oral capsule Start: 05/28/20 14:40:00 EST, 4 cap, PO, As indicated, Disp# 12 cap, Refills: 3, one hour before dental and other procedures as directed Start Date: 05/28/20 Status: Ordered aspirin 81 mg oral delayed release tablet Start: 08/20/18 10:14:00 EDT, 1 tab, PO, Daily Start Date: 08/20/18 Status: Ordered calcium (as carbonate) 600 mg oral tablet Start: 08/20/18 10:14:00 EDT, 1 tab, PO, Daily Start Date: 08/20/18 Status: Ordered docusate Start: 11/24/21 14:31:00 EDT Start Date: 11/24/21 Status: Ordered doxazosin 4 mg oral tablet Start: 08/20/18 10:15:00 EDT, 1 tab, PO, Daily Start Date: 08/20/18 Status: Ordered ferrous sulfate Start: 11/24/21 14:32:00 EDT Start Date: 11/24/21 Status: Ordered finasteride 5 mg oral tablet Start: 05/28/20 14:42:00 EST, 1 tab, PO, Daily Start Date: 05/28/20 Status: Ordered ICaps AREDS Start: 11/24/21 14:32:00 EDT Start Date: 11/24/21 Status: Ordered levothyroxine 25 mcg (0.025 mg) oral tablet Start: 08/20/18 10:15:00 EDT, 1 tab, PO, Daily Start Date: 08/20/18 Status: Ordered loperamide 2 mg oral capsule Start: 05/28/20 14:41:00 EST, 1 cap, PO, ONCE Start Date: 05/28/20 Status: Ordered LORazepam 0.5 mg oral tablet Start: 10/23/19 12:50:00 EDT, 1 tab, PO, Daily, PRN: as needed for anxiety Start Date: 10/23/19 Status: Ordered pantoprazole 40 mg oral delayed release tablet Start: 05/28/20 14:42:00 EST, 1 tab, PO, Daily Start Date: 05/28/20 Status: Ordered QUEtiapine 50 mg oral tablet Start: 08/20/18 10:15:00 EDT, 1 tab, PO, Daily Start Date: 08/20/18 Status: Ordered senna Start: 10/23/19 12:50:00 EDT Start Date: 10/23/19 Status: Ordered sertraline 100 mg oral tablet Start: 01/09/19 13:25:00 EDT, 1 tab, PO, Daily Start Date: 01/09/19 Status: Ordered sertraline 50 mg oral tablet Start: 08/20/18 10:16:00 EDT, 1 tab, PO, Daily Start Date: 08/20/18 Status: Ordered simvastatin 40 mg oral tablet Start: 08/20/18 10:16:00 EDT, 1 tab, PO, qhs Start Date: 08/20/18 Status: Ordered traMADol Start: 11/27/22 13:57:00 EDT, 50 mg =, PO, prn Start Date: 11/27/22 Status: Ordered Vitamin B12 Start: 08/20/18 10:16:00 EDT, 500 mcg =, PO, Daily Start Date: 08/20/18 Status: Ordered Vitamin C 1000 mg oral tablet Start: 08/20/18 10:17:00 EDT, 1 tab, PO, Daily Start Date: 08/20/18 Status: Ordered Vitamin D3 1000 intl units oral tablet Start: 08/20/18 10:17:00 EDT, 1 tab, PO, Daily Start Date: 08/20/18 Status: Ordered Xarelto 20 mg oral tablet Start: 08/20/18 10:17:00 EDT, 1 tab, PO, qPM Start Date: 08/20/18 Status: Ordered Mental Status 11/27/22 Barriers to Learning one year None evide nt Mandatory Health Literacy Documentation Yes Health Literacy Communication Barriers N ever Primary Language Mongolian Problem List Condition Confirmation Course Effective Dates Status H ealth Status Informant Basal cell carcinoma of cheek 1 Confirmed Active Stroke Confirmed 05/2018 Active Depression Confirmed Active History of DVT (deep vein thrombosis) Confirmed Active History of pulmonary embolism Confirmed Active Hyperlipidemia Confirmed Active Hypertension Confirmed Active Cognitive impairment Confirmed Active Enlarged prostate Confirmed Active Monoclonal gammopathy Confirmed Active Right bundle branch block Confirmed Active Seizure disorder Confirmed Active 1left cheek Diagnosis Diagnosis Type Effective Dates Health Status Cl inical Service Informant History of basal cell cancer Discharge Diagnosis 11/27/22 Procedures Procedure Date Related Diagnosis Body Site Status Shave biopsy of skin 11/27/22 Comp leted Shave biopsy and cauterizati on of skin 1 11/24/21 Completed Electrodesiccation with curettage 05/30/21 Completed Shave biopsy and cauterizati on of skin 2 01/09/19 Completed Mohs micrographic surgery 10/08/18 Completed Shave biopsy of skin 08/20/18 Comp leted Tonsillectomy 1940 Completed Surgery 3 Completed 1W/ ED&C 2ED&C 3brain surgery(aneurysm)-unknown date Social History Social History Type Response Smoking Status Former Smoker, quit > 1 yr Sex Male Outpatient Note * MD Brittany, Benedicto Vee: PERFORM Event Display: .Outpt Note Authored Date: [id number] OUTPATIENT NOTE Name: DAVID VELAZQUEZ Patient Number:[id number] : 1935 Date of Service: 11/27/2022 _ Mr Velazquez checkup. He had basal cell carcinoma on the right lateral cheek right angle of the jaw and left cheek. He now presents for recheck. Eating states he has had some bleeding from the head of his penis been using Preparation H. Physical examination: Is a well-developed well-nourished white male type II skin. Alert and oriented x3 peer examination of scalp face ears and neck reveals multiple well-healed scars in the cheeks right jawline. Is a 1.5 cm erythematous pearly telangiectatic macule on the right sideburn. Examination of back chest abdomen hands arms and legs genital area are all unremarkable. Impression: #1 BCC in the right sideburn. #2 there is no evidence for any active balanitis or lesions on the genital area. Plan: After discussing the procedure risk benefits and scarring, he gives verbal consent for shave biopsy on the right preauricular area. After 1% Xylocaine with epinephrine, lesion the right preauricular area was shave biopsied and hemostasis was achieved aluminum chloride. Wound care instruction given. I will call with the pathology results. Return for recheck in 6 months. Electronic Signature on File Electronically Reviewed/Signed by: Benedicto Soto MD Author Signature Dt/Tm:11/27/2022 02:29 PM Department of Dermatology [facility] Patient Care team information Care Team Personnel Name: DO Almaraz Michael Position: Referring Member Role: Primary Care Provider Address: Address: [address] [place] [phone] [place] Care Team Related Persons Name: LUPE VELAZQUEZ Address: home No Address Provided Name: LUPE VELAZQUEZ Address: [facility] Address: home [address] [place], [place] [address] [phone] Name: TORY WILLIAMSON
== END 2023-02-05 15:40 | disposition home or self-care (01) | DRG 368 ==
LOC: ED 14:28 → EDINP 15:57 → SUATTDRO 15:57 → 2E 18:23

== ENCOUNTER 2023-09-13 20:08 | Inpatient (IN) ==
[2023-09-13 20:38] LABS: Basophils # (auto) 0.05 K/uL (0.00-0.20); Basophils % (auto) 1.3 %; Eosinophils # (auto) 0.11 K/uL (0.00-0.50); Eosinophils % (auto) 2.9 %; Hematocrit (blood only) 26.5 % (42.0-52.0); Hemoglobin 8.6 g/dl (14.0-18.0); Immature Granulocytes # (auto) 0.01 K/uL (0.01-0.20); Immature Granulocytes % (auto) 0.3 %; Lymphocytes # (auto) 0.63 K/uL (1.20-3.40); Lymphocytes % (auto) 16.5 %; Mean Corpuscular Hemoglobin 29.5 pg (25.0-34.0); Mean Corpuscular Hgb Conc 32.5 g/dL (32.0-36.0); Mean Corpuscular Volume 90.8 fL (80.0-100.0); Mean Platelet Volume 12.5 fL (9.4-12.4); Monocytes # (auto) 0.74 K/uL (0.11-0.59); Monocytes % (auto) 19.4 %; Neutrophils # (auto) 2.27 K/uL (1.40-6.50); Neutrophils % (auto) 59.6 %; Platelet Count 134 K/uL (130-400); RDW Coefficient of Variation 13.7 % (11.5-14.5); RDW Standard Deviation 45.6 fL (36.4-46.3); Red Blood Count 2.92 M/uL (4.70-6.10); White Blood Count 3.81 K/ul (4.8-10.8)
[2023-09-13] MEDS: SODIUM CHLORIDE 0.9% 500 ML IV SCH (20:44)
[2023-09-13 20:51] LABS: Alanine Aminotransferase 11 U/L (7-52); Albumin Level 3.7 gm/dl (3.4-5.0); Alkaline Phosphatase 39 U/L (34-104); Anion Gap 5 (3-11); Aspartate Aminotransferase 21 U/L (13-39); BUN Creatinine Ratio 24.4 (10-20); Bilirubin Direct 0.1 mg/dl (0-0.2); Bilirubin,Total 0.4 mg/dl (0.2-1.0); Blood Urea Nitrogen 32 mg/dl (6-23); Calcium 9.1 mg/dl (8.6-10.3); Carbon Dioxide 27 mmol/L (21-32); Chloride 103 mmol/L (98-107); Est GFR (African American) 55.6 ml/min; Est GFR (Non-African American) 47.9 ml/min; Glucose 97 mg/dl (70-99(Fasting)); Magnesium 2.1 mg/dl (1.7-2.4); Potassium 4.2 mmol/L (3.5-5.1); Sodium 135 mmol/L (136-145); Total Protein 7.1 gm/dl (6.0-8.3)
[2023-09-13 20:58] LABS: Troponin I High Sensitivity 7.2 pg/ml (0-20)
--- NOTE | 2023-09-13 21:01 | CT Scan Report ---
Exam(s): CT HEAD Without Contrast EXAM: CT Head Without Intravenous Contrast CLINICAL HISTORY: Reason for exam: ams. TECHNIQUE: Axial computed tomography images of the head/brain without intravenous contrast. CTDI is 37.87 mGy and DLP is 625.8 mGy-cm. Automated exposure control was utilized for the study. A dose lowering technique was utilized adhering to the principles of ALARA. Mild motion artifact. COMPARISON: Head CT 06/24/18. FINDINGS: Brain: Stable, chronic left frontal encephalomalacia with calcifications. No mass effect or acute infarct. No acute hemorrhage. Stable, moderate atrophy and chronic white matter disease. Ventricles: No hydrocephalus or midline shift. Bones/joints: Previous left frontal craniotomy. No acute fracture.. Soft tissues: No scalp hematoma. Visualized Sinuses: Clear. Mastoid air cells: No mastoid effusion. IMPRESSION: 1. Stable age-related findings, and encephalomalacia left frontal lobe. 2. No acute infarct, bleed, or acute intracranial abnormality. Electronically signed by: Lucia Mitchell M.D. 09/13/23 20:59 PM
--- NOTE | 2023-09-13 21:12 | Emergency Department Note ---
History of Present Illness General Chief complaint: Confusion Stated complaint: Confusion, AMS Time Seen by Provider: 09/13/23 20:15 Source: EMS History of Present Illness Provider complaint: Altered mental status Maximum Pain Intensity: 4 88-year-old male presents emergency department from retirement for altered mental status. EMS reports that the people at the retirement stated the patient was more confused than usual but they were not able to say when it began or what was making him more confused. No recent falls per EMS. Patient has no complaints at this time. EMS reported that the patient was treated being treated for dental infection. Home Medications Medication Instructions Recorded Confirmed Type acetaminophen 325 mg tablet 650 mg PO BID 01/05/23 06/18/23 History (Tylenol) amlodipine 5 mg tablet 5 mg PO DAILY 01/05/23 06/18/23 History amoxicillin 500 mg capsule 2,000 mg PO UD 01/05/23 06/18/23 History ascorbic acid (vitamin C) 1,000 mg 1 g PO DAILY 01/05/23 06/18/23 History tablet (Vitamin C) aspirin 81 mg chewable tablet 81 mg PO DAILY 01/05/23 06/18/23 History calcium carbonate (Calcium 600) 600 mg PO DAILY 01/05/23 06/18/23 History cholecalciferol (vitamin D3) 25 25 mcg PO DAILY 01/05/23 06/18/23 History mcg (1,000 unit) tablet (Vitamin D3) cyanocobalamin (vitamin B-12) 500 500 mcg PO DAILY 01/05/23 06/18/23 History mcg tablet (Vitamin B-12) docusate sodium 100 mg capsule 100 mg PO BID 01/05/23 06/18/23 History doxazosin 4 mg tablet 4 mg PO DAILY 01/05/23 06/18/23 History ferrous sulfate 325 mg (65 mg 325 mg PO BID 01/05/23 06/18/23 History iron) tablet finasteride 5 mg tablet 5 mg PO DAILY 01/05/23 06/18/23 History levothyroxine 25 mcg tablet 25 mcg PO DAILY 01/05/23 06/18/23 History loperamide 2 mg capsule 2 mg PO Q4H PRN Diarrhea 01/05/23 06/18/23 History lorazepam 0.5 mg tablet 0.5 mg PO TID PRN Anxiety 01/05/23 06/18/23 History [id number] 100 mcg-lut 1.66 1 tab PO DAILY 01/05/23 06/18/23 History mg-zeaxanth 0.83 mg tablet,delay rel. (Icaps MV) quetiapine 50 mg tablet 50 mg PO HS 01/05/23 06/18/23 History rivaroxaban 20 mg tablet (Xarelto) 20 mg PO QPM 01/05/23 06/18/23 History sennosides 8.6 mg-docusate sodium 2 tab-cap PO BID 01/05/23 06/18/23 History 50 mg capsule (Senna Plus) sertraline 100 mg tablet 100 mg PO DAILY 01/05/23 06/18/23 History sertraline 50 mg tablet 50 mg PO DAILY 01/05/23 06/18/23 History simvastatin 40 mg tablet 40 mg PO QPM 01/05/23 06/18/23 History tramadol 50 mg tablet 50 mg PO Q6H PRN Pain 01/05/23 06/18/23 History vit C 250 mg-vit E 90 mg-zinc 40 1 tab PO DAILY 01/05/23 06/18/23 History mg-copper 1 [id number] capsule (PreserVision AREDS-2) pantoprazole 40 mg tablet,delayed 40 mg PO DAILY #30 tabs 02/05/23 06/18/23 Rx release sucralfate 1 gram tablet 1 g PO ACHS 06/18/23 06/18/23 History Allergies Allergy/AdvReac Type Severity Reaction Status Date / Time No Known Allergies Allergy Verified 06/18/23 20:36 Past Med/Surg History Problem List (Updated 09/13/23 @ 22:27 by Bebo Allen MD) Hypoxia (Acute) Symptomatic anemia Acute GI bleeding Anemia (Acute) Acute lower GI bleeding (Acute) Cellulitis of right leg (Acute) Anxiety and depression Hiatal hernia History of ischemic stroke History of seizure Epistaxis History of pulmonary embolism Ischemic stroke Vitamin D deficiency Bipolar 1 disorder Dysphagia Encounter for monitoring anticonvulsant therapy History of cerebral aneurysm repair BPH (benign prostatic hyperplasia) Anemia Reactive airway disease Hypothyroidism Dental abscess HTN (hypertension), benign History of pulmonary embolism Acute CVA (cerebrovascular accident) Facial droop (Acute) Ataxia (Acute) Dysarthria (Acute) Multiple falls (Acute) Hyperlipidemia (Chronic) Pulmonary embolism Medical History Encounter for screening for COVID-19 Chest pain Seizure DVT prophylaxis Hx of pulmonary embolus Surgical History History of brain surgery Family History Family/Other No pertinent family history Social History Smoking Status: Former smoker Tobacco Type: Cigarettes packs per day: 1; Cigarettes Per Day: 28; Do You Dip or Chew Tobacco: No; Hx Alcohol Use: No Hx Substance Use: No Preferred Language: Filipino Communication Ability: Impaired Manager Corporate Required: No Beliefs That Will Affect Care: None marital status: Single Current Living Situation: Custodial Current Living Situation Comment: [facility] Feels Safe at Home: Yes Assistive Devices: Walker Physical Exam Vital Signs Vital Signs - 24 hr 09/13/23 19:57 09/13/23 20:10 09/13/23 20:12 Temperature 37.6 C Temperature Source Oral Pulse Rate 61 64 Pulse Rate [Apical] 51 L Pulse Rhythm Irregular Pulse Rhythm [Apical] Irregular Pulse Strength Normal Pulse Strength [Apical] Normal Respiratory Rate 16 18 Respiratory Effort / Characteristics Non-Labored Spontaneous Non-Labored Spontaneous Respiratory Depth Normal Normal Respiratory Pattern Regular Regular Blood Pressure 133/81 Blood Pressure [Right Arm] 137/60 Blood Pressure Mean 98 Blood Pressure Mean [Right Arm] 85 Blood Pressure Position Lying Blood Pressure Position [Right Arm] Lying Pulse Oximetry 97 86 L Oxygen Delivery Method Room Air Room Air Oxygen Flow Rate Sepsis Recent Fever Within 48 Hours No Sepsis New/Unexplained Change in Mental Status Yes Sepsis Action Taken by Nursing No Action Required 09/13/23 20:18 09/13/23 20:37 09/13/23 21:45 Temperature Temperature Source Pulse Rate 57 L Pulse Rate [Apical] 54 L Pulse Rhythm Irregular Pulse Rhythm [Apical] Irregular Pulse Strength Pulse Strength [Apical] Normal Respiratory Rate 16 Respiratory Effort / Characteristics Non-Labored Spontaneous Respiratory Depth Normal Respiratory Pattern Regular Blood Pressure Blood Pressure [Right Arm] 137/60 Blood Pressure Mean Blood Pressure Mean [Right Arm] 85 Blood Pressure Position Blood Pressure Position [Right Arm] Lying Pulse Oximetry 92 92 97 Oxygen Delivery Method Nasal Cannula Nasal Cannula Room Air Oxygen Flow Rate 2 2 Sepsis Recent Fever Within 48 Hours Sepsis New/Unexplained Change in Mental Status Sepsis Action Taken by Nursing 09/13/23 22:18 Temperature Temperature Source Pulse Rate Pulse Rate [Apical] 52 L Pulse Rhythm Pulse Rhythm [Apical] Irregular Pulse Strength Pulse Strength [Apical] Normal Respiratory Rate 16 Respiratory Effort / Characteristics Non-Labored Spontaneous Respiratory Depth Normal Respiratory Pattern Regular Blood Pressure Blood Pressure [Right Arm] 131/69 Blood Pressure Mean Blood Pressure Mean [Right Arm] 89 Blood Pressure Position Blood Pressure Position [Right Arm] Lying Pulse Oximetry 97 Oxygen Delivery Method Room Air Oxygen Flow Rate Sepsis Recent Fever Within 48 Hours Sepsis New/Unexplained Change in Mental Status Sepsis Action Taken by Nursing Physical Exam HENT: Exam performed. - Head: Normocephalic and atraumatic. - Mouth/Throat: Dry mucous membranes. No trismus in the jaw. No dental abscesses or uvula swelling. No oropharyngeal exudate or tonsillar abscesses. EYES: Conjunctivae and EOM are normal. Pupils are equal, round, and reactive to light. Right eye exhibits no discharge. Left eye exhibits no discharge. No scleral icterus. NECK: Normal range of motion. Neck supple. No JVD present. CV: Normal rate, regular rhythm, normal heart sounds and intact distal pulses. There is no peripheral edema. Palpable radial pulses bue. PULM/CHEST: Effort normal and breath sounds normal. No respiratory distress. No stridor. He has no wheezes. He has no rales. ABD: The abdomen is soft. There is no tenderness. There is no rebound, no guarding. NEURO: Motor and sensation grossly intact. Course Course 2015: The patient was evaluated in room B4. A complete history and physical exam was performed Cardiac monitoring: An order was placed for continuous cardiac monitoring. The monitor shows a rate of 60 with sinus rhythm interpreted by me Patient was found to be hypoxic on room air. Supplemental oxygen was applied via nasal cannula which improved the patient's oxygen saturation. 2210: Vital signs stable on supplemental oxygen via nasal cannula. Labs and imaging within normal limits. Checks x-ray at baseline. [facility] Marsh notified. Administered Medications Discontinued Medications Sodium Chloride (Nss) 500 mls @ 999 mls/hr IV .Q31M TONIE Stop: 09/13/23 20:45 Last Infusion: 06/13/24 21:22 Dose: Infused Documented By: Admin: 09/13/23 20:44 Dose: 999 mls/hr Documented By: BRAD Critical Care Time Critical Care Time: Yes Total Critical Care Time: 70 I have personally spent greater than 70 minutes of critical care time in the direct management of this patient. This includes bedside care, interpretation of diagnostic studies, and testing, discussion with consultants, patient, and family members, and other required patient management activities. This 70 minutes is in excess of all separately billable procedures. Medical Decision Making Laboratory Data Attestation: I reviewed the patient's lab results. 09/13/23 20:18 09/13/23 20:18 Lab Results 09/13/23 09/13/23 09/13/23 Range/Units 20:18 20:27 21:17 WBC 3.81 L (4.8-10.8) K/ul RBC 2.92 L (4.70-6.10) M/uL Hgb 8.6 L (14.0-18.0) g/dl Hct 26.5 L (42.0-52.0) % MCV 90.8 (80.0-100.0) fL MCH 29.5 (25.0-34.0) pg MCHC 32.5 (32.0-36.0) g/dL RDW Std Deviation 45.6 (36.4-46.3) fL RDW Coeff of Luis 13.7 (11.5-14.5) % Plt Count 134 (130-400) K/uL MPV 12.5 H (9.4-12.4) fL Immature Gran % (Auto) 0.3 % Neut % (Auto) 59.6 % Lymph % (Auto) 16.5 % Vernon % (Auto) 19.4 % Eos % (Auto) 2.9 % Baso % (Auto) 1.3 % Neut # (Auto) 2.27 (1.40-6.50) K/uL Lymph # (Auto) 0.63 L (1.20-3.40) K/uL Vernon # (Auto) 0.74 H (0.11-0.59) K/uL Eos # (Auto) 0.11 (0.00-0.50) K/uL Baso # (Auto) 0.05 (0.00-0.20) K/uL Immature Gran # (Auto) 0.01 (0.01-0.20) K/uL PT Cancelled 13.3 H INR Cancelled 1.2 H APTT Cancelled 34 H PTT Ratio Cancelled 1.3 VBG pH 7.38 (7.36-7.41) VBG pCO2 43 (38-50) mmHg VBG pO2 56 mmHg VBG HCO3 25 mmol/L VBG O2 Saturation 89.8 % VBG Base Excess 0 mEq/L Sodium 135 L (136-145) mmol/L Potassium 4.2 (3.5-5.1) mmol/L Chloride 103 (98-107) mmol/L Carbon Dioxide 27 (21-32) mmol/L Anion Gap 5 (3-11) BUN 32 H (6-23) mg/dl Creatinine 1.31 (0.6-1.4) mg/dl Est Cr Clr Drug Dosing Not Reportable Est GFR ( Amer) 55.6 ml/min Est GFR (Non-Af Amer) 47.9 ml/min BUN/Creatinine Ratio 24.4 H (10-20) Glucose 97 (70-99(Fasting)) mg/dl Lactate 0.8 (0.4-2.0) mmol/L Calcium 9.1 (8.6-10.3) mg/dl Magnesium 2.1 (1.7-2.4) mg/dl Total Bilirubin 0.4 (0.2-1.0) mg/dl Direct Bilirubin 0.1 (0-0.2) mg/dl AST 21 (13-39) U/L ALT 11 (7-52) U/L Alkaline Phosphatase 39 (34-104) U/L Ammonia 30.0 (18-72) umol/L Troponin I High Sens 7.2 (0-20) pg/ml Total Protein 7.1 (6.0-8.3) gm/dl Albumin 3.7 (3.4-5.0) gm/dl Procalcitonin < 0.02 (0-0.5) ng/ml Urine Color Urine Appearance (Clear) Urine pH (4.5-7.5) Ur Specific Patterson (1.000-1.030) Urine Protein (Negative) Urine Glucose (UA) (Negative) Urine Ketones (Negative) Urine Blood (Negative) Urine Nitrite (Negative) Urine Bilirubin (Negative) Urine Urobilinogen (Negative) Ur Leukocyte Esterase (Negative) Urine WBC (Auto) (0-5) /hpf Urine RBC (Auto) (0-2) /hpf U Hyaline Cast (Auto) (0-2) /lpf U Epithel Cells (Auto) (0-2) /hpf Urine Bacteria (Auto) (None Seen) SARS-CoV-2 (PCR) NEGATIVE (Negative) Influenza Type A (PCR) Negative (Neg) Influenza Type B (PCR) Negative (Neg) RSV (RT-PCR) Negative (Neg) 09/13/23 Range/Units 22:00 WBC (4.8-10.8) K/ul RBC (4.70-6.10) M/uL Hgb (14.0-18.0) g/dl Hct (42.0-52.0) % MCV (80.0-100.0) fL MCH (25.0-34.0) pg MCHC (32.0-36.0) g/dL RDW Std Deviation (36.4-46.3) fL RDW Coeff of Luis (11.5-14.5) % Plt Count (130-400) K/uL MPV (9.4-12.4) fL Immature Gran % (Auto) % Neut % (Auto) % Lymph % (Auto) % Vernon % (Auto) % Eos % (Auto) % Baso % (Auto) % Neut # (Auto) (1.40-6.50) K/uL Lymph # (Auto) (1.20-3.40) K/uL Vernon # (Auto) (0.11-0.59) K/uL Eos # (Auto) (0.00-0.50) K/uL Baso # (Auto) (0.00-0.20) K/uL Immature Gran # (Auto) (0.01-0.20) K/uL PT INR APTT PTT Ratio VBG pH (7.36-7.41) VBG pCO2 (38-50) mmHg VBG pO2 mmHg VBG HCO3 mmol/L VBG O2 Saturation % VBG Base Excess mEq/L Sodium (136-145) mmol/L Potassium (3.5-5.1) mmol/L Chloride (98-107) mmol/L Carbon Dioxide (21-32) mmol/L Anion Gap (3-11) BUN (6-23) mg/dl Creatinine (0.6-1.4) mg/dl Est Cr Clr Drug Dosing Est GFR ( Amer) ml/min Est GFR (Non-Af Amer) ml/min BUN/Creatinine Ratio (10-20) Glucose (70-99(Fasting)) mg/dl Lactate (0.4-2.0) mmol/L Calcium (8.6-10.3) mg/dl Magnesium (1.7-2.4) mg/dl Total Bilirubin (0.2-1.0) mg/dl Direct Bilirubin (0-0.2) mg/dl AST (13-39) U/L ALT (7-52) U/L Alkaline Phosphatase (34-104) U/L Ammonia (18-72) umol/L Troponin I High Sens (0-20) pg/ml Total Protein (6.0-8.3) gm/dl Albumin (3.4-5.0) gm/dl Procalcitonin (0-0.5) ng/ml Urine Color Dark Yellow Urine Appearance Clear (Clear) Urine pH 5.0 (4.5-7.5) Ur Specific Patterson 1.031 H (1.000-1.030) Urine Protein Negative (Negative) Urine Glucose (UA) Negative (Negative) Urine Ketones 1+ H (Negative) Urine Blood Negative (Negative) Urine Nitrite Negative (Negative) Urine Bilirubin Negative (Negative) Urine Urobilinogen Negative (Negative) Ur Leukocyte Esterase Trace H (Negative) Urine WBC (Auto) 0-5 (0-5) /hpf Urine RBC (Auto) 0-2 (0-2) /hpf U Hyaline Cast (Auto) 3-5 H (0-2) /lpf U Epithel Cells (Auto) 0-2 (0-2) /hpf Urine Bacteria (Auto) None Seen (None Seen) SARS-CoV-2 (PCR) (Negative) Influenza Type A (PCR) (Neg) Influenza Type B (PCR) (Neg) RSV (RT-PCR) (Neg) Imaging Data Attestation: I personally reviewed and interpreted this imaging study as follows: My Impression: Chest x-ray:No significant change from the chest x-ray done June 2023. Radiologist's Impression: Head CT 09/13/23 20:15 Exam(s): CT HEAD Without Contrast EXAM: CT Head Without Intravenous Contrast CLINICAL HISTORY: Reason for exam: ams. TECHNIQUE: Axial computed tomography images of the head/brain without intravenous contrast. CTDI is 37.87 mGy and DLP is 625.8 mGy-cm. Automated exposure control was utilized for the study. A dose lowering technique was utilized adhering to the principles of ALARA. Mild motion artifact. COMPARISON: Head CT 06/24/18. FINDINGS: Brain: Stable, chronic left frontal encephalomalacia with calcifications. No mass effect or acute infarct. No acute hemorrhage. Stable, moderate atrophy and chronic white matter disease. Ventricles: No hydrocephalus or midline shift. Bones/joints: Previous left frontal craniotomy. No acute fracture.. Soft tissues: No scalp hematoma. Visualized Sinuses: Clear. Mastoid air cells: No mastoid effusion. IMPRESSION: 1. Stable age-related findings, and encephalomalacia left frontal lobe. 2. No acute infarct, bleed, or acute intracranial abnormality. Electronically signed by: Lucia Mitchell M.D. 09/13/23 20:59 PM ECG Data Attestation: I personally reviewed and interpreted this ECG as follows: Indication: + altered mental status Rate (beats per minute): 57 Rhythm: + sinus bradycardia ECG Intervals/blocks: + Normal QRS, + Normal PA and + Normal QT-c ECG ST segments: + Normal ST segments MDM Narrative 2015: The patient was evaluated in room B4. A complete history and physical exam was performed Cardiac monitoring: An order was placed for continuous cardiac monitoring. The monitor shows a rate of 60 with sinus rhythm interpreted by me Patient was found to be hypoxic on room air. Supplemental oxygen was applied via nasal cannula which improved the patient's oxygen saturation. 2210: Vital signs stable on supplemental oxygen via nasal cannula. Labs and imaging within normal limits. Checks x-ray at baseline. [facility] Marsh notified. Impression & Plan Hypoxia Discharge Plan Visit Data Chief Complaint: Confusion Stated Complaint: Confusion, AMS ED Provider: Bebo Allen Discharge Problem: Hypoxia Patient Disposition: Admitted As Inpatient Forms Stand Alone Forms: [facility] Prescriptions Prescriptions: No Action pantoprazole 40 mg tablet,delayed release (DR/EC) 40 mg PO DAILY Qty: 30 0RF amoxicillin 500 mg Capsule 2,000 mg PO UD Rx Instructions: Take 1 hour prior to dental procedure. ascorbic acid (vitamin C) [Vitamin C] 1,000 mg Tablet 1 g PO DAILY acetaminophen [Tylenol] 325 mg Tablet 650 mg PO BID loperamide 2 mg Capsule 2 mg PO Q4H PRN (Reason: Diarrhea) Rx Instructions: administer after each loose stool until symptoms controlled; do not exceed 8 mg per 24 hrs sertraline 100 mg tablet 100 mg PO DAILY amlodipine 5 mg tablet 5 mg PO DAILY tramadol 50 mg Tablet 50 mg PO Q6H PRN (Reason: Pain) simvastatin 40 mg tablet 40 mg PO QPM levothyroxine 25 mcg tablet 25 mcg PO DAILY calcium carbonate [Calcium 600] 600 mg calcium (1,500 mg) Tablet 600 mg PO DAILY lorazepam 0.5 mg tablet 0.5 mg PO TID PRN (Reason: Anxiety) cyanocobalamin (vitamin B-12) [Vitamin B-12] 500 mcg Tablet 500 mcg PO DAILY ferrous sulfate 325 mg (65 mg iron) Tablet 325 mg PO BID docusate sodium 100 mg Capsule 100 mg PO BID doxazosin 4 mg tablet 4 mg PO DAILY aspirin 81 mg Tablet,Chewable 81 mg PO DAILY Hold Instructions: Do not restart until recommended by your physician sertraline 50 mg tablet 50 mg PO DAILY finasteride 5 mg tablet 5 mg PO DAILY quetiapine 50 mg tablet 50 mg PO HS cholecalciferol (vitamin D3) [Vitamin D3] 25 mcg (1,000 unit) Tablet 25 mcg PO DAILY Icaps MV 100-1.66-0.83 mcg-mg-mg Tablet,Delayed Release (Dr/Ec) 1 tab PO DAILY Xarelto 20 mg tablet 20 mg PO QPM Hold Instructions: Do not restart until recommended by your physician PreserVision AREDS-2 250-90-40-1 mg Capsule 1 tab PO DAILY Senna Plus 8.6-50 mg Capsule 2 tab-cap PO BID sucralfate 1 gram tablet 1 g PO ACHS Referrals Referrals: Conner Elias [Primary Care Provider] -
[2023-09-13 21:26] LABS: Base Excess VBG 0 mEq/L; HCO3 VBG 25 mmol/L; Oxygen Saturation VBG 89.8 %; PCO2 VBG 43 mmHg (38-50); PO2 VBG 56 mmHg; pH VBG 7.38 (7.36-7.41)
[2023-09-13 21:34] LABS: Influenza A virus by PCR Negative (Neg); Influenza B virus by PCR Negative (Neg); RSV by PCR Negative (Neg); SARS CoV2 RNA(COVID-19) Ceph NEGATIVE (Negative)
[2023-09-13 22:03] LABS: INR 1.2 (0.9-1.1); Partial Thromboplastin Ratio 1.3; Partial Thromboplastin Time 34 Seconds (21-31); Prothrombin Time 13.3 Seconds (9.0-12.0)
[2023-09-13 22:18] LABS: Appearance Urine Clear (Clear); Bacteria Urine Automated None Seen (None Seen); Bilirubin Urine Negative (Negative); Blood Urine Negative (Negative); Color Urine Dark Yellow; Epithelial Cell Urine Auto 0-2 /hpf (0-2); Glucose Urine UA Negative (Negative); Ketones Urine 1+ (Negative); Leukocyte Esterase Urine Trace (Negative); Nitrite Urine Negative (Negative); Protein Urine Negative (Negative); RBC Urine Automated 0-2 /hpf (0-2); Specific Gravity Urine 1.031 (1.000-1.030); Urobilinogen Urine Negative (Negative); WBC Urine Automated 0-5 /hpf (0-5)
--- NOTE | 2023-09-13 23:23 | History & Physical Report ---
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 Patient requests for daughter to be given periodic updates. Ms. Emma Givens, contact #[phone]. Total critical care time was 40 minutes. Text document was generated using Swiftype voice recognition software. It may contain grammatical or spelling errors. Kindly contact undersigned for clarification of any documentation item in question. History of Present Illness Chief Complaint: Altered mental status as per records Primary Care Provider: [place] [facility] Prieto History obtained from patient and records. Patient is a fair historian. 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 Last confinement January 2023 for symptomatic anemia secondary to UGIB. EGD showed reflux esophagitis and large type IV paraesophageal hernia. Patient noted to be more confused than usual today. Junky cough symptoms with out chest pain or SOB as per patient. Patient denies aspiration. Not sure about sick contacts given personal residential residence. O2 sats 80s upon arrival at the ER. Medical History as above Surgical History : Cerebral aneurysm clipping Family History : Cannot be obtained due to cognitive impairment Personal/Social history : Past tobacco abuse, no EtOH intake, personal care facility resident Allergies Allergy/AdvReac Type Severity Reaction Status Date / Time No Known Allergies Allergy Verified 06/18/23 20:36 Home Medications Medication Instructions Recorded Confirmed Type acetaminophen 325 mg tablet 650 mg PO BID 01/05/23 09/14/23 History (Tylenol) amlodipine 5 mg tablet 5 mg PO DAILY 01/05/23 09/14/23 History amoxicillin 500 mg capsule 2,000 mg PO UD 01/05/23 09/14/23 History ascorbic acid (vitamin C) 1,000 mg 1 g PO DAILY 01/05/23 09/14/23 History tablet (Vitamin C) aspirin 81 mg chewable tablet 81 mg PO DAILY 01/05/23 09/14/23 History calcium carbonate (Calcium 600) 600 mg PO DAILY 01/05/23 09/14/23 History cholecalciferol (vitamin D3) 25 25 mcg PO DAILY 01/05/23 09/14/23 History mcg (1,000 unit) tablet (Vitamin D3) cyanocobalamin (vitamin B-12) 500 500 mcg PO DAILY 01/05/23 09/14/23 History mcg tablet (Vitamin B-12) docusate sodium 100 mg capsule 100 mg PO BID 01/05/23 09/14/23 History doxazosin 4 mg tablet 4 mg PO DAILY 01/05/23 09/14/23 History ferrous sulfate 325 mg (65 mg 325 mg PO BID 01/05/23 09/14/23 History iron) tablet finasteride 5 mg tablet 5 mg PO QAM 01/05/23 09/14/23 History levothyroxine 25 mcg tablet 25 mcg PO DAILY 01/05/23 09/14/23 History loperamide 2 mg capsule 2 mg PO Q4H PRN Diarrhea 01/05/23 09/14/23 History lorazepam 0.5 mg tablet 0.5 mg PO TID PRN Anxiety 01/05/23 09/14/23 History [id number] 100 mcg-lut 1.66 1 tab PO DAILY 01/05/23 09/14/23 History mg-zeaxanth 0.83 mg tablet,delay rel. (Icaps MV) quetiapine 50 mg tablet 50 mg PO HS 01/05/23 09/14/23 History rivaroxaban 20 mg tablet (Xarelto) 20 mg PO QPM 01/05/23 09/14/23 History sennosides 8.6 mg-docusate sodium 2 tab-cap PO BID 01/05/23 09/14/23 History 50 mg capsule (Senna Plus) sertraline 100 mg tablet 100 mg PO DAILY 01/05/23 09/14/23 History simvastatin 40 mg tablet 40 mg PO QPM 01/05/23 09/14/23 History tramadol 50 mg tablet 50 mg PO Q6H PRN Pain 01/05/23 09/14/23 History vit C 250 mg-vit E 90 mg-zinc 40 1 tab PO DAILY 01/05/23 09/14/23 History mg-copper 1 [id number]-[id number] capsule (PreserVision AREDS-2) pantoprazole 40 mg tablet,delayed 40 mg PO DAILY #30 tabs 02/05/23 09/14/23 Rx release sucralfate 1 gram tablet 1 g PO ACHS 06/18/23 09/14/23 History phenylephrine 0.25 %-mineral oil 1 applic [place] TID PRN Pain/Irritation 09/14/23 09/14/23 History 14 %-petrolatm 74.9 % rectal ointment (Preparation H) sertraline 50 mg tablet 50 mg PO DAILY 09/14/23 09/14/23 History sodium chloride 5 % eye drops 1 drp ophthalmic (eye) BID Dry eyes 09/14/23 09/14/23 History Past Med/Surg History Problem List (Updated 09/14/23 @ 09:01 by Santiago Schaffer MD) Acute hypoxemic respiratory failure Hypoxia (Acute) Symptomatic anemia Acute GI bleeding Anemia (Acute) Acute lower GI bleeding (Acute) Cellulitis of right leg (Acute) Anxiety and depression Hiatal hernia History of ischemic stroke History of seizure Epistaxis History of pulmonary embolism Ischemic stroke Vitamin D deficiency Bipolar 1 disorder Dysphagia Encounter for monitoring anticonvulsant therapy History of cerebral aneurysm repair BPH (benign prostatic hyperplasia) Anemia Reactive airway disease Hypothyroidism Dental abscess HTN (hypertension), benign History of pulmonary embolism Acute CVA (cerebrovascular accident) Facial droop (Acute) Ataxia (Acute) Dysarthria (Acute) Multiple falls (Acute) Hyperlipidemia (Chronic) Pulmonary embolism Medical History Encounter for screening for COVID-19 Chest pain Seizure DVT prophylaxis Hx of pulmonary embolus Surgical History History of brain surgery Family History Family/Other No pertinent family history Social History Smoking Status: Former smoker Tobacco Type: Cigarettes packs per day: 1; Cigarettes Per Day: 28; Do You Dip or Chew Tobacco: No; Hx Alcohol Use: No Hx Substance Use: No Preferred Language: Malagasy Communication Ability: Effective Enterprise Integration Developer Required: No Beliefs That Will Affect Care: None marital status: Single Current Living Situation: Retirement Current Living Situation Comment: [facility] Feels Safe at Home: Yes Assistive Devices: Walker Review of Systems Review of Systems: Could not be reliably obtained secondary to cognitive impairment Physical Exam Physical Exam: GENERAL: Oriented to place, slightly uncomfortable, pleasant, no respiratory distress SKIN: Pallor, warm HEENT: [place] palpebral conjunctivae, no ptosis, chronic right facial droop, dry buccal mucosa, nasal cannula in place NECK : Supple, no tenderness CHEST : Decreased breath sounds expiratory wheezes, no tenderness HEART : Bradycardic, systolic murmur ABDOMEN: Some distention, nontender EXTREMITIES : minimal LE swelling, no tenderness, no other conspicuous deformities noted NEUROLOGIC : Coherent, oriented to place, chronic right facial droop, gait and stance not assessed Results & Data Results & Data Vital Signs (Past 12 Hours) Vital Signs Temp Pulse Pulse Resp BP BP Pulse Ox 09/13/23 22:18 52 L 16 131/69 97 09/13/23 21:45 54 L 16 137/60 97 09/13/23 20:37 92 09/13/23 20:18 57 L 92 09/13/23 20:12 37.6 C 64 18 133/81 86 L 09/13/23 20:10 61 09/13/23 19:57 51 L 16 137/60 97 O2 Del Method O2 Flow Rate 09/13/23 22:18 Room Air 09/13/23 21:45 Room Air 09/13/23 20:37 Nasal Cannula 2 09/13/23 20:18 Nasal Cannula 2 09/13/23 20:12 Room Air 09/13/23 20:10 09/13/23 19:57 Room Air Laboratory Results Laboratory Results WBC 3.81 K/ul (4.8-10.8) L 09/13/23 20:18 RBC 2.92 M/uL (4.70-6.10) L 09/13/23 20:18 Hgb 8.6 g/dl (14.0-18.0) L 09/13/23 20:18 Hct 26.5 % (42.0-52.0) L 09/13/23 20:18 MCV 90.8 fL (80.0-100.0) 09/13/23 20:18 MCH 29.5 pg (25.0-34.0) 09/13/23 20:18 MCHC 32.5 g/dL (32.0-36.0) 09/13/23 20:18 RDW Std Deviation 45.6 fL (36.4-46.3) 09/13/23 20:18 RDW Coeff of Luis 13.7 % (11.5-14.5) 09/13/23 20:18 Plt Count 134 K/uL (130-400) 09/13/23 20:18 MPV 12.5 fL (9.4-12.4) H 09/13/23 20:18 Immature Gran % (Auto) 0.3 % 09/13/23 20:18 Neut % (Auto) 59.6 % 09/13/23 20:18 Lymph % (Auto) 16.5 % 09/13/23 20:18 [place] % (Auto) 19.4 % 09/13/23 20:18 Eos % (Auto) 2.9 % 09/13/23 20:18 Baso % (Auto) 1.3 % 09/13/23 20:18 Neut # (Auto) 2.27 K/uL (1.40-6.50) 09/13/23 20:18 Lymph # (Auto) 0.63 K/uL (1.20-3.40) L 09/13/23 20:18 [place] # (Auto) 0.74 K/uL (0.11-0.59) H 09/13/23 20:18 Eos # (Auto) 0.11 K/uL (0.00-0.50) 09/13/23 20:18 Baso # (Auto) 0.05 K/uL (0.00-0.20) 09/13/23 20:18 Immature Gran # (Auto) 0.01 K/uL (0.01-0.20) 09/13/23 20:18 PT 13.3 Seconds (9.0-12.0) H 09/13/23 21:17 INR 1.2 (0.9-1.1) H 09/13/23 21:17 APTT 34 Seconds (21-31) H 09/13/23 21:17 PTT Ratio 1.3 09/13/23 21:17 VBG pH 7.38 (7.36-7.41) 09/13/23 21:17 VBG pCO2 43 mmHg (38-50) 09/13/23 21:17 VBG pO2 56 mmHg 09/13/23 21:17 VBG HCO3 25 mmol/L 09/13/23 21:17 VBG O2 Saturation 89.8 % 09/13/23 21:17 VBG Base Excess 0 mEq/L 09/13/23 21:17 Sodium 135 mmol/L (136-145) L 09/13/23 20:18 Potassium 4.2 mmol/L (3.5-5.1) 09/13/23 20:18 Chloride 103 mmol/L (98-107) 09/13/23 20:18 Carbon Dioxide 27 mmol/L (21-32) 09/13/23 20:18 Anion Gap 5 (3-11) 09/13/23 20:18 BUN 32 mg/dl (6-23) H 09/13/23 20:18 Creatinine 1.31 mg/dl (0.6-1.4) 09/13/23 20:18 Est Cr Clr Drug Dosing Not Reportable 09/13/23 20:18 Est GFR ( Amer) 55.6 ml/min 09/13/23 20:18 Est GFR (Non-Af Amer) 47.9 ml/min 09/13/23 20:18 BUN/Creatinine Ratio 24.4 (10-20) H 09/13/23 20:18 Glucose 97 mg/dl (70-99(Fasting)) 09/13/23 20:18 Lactate 0.8 mmol/L (0.4-2.0) 09/13/23 20:27 Calcium 9.1 mg/dl (8.6-10.3) 09/13/23 20:18 Magnesium 2.1 mg/dl (1.7-2.4) 09/13/23 20:18 Total Bilirubin 0.4 mg/dl (0.2-1.0) 09/13/23 20:18 Direct Bilirubin 0.1 mg/dl (0-0.2) 09/13/23 20:18 AST 21 U/L (13-39) 09/13/23 20:18 ALT 11 U/L (7-52) 09/13/23 20:18 Alkaline Phosphatase 39 U/L (34-104) 09/13/23 20:18 Ammonia 30.0 umol/L (18-72) 09/13/23 21:17 Troponin I High Sens 7.2 pg/ml (0-20) 09/13/23 20:18 Total Protein 7.1 gm/dl (6.0-8.3) 09/13/23 20:18 Albumin 3.7 gm/dl (3.4-5.0) 09/13/23 20:18 Procalcitonin < 0.02 ng/ml (0-0.5) 09/13/23 20:18 Urine Color Dark Yellow 09/13/23 22:00 Urine Appearance Clear (Clear) 09/13/23 22:00 Urine pH 5.0 (4.5-7.5) 09/13/23 22:00 Ur Specific [place] 1.031 (1.000-1.030) H 09/13/23 22:00 Urine Protein Negative (Negative) 09/13/23 22:00 Urine Glucose (UA) Negative (Negative) 09/13/23 22:00 Urine Ketones 1+ (Negative) H 09/13/23 22:00 Urine Blood Negative (Negative) 09/13/23 22:00 Urine Nitrite Negative (Negative) 09/13/23 22:00 Urine Bilirubin Negative (Negative) 09/13/23 22:00 Urine Urobilinogen Negative (Negative) 09/13/23 22:00 Ur Leukocyte Esterase Trace (Negative) H 09/13/23 22:00 Urine WBC (Auto) 0-5 /hpf (0-5) 09/13/23 22:00 Urine RBC (Auto) 0-2 /hpf (0-2) 09/13/23 22:00 U Hyaline Cast (Auto) 3-5 /lpf (0-2) H 09/13/23 22:00 U Epithel Cells (Auto) 0-2 /hpf (0-2) 09/13/23 22:00 Urine Bacteria (Auto) None Seen (None Seen) 09/13/23 22:00 SARS-CoV-2 (PCR) NEGATIVE (Negative) 09/13/23 20:27 Influenza Type A (PCR) Negative (Neg) 09/13/23 20:27 Influenza Type B (PCR) Negative (Neg) 09/13/23 20:27 RSV (RT-PCR) Negative (Neg) 09/13/23 20:[address] 09/13/23 20:15 Exam(s): CT HEAD Without Contrast EXAM: CT Head Without Intravenous Contrast CLINICAL HISTORY: Reason for exam: ams. TECHNIQUE: Axial computed tomography images of the head/brain without intravenous contrast. CTDI is 37.87 mGy and DLP is 625.8 mGy-cm. Automated exposure control was utilized for the study. A dose lowering technique was utilized adhering to the principles of ALARA. Mild motion artifact. COMPARISON: Head CT 06/24/18. FINDINGS: Brain: Stable, chronic left frontal encephalomalacia with calcifications. No mass effect or acute infarct. No acute hemorrhage. Stable, moderate atrophy and chronic white matter disease. Ventricles: No hydrocephalus or midline shift. Bones/joints: Previous left frontal craniotomy. No acute fracture.. Soft tissues: No scalp hematoma. Visualized Sinuses: Clear. Mastoid air cells: No mastoid effusion. IMPRESSION: 1. Stable age-related findings, and encephalomalacia left frontal lobe. 2. No acute infarct, bleed, or acute intracranial abnormality. Electronically signed by: Lucia Mitchell M.D. 09/13/23 20:59 PM Chest CTA: 1. No pulmonary embolism. 2. Significant increased size of a very large hiatal hernia which results in moderate compression on the heart. 3. Contrast reflux into the IVC with mild vascular prominence, nonspecific, cannot rule out CHF. 4. Moderate bibasilar atelectasis or scaring. Pneumonia difficult to entirely exclude. Diagnostic Findings EKG as per my interpretation :Rate 55, sinus bradycardia, normal axis, incompl ete RBBB, septal infarct, no ischemia
[2023-09-13] MEDS ORDERED: PROMETHAZINE HCL 6.25 MG in SODIUM CHLORIDE 0.9% 50 ML IV PRN (23:27)
[2023-09-13] MEDS: OPTIRAY 320 125ml IV ONE (23:38)
[2023-09-14] MEDS: DOXYCYCLINE HYCLATE 100 MG in DEXTROSE 5% MINI-B 100 ML IV STA (00:01)
[2023-09-14] MEDS: ALBUT/IPRATROP 3MG/0.5MG NEB 3 ML VIAL NEB STA (00:01)
[2023-09-14] MEDS: SODIUM CHLORIDE 0.9% 1,000 ML IV ONE (00:20)
--- NOTE | 2023-09-14 00:24 | CT Scan Report ---
Exam(s): CTA CHEST IV Amt: 118 ml optiray 320 EXAM: CT Angiography Chest With Intravenous Contrast CLINICAL HISTORY: Reason for exam: low o2. TECHNIQUE: Axial computed tomographic angiography images of the chest with intravenous contrast. CTDI is 20 mGy and DLP is 736 mGy-cm. Automated exposure control was utilized for the study. A dose lowering technique was utilized adhering to the principles of ALARA. MIP reconstructed images were created and reviewed. 118 mL Optiray 320 given IV. COMPARISON: CTA chest 10/01/2019. FINDINGS: Pulmonary arteries: No pulmonary embolism. Mild vascular prominence. Aorta: No aneurysm. Lungs: Stable large centrally calcified right upper lobe granuloma. Moderate bibasilar atelectasis or scaring. No consolidation. Pneumonia difficult to entirely exclude. Pleural space: No significant effusion. No pneumothorax. Heart: Contrast reflux into the IVC, nonspecific, possible CHF. Moderate cardiomegaly, and moderate compression of the heart secondary to a large hiatal hernia. No significant pericardial effusion. No evidence of elevated right heart pressures. Bones/joints: No acute fracture. Soft tissues: Significant increased size hiatal hernia, which is very large, and now contains portions of the bowel in addition to the entire stomach. This extends into the bilateral lower lobe lungs. Lymph nodes: No enlarged lymph nodes. IMPRESSION: 1. No pulmonary embolism. 2. Significant increased size of a very large hiatal hernia which results in moderate compression on the heart. 3. Contrast reflux into the IVC with mild vascular prominence, nonspecific, cannot rule out CHF. 4. Moderate bibasilar atelectasis or scaring. Pneumonia difficult to entirely exclude. Electronically signed by: Lucia Mitchell M.D. 09/14/23 00:23 AM
[2023-09-14] MEDS ORDERED: ALBUT/IPRATROP 3MG/0.5MG NEB 3 ML VIAL NEB PRN (01:42)
[2023-09-14 04:32] LABS: Basophils # (auto) 0.05 K/uL (0.00-0.20); Basophils % (auto) 1.3 %; Eosinophils # (auto) 0.04 K/uL (0.00-0.50); Hematocrit (blood only) 29.2 % (42.0-52.0); Hemoglobin 9.2 g/dl (14.0-18.0); Immature Granulocytes # (auto) 0.01 K/uL (0.01-0.20); Immature Granulocytes % (auto) 0.3 %; Lymphocytes # (auto) 0.87 K/uL (1.20-3.40); Lymphocytes % (auto) 22.7 %; Mean Corpuscular Hemoglobin 29.5 pg (25.0-34.0); Mean Corpuscular Hgb Conc 31.5 g/dL (32.0-36.0); Mean Corpuscular Volume 93.6 fL (80.0-100.0); Mean Platelet Volume 11.4 fL (9.4-12.4); Monocytes # (auto) 0.66 K/uL (0.11-0.59); Monocytes % (auto) 17.2 %; Neutrophils # (auto) 2.21 K/uL (1.40-6.50); Neutrophils % (auto) 57.5 %; Platelet Count 127 K/uL (130-400); RDW Coefficient of Variation 13.8 % (11.5-14.5); RDW Standard Deviation 46.7 fL (36.4-46.3); Red Blood Count 3.12 M/uL (4.70-6.10); White Blood Count 3.84 K/ul (4.8-10.8)
[2023-09-14 04:46] LABS: BUN Creatinine Ratio 23.6 (10-20); Calcium 8.6 mg/dl (8.6-10.3); Est GFR (African American) 68.6 ml/min; Est GFR (Non-African American) 59.2 ml/min; Potassium 3.9 mmol/L (3.5-5.1)
--- NOTE | 2023-09-14 07:26 | XRay Report ---
SINGLE VIEW CHEST CLINICAL HISTORY: Sepsis. FINDINGS: 2 AP, portable, upright chest radiographs are compared to study dated 06/18/2023. The heart is enlarged noting atherosclerotic calcification of the thoracic aorta. The pulmonary vasculature is noncongested. Chronic interstitial thickening is similar to previous. There is a large hiatal hernia. Scarring/atelectasis is noted at both lung bases. A large calcified nodule is again seen in the righ t upper lobe. No airspace consolidation or large pleural effusion is identified. No pneumothorax is s een. The skeletal structures are osteopenic. The bony thorax is grossly intact. IMPRESSION: 1. Cardiomegaly with no active disease in the chest. 2. Large hiatal hernia. ACT 112: Negative or not required by law. Electronically signed by: Bogdan Garnett M.D. 09/14/2023 7:25 AM
[2023-09-14] MEDS: ALBUT/IPRATROP 3MG/0.5MG NEB 3 ML VIAL NEB SCH (07:37)
[2023-09-14 09:15] LABS: Thyroid Stimulating Hormone 1.209 uIu/ml (0.300-4.500)
[2023-09-14] MEDS: DOXYCYCLINE HYCLATE 100 MG CAP PO SCH (09:42)
[2023-09-14] MEDS: CEROVITE ADV FORMULA TAB PO SCH (09:43)
[2023-09-14] MEDS: PANTOprazole 40 MG TAB PO SCH (09:44)
[2023-09-14] MEDS: DOCUSATE SODIUM 100 MG CAP PO SCH (09:47)
[2023-09-14] MEDS: LEVOTHYROXINE SODIUM 25 MCG TABLET PO SCH (09:47)
[2023-09-14] MEDS: CYANOCOBALAMIN (B-12) 500 MCG TABLET PO SCH (09:48)
[2023-09-14] MEDS: ASPIRIN 81 MG ECTAB PO SCH (09:48)
[2023-09-14] MEDS: FERROUS SULFATE 325 MG TAB PO SCH (09:48)
[2023-09-14] MEDS: amLODIPine BESYLATE 5 MG TAB PO SCH (09:49)
[2023-09-14] MEDS: SERTRALINE HCL 100 MG TABLET PO SCH (09:49)
[2023-09-14] MEDS: DOCUSATE SODIUM/SENNA 50/8.6MG TAB PO SCH (09:49)
[2023-09-14] MEDS: DOXAZosin MESYLATE 4 MG TAB PO SCH (09:49)
[2023-09-14] MEDS: cefTRIAXone SODIUM 2,000 MG/50 ML BAG IV SCH (11:07)
[2023-09-14] MEDS: SUCRALFATE 1 GM TAB PO SCH (12:38)
[2023-09-14] MEDS ORDERED: PANTOPRAZOLE BOLUS/DRIP IV STA (12:44)
[2023-09-14] MEDS: PANTOprazole 80 MG in DEXTROSE 5% 100 ML IV ONE (13:06)
--- NOTE | 2023-09-14 13:11 | Electrocardiogram Report ---
Test Reason : Blood Pressure : / mmHG Vent. Rate : 057 BPM Atrial Rate : 057 BPM P-R Int : 184 ms QRS Dur : 102 ms QT Int : 410 ms P-R-T Axes : -26 048 048 degrees QTc Int : 399 ms Sinus bradycardia Incomplete right bundle branch block Abnormal ECG When compared with ECG of 18-JUN-2023 19:58, QRS axis Shifted right Confirmed by Prakash Frank ([id number]) on 09/14/2023 1:11:30 PM Referred By: Conner Avlarado Confirmed By:Emile Frank
[2023-09-14] MEDS: PANTOprazole 40 MG in DEXTROSE 5% MINI-B 100 ML IV SCH (13:24)
--- NOTE | 2023-09-14 14:09 | Gastrointestinal Consultation ---
Date of Consultation September 14, 2023 Assessment & Plan (1) Anemia: -Continue to monitor H/H -Continue to monitor for overt GI bleeding -Protonix 40 mg IV BID -Carafate before meals and at bedtime -Given encephalopathy and stability of H/H, would defer endoscopy at present and monitor conservatively Supervising Physician Co-Signing Physician Notes Agree with ANDREW Coffman as above Patient confused and unable to answer questions appropriately Continue current therapy and supportive care Recommend Protonix 40 mg IV BID Recommend Carafate 1 g by mouth QID AC and HS History of Present Illness Reason for Consultation: Melena Attending Physician: David Lerner MD History of Present Illness Patient is an 88 yo male with PMH of MGUS with anemia, h/o ischemic stroke, large paraesophageal hernia with history of esophagitis, h/o of PE, bipolar 1 d isorder, cerebral aneurysm repair, BPH, reactive airway disease, hypothyroidism, HTN, ataxia, & HLD who was referred to the ED from the snf due to altered mental status where they reported he was more confused than usual. They were reportedly unable to elaborate or give more details as to the circumstances. Patient takes Xarelto at home as well as Aspirin 81 mg daily. Reportedly patient has had dark stool and GI has been consulted. H/H 9.2/29.2. BUN 26, Cr 1.10. Patient with MGUS. Hgb appears to be at his baseline (or slightly higher). He takes ferrous sulfate 325 mg po BID. He takes Pantoprazole 40 mg daily & Carafate ACHS. Patient is admitted under the hospitalist service for evaluation of encephalopathy. He was noted to be saturating in the 80s in the ED. Allergies Allergy/AdvReac Type Severity Reaction Status Date / Time No Known Allergies Allergy Verified 06/18/23 20:36 Home Medications Medication Instructions Recorded Confirmed Type acetaminophen 325 mg tablet 650 mg PO BID 01/05/23 09/14/23 History (Tylenol) amlodipine 5 mg tablet 5 mg PO DAILY 01/05/23 09/14/23 History amoxicillin 500 mg capsule 2,000 mg PO UD 01/05/23 09/14/23 History ascorbic acid (vitamin C) 1,000 mg 1 g PO DAILY 01/05/23 09/14/23 History tablet (Vitamin C) aspirin 81 mg chewable tablet 81 mg PO DAILY 01/05/23 09/14/23 History calcium carbonate (Calcium 600) 600 mg PO DAILY 01/05/23 09/14/23 History cholecalciferol (vitamin D3) 25 25 mcg PO DAILY 01/05/23 09/14/23 History mcg (1,000 unit) tablet (Vitamin D3) cyanocobalamin (vitamin B-12) 500 500 mcg PO DAILY 01/05/23 09/14/23 History mcg tablet (Vitamin B-12) docusate sodium 100 mg capsule 100 mg PO BID 01/05/23 09/14/23 History doxazosin 4 mg tablet 4 mg PO DAILY 01/05/23 09/14/23 History ferrous sulfate 325 mg (65 mg 325 mg PO BID 01/05/23 09/14/23 History iron) tablet finasteride 5 mg tablet 5 mg PO QAM 01/05/23 09/14/23 History levothyroxine 25 mcg tablet 25 mcg PO DAILY 01/05/23 09/14/23 History loperamide 2 mg capsule 2 mg PO Q4H PRN Diarrhea 01/05/23 09/14/23 History lorazepam 0.5 mg tablet 0.5 mg PO TID PRN Anxiety 01/05/23 09/14/23 History ghogzadj-huv-VK 100 mcg-lut 1.66 1 tab PO DAILY 01/05/23 09/14/23 History mg-zeaxanth 0.83 mg tablet,delay rel. (Icaps MV) quetiapine 50 mg tablet 50 mg PO HS 01/05/23 09/14/23 History rivaroxaban 20 mg tablet (Xarelto) 20 mg PO QPM 01/05/23 09/14/23 History sennosides 8.6 mg-docusate sodium 2 tab-cap PO BID 01/05/23 09/14/23 History 50 mg capsule (Senna Plus) sertraline 100 mg tablet 100 mg PO DAILY 01/05/23 09/14/23 History simvastatin 40 mg tablet 40 mg PO QPM 01/05/23 09/14/23 History tramadol 50 mg tablet 50 mg PO Q6H PRN Pain 01/05/23 09/14/23 History vit C 250 mg-vit E 90 mg-zinc 40 1 tab PO DAILY 01/05/23 09/14/23 History mg-copper 1 ms-vhijuj-qkqmlu capsule (PreserVision AREDS-2) pantoprazole 40 mg tablet,delayed 40 mg PO DAILY #30 tabs 02/05/23 09/14/23 Rx release sucralfate 1 gram tablet 1 g PO ACHS 06/18/23 09/14/23 History phenylephrine 0.25 %-mineral oil 1 applic ID TID PRN Pain/Irritation 09/14/23 09/14/23 History 14 %-petrolatm 74.9 % rectal ointment (Preparation H) sertraline 50 mg tablet 50 mg PO DAILY 09/14/23 09/14/23 History sodium chloride 5 % eye drops 1 drp ophthalmic (eye) BID Dry eyes 09/14/23 09/14/23 History Patient History Medical History Encounter for screening for COVID-19 Chest pain Seizure DVT prophylaxis Hx of pulmonary embolus Surgical History History of brain surgery Family History Family/Other No pertinent family history Social History Smoking Status: Former smoker Tobacco Type: Cigarettes packs per day: 1; Cigarettes Per Day: 28; Do You Dip or Chew Tobacco: No; Hx Alcohol Use: No Hx Substance Use: No Preferred Language: Syriac Communication Ability: Effective Fiberglass Roving Winder Required: No Beliefs That Will Affect Care: None marital status: Single Current Living Situation: Retirement Current Living Situation Comment: [facility] Feels Safe at Home: Yes Assistive Devices: Walker Review of Systems Review of Systems: Unobtainable due to cognitive status Physical Exam Constitutional: no acute distress Respiratory: normal respiratory effort Cardiovascular: Rate/Rhythm: regular rate Gastrointestinal (Abdomen): normal bowel sounds, soft, nontender, no hepatosplenomegaly Results & Data Vital Signs (Past 12 Hours) Vital Signs Temp Pulse Pulse Resp BP BP Pulse Ox 09/14/23 09:03 74 19 09/14/23 08:24 65 17 94 09/14/23 07:37 61 13 93 09/14/23 07:03 60 23 09/14/23 06:58 61 09/14/23 06:51 61 20 09/14/23 05:41 36.8 C 65 19 156/85 H 95 09/14/23 05:09 62 14 09/14/23 05:00 09/14/23 04:30 172/49 H 09/14/23 04:30 63 18 94 09/14/23 04:29 36.8 C 61 16 151/53 H 93 09/14/23 04:27 66 21 94 09/14/23 03:18 20 93 Pulse Ox O2 Del Method O2 Del Method O2 Flow Rate O2 Flow Rate 09/14/23 09:03 09/14/23 08:24 09/14/23 07:37 Nasal Cannula 5 09/14/23 07:03 09/14/23 06:58 09/14/23 06:51 09/14/23 05:41 Nasal Cannula 4 09/14/23 05:09 09/14/23 05:00 88 L Nasal Cannula 2 09/14/23 04:30 09/14/23 04:30 09/14/23 04:29 Nasal Cannula 2 09/14/23 04:27 09/14/23 03:18 PG Care Time/CCT Total # of Minutes Spent Total Time Spent with Patient: Total time spent is greater than 50% in coordination of care (as documented) at patient's floor/unit and/or counseling patient: Coding Level of Care Code 49254 INT INP/OBS CARE 3/75MIN Diagnoses Anemia D64.9 Anemia type: unspecified type (1) Anemia Anemia type: unspecified type Qualified Code(s): D64.9 - Anemia, unspecified
[2023-09-14 15:14] LABS: Hematocrit (blood only) 30.7 % (42.0-52.0); Hemoglobin 9.8 g/dl (14.0-18.0)
--- NOTE | 2023-09-14 15:54 | Hospitalist Progress Note ---
Date of Service September 14, 2023 Assessment & Plan (1) Acute hypoxemic respiratory failure: Plan: Acute hypoxic respiratory failure Secondary to complicated bronchitis, possible bilateral lower lobe pneumonia No sepsis for now Blood cultures: Pending Sputum culture: Pending Ceftriaxone plus doxycycline Albuterol, hypertonic saline nebs Mucinex twice a day Spirometry, flutter valve Monitor closely Encephalopathy secondary to above History cognitive impairment as per records Tramadol possibly contributory Melena, possible GI bleed Hemoglobin is remaining stable around 9 Repeat hemoglobin at 9 PM Continue Protonix IV GI service consulted Sucralfate added Hold Xarelto and aspirin for now 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 Admission and Anticipated Discharge Date Admission Date: September 13, 2023 Subjective Follow-up for acute hypoxic respiratory failure, increased confusion, etc. Seen resting in bed, awake and alert, pleasantly confused On O2 via nasal cannula Positive melena, personally seen on patient's soiled pads Smiling, comfortable States he feels okay overall Denies shortness of breath, chest pain, dizziness, palpitations Denies abdominal pain, nausea or vomiting, fevers or chills No other new symptoms Review of Systems Review of Systems: all noted and negative except for above Physical Exam Physical Exam: General- oriented x 1, not in distress, speaks in sentences with no effort or accessory muscle use Eyes- anicteric Neck- no JVD Lungs- Positive mild rales at the bases, good air entry bilaterally Heart- normal rate, regular rhythm; no murmurs Abdomen- normal bowel sounds, nondistended, soft, nontender Extremities- no pretibial edema, no calf tenderness Neuro- alert, oriented x 1; no Other gross focal neurologic deficits Skin- warm & dry Results & Data Results & Data Vital Signs (Past 12 Hours) Vital Signs Temp Pulse Pulse Resp BP BP Pulse Ox 09/14/23 13:30 175/72 H 09/14/23 13:30 93 09/14/23 13:06 93 09/14/23 12:14 61 16 09/14/23 12:00 154/60 H 09/14/23 11:53 55 L 20 09/14/23 11:11 58 L 19 09/14/23 09:03 74 19 09/14/23 08:24 65 17 94 09/14/23 07:37 61 13 93 09/14/23 07:03 60 23 09/14/23 06:58 61 09/14/23 06:51 61 20 09/14/23 05:41 36.8 C 65 19 156/85 H 95 09/14/23 05:09 62 14 09/14/23 05:00 09/14/23 04:30 172/49 H 09/14/23 04:30 63 18 94 09/14/23 04:29 36.8 C 61 16 151/53 H 93 09/14/23 04:27 66 21 94 Pulse Ox O2 Del Method O2 Del Method O2 Flow Rate O2 Flow Rate 09/14/23 13:30 09/14/23 13:30 09/14/23 13:06 09/14/23 12:14 09/14/23 12:00 09/14/23 11:53 09/14/23 11:11 09/14/23 09:03 09/14/23 08:24 09/14/23 07:37 Nasal Cannula 5 09/14/23 07:03 09/14/23 06:58 09/14/23 06:51 09/14/23 05:41 Nasal Cannula 4 09/14/23 05:09 09/14/23 05:00 88 L Nasal Cannula 2 09/14/23 04:30 09/14/23 04:30 09/14/23 04:29 Nasal Cannula 2 09/14/23 04:27 all noted and reviewed including below
[2023-09-14] MEDS: SUCRALFATE 1 GM/10 ML UDC PO SCH (18:31)
[2023-09-14] MEDS: SODIUM CHLOR 7% 4 ML NEB NEB SCH (19:17)
[2023-09-14] MEDS ORDERED: RIVAROXABAN 20 MG TAB PO SCH (21:00)
[2023-09-14] MEDS: QUEtiapine FUMARATE 25 MG TABLET PO SCH (21:08)
[2023-09-14] MEDS: SIMVASTATIN 40 MG TAB PO SCH (21:08)
[2023-09-14 21:14] LABS: Hematocrit (blood only) 27.4 % (42.0-52.0); Hemoglobin 8.9 g/dl (14.0-18.0)
[2023-09-15 09:25] LABS: Basophils # (auto) 0.04 K/uL (0.00-0.20); Eosinophils # (auto) 0.13 K/uL (0.00-0.50); Eosinophils % (auto) 3.1 %; Hematocrit (blood only) 33.5 % (42.0-52.0); Hemoglobin 10.8 g/dl (14.0-18.0); Immature Granulocytes # (auto) 0.01 K/uL (0.01-0.20); Immature Granulocytes % (auto) 0.2 %; Lymphocytes # (auto) 0.91 K/uL (1.20-3.40); Lymphocytes % (auto) 21.7 %; Mean Corpuscular Hemoglobin 29.3 pg (25.0-34.0); Mean Corpuscular Hgb Conc 32.2 g/dL (32.0-36.0); Mean Platelet Volume 13.4 fL (9.4-12.4); Monocytes % (auto) 11.9 %; Neutrophils # (auto) 2.61 K/uL (1.40-6.50); Neutrophils % (auto) 62.1 %; Platelet Count 143 K/uL (130-400); RDW Coefficient of Variation 13.7 % (11.5-14.5); RDW Standard Deviation 45.6 fL (36.4-46.3); Red Blood Count 3.68 M/uL (4.70-6.10)
[2023-09-15 09:41] LABS: BUN Creatinine Ratio 13.7 (10-20); Calcium 9.1 mg/dl (8.6-10.3); Creatinine Clr Calc Pharmacy 54.4 ml/min; Est GFR (African American) 81.9 ml/min; Est GFR (Non-African American) 70.7 ml/min; Potassium 3.5 mmol/L (3.5-5.1)
--- NOTE | 2023-09-15 14:50 | Hospitalist Progress Note ---
Date of Service September 15, 2023 Assessment & Plan (1) Acute hypoxemic respiratory failure: Plan: Acute hypoxic respiratory failure Secondary to complicated bronchitis, possible bilateral lower lobe pneumonia No sepsis for now Blood cultures: Pending Sputum culture: Pending remains On 2 L of O2 via nasal cannula Continue Ceftriaxone plus doxycycline Albuterol, hypertonic saline nebs Mucinex twice a day Spirometry, flutter valve Monitor closely Encephalopathy secondary to above History cognitive impairment as per records Tramadol possibly contributory Melena, possible GI bleed Hemoglobin is remaining stable around 9 Repeat hemoglobin at 9 PM Continue Protonix IV GI service consulted Sucralfate added Hold Xarelto and aspirin for now Hemoglobin actually increased to 10.8 Continue to monitor closely Continue to hold Xarelto 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 Admission and Anticipated Discharge Date Admission Date: September 13, 2023 Subjective Follow-up for acute hypoxia, pneumonia, suspected GI bleed, etc. Seen resting in bed, comfortable, not in distress Sleeping but easily awakened States he feels okay overall Breathing is fine, able to bring up more phlegm No abdominal pain, nausea vomiting Review of Systems Review of Systems: all noted and negative except for above Physical Exam Physical Exam: General- oriented x 2, not in distress, speaks in sentences with no effort or accessory muscle use Eyes- anicteric Neck- no JVD Lungs- Mild rhonchi bilaterally Heart- normal rate, regular rhythm; no murmurs Abdomen- normal bowel sounds, nondistended, soft, nontender Extremities- no pretibial edema, no calf tenderness Neuro- alert, oriented x 2; no gross focal neurologic deficits Skin- warm & dry Results & Data Results & Data Vital Signs (Past 12 Hours) Vital Signs Temp Pulse Pulse Pulse Pulse Resp BP 09/15/23 11:52 36.8 C 52 L 18 196/73 H 09/15/23 11:17 65 18 09/15/23 08:57 36.6 C 73 18 114/57 L 09/15/23 07:50 09/15/23 07:20 68 18 09/15/23 07:00 52 L 09/15/23 03:09 36.5 C 58 L 18 164/59 H Pulse Ox O2 Del Method O2 Flow Rate 09/15/23 11:52 97 Nasal Cannula, Nebulizer 8 09/15/23 11:17 91 Nasal Cannula 2 09/15/23 08:57 91 Room Air 09/15/23 07:50 Room Air 09/15/23 07:20 93 Nasal Cannula 2 09/15/23 07:00 09/15/23 03:09 98 Nasal Cannula 2 all noted and reviewed including below
[2023-09-15] MEDS: hydrALAZINE HCL 20 MG/ML VIAL IV PRN (17:28)
[2023-09-15] MEDS: PANTOprazole 40 MG in SYRINGE 0 ML IV SCH (20:53)
[2023-09-16 06:50] LABS: Basophils # (auto) 0.04 K/uL (0.00-0.20); Basophils % (auto) 1.1 %; Eosinophils # (auto) 0.15 K/uL (0.00-0.50); Hematocrit (blood only) 29.5 % (42.0-52.0); Hemoglobin 9.7 g/dl (14.0-18.0); Immature Granulocytes # (auto) 0.01 K/uL (0.01-0.20); Immature Granulocytes % (auto) 0.3 %; Lymphocytes # (auto) 0.82 K/uL (1.20-3.40); Mean Corpuscular Hemoglobin 29.5 pg (25.0-34.0); Mean Corpuscular Hgb Conc 32.9 g/dL (32.0-36.0); Mean Corpuscular Volume 89.7 fL (80.0-100.0); Monocytes # (auto) 0.41 K/uL (0.11-0.59); Neutrophils # (auto) 2.29 K/uL (1.40-6.50); Neutrophils % (auto) 61.6 %; Platelet Count 129 K/uL (130-400); RDW Coefficient of Variation 13.4 % (11.5-14.5); RDW Standard Deviation 44.3 fL (36.4-46.3); Red Blood Count 3.29 M/uL (4.70-6.10); White Blood Count 3.72 K/ul (4.8-10.8)
[2023-09-16 07:00] LABS: Calcium 8.5 mg/dl (8.6-10.3); Est GFR (Non-African American) 71.6 ml/min; Potassium 3.8 mmol/L (3.5-5.1)
[2023-09-16] MEDS: guaiFENesin 600 MG TABCR PO SCH (11:06)
[2023-09-16] MEDS: ADVANCED PROBIOTIC 625 MG CAPSULE PO SCH (11:06)
--- NOTE | 2023-09-16 14:02 | Hospitalist Progress Note ---
Date of Service September 16, 2023 Assessment & Plan (1) Acute hypoxemic respiratory failure: Plan: Acute Hypoxic respiratory failure Secondary to complicated bronchitis, possible bilateral lower lobe pneumonia No sepsis for now Blood cultures: Negative so far Sputum culture: Pending remains On 2 L of O2 via nasal cannula Change Ceftriaxone to Cefepime continue doxycycline Albuterol, hypertonic saline nebs Mucinex twice a day Spirometry, flutter valve Monitor closely Encephalopathy secondary to above History cognitive impairment as per records Tramadol possibly contributory - improving Melena, possible GI bleed, resolved Hemoglobin is remaining stable around 9 Repeat hemoglobin at 9 PM Continue Protonix IV GI service consulted Sucralfate added Hold Xarelto and aspirin for now Hemoglobin actually increased to 10.8 Continue to monitor closely Continue to hold Xarelto 16 Hg 8.9 -- 10.8 -- 9.7 resolved 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 Admission and Anticipated Discharge Date Admission Date: September 13, 2023 Subjective ff up for hypoxia, pneumonia, etc seen resting in bed, comfortable sleeping, somewhat weak, in good spirits states he is somewhat improving breathing is gradually improving, still has productive cough no chest pain, palpitations, dizziness no fever/chills no BM , abdominal pain, nausea/vomiting, fever/chills Review of Systems Review of Systems: all noted and negative except for above Physical Exam Physical Exam: General- oriented x 3, not in distress, speaks in sentences with no effort or accessory muscle use Eyes- anicteric Neck- no JVD Lungs- (+) mild rhonchi BL no wheezing Heart- normal rate, regular rhythm; no murmurs Abdomen- normal bowel sounds, nondistended, soft, nontender Extremities- no pretibial edema, no calf tenderness Neuro- alert, oriented x 3; no gross focal neurologic deficits Skin- warm & dry Results & Data Results & Data Vital Signs (Past 12 Hours) Vital Signs Temp Pulse Pulse Resp BP Pulse Ox Pulse Ox 09/16/23 11:37 36.5 C 73 16 150/70 H 98 09/16/23 11:15 86 18 93 09/16/23 08:00 09/16/23 07:43 37.1 C 67 20 169/78 H 97 09/16/23 07:16 62 16 92 09/16/23 07:00 64 09/16/23 06:05 93 09/16/23 03:10 36.5 C 65 16 128/71 94 O2 Del Method O2 Del Method O2 Flow Rate 09/16/23 11:37 Nebulizer 09/16/23 11:15 Room Air 09/16/23 08:00 Room Air 09/16/23 07:43 Nebulizer 09/16/23 07:16 Nasal Cannula 1 09/16/23 07:00 09/16/23 06:05 Room Air 09/16/23 03:10 Nasal Cannula 2 all noted and reviewed including below
[2023-09-16] MEDS: CEFEPIME 2,000 MG in SYRINGE 0 ML IV SCH (16:12)
[2023-09-16] MEDS: HEPARIN SOD 5,000 UNIT/0.5 ML VIAL SQ SCH (20:30)
[2023-09-17] MEDS: CEFEPIME 2,000 MG in SYRINGE 0 ML IV SCH (04:30)
[2023-09-17 06:31] LABS: Basophils # (auto) 0.05 K/uL (0.00-0.20); Basophils % (auto) 1.4 %; Eosinophils # (auto) 0.21 K/uL (0.00-0.50); Eosinophils % (auto) 5.7 %; Hematocrit (blood only) 29.1 % (42.0-52.0); Hemoglobin 9.6 g/dl (14.0-18.0); Immature Granulocytes # (auto) 0.01 K/uL (0.01-0.20); Immature Granulocytes % (auto) 0.3 %; Lymphocytes # (auto) 0.77 K/uL (1.20-3.40); Mean Corpuscular Hemoglobin 29.6 pg (25.0-34.0); Mean Corpuscular Volume 89.8 fL (80.0-100.0); Mean Platelet Volume 11.3 fL (9.4-12.4); Monocytes # (auto) 0.47 K/uL (0.11-0.59); Monocytes % (auto) 12.8 %; Neutrophils # (auto) 2.16 K/uL (1.40-6.50); Neutrophils % (auto) 58.8 %; Platelet Count 131 K/uL (130-400); RDW Coefficient of Variation 13.3 % (11.5-14.5); RDW Standard Deviation 43.8 fL (36.4-46.3); Red Blood Count 3.24 M/uL (4.70-6.10); White Blood Count 3.67 K/ul (4.8-10.8)
[2023-09-17 06:50] LABS: BUN Creatinine Ratio 19.6 (10-20); Calcium 8.6 mg/dl (8.6-10.3); Creatinine Clr Calc Pharmacy 53.3 ml/min; Est GFR (African American) 79.9 ml/min; Est GFR (Non-African American) 68.9 ml/min; Potassium 3.9 mmol/L (3.5-5.1)
--- NOTE | 2023-09-17 11:12 | XRay Report ---
XR chest 1V portable HISTORY: 88 years-old Male ff up pneumonia acute shortness of breath COMPARISON: CTA chest 09/13/2023 TECHNIQUE: AP view of the chest FINDINGS: Cardiomegaly. Large hiatal hernia. No pneumothorax or pleural effusion. Mild persistent bibasilar miguel angel ear consolidation. Bones appear grossly intact. Partially calcified subpleural right upper lobe nodul e again seen. IMPRESSION: 1. Cardiomegaly without pulmonary edema. 2. Large hiatal hernia redemonstrated partially obscuring the lung bases. 3. Linear bibasilar densities again noted, likely atelectatic. ACT 112: Negative or not required by law. The above report was generated using voice recognition software. It may contain grammatical, syntax o r spelling errors. Electronically signed by: Adan Sanchez M.D. 09/17/2023 11:11 AM
--- NOTE | 2023-09-17 18:16 | Hospitalist Progress Note ---
Date of Service September 17, 2023 Assessment & Plan (1) Acute hypoxemic respiratory failure: Plan: Acute Hypoxic respiratory failure Secondary to complicated bronchitis, possible bilateral lower lobe pneumonia No sepsis for now Blood cultures: Negative so far Sputum culture: Pending remains On 2 L of O2 via nasal cannula Changed Ceftriaxone to CefepimeDay #2 continue doxycycline Albuterol, hypertonic saline nebs Mucinex twice a day Spirometry, flutter valve Repeat chest x-ray: Mostly unchanged Continue bowel regimen Speech therapy recommendations Strict aspiration precaution Monitor closely Encephalopathy secondary to above History cognitive impairment as per records Tramadol possibly contributory - improving Melena, possible GI bleed, resolved Hemoglobin is remaining stable around 9 Repeat hemoglobin at 9 PM Continue Protonix IV GI service consulted Sucralfate added Hold Xarelto and aspirin for now Hemoglobin actually increased to 10.8 Continue to monitor closely Continue to hold Xarelto 09/15 Hg 8.9 -- 10.8 -- 9.7 resolved 09/16 Hemoglobin stable Resume Xarelto tomorrow once hemoglobin still stable 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 Admission and Anticipated Discharge Date Admission Date: September 13, 2023 Subjective Follow-up for pneumonia, hypoxia, etc. Seen sitting up in bed, taking his morning pills Awake and alert, appears somewhat weak States he feels tired Breathing is about the same, still having some productive cough No chest pain No other new symptom Review of Systems Review of Systems: all noted and negative except for above Physical Exam Physical Exam: General- oriented x 3, not in distress, speaks in sentences with no effort or accessory muscle use Eyes- anicteric Neck- no JVD Lungs- No crackles or wheezes bilateral rhonchi/crackles, scattered No wheezing Heart- normal rate, regular rhythm; no murmurs Abdomen- normal bowel sounds, nondistended, soft, nontender Extremities- no pretibial edema, no calf tenderness Neuro- alert, oriented x 3; no gross focal neurologic deficits Skin- warm & dry Results & Data Results & Data Vital Signs (Past 12 Hours) Vital Signs Temp Pulse Pulse Resp BP Pulse Ox Pulse Ox 09/17/23 15:32 36.6 C 66 16 139/60 96 09/17/23 15:09 72 17 93 09/17/23 14:04 65 09/17/23 13:01 18 92 09/17/23 12:31 36.8 C 73 16 166/73 H 91 09/17/23 10:45 72 18 93 09/17/23 10:00 09/17/23 07:50 36.6 C 65 16 151/50 H 96 09/17/23 07:09 70 18 92 09/17/23 06:30 94 O2 Del Method O2 Del Method O2 Flow Rate O2 Flow Rate 09/17/23 15:32 Nebulizer 09/17/23 15:09 Room Air 09/17/23 14:04 09/17/23 13:01 Room Air 09/17/23 12:31 Nasal Cannula 2 09/17/23 10:45 Room Air 09/17/23 10:00 Room Air 09/17/23 07:50 Nebulizer 09/17/23 07:09 Nasal Cannula 1 09/17/23 06:30 Nasal Cannula 2 all noted and reviewed including below
[2023-09-18 08:24] LABS: Basophils # (auto) 0.04 K/uL (0.00-0.20); Basophils % (auto) 1.1 %; Eosinophils # (auto) 0.11 K/uL (0.00-0.50); Hematocrit (blood only) 28.9 % (42.0-52.0); Hemoglobin 9.5 g/dl (14.0-18.0); Immature Granulocytes # (auto) 0.01 K/uL (0.01-0.20); Immature Granulocytes % (auto) 0.3 %; Lymphocytes # (auto) 0.96 K/uL (1.20-3.40); Lymphocytes % (auto) 25.8 %; Mean Corpuscular Hemoglobin 29.5 pg (25.0-34.0); Mean Corpuscular Hgb Conc 32.9 g/dL (32.0-36.0); Mean Corpuscular Volume 89.8 fL (80.0-100.0); Mean Platelet Volume 10.8 fL (9.4-12.4); Monocytes # (auto) 0.54 K/uL (0.11-0.59); Monocytes % (auto) 14.5 %; Neutrophils # (auto) 2.06 K/uL (1.40-6.50); Neutrophils % (auto) 55.3 %; Platelet Count 139 K/uL (130-400); RDW Coefficient of Variation 13.2 % (11.5-14.5); RDW Standard Deviation 43.6 fL (36.4-46.3); Red Blood Count 3.22 M/uL (4.70-6.10); White Blood Count 3.72 K/ul (4.8-10.8)
[2023-09-18 08:28] LABS: BUN Creatinine Ratio 23.4 (10-20); Calcium 8.5 mg/dl (8.6-10.3); Creatinine Clr Calc Pharmacy 59.4 ml/min; Est GFR (Non-African American) 71.6 ml/min; Potassium 4.1 mmol/L (3.5-5.1)
--- NOTE | 2023-09-18 14:39 | Hospitalist Progress Note ---
Date of Service September 18, 2023 Assessment & Plan (1) Acute hypoxemic respiratory failure: Plan: Acute Hypoxic respiratory failure Secondary to complicated bronchitis, possible bilateral lower lobe pneumonia Blood cultures: Negative remains On 2 L of O2 via nasal cannula Changed Ceftriaxone to Cefepime , Currently Day #3 continue doxycycline Albuterol, hypertonic saline nebs Mucinex twice a day Spirometry, flutter valve Repeat chest x-ray: Mostly unchanged Speech therapist consulted Encephalopathy secondary to above History cognitive impairment as per records Tramadol possibly contributory - improved Melena, possible GI bleed, resolved Noted during admission Seems to have resolved Hemoglobin is remaining stable around 9 During admission Placed on ProtonixDrip initially, currently on Protonix IV twice daily GI service consulted Sucralfate added Resume Xarelto Monitor closely hx PAF/PE/DVT Resume Xarelto tonight Hypertension, stable hx CVA history of cerebral aneurysm clipping hyperlipidemia statin Rx MGUS/chronic anemia, hemoglobin at baseline anxiety/mood disorder, stable past tobacco abuse DVT prophylaxis Xarelto DNR as per patient prior directives. Disposition Lives in personal-jail PT OT evaluate Admission and Anticipated Discharge Date Admission Date: September 13, 2023 Subjective Follow-up for hypoxic respiratory failure, bilateral pneumonia, etc. Seen sitting up in bedside chair, comfortable, not in distress States he feels weak, tired Still having some cough, occasionally productive, nonbloody Shortness of breath improving but still requiring O2 supplement via nasal cannula No abdominal pain, nausea, no BM today No other new symptoms Review of Systems Review of Systems: all noted and negative except for above Physical Exam Physical Exam: General- oriented x 3, not in distress, speaks in sentences with no effort or accessory muscle use Eyes- anicteric Neck- no JVD Lungs- Positive scattered rhonchi bilaterally No wheezing Heart- normal rate, regular rhythm; no murmurs Abdomen- normal bowel sounds, nondistended, soft, nontender Extremities- no pretibial edema, no calf tenderness Neuro- alert, oriented x 3; no gross focal neurologic deficits Skin- warm & dry Results & Data Results & Data Vital Signs (Past 12 Hours) Vital Signs Temp Pulse Pulse Resp BP Pulse Ox O2 Del Method 09/18/23 11:50 36.8 C 76 18 146/69 H 90 Nasal Cannula 09/18/23 11:07 63 18 90 Nasal Cannula 09/18/23 08:07 36.9 C 59 L 20 175/54 H 91 Nasal Cannula 09/18/23 08:00 56 L 09/18/23 07:08 55 L 16 89 L Room Air 09/18/23 04:06 36.9 C 61 18 158/61 H 90 Nasal Cannula O2 Flow Rate 09/18/23 11:50 2 09/18/23 11:07 2 09/18/23 08:07 2 09/18/23 08:00 09/18/23 07:08 09/18/23 04:06 2
[2023-09-18] MEDS: RIVAROXABAN 20 MG TAB PO SCH (17:51)
[2023-09-19] MEDS: ACETAMINOPHEN 325 MG TAB PO PRN (06:33)
[2023-09-19 06:43] LABS: Basophils # (auto) 0.05 K/uL (0.00-0.20); Basophils % (auto) 1.1 %; Eosinophils # (auto) 0.13 K/uL (0.00-0.50); Eosinophils % (auto) 2.9 %; Hematocrit (blood only) 29.2 % (42.0-52.0); Hemoglobin 9.6 g/dl (14.0-18.0); Immature Granulocytes # (auto) 0.01 K/uL (0.01-0.20); Immature Granulocytes % (auto) 0.2 %; Lymphocytes # (auto) 0.84 K/uL (1.20-3.40); Mean Corpuscular Hemoglobin 29.5 pg (25.0-34.0); Mean Corpuscular Hgb Conc 32.9 g/dL (32.0-36.0); Mean Corpuscular Volume 89.8 fL (80.0-100.0); Monocytes # (auto) 0.59 K/uL (0.11-0.59); Monocytes % (auto) 13.3 %; Neutrophils % (auto) 63.5 %; Platelet Count 137 K/uL (130-400); RDW Coefficient of Variation 13.2 % (11.5-14.5); RDW Standard Deviation 43.5 fL (36.4-46.3); Red Blood Count 3.25 M/uL (4.70-6.10); White Blood Count 4.42 K/ul (4.8-10.8)
[2023-09-19 06:45] LABS: BUN Creatinine Ratio 24.5 (10-20); Calcium 8.7 mg/dl (8.6-10.3); Est GFR (Non-African American) 71.6 ml/min; Potassium 4.3 mmol/L (3.5-5.1)
--- NOTE | 2023-09-19 15:35 | Hospitalist Progress Note ---
Date of Service September 19, 2023 Assessment & Plan (1) Acute hypoxemic respiratory failure: Plan: Acute Hypoxic respiratory failure Secondary to complicated bronchitis, possible bilateral lower lobe pneumonia Patient presented with shortness of breath; occasional cough with sputum. Chest x-ray on presentation showed linear bibasilar density Blood cultures: Negative Continue on cefepime and doxycycline for pneumonia. plan to treat for 7 days. wean off oxygen as tolerated Albuterol, hypertonic saline nebs Mucinex twice a day Spirometry, flutter valve Metabolic Encephalopathy secondary to above History cognitive impairment as per records Tramadol possibly contributory - improved Melena, possible GI bleed, resolved Noted during admission Seems to have resolved Hemoglobin is remaining stable around 9 During admission Continue on Protonix IV twice daily GI service consulted Sucralfate added Resume Xarelto Monitor closely hx PAF/PE/DVT Resume Xarelto tonight Hypertension, stable hx CVA history of cerebral aneurysm clipping hyperlipidemia statin Rx MGUS/chronic anemia, hemoglobin at baseline anxiety/mood disorder, stable past tobacco abuse DVT prophylaxis Xarelto DNR as per patient prior directives. Disposition Lives in personal-longterm Patient continues to hospitalize for IV antibiotics for possible pneumonia. Pos sible discharge in next few days. Please note the above document was generated using voice recognition software. It may contain grammatical, syntax or spelling errors. Any formal questions or concerns about the content, text or information contained within the body of this dictation should be directly addressed to the provider for clarification Admission and Anticipated Discharge Date Admission Date: September 13, 2023 Subjective Patient seen and examined at bedside. Comfortable; not in distress. Denies fever, chills, chest pain, shortness of breath, abdominal pain or urinary symptoms. No significant overnight events Review of Systems Review of Systems: All systems reviewed & are unremarkable except as noted in Subjective Results & Data Results & Data Vital Signs (Past 12 Hours) Vital Signs Temp Pulse Pulse Resp BP BP Pulse Ox 09/19/23 15:05 57 L 18 92 09/19/23 13:09 92 09/19/23 12:01 36.7 C 54 L 18 156/68 H 92 09/19/23 11:46 96 09/19/23 11:01 09/19/23 10:53 56 L 18 96 09/19/23 08:29 36.8 C 67 17 121/66 92 09/19/23 07:30 61 09/19/23 07:09 76 18 93 09/19/23 04:35 36.6 C 55 L 18 151/67 H 94 O2 Del Method O2 Flow Rate 09/19/23 15:05 Room Air 09/19/23 13:09 09/19/23 12:01 Room Air 09/19/23 11:46 Room Air 09/19/23 11:01 Nasal Cannula 2 09/19/23 10:53 Nasal Cannula 2 09/19/23 08:29 Nasal Cannula 2 09/19/23 07:30 09/19/23 07:09 Nasal Cannula 2 09/19/23 04:35 Nasal Cannula 2
[2023-09-20 08:16] LABS: Basophils # (auto) 0.04 K/uL (0.00-0.20); Basophils % (auto) 0.9 %; Eosinophils # (auto) 0.21 K/uL (0.00-0.50); Eosinophils % (auto) 4.6 %; Hematocrit (blood only) 28.9 % (42.0-52.0); Hemoglobin 9.4 g/dl (14.0-18.0); Immature Granulocytes # (auto) 0.01 K/uL (0.01-0.20); Immature Granulocytes % (auto) 0.2 %; Lymphocytes # (auto) 0.85 K/uL (1.20-3.40); Lymphocytes % (auto) 18.6 %; Mean Corpuscular Hemoglobin 29.2 pg (25.0-34.0); Mean Corpuscular Hgb Conc 32.5 g/dL (32.0-36.0); Mean Corpuscular Volume 89.8 fL (80.0-100.0); Mean Platelet Volume 11.3 fL (9.4-12.4); Monocytes # (auto) 0.63 K/uL (0.11-0.59); Monocytes % (auto) 13.8 %; Neutrophils # (auto) 2.82 K/uL (1.40-6.50); Neutrophils % (auto) 61.9 %; Platelet Count 152 K/uL (130-400); RDW Coefficient of Variation 13.1 % (11.5-14.5); RDW Standard Deviation 43.6 fL (36.4-46.3); Red Blood Count 3.22 M/uL (4.70-6.10); White Blood Count 4.56 K/ul (4.8-10.8)
[2023-09-20 08:22] LABS: BUN Creatinine Ratio 26.8 (10-20); Calcium 8.7 mg/dl (8.6-10.3); Creatinine Clr Calc Pharmacy 53.3 ml/min; Est GFR (African American) 79.9 ml/min; Est GFR (Non-African American) 68.9 ml/min; Potassium 4.2 mmol/L (3.5-5.1)
[2023-09-20 11:01] VITALS: O2SAT 94
[2023-09-20 11:35] VITALS: BP 127/64; PULSE 59; RESP 17; TEMP 98.8
--- NOTE | 2023-09-20 14:54 | Discharge Summary ---
Date of Service September 20, 2023 Admission HPI Per Admitting Provider History obtained from patient and records. Patient is a fair historian. 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 Last confinement January 2023 for symptomatic anemia secondary to UGIB. EGD showed reflux esophagitis and large type IV paraesophageal hernia. Patient noted to be more confused than usual today. Junky cough symptoms with out chest pain or SOB as per patient. Patient denies aspiration. Not sure about sick contacts given personal correction residence. O2 sats 80s upon arrival at the ER. Medical History as above Surgical History : Cerebral aneurysm clipping Family History : Cannot be obtained due to cognitive impairment Personal/Social history : Past tobacco abuse, no EtOH intake, personal care facility resident Admission Exam Per Admitting Provider GENERAL: Oriented to place, slightly uncomfortable, pleasant, no respiratory distress SKIN: Pallor, warm HEENT: [place] palpebral conjunctivae, no ptosis, chronic right facial droop, dry buccal mucosa, nasal cannula in place NECK : Supple, no tenderness CHEST : Decreased breath sounds expiratory wheezes, no tenderness HEART : Bradycardic, systolic murmur ABDOMEN: Some distention, nontender EXTREMITIES : minimal LE swelling, no tenderness, no other conspicuous deformities noted NEUROLOGIC : Coherent, oriented to place, chronic right facial droop, gait and stance not assessed Principal Diagnosis Acute Hypoxic respiratory failure Secondary to complicated bronchitis, possible bilateral lower lobe pneumonia Discharge Exam Constitutional: Alert oriented x 3; not in distress Respiratory: normal respiratory effort, lungs clear to auscultation, no wheeze, rales, rhonchi. Normal insp/exp effort, no accessory muscle use Cardiovascular: RRR, no murmur, no edema Vessels: no JVD or carotid bruit Chest: normal inspection of chest Abdomen: normal bowel sounds, soft, nontender, no hepatosplenomegaly Musculoskeletal: no cyanosis or clubbing, extremities motor strength 5/5 Skin: no rashes, warm and dry normal turgor Neurologic: PERRL, EOMI, accommodation nl, no face palsy, no dysarthria CN's II- XI intact bilaterally and moves all extremities Discharge Data Allergies Allergy/AdvReac Type Severity Reaction Status Date / Time No Known Allergies Allergy Verified 06/18/23 20:36 Consultations 09/13/23 22:07 ED Decision to Admit Stat 09/14/23 12:44 Consult Gastroenterology Routine Ordered Studies 09/13/23 20:15 CT head/brain wo con Stat 09/13/23 22:33 CT angio chest PE protocol Stat Hospital Course (1) Acute hypoxemic respiratory failure: Acute Hypoxic respiratory failure Secondary to complicated bronchitis, possible bilateral lower lobe pneumonia Patient presented with shortness of breath; occasional cough with sputum. Chest x-ray on presentation showed linear bibasilar density Blood cultures: Negative During the hospitalization, patient was treated with supplemental oxygen, and IV antibiotics. Patient has gradual improvement throughout the hospitalization. Supplemental oxygen was weaned off. Patient was discharged on oral antibiotics at the time of the discharge. Metabolic Encephalopathy secondary to above History cognitive impairment as per records Patient mentation improved to baseline at discharge Melena, possible GI bleed, resolved Noted during admission Seems to have resolved Hemoglobin is remaining stable around 9 During admission GI service was consulted during the hospitalization; patient was treated with IV Protonix. His hemoglobin remained stable throughout the hospitalization. Anticoagulation was resumed. Protonix was increased to 40 mg twice a day at the time of discharge. No other medication changes were done. Patient was discharged back to rehab. Please note the above document was generated using voice recognition software. It may contain grammatical, syntax or spelling errors. Any formal questions or concerns about the content, text or information contained within the body of this dictation should be directly addressed to the provider for clarification Total Time Total Time Spent Total Time Spent (In Minutes): 45 Discharge Plan Discharge Items Patient Disposition: Home - Self-Care Reason For Visit: RESP FAILURE Discharge Diagnosis: Acute Hypoxic respiratory failure Secondary to complicated bronchitis, possible bilateral lower lobe pneumonia Activity: Resume your previous activity Non-emergency contact: Primary Care Provider Call non-emergency contact if: you have any medication questions and your symptoms worsen Follow-up/Referrals: Conner Elias [Primary Care Provider] - Diet: Regular Addtl Attending Provider Instructions: You were admitted to the hospital due to pneumonia. You are treated with antibiotic during the hospitalization. You are prescribed following medication for 3 more days: 1) Cefdinir 300 mg twice daily for 3 days 2) Doxycycline 100 mg twice daily for 3 days You are also prescribed Mucinex 600 mg twice a day for 6 days to help with the congestion. Protonix is increased to 40 mg twice a day for 30 days. After that, you can take it once a day. Pending Studies at Discharge: No Stand-Alone Forms: [facility], Smoking Cessation Medications and DC Order Prescriptions: New doxycycline hyclate 100 mg Capsule 100 mg PO BID 3 Days Qty: 6 0RF guaifenesin [Mucinex] 600 mg Tablet Extended Release 12hr 600 mg PO Q12 5 Days Qty: 10 0RF cefdinir 300 mg capsule 300 mg PO BID 3 Days Qty: 6 0RF Continued amoxicillin 500 mg Capsule 2,000 mg PO UD Rx Instructions: Take 1 hour prior to dental procedure. ascorbic acid (vitamin C) [Vitamin C] 1,000 mg Tablet 1 g PO DAILY acetaminophen [Tylenol] 325 mg Tablet 650 mg PO BID MDD 3G/24HR loperamide 2 mg Capsule 2 mg PO Q4H PRN (Reason: Diarrhea) Rx Instructions: administer after each loose stool until symptoms controlled; do not exceed 8 mg per 24 hrs sertraline 100 mg tablet 100 mg PO DAILY amlodipine 5 mg tablet 5 mg PO DAILY tramadol 50 mg Tablet 50 mg PO Q6H PRN (Reason: Pain) simvastatin 40 mg tablet 40 mg PO QPM levothyroxine 25 mcg tablet 25 mcg PO DAILY calcium carbonate [Calcium 600] 600 mg calcium (1,500 mg) Tablet 600 mg PO DAILY lorazepam 0.5 mg tablet 0.5 mg PO TID PRN (Reason: Anxiety) cyanocobalamin (vitamin B-12) [Vitamin B-12] 500 mcg Tablet 500 mcg PO DAILY ferrous sulfate 325 mg (65 mg iron) Tablet 325 mg PO BID docusate sodium 100 mg Capsule 100 mg PO BID doxazosin 4 mg tablet 4 mg PO DAILY aspirin 81 mg Tablet,Chewable 81 mg PO DAILY Hold Instructions: Do not restart until recommended by your physician finasteride 5 mg tablet 5 mg PO QAM quetiapine 50 mg tablet 50 mg PO HS cholecalciferol (vitamin D3) [Vitamin D3] 25 mcg (1,000 unit) Tablet 25 mcg PO DAILY Icaps MV 100-1.66-0.83 mcg-mg-mg Tablet,Delayed Release (Dr/Ec) 1 tab PO DAILY Xarelto 20 mg tablet 20 mg PO QPM Hold Instructions: Do not restart until recommended by your physician PreserVision AREDS-2 250-90-40-1 mg Capsule 1 tab PO DAILY Senna Plus 8.6-50 mg Capsule 2 tab-cap PO BID sodium chloride 5 % Drops 1 drp OPHTHALMIC (EYE) BID sertraline 50 mg tablet 50 mg PO DAILY Preparation H 0.25-14-74.9 % Ointment 1 applic NM TID PRN (Reason: Pain/Irritation) sucralfate 1 gram tablet 1 g PO ACHS Changed pantoprazole 40 mg tablet,delayed release (DR/EC) 40 mg PO BID Qty: 60 0RF Discharge Orders: Discharge Order (Routine); Ordered 09/20/23 Ordered By: Alan Mejia Admission Data Admit Date/Time: 09/13/23 23:24 Attending Provider: Alan Mejia Admit Provider: Santiago Schaffer Primary Care Provider: Conner Elias Other Providers: Santiago Schaffer; Kostas Mark Other Interventions: Discharge Summary Assessment (RN) Last Done: 09/20/23 13:06
== END 2023-09-20 13:43 | disposition home or self-care (01) | DRG 189 ==
LOC: ED 20:08 → EDINP 23:24 → SUATTDRO 23:24 → EDINP 09-14 16:03 → 2W 09-14 16:24

== ENCOUNTER 2023-11-01 12:08 | Inpatient (IN) ==
--- NOTE | 2023-11-01 12:46 | Emergency Department Note ---
Impression & Plan Acute upper gastrointestinal bleeding, Anemia, Weakness ED Provider Note NAME: DAVID MOY AGE: 88 SEX: M : 1935 ARRIVES VIA: Ambulance INFORMANT: Patient, ED PROVIDER(S): Dario Horner DO CHIEF COMPLAINT: Lower GI bleeding HPI: The patient is an 88-year-old male who presented to the emergency department for lower GI bleeding. The patient's been having problems with lower GI bleeding over the course the last several days. He does take Xarelto. He states he has been continued on his Xarelto. They have been checking lab work on the patient at his personal [facility]. He was found to be anemic and was sent to the emergency department for further evaluation. The patient also has a history of pulmonary embolism. The patient denies having any chest pain or difficulty breathing at this time. He does complain of generalized weakness as well as rectal bleeding. ROS: See above HPI for pertinent positives & negatives. A total of 10 systems reviewed and were otherwise negative. PAST MEDICAL HISTORY: See Below PAST SURGICAL HISTORY: See Below FAMILY HISTORY: See Below SOCIAL HISTORY: See Below HOME MEDICATIONS: See Below ALLERGIES: See Below VITALS: See Below PHYSICAL EXAMINATION: GENERAL: The patient is awake and alert. He is very anxious appearing. EYES: The conjunctivae are pale. The pupils are round and reactive. EARS, NOSE, MOUTH AND THROAT: The nose is without any evidence of any deformity. NECK: The neck is nontender and supple. RESPIRATORY: Normal respiratory effort is noted there is no evidence of wheezing rhonchi or rales CARDIOVASCULAR: Regular rate and rhythm noted there no murmurs rubs or gallops normal S1 normal S2. GASTROINTESTINAL: The abdomen is soft. Abdomen is nontender. Rectal exam revealed black stool which was heme positive. MUSCULOSKELETAL/EXTREMITIES: There is no evidence of gross deformity full range of motion is noted in the hips and shoulders. SKIN: Skin was warm and dry. Trace pedal edema was noted bilaterally. NEUROLOGIC: Patient is awake alert and oriented x3 MEDICAL DECISION MAKING: The patient is an 88-year-old male who has a history of pulmonary melasma who takes oral anticoagulants who presented to the emergency department for blood per rectum. The patient was found to have black stool per rectum. The patient's abdominal exam was not consistent with acute surgical abdomen. I discussed the patient's laboratory studies with him. He was found to have a significantly low hemoglobin. He does have a baseline low hemoglobin but this is lower than his baseline. The patient was consented for blood products. Blood transfusion was ordered by myself. [facility] have agreed to evaluate the patient in the emergency department for further management and disposition. Triage Nursing notes reviewed. Prior medical records reviewed Vital Signs: reviewed and remarkable for elevated blood pressure. Differential diagnosis: Diverticulosis, AVM, coagulopathy, colitis, inflammatory bowel disease, malignancy, Beth-Guillen tear, esophagitis, peptic ulcer disease, variceal bleed, gastritis, epistaxis, fissure, hemorrhoids, as well as other pathologies. ER treatment provided: See below Diagnostics interpreted by me: ECG: EKG was obtained in the emergency department. My interpretation is normal sinus rhythm at 65 bpm. There is no ectopy. Anterior Q waves were noted. There is no acute ST segment abnormalities. This was compared to a tracing from September 13, 2023. No changes were noted. Cardiac Monitoring: An order was placed for continuous cardiac monitoring. The monitor shows a rate of 5 bpm with sinus rhythm. Laboratory studies: As stated above and show below. Imaging studies: See below. Radiographic imaging was reviewed by myself Consultation(s): I discussed the case with Paola [facility] ED COURSE: Procedures: none Critical Care: I have personally spent greater than 45 minutes of critical care time in the direct management of this patient. This includes bedside care, interpretation of diagnostic studies, and testing, discussion with consultants, patient, and family members, and other required patient management activities. This 45 minutes is in excess of all separately billable procedures. Past Med/Surg History Problem List (Updated 11/01/23 @ 13:38 by Dario Horner DO) Weakness (Acute) Anemia (Acute) Acute upper gastrointestinal bleeding (Acute) Hypoxia (Acute) Symptomatic anemia Acute GI bleeding Anemia (Acute) Acute lower GI bleeding (Acute) Cellulitis of right leg (Acute) Anxiety and depression Hiatal hernia History of ischemic stroke History of seizure Epistaxis History of pulmonary embolism Ischemic stroke Vitamin D deficiency Bipolar 1 disorder Dysphagia Encounter for monitoring anticonvulsant therapy History of cerebral aneurysm repair BPH (benign prostatic hyperplasia) Anemia Reactive airway disease Hypothyroidism Dental abscess HTN (hypertension), benign History of pulmonary embolism Acute CVA (cerebrovascular accident) Facial droop (Acute) Ataxia (Acute) Dysarthria (Acute) Multiple falls (Acute) Hyperlipidemia (Chronic) Pulmonary embolism Medical History Acute hypoxemic respiratory failure Encounter for screening for COVID-19 Chest pain Seizure DVT prophylaxis Hx of pulmonary embolus Surgical History History of brain surgery Family History Family/Other No pertinent family history Social History Smoking Status: Former smoker Tobacco Type: Cigarettes packs per day: 1; Cigarettes Per Day: 28; Do You Dip or Chew Tobacco: No; Hx Alcohol Use: No Hx Substance Use: No Preferred Language: [place]i Communication Ability: Effective Phthalic Acid Purifier Required: No Beliefs That Will Affect Care: None marital status: Single Current Living Situation: Senior Care [facility] Feels Safe at Home: Yes Assistive Devices: Walker Allergies Allergies Allergy/AdvReac Type Severity Reaction Status Date / Time No Known Allergies Allergy Verified 06/18/23 20:36 Home Meds Home Medications Medication Instructions Recorded Confirmed acetaminophen 325 mg tablet 650 mg PO BID 01/05/23 09/14/23 (Tylenol) amlodipine 5 mg tablet 5 mg PO DAILY 01/05/23 09/14/23 amoxicillin 500 mg capsule 2,000 mg PO UD 01/05/23 09/14/23 ascorbic acid (vitamin C) 1,000 mg 1 g PO DAILY 01/05/23 09/14/23 tablet (Vitamin C) aspirin 81 mg chewable tablet 81 mg PO DAILY 01/05/23 09/14/23 calcium carbonate (Calcium 600) 600 mg PO DAILY 01/05/23 09/14/23 cholecalciferol (vitamin D3) 25 25 mcg PO DAILY 01/05/23 09/14/23 mcg (1,000 unit) tablet (Vitamin D3) cyanocobalamin (vitamin B-12) 500 500 mcg PO DAILY 01/05/23 09/14/23 mcg tablet (Vitamin B-12) docusate sodium 100 mg capsule 100 mg PO BID 01/05/23 09/14/23 doxazosin 4 mg tablet 4 mg PO DAILY 01/05/23 09/14/23 ferrous sulfate 325 mg (65 mg 325 mg PO BID 01/05/23 09/14/23 iron) tablet finasteride 5 mg tablet 5 mg PO QAM 01/05/23 09/14/23 levothyroxine 25 mcg tablet 25 mcg PO DAILY 01/05/23 09/14/23 loperamide 2 mg capsule 2 mg PO Q4H PRN Diarrhea 01/05/23 09/14/23 lorazepam 0.5 mg tablet 0.5 mg PO TID PRN Anxiety 01/05/23 09/14/23 [id number] 100 mcg-lut 1.66 1 tab PO DAILY 01/05/23 09/14/23 mg-zeaxanth 0.83 mg tablet,delay rel. (Icaps MV) quetiapine 50 mg tablet 50 mg PO HS 01/05/23 09/14/23 rivaroxaban 20 mg tablet (Xarelto) 20 mg PO QPM 01/05/23 09/14/23 sennosides 8.6 mg-docusate sodium 2 tab-cap PO BID 01/05/23 09/14/23 50 mg capsule (Senna Plus) sertraline 100 mg tablet 100 mg PO DAILY 01/05/23 09/14/23 simvastatin 40 mg tablet 40 mg PO QPM 01/05/23 09/14/23 tramadol 50 mg tablet 50 mg PO Q6H PRN Pain 01/05/23 09/14/23 vit C 250 mg-vit E 90 mg-zinc 40 1 tab PO DAILY 01/05/23 09/14/23 mg-copper 1 pm-jcryis-vzbezm capsule (PreserVision AREDS-2) sucralfate 1 gram tablet 1 g PO ACHS 06/18/23 09/14/23 phenylephrine 0.25 %-mineral oil 1 applic ME TID PRN Pain/Irritation 09/14/23 09/14/23 14 %-petrolatm 74.9 % rectal ointment (Preparation H) sertraline 50 mg tablet 50 mg PO DAILY 09/14/23 09/14/23 sodium chloride 5 % eye drops 1 drp ophthalmic (eye) BID Dry eyes 09/14/23 09/14/23 Previous Rx's Medication Instructions Recorded pantoprazole 40 mg tablet,delayed 40 mg PO BID #60 tabs 09/20/23 release Results & Data (ED) Vital Signs Vital Signs - 24 hr 11/01/23 12:12 11/01/23 13:20 11/01/23 13:20 Temperature 36.4 C L Temperature Source Oral Pulse Rate 68 57 L Respiratory Rate 20 18 Respiratory Effort / Characteristics Non-Labored Spontaneous Non-Labored Respiratory Depth Normal Normal Respiratory Pattern Regular Blood Pressure 133/52 L Blood Pressure Mean 79 Pulse Oximetry 94 98 Oxygen Delivery Method Room Air Room Air Sepsis Recent Fever Within 48 Hours No Sepsis New/Unexplained Change in Mental Status N/A Sepsis Action Taken by Nursing No Action Required 11/01/23 13:52 Temperature 36.8 C Temperature Source Oral Pulse Rate 65 Respiratory Rate 27 H Respiratory Effort / Characteristics Respiratory Depth Respiratory Pattern Blood Pressure 147/63 H Blood Pressure Mean 91 Pulse Oximetry 99 Oxygen Delivery Method Sepsis Recent Fever Within 48 Hours Sepsis New/Unexplained Change in Mental Status Sepsis Action Taken by [facility] Medications Current Medication List: was personally reviewed by me Laboratory Data Attestation: I reviewed the patient's lab results. 11/01/23 12:30 11/01/23 12:30 Lab Results 11/01/23 11/01/23 Range/Units 12:29 12:30 WBC 5.94 (4.8-10.8) K/ul RBC 2.28 L (4.70-6.10) M/uL Hgb 6.2 L* (14.0-18.0) g/dl Hct 20.6 L* (42.0-52.0) % MCV 90.4 (80.0-100.0) fL MCH 27.2 (25.0-34.0) pg MCHC 30.1 L (32.0-36.0) g/dL RDW Std Deviation 47.5 H (36.4-46.3) fL RDW Coeff of Luis 14.6 H (11.5-14.5) % Plt Count 220 (130-400) K/uL MPV 11.2 (9.4-12.4) fL Sodium 138 (136-145) mmol/L Potassium 4.8 (3.5-5.1) mmol/L Chloride 104 (98-107) mmol/L Carbon Dioxide 29 (21-32) mmol/L Anion Gap 5 (3-11) BUN 28 H (6-23) mg/dl Creatinine 1.12 (0.6-1.4) mg/dl Est Cr Clr Drug Dosing Not Reportable Est GFR ( Amer) 67.1 ml/min Est GFR (Non-Af Amer) 57.9 ml/min BUN/Creatinine Ratio 25.0 H (10-20) Glucose 98 (70-99(Fasting)) mg/dl Calcium 9.0 (8.6-10.3) mg/dl Total Bilirubin 0.3 (0.2-1.0) mg/dl AST 16 (13-39) U/L ALT 8 (7-52) U/L Alkaline Phosphatase 46 (34-104) U/L Troponin I High Sens 2.9 (0-20) pg/ml Total Protein 7.0 (6.0-8.3) gm/dl Albumin 3.7 (3.4-5.0) gm/dl Globulin 3.3 (2.5-4.0) gm/dl Albumin/Globulin Ratio 1.1 (0.9-2) Blood Type A Positive Antibody Screen NEGATIVE Crossmatch See Detail Discharge Plan Visit Data Chief Complaint: Rectal Bleed ED Provider: Dario Horner Discharge Problem: Acute upper gastrointestinal bleeding, Anemia, Weakness Patient Disposition: Being Evaluated by Hospitalist Forms Stand Alone Forms: [facility] Prescriptions Prescriptions: No Action amoxicillin 500 mg Capsule 2,000 mg PO UD Rx Instructions: Take 1 hour prior to dental procedure. ascorbic acid (vitamin C) [Vitamin C] 1,000 mg Tablet 1 g PO DAILY acetaminophen [Tylenol] 325 mg Tablet 650 mg PO BID MDD 3G/24HR loperamide 2 mg Capsule 2 mg PO Q4H PRN (Reason: Diarrhea) Rx Instructions: administer after each loose stool until symptoms controlled; do not exceed 8 mg per 24 hrs sertraline 100 mg tablet 100 mg PO DAILY amlodipine 5 mg tablet 5 mg PO DAILY tramadol 50 mg Tablet 50 mg PO Q6H PRN (Reason: Pain) simvastatin 40 mg tablet 40 mg PO QPM levothyroxine 25 mcg tablet 25 mcg PO DAILY calcium carbonate [Calcium 600] 600 mg calcium (1,500 mg) Tablet 600 mg PO DAILY lorazepam 0.5 mg tablet 0.5 mg PO TID PRN (Reason: Anxiety) cyanocobalamin (vitamin B-12) [Vitamin B-12] 500 mcg Tablet 500 mcg PO DAILY ferrous sulfate 325 mg (65 mg iron) Tablet 325 mg PO BID docusate sodium 100 mg Capsule 100 mg PO BID doxazosin 4 mg tablet 4 mg PO DAILY aspirin 81 mg Tablet,Chewable 81 mg PO DAILY Hold Instructions: Do not restart until recommended by your physician finasteride 5 mg tablet 5 mg PO QAM quetiapine 50 mg tablet 50 mg PO HS cholecalciferol (vitamin D3) [Vitamin D3] 25 mcg (1,000 unit) Tablet 25 mcg PO DAILY Icaps MV 100-1.66-0.83 mcg-mg-mg Tablet,Delayed Release (Dr/Ec) 1 tab PO DAILY Xarelto 20 mg tablet 20 mg PO QPM Hold Instructions: Do not restart until recommended by your physician PreserVision AREDS-2 250-90-40-1 mg Capsule 1 tab PO DAILY Senna Plus 8.6-50 mg Capsule 2 tab-cap PO BID sodium chloride 5 % Drops 1 drp OPHTHALMIC (EYE) BID sertraline 50 mg tablet 50 mg PO DAILY Preparation H 0.25-14-74.9 % Ointment 1 applic ME TID PRN (Reason: Pain/Irritation) pantoprazole 40 mg tablet,delayed release (DR/EC) 40 mg PO BID Qty: 60 0RF sucralfate 1 gram tablet 1 g PO ACHS Referrals Referrals: Conner Elias [Primary Care Provider] - Discharge Problem: Anemia Qualifiers: Anemia type: unspecified type Qualified Code(s): D64.9 - Anemia, unspecified
[2023-11-01] MEDS ORDERED: SODIUM CHLORIDE 0.9% 250 ML IV PRN (13:03)
[2023-11-01 13:27] LABS: Alanine Aminotransferase 8 U/L (7-52); Albumin Globulin Ratio 1.1 (0.9-2); Albumin Level 3.7 gm/dl (3.4-5.0); Alkaline Phosphatase 46 U/L (34-104); Anion Gap 5 (3-11); Aspartate Aminotransferase 16 U/L (13-39); Bilirubin,Total 0.3 mg/dl (0.2-1.0); Blood Urea Nitrogen 28 mg/dl (6-23); Carbon Dioxide 29 mmol/L (21-32); Chloride 104 mmol/L (98-107); Est GFR (African American) 67.1 ml/min; Est GFR (Non-African American) 57.9 ml/min; Globulin 3.3 gm/dl (2.5-4.0); Glucose 98 mg/dl (70-99(Fasting)); Potassium 4.8 mmol/L (3.5-5.1); Sodium 138 mmol/L (136-145)
[2023-11-01 13:28] LABS: Troponin I High Sensitivity 2.9 pg/ml (0-20)
[2023-11-01 13:47] LABS: Hematocrit (blood only) 20.6 % (42.0-52.0); Hemoglobin 6.2 g/dl (14.0-18.0); Mean Corpuscular Hemoglobin 27.2 pg (25.0-34.0); Mean Corpuscular Hgb Conc 30.1 g/dL (32.0-36.0); Mean Corpuscular Volume 90.4 fL (80.0-100.0); Mean Platelet Volume 11.2 fL (9.4-12.4); Platelet Count 220 K/uL (130-400); RDW Coefficient of Variation 14.6 % (11.5-14.5); RDW Standard Deviation 47.5 fL (36.4-46.3); Red Blood Count 2.28 M/uL (4.70-6.10); White Blood Count 5.94 K/ul (4.8-10.8)
[2023-11-01 14:01] LABS: Partial Thromboplastin Ratio 0.9; Partial Thromboplastin Time 25 Seconds (21-31)
[2023-11-01] MEDS: PANTOprazole 80 MG in DEXTROSE 5% 100 ML IV ONE (14:01)
[2023-11-01] MEDS: FAMOTIDINE 20MG IV PUSH 20 MG/5 ML SYR IV STA (14:01)
--- NOTE | 2023-11-01 14:03 | XRay Report ---
XR chest 1V portable CLINICAL HISTORY: UGIB TECHNIQUE: Single frontal radiograph of the chest was obtained. Comparison: Comparison is made to chest radiograph 09/17/2023 FINDINGS: No lines and tubes are seen. Cardiomegaly is noted. The aortic arch is calcified. Prominent hiatal he rnia is seen. The lungs are clear. No evidence of pleural effusion or pneumothorax. IMPRESSION: No acute chest disease. Prominent hiatal hernia again noted. Stable cardiomegaly. ACT 112: Negative or not required by law. Electronically signed by: Carlitos Borden M.D. 11/01/2023 2:01 PM
--- NOTE | 2023-11-01 14:08 | History & Physical Report ---
Date of Service November 01, 2023 Assessment & Plan (1) Acute upper gastrointestinal bleeding: (2) Acute blood loss anemia: (3) History of pulmonary embolism: (4) Ischemic stroke: (5) History of seizure: (6) Bipolar 1 disorder: (7) BPH (benign prostatic hyperplasia): (8) Anxiety and depression: (9) Hypothyroidism: Plan: This is an 88yo M from [facility] with a PMH of PAF and history of DVT/PE anticoagulated with Xarelto, HTN, chronic sinus bradycardia, history of CVA, history of cerebral aneurysm clipping, hyperlipidemia, history of MGUS, chronic anemia, anxiety/mood disorder, BPH, past tobacco abuse and cognitive impairment who presents to ED from [facility] for reports of rectal bleeding over the past week. Melena Acute blood loss anemia Hgb 6. 2/ hct 20.6% Abd/pelvis CTA with : 1. No acute abnormalities and in particular no evidence of active extravasation into the chest or intestinal tract. 2. Large hiatal hernia. 3. Diverticulosis without diverticulitis Recent admission with possible bleed, hgb 8-9, no endoscopic eval at that time Consented, type & crossed, transfused 2 units prbcs Repeat H&H pending Continue Protonix drip GI service consulted, NPO @ [place] Considered K centra but given hemodynamic stability, no indication at this time Hold Xarelto History of PE Paroxysmal A fib Hold Xarelto Hypertension Stable. Continue amlodipine History of CVA History of cerebral aneurysm clipping Hyperlipidemia Continue statin Anxiety/mood disorder Stable. Continue Zoloft, Seroquel, PRN ativan past tobacco abuse DVT Ppx: SCDs for now Code status: DNR/DNI PCP: Rufina Dispo: Admitted to PCU Patient seen in collaboration with Dr. Bella. Please see addendum. I spent a total of 75 minutes coordinating, documenting, and providing care for this patient excluding time spent in the performance of separately billed services. History of Present Illness Chief Complaint: GI bleed Primary Care Provider: [facility] This is an 88yo M from [facility] with a PMH of PAF and history of DVT/PE anticoagulated with Xarelto, HTN, chronic sinus bradycardia, history of CVA, history of cerebral aneurysm clipping, hyperlipidemia, history of MGUS, chronic anemia, anxiety/mood disorder, BPH, past tobacco abuse and cognitive impairment who presents to ED from [facility] for reports of rectal bleeding over the past week. Patient endorsing bright red blood per rectum intermittently at the beginning of the week with straining. Struggles with constipation at baseline. Over the past 3 days, states blood per rectum has been darker but has only totaled to 3 episodes. Using the bedpan during interview. Endorses fatigue and mild diffuse abdominal discomfort but not pain. No F/C, lightheadedness, CP, SOB, N/V, dysuria. In ED, found to have hemoglobin of 6.2. Consented, typed and crossed and ordered 2 units PRBCs by ED provider. Allergies Allergy/AdvReac Type Severity Reaction Status Date / Time No Known Allergies Allergy Verified 11/01/23 16:29 Home Medications Medication Instructions Recorded Confirmed Type acetaminophen 325 mg tablet 650 mg PO BID 01/05/23 11/01/23 History (Tylenol) amlodipine 5 mg tablet 5 mg PO DAILY 01/05/23 11/01/23 History amoxicillin 500 mg capsule 2,000 mg PO UD 01/05/23 11/01/23 History ascorbic acid (vitamin C) 1,000 mg 1 g PO DAILY 01/05/23 11/01/23 History tablet (Vitamin C) calcium carbonate (Calcium 600) 600 mg PO DAILY 01/05/23 11/01/23 History cholecalciferol (vitamin D3) 25 25 mcg PO DAILY 01/05/23 11/01/23 History mcg (1,000 unit) tablet (Vitamin D3) cyanocobalamin (vitamin B-12) 500 500 mcg PO DAILY 01/05/23 11/01/23 History mcg tablet (Vitamin B-12) docusate sodium 100 mg capsule 100 mg PO BID 01/05/23 11/01/23 History doxazosin 4 mg tablet 4 mg PO DAILY 01/05/23 11/01/23 History ferrous sulfate 325 mg (65 mg 325 mg PO TID 01/05/23 11/01/23 History iron) tablet finasteride 5 mg tablet 5 mg PO QAM 01/05/23 11/01/23 History levothyroxine 25 mcg tablet 25 mcg PO DAILY 01/05/23 11/01/23 History loperamide 2 mg capsule 2 mg PO Q4H PRN Diarrhea 01/05/23 11/01/23 History lorazepam 0.5 mg tablet 0.5 mg PO TID PRN Anxiety 01/05/23 11/01/23 History quetiapine 50 mg tablet 50 mg PO HS 01/05/23 11/01/23 History rivaroxaban 20 mg tablet (Xarelto) 20 mg PO QPM 01/05/23 11/01/23 History sennosides 8.6 mg-docusate sodium 2 tab-cap PO BID 01/05/23 11/01/23 History 50 mg capsule (Senna Plus) sertraline 100 mg tablet 100 mg PO DAILY 01/05/23 11/01/23 History simvastatin 40 mg tablet 40 mg PO QPM 01/05/23 11/01/23 History tramadol 50 mg tablet 50 mg PO Q6H PRN Pain 01/05/23 11/01/23 History vit C 250 mg-vit E 90 mg-zinc 40 1 tab PO BID 01/05/23 11/01/23 History mg-copper 1 [id number] capsule (PreserVision AREDS-2) sucralfate 1 gram tablet 1 g PO ACHS 06/18/23 11/01/23 History sertraline 50 mg tablet 50 mg PO DAILY 09/14/23 11/01/23 History pantoprazole 40 mg tablet,delayed 40 mg PO BID #60 tabs 09/20/23 11/01/23 Rx release sodium chloride 5 % eye drops 1 drp OPB BID 11/01/23 11/01/23 History (Mik 128) vit C 250 mg-vit E 90 mg-zinc 40 1 tab PO BID 11/01/23 11/01/23 History mg-copper 1 [id number] capsule (PreserVision AREDS-2) Past Med/Surg History Problem List (Updated 11/01/23 @ 16:47 by Paola Almeida PA-C) Acute blood loss anemia Weakness (Acute) Anemia (Acute) Acute upper gastrointestinal bleeding (Acute) Hypoxia (Acute) Symptomatic anemia Acute GI bleeding Anemia (Acute) Acute lower GI bleeding (Acute) Cellulitis of right leg (Acute) Anxiety and depression Hiatal hernia History of ischemic stroke History of seizure Epistaxis History of pulmonary embolism Ischemic stroke Vitamin D deficiency Bipolar 1 disorder Dysphagia Encounter for monitoring anticonvulsant therapy History of cerebral aneurysm repair BPH (benign prostatic hyperplasia) Anemia Reactive airway disease Hypothyroidism Dental abscess HTN (hypertension), benign History of pulmonary embolism Acute CVA (cerebrovascular accident) Facial droop (Acute) Ataxia (Acute) Dysarthria (Acute) Multiple falls (Acute) Hyperlipidemia (Chronic) Pulmonary embolism Medical History (Updated 11/01/23 @ 16:47 by Paola Almeida PA-C) Seizure Hx of pulmonary embolus Surgical History History of brain surgery Family History Family/Other No pertinent family history Social History Smoking Status: Former smoker Tobacco Type: Cigarettes packs per day: 1; Cigarettes Per Day: 28; Second Hand Exposure: No; Do You Dip or Chew Tobacco: No; Tobacco Cessation Education Requested by Patient: No Hx Alcohol Use: No Hx Substance Use: No Preferred Language: Turkish Communication Ability: Effective 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 Physical Exam 2 Physical Exam: General Appearance: WD/WN, vitals as above, NAD, sitting up in bed, pleasant, conversing easily Head: normocephalic, atraumatic Eyes: normal inspection, PERRL, conjunctivae normal, anicteric sclerae ENT: external ear and nose normal, oropharynx normal Neck: normal visual inspection, trachea midline, no thyromegaly Respiratory: normal respiratory effort, lungs clear to auscultation, no wheeze, rales, rhonchi. No accessory muscle use Cardiovascular: regular rate, rhythm, + systolic murmur, normal peripheral pulses, no BLE edema Chest: normal inspection of chest Abdomen/GI: normal bowel sounds, soft, nontender, no hepatosplenomegaly Extremities/Musculoskeletal: no cyanosis or clubbing, extremities motor strength 5/5 Neurologic: PERRL, EOMI, accommodation nl, no face palsy, no dysarthria, CN's II-XI intact bilaterally and moves all extremities Psychiatric: A+Ox3, poor insight, euthymic affect Skin: no rashes, + pale , warm/dry Results & Data Results & Data Vital Signs (Past 12 Hours) Vital Signs Temp Pulse Resp BP Pulse Ox O2 Del Method 11/01/23 13:52 36.8 C 65 27 H 147/63 H 99 11/01/23 13:20 57 L 11/01/23 13:20 18 98 Room Air 11/01/23 12:12 36.4 C L 68 20 133/52 L 94 Room Air Laboratory Results Short CBC 11/01/23 Range/Units 12:30 WBC 5.94 (4.8-10.8) K/ul Hgb 6.2 L* (14.0-18.0) g/dl Hct 20.6 L* (42.0-52.0) % Plt Count 220 (130-400) K/uL BMP 11/01/23 12:30 Sodium 138 Potassium 4.8 Chloride 104 Carbon Dioxide 29 BUN 28 H Creatinine 1.12 Glucose 98 Calcium 9.0 Liver Function 11/01/23 Range/Units 12:30 Total Bilirubin 0.3 (0.2-1.0) mg/dl AST 16 (13-39) U/L ALT 8 (7-52) U/L Alkaline Phosphatase 46 (34-104) U/L Albumin 3.7 (3.4-5.0) gm/dl Diagnostic Findings Chest X-Ray 11/01/23 13:36 XR chest 1V portable CLINICAL HISTORY: UGIB TECHNIQUE: Single frontal radiograph of the chest was obtained. Comparison: Comparison is made to chest radiograph 09/17/2023 FINDINGS: No lines and tubes are seen. Cardiomegaly is noted. The aortic arch is calcified. Prominent hiatal hernia is seen. The lungs are clear. No evidence of pleural effusion or pneumothorax. IMPRESSION: No acute chest disease. Prominent hiatal hernia again noted. Stable cardiomegaly. ACT 112: Negative or not required by law. Electronically signed by: Carlitos Borden M.D. 11/01/2023 2:01 PM KUB X-Ray 11/01/23 13:36 KUB HISTORY: Upper GI bleed. COMPARISON: KUB 02/01/2023. FINDINGS: The images are mislabeled/flipped. This was corrected by the radiologist. Levoscoliosis and degenerative changes again noted. Moderate fecal retention. No dilated loops of bowel to suggest an obstruction. There is a partially visualized large hiatus hernia again noted. No renal calculi. No ureteral calculi. No pneumoperitoneum or pneumatosis. IMPRESSION: 1. Nonobstructive bowel gas pattern. 2. Moderate fecal retention. 3. Large hiatus hernia again noted. ACT 112: Negative or not required by law. Electronically signed by: Antoni Salguero M.D. 11/01/2023 3:01 PM Supervising Physician Co-Signing Physician Notes Patient was seen and examined independently at bedside. Chart reviewed. Case discussed with Paola Almeida PA-C and agree with the documentation above. In summary, this is a 88 year old male with h/o DVT/PE and Afib on xarelto, who presented to the ED with GI bleeding and found to have Hb of 6.2. Hb on lower end during recent admission and seen by GI but no endoscopic procedures done. Patient states he has constipation and hard to defecate and has blood in the toilet paper but denies any large amount of bleeding. Denies any CP, SOB, dizziness. No N/V, fever. Also on iron. He is hemodynamically stable, AAO, non toxic and is being transfused 2 units of PRBC and protonix drip. Continue protonix drip, trend H and H, transfuse as indicated, hold xarelto, GI consult for endoscopic evaluation. No indication for reversal of anticoagulation at this point. Rest as per the note above
[2023-11-01] MEDS: PANTOPRAZOLE BOLUS/DRIP IV STA (14:21)
[2023-11-01] MEDS: PANTOprazole 40 MG in DEXTROSE 5% MINI-B 100 ML IV SCH (14:21)
--- NOTE | 2023-11-01 15:03 | XRay Report ---
KUB HISTORY: Upper GI bleed. COMPARISON: KUB 02/01/2023. FINDINGS: The images are mislabeled/flipped. This was corrected by the radiologist. Levoscoliosis and degenerative changes again noted. Moderate fecal retention. No dilated loops of bowel to suggest an obstruction. There is a partially visualized large hiatus hernia again noted. No renal calculi. No ur eteral calculi. No pneumoperitoneum or pneumatosis. IMPRESSION: 1. Nonobstructive bowel gas pattern. 2. Moderate fecal retention. 3. Large hiatus hernia again noted. ACT 112: Negative or not required by law. Electronically signed by: Antoni Salguero M.D. 11/01/2023 3:01 PM
[2023-11-01] MEDS ORDERED: ACETAMINOPHEN 325 MG TAB PO PRN (17:15)
[2023-11-01] MEDS ORDERED: ONDANSETRON INJ 2 MG/ML 2 ML VIAL IV PRN (17:15)
[2023-11-01] MEDS: OPTIRAY 320 125ml IV ONE (17:33)
[2023-11-01] MEDS ORDERED: LORazepam 0.5 MG TAB PO PRN (18:01)
--- NOTE | 2023-11-01 18:13 | CT Scan Report ---
CT angio abd pelvis wo/w con CLINICAL HISTORY: Upper gastrointestinal bleed TECHNIQUE: Multidetector row helical CT of the abdomen and pelvis was performed, following intravenou s administration of iodinated contrast. No oral contrast was administered. Automated dose lowering te chniques and/or adjustment according to patient size were utilized for this exam. Coronal and sagitta l reformations were obtained. MIP and 3D volume rendered reconstructions were obtained. CT DOSE: 1555.69 mGy.cm Comparison: Comparison is made to CT pelvis 02/01/2023 FINDINGS: Lower chest: Atelectasis is seen. Eventration of the bilateral hemidiaphragms noted. Liver: Unremarkable. No focal lesions are seen. Gallbladder and biliary tree: No calcified gallstones. Normal caliber wall. No intra- or extrahepatic biliary ductal dilation. Pancreas: Unremarkable, no focal lesions. Spleen: Unremarkable. Adrenals: Unremarkable. Kidneys and ureters: Unremarkable. Bladder: Unremarkable. Reproductive organs: Unremarkable. Bowel: Diverticulosis is seen without evidence of diverticulitis. Large hiatal hernia is seen includi ng the stomach and multiple loops of large bowel. Lymph nodes Retroperitoneal: Unremarkable. Pelvic: Unremarkable. Mesenteric: Unremarkable. Peritoneum: Normal. Abdominal wall: Bowel containing right femoral hernia is seen. Bones: Degenerative changes in the visualized spine. CT angiogram: The abdominal aortic contours appear intact without evidence of aneurysmal dilatation a nd/or dissection. There is evidence of scattered atherosclerotic calcifications of the abdominal aor ta and its major branches. Incidental note is cavernous transformation of the left femoral vein with early enhancement, possibly reflecting an AVM. The origins of the celiac axis, superior mesenteric, inferior mesenteric and bilateral renal arteries are patent. IMPRESSION: 1. No acute abnormalities and in particular no evidence of active extravasation into the chest or in testinal tract. 2. Large hiatal hernia. 3. Diverticulosis without diverticulitis. 4. Additional findings as above. ACT 112: Negative or not required by law. Electronically signed by: Carlitos Borden M.D. 11/01/2023 6:11 PM
[2023-11-01] MEDS: DOCUSATE SODIUM 100 MG CAP PO SCH (20:14)
[2023-11-01] MEDS: QUEtiapine FUMARATE 25 MG TABLET PO SCH (20:15)
[2023-11-01] MEDS: SIMVASTATIN 40 MG TAB PO SCH (20:15)
[2023-11-01] MEDS: SODIUM CHLORIDE 5% OP SOLN 15 ML BTL OPB SCH (20:16)
--- NOTE | 2023-11-01 22:20 | Electrocardiogram Report ---
Test Reason : Blood Pressure : / mmHG Vent. Rate : 065 BPM Atrial Rate : 065 BPM P-R Int : 176 ms QRS Dur : 094 ms QT Int : 402 ms P-R-T Axes : -05 057 062 degrees QTc Int : 418 ms Poor data quality, interpretation may be adversely affected Normal sinus rhythm Anteroseptal infarct (cited on or before 01-NOV-2023) Abnormal ECG When compared with ECG of 13-SEP-2023 20:12, No significant change was found Confirmed by Anthony Burgos ([id number]) on 11/01/2023 10:19:44 PM [facility] Confirmed By:Anthony Burgos
[2023-11-01 23:09] LABS: Hematocrit (blood only) 26.9 % (42.0-52.0); Hemoglobin 8.8 g/dl (14.0-18.0)
[2023-11-02 03:30] LABS: Hematocrit (blood only) 25.5 % (42.0-52.0); Hemoglobin 8.4 g/dl (14.0-18.0); Mean Corpuscular Hemoglobin 29.7 pg (25.0-34.0); Mean Corpuscular Hgb Conc 32.9 g/dL (32.0-36.0); Mean Corpuscular Volume 90.1 fL (80.0-100.0); Mean Platelet Volume 10.5 fL (9.4-12.4); Platelet Count 195 K/uL (130-400); RDW Coefficient of Variation 14.3 % (11.5-14.5); RDW Standard Deviation 46.1 fL (36.4-46.3); Red Blood Count 2.83 M/uL (4.70-6.10); White Blood Count 5.89 K/ul (4.8-10.8)
[2023-11-02 03:48] LABS: Albumin Globulin Ratio 1.1 (0.9-2); Albumin Level 3.2 gm/dl (3.4-5.0); BUN Creatinine Ratio 17.5 (10-20); Calcium 8.4 mg/dl (8.6-10.3); Creatinine Clr Calc Pharmacy 53.7 ml/min; Est GFR (African American) 79.9 ml/min; Est GFR (Non-African American) 68.9 ml/min; Potassium 4.3 mmol/L (3.5-5.1); Total Protein 6.2 gm/dl (6.0-8.3)
[2023-11-02] MEDS: SERTRALINE HCL 100 MG TABLET PO SCH (08:05)
--- NOTE | 2023-11-02 08:33 | Hospitalist Progress Note ---
Date of Service November 02, 2023 Assessment & Plan (1) Acute upper gastrointestinal bleeding: (2) Acute blood loss anemia: (3) History of pulmonary embolism: (4) Ischemic stroke: (5) History of seizure: (6) Bipolar 1 disorder: (7) BPH (benign prostatic hyperplasia): (8) Anxiety and depression: (9) Hypothyroidism: Plan: This is an 88yo M from [facility] with a PMH of PAF and history of DVT/PE anticoagulated with Xarelto, HTN, chronic sinus bradycardia, history of CVA, history of cerebral aneurysm clipping, hyperlipidemia, history of MGUS, chronic anemia, anxiety/mood disorder, BPH, past tobacco abuse and cognitive impairment who presents to ED from [facility] for reports of rectal bleeding over the past week. Melena Acute blood loss anemia status post 2 units of packed RBC transfusion Hgb 6. 2/ hct 20.6% on presentation Abd/pelvis CTA with : 1. No acute abnormalities and in particular no evidence of active extravasation into the chest or intestinal tract. 2. Large hiatal hernia. 3. Diverticulosis without diverticulitis Recent admission with possible bleed, hgb 8-9, no endoscopic eval at that time Endoscopy done on 11/02/2023- examined esophagus was modertaly tortuous; large hiatal hernia, duodenum normal on Protonix BID hold Xarelto appreciate further GI input History of PE Paroxysmal A fib EKG on admission personally reviewed; normal sinus rhythm; QTc of 418 Hold Xarelto Monitor on telemetry Hypertension Stable. Continue amlodipine History of CVA History of cerebral aneurysm clipping Hyperlipidemia Continue statin Anxiety/mood disorder Stable. Continue Zoloft, Seroquel, PRN ativan past tobacco abuse DVT Ppx: SCDs for now Code status: DNR/DNI PCP: Rufina Dispo: Admitted to PCU Time spent evaluating patient, direct bedside care, chart review, placing orders, interpretation of diagnostic studies, discussion with consultants, patient, and family members, as well as other required patient management activities is 50 minutes Please note the above document was generated using voice recognition software. It may contain grammatical, syntax or spelling errors. Any formal questions or concerns about the content, text or information contained within the body of this dictation should be directly addressed to the provider for clarification Admission and Anticipated Discharge Date Admission Date: November 01, 2023 Subjective Patient seen and examined at bedside. Comfortable; not in distress. Denies fever, chills, chest pain, shortness of breath, abdominal pain or urinary symptoms. No significant overnight events Review of Systems Review of Systems: All systems reviewed & are unremarkable except as noted in Subjective Physical Exam Physical Exam: General Appearance: WD/WN, vitals as above, NAD, sitting up in bed, pleasant, conversing easily Neck: normal visual inspection, trachea midline, no thyromegaly Respiratory: normal respiratory effort, lungs clear to auscultation, no wheeze, rales, rhonchi. No accessory muscle use Cardiovascular: regular rate, rhythm, + systolic murmur, normal peripheral pulses, no BLE edema Chest: normal inspection of chest Abdomen/GI: normal bowel sounds, soft, nontender, no hepatosplenomegaly Extremities/Musculoskeletal: no cyanosis or clubbing, extremities motor strength 5/5 Neurologic: PERRL, EOMI, accommodation nl, no face palsy, no dysarthria, CN's II-XI intact bilaterally and moves all extremities Skin: no rashes, + pale , warm/dry Results & Data Results & Data Vital Signs (Past 12 Hours) Vital Signs Temp Pulse Pulse Resp BP BP Pulse Ox 11/02/23 07:32 36.8 C 57 L 16 140/62 96 11/02/23 04:04 37.0 C 55 L 18 129/49 L 97 11/01/23 22:53 37.4 C 51 L 18 159/67 H 99 11/01/23 22:02 57 L 11/01/23 21:40 36.6 C 55 L 16 155/78 H 97 O2 Del Method O2 Flow Rate 11/02/23 07:32 Nasal Cannula 2 11/02/23 04:04 Nasal Cannula 2.0 11/01/23 22:53 Nasal Cannula 2.0 11/01/23 22:02 11/01/23 21:40 2
[2023-11-02] MEDS ORDERED: SERTRALINE HCL 50 MG TABLET PO SCH (09:00)
--- NOTE | 2023-11-02 09:29 | Gastrointestinal Consultation ---
<Statement entered by Chiqui Ribera MD - 11/02/23 11:58> I have examined the patient, reviewed the History & Physical and in the interval since the performance of the History & Physical I have noted the following changes of clinical significance: no changes noted. I agree with the documentation provided by AKANKSHA Coffman with no additional comments. Date of Consultation November 02, 2023 Assessment & Plan (1) Acute blood loss anemia: -Continue IV Protonix gtt for now -Continue to monitor H/H -Keep NPO -Proceed with EGD today for evaluation of anemia/melena History of Present Illness Reason for Consultation: Melena, anemia Attending Physician: Ghassan Sauceda MD History of Present Illness Patient is an 88 yo male from [facility]. He has a history of paroxysmal A fib, DVT/PE on Xarelto, HTN, chronic sinus bradycardia, CVA history, cerebral aneurysm clipping, HLD, MGUS, chronic anemia, anxiety, BPH & tobacco use in the past. He was brought to the ED with reports of melena & bright red blood per rectum over the past days. He was noted to have a hemoglobin of 6.2 in the ED. He was transfused 2 units PRBCs and H/H is now presently 8.4/25.5. In ED, found to have hemoglobin of 6.2. Consented, typed and crossed and ordered 2 units PRBCs by ED provider. He has a history of gastritis & esophagitis last noted on EGD in December 2022. He also has a large hiatal hernia. He was recently admitted but was not fit for endoscopic evaluation at that time and was instead advised to take Protonix 40 mg BID & Carafate 1 gm QID. He denies abdominal pain and endorses fatigue. CTA in the ED was as follows: IMPRESSION: 1. No acute abnormalities and in particular no evidence of active extravasation into the chest or intestinal tract. 2. Large hiatal hernia. 3. Diverticulosis without diverticulitis. 4. Additional findings as above. Allergies Allergy/AdvReac Type Severity Reaction Status Date / Time No Known Allergies Allergy Verified 11/01/23 16:29 Home Medications Medication Instructions Recorded Confirmed Type acetaminophen 325 mg tablet 650 mg PO BID 01/05/23 11/01/23 History (Tylenol) amlodipine 5 mg tablet 5 mg PO DAILY 01/05/23 11/01/23 History amoxicillin 500 mg capsule 2,000 mg PO UD 01/05/23 11/01/23 History ascorbic acid (vitamin C) 1,000 mg 1 g PO DAILY 01/05/23 11/01/23 History tablet (Vitamin C) calcium carbonate (Calcium 600) 600 mg PO DAILY 01/05/23 11/01/23 History cholecalciferol (vitamin D3) 25 25 mcg PO DAILY 01/05/23 11/01/23 History mcg (1,000 unit) tablet (Vitamin D3) cyanocobalamin (vitamin B-12) 500 500 mcg PO DAILY 01/05/23 11/01/23 History mcg tablet (Vitamin B-12) docusate sodium 100 mg capsule 100 mg PO BID 01/05/23 11/01/23 History doxazosin 4 mg tablet 4 mg PO DAILY 01/05/23 11/01/23 History ferrous sulfate 325 mg (65 mg 325 mg PO TID 01/05/23 11/01/23 History iron) tablet finasteride 5 mg tablet 5 mg PO QAM 01/05/23 11/01/23 History levothyroxine 25 mcg tablet 25 mcg PO DAILY 01/05/23 11/01/23 History loperamide 2 mg capsule 2 mg PO Q4H PRN Diarrhea 01/05/23 11/01/23 History lorazepam 0.5 mg tablet 0.5 mg PO TID PRN Anxiety 01/05/23 11/01/23 History quetiapine 50 mg tablet 50 mg PO HS 01/05/23 11/01/23 History rivaroxaban 20 mg tablet (Xarelto) 20 mg PO QPM 01/05/23 11/01/23 History sennosides 8.6 mg-docusate sodium 2 tab-cap PO BID 01/05/23 11/01/23 History 50 mg capsule (Senna Plus) sertraline 100 mg tablet 100 mg PO DAILY 01/05/23 11/01/23 History simvastatin 40 mg tablet 40 mg PO QPM 01/05/23 11/01/23 History tramadol 50 mg tablet 50 mg PO Q6H PRN Pain 01/05/23 11/01/23 History vit C 250 mg-vit E 90 mg-zinc 40 1 tab PO BID 01/05/23 11/01/23 History mg-copper 1 zj-ehhlas-rghopt capsule (PreserVision AREDS-2) sucralfate 1 gram tablet 1 g PO ACHS 06/18/23 11/01/23 History sertraline 50 mg tablet 50 mg PO DAILY 09/14/23 11/01/23 History pantoprazole 40 mg tablet,delayed 40 mg PO BID #60 tabs 09/20/23 11/01/23 Rx release sodium chloride 5 % eye drops 1 drp OPB BID 11/01/23 11/01/23 History (Mik 128) vit C 250 mg-vit E 90 mg-zinc 40 1 tab PO BID 11/01/23 11/01/23 History mg-copper 1 or-darbyi-tusoov capsule (PreserVision AREDS-2) Patient History Medical History (Updated 11/01/23 @ 16:47 by Paola Almeida PA-C) Seizure Hx of pulmonary embolus Surgical History History of brain surgery Family History Family/Other No pertinent family history Social History Smoking Status: Former smoker Tobacco Type: Cigarettes packs per day: 1; Cigarettes Per Day: 28; Second Hand Exposure: No; Do You Dip or Chew Tobacco: No; Tobacco Cessation Education Requested by Patient: No Hx Alcohol Use: No Hx Substance Use: No Preferred Language: Lao Communication Ability: Effective Clip On Sunglasses Assembler Required: No Beliefs That Will Affect Care: None marital status: Single Current Living Situation: Retirement Current Living Situation Comment: [facility] Other Information That Helps Us Care for You: No Feels Safe at Home: Yes Safety Concerns: Feels Safe At This Time Assistive Devices: Wheelchair Review of Systems Constitutional: + fatigue Respiratory: no cough and no dyspnea Cardiovascular: no chest pain Gastrointestinal: + blood in stools and + melena; no abdom inal pain Physical Exam Constitutional: well developed Respiratory: normal respiratory effort Cardiovascular: Rate/Rhythm: + bradycardic Gastrointestinal (Abdomen): normal bowel sounds, soft, nontender, no hepatosplenomegaly Results & Data Vital Signs (Past 12 Hours) Vital Signs Temp Pulse Pulse Resp BP BP Pulse Ox 11/02/23 07:32 36.8 C 57 L 16 140/62 96 11/02/23 04:04 37.0 C 55 L 18 129/49 L 97 11/01/23 22:53 37.4 C 51 L 18 159/67 H 99 11/01/23 22:02 57 L 11/01/23 21:40 36.6 C 55 L 16 155/78 H 97 O2 Del Method O2 Flow Rate 11/02/23 07:32 Nasal Cannula 2 11/02/23 04:04 Nasal Cannula 2.0 11/01/23 22:53 Nasal Cannula 2.0 11/01/23 22:02 11/01/23 21:40 2 PG Care Time/CCT Total # of Minutes Spent Total Time Spent with Patient: Total time spent is greater than 50% in coordination of care (as documented) at patient's floor/unit and/or counseling patient: Coding Level of Care Code 94361 INT INP/OBS CARE 3/75MIN Diagnoses Acute blood loss anemia D62
[2023-11-02] MEDS: ACETAMINOPHEN 1,000 MG/100 ML VIAL IV STA (09:48)
[2023-11-02] MEDS: MUPIROCIN 2% OINT 22 GM TUBE EXT SCH (10:05)
--- NOTE | 2023-11-02 11:28 | Anesthesiology Consultation ---
Date of Service November 02, 2023 Assessment & Plan Chart Review Chart Review: Acceptable Risk for Surgery and Patient NOT seen in Pre Admission Testing Consults Requested none ASA ASA4 Proposed Anesthesia Anesthesia Type: MAC Risk / Benefits Reviewed With: PT / POA / Parent / Guardian, Accepts Plan and Informed Consent Obtained History Surgery Operation Date: 11/02/23 16:45 Proposed Procedures p Esophagogastroduodenoscopy Mounika - Chiqui Ribera MD Height/Weight Height: 5 ft 11 in Weight: 70 kg Allergies Allergy/AdvReac Type Severity Reaction Status Date / Time No Known Allergies Allergy Verified 11/02/23 11:12 Medications Home Medications Medication Instructions Recorded Confirmed Last Taken acetaminophen 325 mg tablet 650 mg PO BID 01/05/23 11/01/23 Unknown (Tylenol) amlodipine 5 mg tablet 5 mg PO DAILY 01/05/23 11/01/23 Unknown amoxicillin 500 mg capsule 2,000 mg PO UD 01/05/23 11/01/23 Unknown ascorbic acid (vitamin C) 1,000 mg 1 g PO DAILY 01/05/23 11/01/23 Unknown tablet (Vitamin C) calcium carbonate (Calcium 600) 600 mg PO DAILY 01/05/23 11/01/23 Unknown cholecalciferol (vitamin D3) 25 25 mcg PO DAILY 01/05/23 11/01/23 Unknown mcg (1,000 unit) tablet (Vitamin D3) cyanocobalamin (vitamin B-12) 500 500 mcg PO DAILY 01/05/23 11/01/23 Unknown mcg tablet (Vitamin B-12) docusate sodium 100 mg capsule 100 mg PO BID 01/05/23 11/01/23 Unknown doxazosin 4 mg tablet 4 mg PO DAILY 01/05/23 11/01/23 Unknown ferrous sulfate 325 mg (65 mg 325 mg PO TID 01/05/23 11/01/23 Unknown iron) tablet finasteride 5 mg tablet 5 mg PO QAM 01/05/23 11/01/23 Unknown levothyroxine 25 mcg tablet 25 mcg PO DAILY 01/05/23 11/01/23 Unknown loperamide 2 mg capsule 2 mg PO Q4H PRN Diarrhea 01/05/23 11/01/23 Unknown lorazepam 0.5 mg tablet 0.5 mg PO TID PRN Anxiety 01/05/23 11/01/23 Unknown quetiapine 50 mg tablet 50 mg PO HS 01/05/23 11/01/23 Unknown rivaroxaban 20 mg tablet (Xarelto) 20 mg PO QPM 01/05/23 11/01/23 Unknown sennosides 8.6 mg-docusate sodium 2 tab-cap PO BID 01/05/23 11/01/23 Unknown 50 mg capsule (Senna Plus) sertraline 100 mg tablet 100 mg PO DAILY 01/05/23 11/01/23 Unknown simvastatin 40 mg tablet 40 mg PO QPM 01/05/23 11/01/23 Unknown tramadol 50 mg tablet 50 mg PO Q6H PRN Pain 01/05/23 11/01/23 Unknown vit C 250 mg-vit E 90 mg-zinc 40 1 tab PO BID 01/05/23 11/01/23 Unknown mg-copper 1 xj-evzsbc-xkzslp capsule (PreserVision AREDS-2) sucralfate 1 gram tablet 1 g PO ACHS 06/18/23 11/01/23 Unknown sertraline 50 mg tablet 50 mg PO DAILY 09/14/23 11/01/23 Unknown pantoprazole 40 mg tablet,delayed 40 mg PO BID #60 tabs 09/20/23 11/01/23 Unknown release sodium chloride 5 % eye drops 1 drp OPB BID 11/01/23 11/01/23 Unknown (Mik 128) vit C 250 mg-vit E 90 mg-zinc 40 1 tab PO BID 11/01/23 11/01/23 Unknown mg-copper 1 zr-wyqwck-[id number] capsule (PreserVision AREDS-2) Active Medications Generic Name Dose Route Start Last Admin Trade Name Glo PRN Reason Stop Dose Admin Docusate Sodium 100 mg 11/01/23 21:00 11/02/23 08:05 Docusate Sodium 100 Mg Cap PO 12/01/23 20:59 Not Given BID TONIE Pantoprazole Sodium 40 mg/ 100 mls @ 20 mls/hr 11/01/23 14:00 11/02/23 10:09 Dextrose IV 12/01/23 13:59 8 mg/hr Q5H TONIE 20 mls/hr Administration 8 MG/HR Mupirocin 1 appln 11/02/23 09:00 11/02/23 10:05 Mupirocin 2% Oint 22 Gm Tube EXT 11/07/23 08:59 1 appln BID TONIE Administration Quetiapine Fumarate 50 mg 11/01/23 21:00 11/01/23 20:15 Quetiapine Fumarate 25 Mg Tablet PO 12/01/23 20:59 50 mg HS TONIE Administration Sertraline HCl 150 mg 11/02/23 09:00 11/02/23 08:05 Sertraline Hcl 100 Mg Tablet PO 12/02/23 08:59 Not Given DAILY TONIE Simvastatin 40 mg 11/01/23 21:00 11/01/23 20:15 Simvastatin 40 Mg Tab PO 12/01/23 20:59 40 mg QPM TONIE Administration Sodium Chloride 1 drops 11/01/23 21:00 11/02/23 09:45 Sodium Chloride 5% Op Soln 15 Ml Btl OPB 12/01/23 20:59 1 drops BID TONIE Administration NPO Date Last Intake of Fluids: 11/02/23 Time Last Intake of Fluids: 08:00 Last Intake of Fluids Comment: sips Date Last Intake of Solids: 11/01/23 Time Last Intake of Solids: 12:00 Past Medical History Medical History Seizure Hx of pulmonary embolus Exercise / Class Metabolic Activity IV < 2 Limit ADL/Bedbound Past Family History Family History Family/Other No pertinent family history Past Surgical History Surgical History History of brain surgery Past Anesthesia History No Hx of Anesthesia Complications and No Family Hx of Anesthesia Complications History of PONV No Hx of PONV and No Hx of Motion Sickness Social History Smoking Status: Former smoker Smoking cigarettes per day: 28 Do You Dip or Chew Tobacco: No Hx Alcohol Use: No Hx Substance Use: No substance use type: does not use Review of Systems ROS Unobtainable: All systems reviewed & are unremarkable except as noted in HPI & below Physical Exam Vital Signs Last Vital Signs Temp 36.5 C 11/02/23 11:10 Pulse 54 L 11/02/23 11:10 Resp 16 11/02/23 11:10 BP 144/75 H 11/02/23 11:10 Pulse Ox 96 11/02/23 11:10 O2 Del Method Nasal Cannula 11/02/23 11:10 O2 Flow Rate 2 11/02/23 11:10 ENMT Mouth: no TMJ abnormality Thyromental Distance: > or= 3.5 Finger Breadths Mallampati Class: II Neck normal visual inspection and trachea midline; neck extension not limited Respiratory normal respiratory effort Auscultation: lungs clear to auscultation bilaterally Cardiovascular Rate/Rhythm: regular rate and regular rhythm Heart Sounds: no murmur Musculoskeletal Spine: normal cervical ROM Extremities: full ROM of extremities Neurologic moves all extremities Psychiatric Orientation: alert and oriented x 3 Testing Laboratory Results 11/02/23 02:51 11/02/23 02:51 PT 11.0 Seconds (9.0-12.0) 11/01/23 12:30 INR 1.0 (0.9-1.1) 11/01/23 12:30 APTT 25 Seconds (21-31) 11/01/23 12:30 Blood Type A Positive 11/01/23 12:29 Antibody Screen NEGATIVE 11/01/23 12:29 Electrocardiogram Date: 11/01/23 Normal sinus rhythm Anteroseptal infarct (cited on or before 01-NOV-2023) Abnormal ECG When compared with ECG of 13-SEP-2023 20:12, No significant change was found Confirmed by Anthony Burgos ([id number]) on 11/01/2023 10:19:44 PM Echocardiogram Date: 02/02/23 EF: 65-70 LV Function: normal Valvular Disease: + (mild)
--- NOTE | 2023-11-02 12:31 | GI REPORT ---
[facility] Patient: DAVID MOY : 1935 Sex at : Male Age: 88 Years Procedure: Upper GI endoscopy Date: 11/02/2023 Attending Physician: Chiqui Ribera MD Referring MD: Conner Alvarado Indications: - Suspected upper gastrointestinal bleeding Medications: - Monitored Anesthesia Care Complications: - No immediate complications. Estimated Blood Loss: - Estimated blood loss was minimal. Procedure: - Prior to the procedure, a History and Physical was performed, and patient medications and allergies were reviewed. The patient's tolerance of previous anesthesia was also reviewed. The risks and benefits of the procedure and the sedation options and risks were discussed with the patient. All questions were answered, and informed consent was obtained. Prior Anticoagulants: The patient has taken Xarelto (rivaroxaban), last dose was 1 day prior to procedure. ASA Grade Assessment: IV - A patient with severe systemic disease that is a constant threat to life. After reviewing the risks and benefits, the patient was deemed in satisfactory condition to undergo the procedure. - The egd scope was introduced through the mouth and advanced to the body of the stomach. - The pediatric colonoscope was introduced through the mouth and advanced to the third part of the duodenum. - The patient tolerated the procedure well. - Unable to intubate the pylorus with an upper endoscope due to intra-thoracic stomach. A pediatric colonoscope was used to successfully intubate the pylorus and navigate the duodenum. Findings: - The examined esophagus was moderately tortuous. - A large hiatal hernia was present. The entire stomach was intra-thoracic. - The examined duodenum was normal. Impression: - Tortuous esophagus. - Large hiatal hernia. - Normal examined duodenum. Recommendation: - Resume previous diet. - Continue present medications. Procedure Code(s): - 78876, Esophagogastroduodenoscopy, flexible, transoral; diagnostic, including collection of specimen(s) by brushing or washing, when performed (separate procedure) Diagnosis Code(s): - Q39.9, Congenital malformation of esophagus, unspecified - K44.9, Diaphragmatic hernia without obstruction or gangrene CPT(R) - 2022 copyright [employer]. All Rights Reserved. The CPT codes, CCI edits and ICD codes generated are intended as suggestions and were generated based on input data. These codes are preliminary and upon binder caser review may be revised to meet current compliance and payer requirements. The provider is responsible for the final determination of appropriate codes, and modifiers. Chiqui Ribera MD This document has been electronically signed. Note Initiated:11/02/2023 Note Completed:11/02/2023 12:29 PM [id number]
--- NOTE | 2023-11-02 12:43 | Anesthesiology Progress Note ---
Date of Service November 02, 2023 Anesthesia Post Procedure Vital Signs Vital Signs: Temp Pulse Pulse Pulse Resp BP BP 11/02/23 12:33 60 16 142/77 H 11/02/23 12:20 57 L 16 11/02/23 11:10 36.5 C 54 L 16 11/02/23 10:35 36.4 C L 58 L 19 11/02/23 09:00 11/02/23 07:32 36.8 C 57 L 16 11/02/23 07:05 56 L 11/02/23 04:04 37.0 C 55 L 18 11/01/23 22:53 37.4 C 51 L 18 11/01/23 22:02 57 L 11/01/23 21:40 36.6 C 55 L 16 155/78 H 11/01/23 20:27 36.5 C 54 L 16 178/73 H 11/01/23 20:24 11/01/23 20:24 36.5 C 54 L 18 178/83 H 11/01/23 20:20 66 11/01/23 20:12 36.6 C 59 L 16 169/56 H 11/01/23 19:12 36.5 C 55 L 16 178/73 H 11/01/23 18:42 36.5 C 56 L 16 176/54 H 11/01/23 18:27 36.6 C 76 18 124/84 11/01/23 18:06 55 L 19 11/01/23 18:04 36.9 C 78 18 122/85 11/01/23 18:00 122/85 11/01/23 18:00 122/85 11/01/23 17:57 57 L 23 11/01/23 17:45 36.8 C 67 18 122/85 11/01/23 17:42 172/59 H 11/01/23 17:42 172/59 H 11/01/23 17:24 60 22 11/01/23 17:15 91 H 20 11/01/23 17:15 176/69 H 11/01/23 17:01 158/50 H 11/01/23 17:01 158/50 H 11/01/23 17:00 58 L 21 11/01/23 16:45 165/61 H 11/01/23 16:45 165/61 H 11/01/23 16:45 54 L 17 11/01/23 16:45 36.9 C 57 L 18 135/51 L 11/01/23 16:30 54 L 16 11/01/23 16:30 172/72 H 11/01/23 16:15 182/121 H 11/01/23 16:15 182/121 H 11/01/23 16:15 182/121 H 11/01/23 16:09 63 17 11/01/23 16:00 159/84 H 11/01/23 15:59 36.7 C 71 18 136/86 11/01/23 15:46 161/64 H 11/01/23 15:46 161/64 H 11/01/23 15:42 58 L 18 11/01/23 15:39 57 L 16 11/01/23 15:31 163/51 H 11/01/23 15:31 163/51 H 11/01/23 15:27 56 L 17 11/01/23 15:16 154/61 H 11/01/23 15:16 154/61 H 11/01/23 15:15 67 16 11/01/23 15:06 59 L 17 11/01/23 15:00 155/62 H 11/01/23 15:00 155/62 H 11/01/23 14:59 36.7 C 68 21 142/58 H 11/01/23 14:51 56 L 21 157/68 H 11/01/23 14:45 157/68 H 11/01/23 14:30 159/69 H 11/01/23 14:29 36.4 C L 62 17 159/69 H 11/01/23 14:15 151/61 H 11/01/23 14:15 59 L 17 151/61 H 11/01/23 14:14 36.8 C 61 16 151/61 H 11/01/23 14:00 11/01/23 13:52 36.8 C 65 27 H 147/63 H 11/01/23 13:30 147/63 H 11/01/23 13:20 57 L 11/01/23 13:20 18 BP Pulse Ox O2 Del Method O2 Flow Rate 11/02/23 12:33 96 Nasal Cannula 2 11/02/23 12:20 158/67 H 99 Oxymask 10 11/02/23 11:10 144/75 H 96 Nasal Cannula 2 11/02/23 10:35 129/48 L 98 Nasal Cannula 2 11/02/23 09:00 Nasal Cannula 2 11/02/23 07:32 140/62 96 Nasal Cannula 2 11/02/23 07:05 11/02/23 04:04 129/49 L 97 Nasal Cannula 2.0 11/01/23 22:53 159/67 H 99 Nasal Cannula 2.0 11/01/23 22:02 11/01/23 21:40 97 2 11/01/23 20:27 97 Nasal Cannula 2 11/01/23 20:24 Nasal Cannula 2 11/01/23 20:24 96 Room Air 11/01/23 20:20 11/01/23 20:12 95 2 11/01/23 19:12 97 2 11/01/23 18:42 98 2 11/01/23 18:27 100 11/01/23 18:06 99 11/01/23 18:04 100 11/01/23 18:00 11/01/23 18:00 11/01/23 17:57 99 11/01/23 17:45 99 11/01/23 17:42 11/01/23 17:42 11/01/23 17:24 97 11/01/23 17:15 94 11/01/23 17:15 11/01/23 17:01 11/01/23 17:01 11/01/23 17:00 97 11/01/23 16:45 11/01/23 16:45 11/01/23 16:45 99 11/01/23 16:45 95 11/01/23 16:30 100 11/01/23 16:30 11/01/23 16:15 11/01/23 16:15 11/01/23 16:15 11/01/23 16:09 99 11/01/23 16:00 11/01/23 15:59 100 11/01/23 15:46 11/01/23 15:46 11/01/23 15:42 99 11/01/23 15:39 99 11/01/23 15:31 11/01/23 15:31 11/01/23 15:27 98 11/01/23 15:16 11/01/23 15:16 11/01/23 15:15 81 L 11/01/23 15:06 98 11/01/23 15:00 11/01/23 15:00 11/01/23 14:59 98 11/01/23 14:51 98 11/01/23 14:45 11/01/23 14:30 11/01/23 14:29 99 11/01/23 14:15 11/01/23 14:15 98 11/01/23 14:14 98 11/01/23 14:00 88 L Room Air 11/01/23 13:52 99 11/01/23 13:30 11/01/23 13:20 11/01/23 13:20 98 Room Air Transfer of Care Handoff Completed per policy Notes Mental Status: alert / awake / arousable Patient Amnestic to Procedure: Yes Nausea / Vomiting: adequately controlled Pain: adequately controlled Airway Patency, RR, SpO2: stable & adequate BP & HR: stable & adequate Hydration State: stable & adequate Anesthetic Complications: no major complications apparent and Pt Satisfied with anesthetic care
[2023-11-02] MEDS: PROPOFOL IV EMULSION 10 MG/ML 20 ML VIAL IV ONE (14:39)
[2023-11-02] MEDS: LIDOCAINE 2% 2 ML VIAL/AMP(20MG/ML) INFIL ONE (14:39)
--- NOTE | 2023-11-02 16:42 | Nuclear Medicine Report ---
PROCEDURE: NM GI bleeding CLINICAL HISTORY: Melena. COMPARISON: Abdomen and pelvis CTA 11/01/2023. RADIOPHARMACEUTICAL: 26.8 mCi Tc99m in vitro labeled red blood cells IV TECHNIQUE: Following intravenous administration of Tc-99m labeled red cells, sequential abdominal im ages were obtained. FINDINGS: No abnormal foci of labeled red cell extravasation are seen. IMPRESSION: No scintigraphic evidence for active gastrointestinal bleeding. ACT 112: Negative or not required by law. Electronically signed by: Antoni Salguero M.D. 11/02/2023 4:40 PM
[2023-11-02 18:35] LABS: Hematocrit (blood only) 28.4 % (42.0-52.0); Hemoglobin 9.2 g/dl (14.0-18.0)
[2023-11-02] MEDS: PANTOprazole 40 MG TAB PO SCH (20:23)
[2023-11-03 07:44] LABS: Basophils # (auto) 0.06 K/uL (0.00-0.20); Eosinophils # (auto) 0.23 K/uL (0.00-0.50); Eosinophils % (auto) 3.9 %; Hematocrit (blood only) 29.8 % (42.0-52.0); Hemoglobin 9.6 g/dl (14.0-18.0); Immature Granulocytes # (auto) 0.02 K/uL (0.01-0.20); Immature Granulocytes % (auto) 0.3 %; Lymphocytes # (auto) 0.82 K/uL (1.20-3.40); Mean Corpuscular Hemoglobin 29.4 pg (25.0-34.0); Mean Corpuscular Hgb Conc 32.2 g/dL (32.0-36.0); Mean Corpuscular Volume 91.4 fL (80.0-100.0); Mean Platelet Volume 10.8 fL (9.4-12.4); Monocytes # (auto) 0.68 K/uL (0.11-0.59); Monocytes % (auto) 11.6 %; Neutrophils # (auto) 4.03 K/uL (1.40-6.50); Neutrophils % (auto) 69.2 %; Platelet Count 225 K/uL (130-400); RDW Coefficient of Variation 14.3 % (11.5-14.5); RDW Standard Deviation 46.3 fL (36.4-46.3); Red Blood Count 3.26 M/uL (4.70-6.10); White Blood Count 5.84 K/ul (4.8-10.8)
[2023-11-03 07:52] LABS: BUN Creatinine Ratio 12.8 (10-20); Calcium 8.7 mg/dl (8.6-10.3); Creatinine Clr Calc Pharmacy 52.6 ml/min; Est GFR (Non-African American) 71.6 ml/min
--- NOTE | 2023-11-03 08:45 | Hospitalist Progress Note ---
Date of Service November 03, 2023 Assessment & Plan (1) Acute upper gastrointestinal bleeding: (2) Acute blood loss anemia: (3) History of pulmonary embolism: (4) Ischemic stroke: (5) History of seizure: (6) Bipolar 1 disorder: (7) BPH (benign prostatic hyperplasia): (8) Anxiety and depression: (9) Hypothyroidism: Plan: This is an 88yo M from [facility] with a PMH of PAF and history of DVT/PE anticoagulated with Xarelto, HTN, chronic sinus bradycardia, history of CVA, history of cerebral aneurysm clipping, hyperlipidemia, history of MGUS, chronic anemia, anxiety/mood disorder, BPH, past tobacco abuse and cognitive impairment who presents to ED from [facility] for reports of rectal bleeding over the past week. Melena Acute blood loss anemia status post 2 units of packed RBC transfusion Hgb 6. 2/ hct 20.6% on presentation Abd/pelvis CTA with : 1. No acute abnormalities and in particular no evidence of active extravasation into the chest or intestinal tract. 2. Large hiatal hernia. 3. Diverticulosis without diverticulitis Recent admission with possible bleed, hgb 8-9, no endoscopic eval at that time Endoscopy done on 11/02/2023- examined esophagus was modertaly tortuous; large hiatal hernia, duodenum normal Nuclear GI bleeding scan did not show any evidence of active GI bleeding Continue on Protonix twice daily for the time being Monitor for rebleeding Hold Xarelto. Will start prophylactic heparin if patient's hemoglobin continues to be stable. Plan for flex sigmoidoscopy in next few days as per GI History of PE Paroxysmal A fib EKG on admission personally reviewed; normal sinus rhythm; QTc of 418 Hold Xarelto Monitor on telemetry Hypertension Stable. Continue amlodipine History of CVA History of cerebral aneurysm clipping Hyperlipidemia Continue statin Anxiety/mood disorder Stable. Continue Zoloft, Seroquel, PRN ativan past tobacco abuse DVT Ppx: SCDs for now Code status: DNR/DNI PCP: Rufina Dispo: Admitted to PCU. PT OT ordered Time spent evaluating patient, direct bedside care, chart review, placing orders, interpretation of diagnostic studies, discussion with consultants, patient, and family members, as well as other required patient management activities is 50 minutes Please note the above document was generated using voice recognition software. It may contain grammatical, syntax or spelling errors. Any formal questions or concerns about the content, text or information contained within the body of this dictation should be directly addressed to the provider for clarification Admission and Anticipated Discharge Date Admission Date: November 01, 2023 Subjective Comfortable; not in distress No significant events overnight Hemoglobin continues to be stable Review of Systems Review of Systems: All systems reviewed & are unremarkable except as noted in Subjective Physical Exam Physical Exam: General Appearance: WD/WN, vitals as above, NAD, sitting up in bed, pleasant, conversing easily Neck: normal visual inspection, trachea midline, no thyromegaly Respiratory: normal respiratory effort, lungs clear to auscultation, no wheeze, rales, rhonchi. No accessory muscle use Cardiovascular: regular rate, rhythm, + systolic murmur, normal peripheral pulses, no BLE edema Chest: normal inspection of chest Abdomen/GI: normal bowel sounds, soft, nontender, no hepatosplenomegaly Extremities/Musculoskeletal: no cyanosis or clubbing, extremities motor stre ngth 5/5 Neurologic: PERRL, EOMI, accommodation nl, no face palsy, no dysarthria, CN's II-XI intact bilaterally and moves all extremities Skin: no rashes, + pale , warm/dry Results & Data Results & Data Vital Signs (Past 12 Hours) Vital Signs Temp Pulse Pulse Pulse Resp BP Pulse Ox 11/03/23 08:38 11/03/23 07:21 37.1 C 51 L 16 136/53 L 96 11/03/23 03:06 36.9 C 62 18 138/56 L 94 11/02/23 23:08 63 11/02/23 22:59 36.7 C 55 L 16 119/62 95 O2 Del Method O2 Flow Rate 11/03/23 08:38 Nasal Cannula 2 11/03/23 07:21 Nasal Cannula 2.0 11/03/23 03:06 Nasal Cannula 2 11/02/23 23:08 11/02/23 22:59 Nasal Cannula 2
--- NOTE | 2023-11-03 13:08 | Gastroenterology Progress Note ---
Date of Service November 03, 2023 Assessment & Plan (1) Acute blood loss anemia: Plan: -oral PPI -Continue to monitor H/H, transfuse as needed -diet as tolerated -tentative plan for flex sig on 11/04 -resumption of xarelto pending endoscopic eval and cessation of bleeding Admission and Anticipated Discharge Date Admission Date: November 01, 2023 Subjective Mr Velazquez reports having pain in his mouth. He denies odynophagia. He reports ongoing red blood in his bowels. He declines colonoscopy but is agreeable to a flex sig. Review of Systems Constitutional: + fatigue Respiratory: no cough and no dyspnea Cardiovascular: no chest pain Gastrointestinal: + blood in stools; no abdominal pain Physical Exam Constitutional: Pleasant, frail appearing, non-toxic Eyes: PERRL, conjunctivae normal, anicteric sclerae Gastrointestinal (Abdomen): normal bowel sounds, soft, nontender, no hepatosplenomegaly Results & Data Results & Data Vital Signs (Past 12 Hours) Vital Signs Temp Pulse Pulse Pulse Resp BP Pulse Ox 11/03/23 12:00 36.6 C 60 16 149/69 H 98 11/03/23 08:38 11/03/23 07:21 37.1 C 51 L 16 136/53 L 96 11/03/23 07:00 58 L 11/03/23 03:06 36.9 C 62 18 138/56 L 94 O2 Del Method O2 Flow Rate 11/03/23 12:00 Nasal Cannula 2 11/03/23 08:38 Nasal Cannula 2 11/03/23 07:21 Nasal Cannula 2.0 11/03/23 07:00 11/03/23 03:06 Nasal Cannula 2 Laboratory Results Laboratory Results - last 48 hr 11/01/23 11/01/23 11/01/23 12:29 12:30 14:54 WBC 5.94 RBC 2.28 L Hgb 6.2 L* Hct 20.6 L* MCV 90.4 MCH 27.2 MCHC 30.1 L RDW Std Deviation 47.5 H RDW Coeff of Luis 14.6 H Plt Count 220 MPV 11.2 Immature Gran % (Auto) Neut % (Auto) Lymph % (Auto) Sumner % (Auto) Eos % (Auto) Baso % (Auto) Neut # (Auto) Lymph # (Auto) Sumner # (Auto) Eos # (Auto) Baso # (Auto) Immature Gran # (Auto) PT 11.0 INR 1.0 APTT 25 PTT Ratio 0.9 Sodium 138 Potassium 4.8 Chloride 104 Carbon Dioxide 29 Anion Gap 5 BUN 28 H Creatinine 1.12 Est Cr Clr Drug Dosing Not Reportable Est GFR ( Amer) 67.1 Est GFR (Non-Af Amer) 57.9 BUN/Creatinine Ratio 25.0 H Glucose 98 Calcium 9.0 Total Bilirubin 0.3 AST 16 ALT 8 Alkaline Phosphatase 46 Troponin I High Sens 2.9 Total Protein 7.0 Albumin 3.7 Globulin 3.3 Albumin/Globulin Ratio 1.1 Nasal Screen MRSA (PCR) POC Stool Occult Blood Positive A Blood Type A Positive Antibody Screen NEGATIVE Crossmatch See Detail 11/01/23 11/01/23 11/02/23 22:43 Unknown 02:51 WBC 5.89 RBC 2.83 L Hgb 8.8 L 8.4 L Hct 26.9 L 25.5 L MCV 90.1 MCH 29.7 MCHC 32.9 RDW Std Deviation 46.1 RDW Coeff of Luis 14.3 Plt Count 195 MPV 10.5 Immature Gran % (Auto) Neut % (Auto) Lymph % (Auto) Sumner % (Auto) Eos % (Auto) Baso % (Auto) Neut # (Auto) Lymph # (Auto) Sumner # (Auto) Eos # (Auto) Baso # (Auto) Immature Gran # (Auto) PT INR APTT PTT Ratio Sodium 135 L Potassium 4.3 Chloride 101 Carbon Dioxide 28 Anion Gap 6 BUN 17 Creatinine 0.97 Est Cr Clr Drug Dosing 53.7 Est GFR ( Amer) 79.9 Est GFR (Non-Af Amer) 68.9 BUN/Creatinine Ratio 17.5 Glucose 101 H Calcium 8.4 L Total Bilirubin 1.0 D AST 13 ALT 6 L Alkaline Phosphatase 46 Troponin I High Sens Total Protein 6.2 Albumin 3.2 L Globulin 3.0 Albumin/Globulin Ratio 1.1 Nasal Screen MRSA (PCR) Positive A POC Stool Occult Blood Blood Type Antibody Screen Crossmatch 11/02/23 11/03/23 18:15 06:49 WBC 5.84 RBC 3.26 L Hgb 9.2 L 9.6 L Hct 28.4 L 29.8 L MCV 91.4 MCH 29.4 MCHC 32.2 RDW Std Deviation 46.3 RDW Coeff of Luis 14.3 Plt Count 225 MPV 10.8 Immature Gran % (Auto) 0.3 Neut % (Auto) 69.2 Lymph % (Auto) 14.0 Sumner % (Auto) 11.6 Eos % (Auto) 3.9 Baso % (Auto) 1.0 Neut # (Auto) 4.03 Lymph # (Auto) 0.82 L Sumner # (Auto) 0.68 H Eos # (Auto) 0.23 Baso # (Auto) 0.06 Immature Gran # (Auto) 0.02 PT INR APTT PTT Ratio Sodium 137 Potassium 4.0 Chloride 101 Carbon Dioxide 30 Anion Gap 6 BUN 12 Creatinine 0.94 Est Cr Clr Drug Dosing 52.6 Est GFR ( Amer) 83.0 Est GFR (Non-Af Amer) 71.6 BUN/Creatinine Ratio 12.8 Glucose 104 H Calcium 8.7 Total Bilirubin AST ALT Alkaline Phosphatase Troponin I High Sens Total Protein Albumin Globulin Albumin/Globulin Ratio Nasal Screen MRSA (PCR) POC Stool Occult Blood Blood Type Antibody Screen Crossmatch Diagnostic Findings GI Bleed Scan Nuclear Medicine 11/02/23 12:32 PROCEDURE: NM GI bleeding CLINICAL HISTORY: Melena. COMPARISON: Abdomen and pelvis CTA 11/01/2023. RADIOPHARMACEUTICAL: 26.8 mCi Tc99m in vitro labeled red blood cells IV TECHNIQUE: Following intravenous administration of Tc-99m labeled red cells, sequential abdominal images were obtained. FINDINGS: No abnormal foci of labeled red cell extravasation are seen. IMPRESSION: No scintigraphic evidence for active gastrointestinal bleeding. ACT 112: Negative or not required by law. Electronically signed by: Antoni Salguero M.D. 11/02/2023 4:40 PM PG Care Time/CCT Total # of Minutes Spent Total Time Spent with Patient: Total time spent is greater than 50% in coordination of care (as documented) at patient's floor/unit and/or counseling patient: Coding Level of Care Code 20100 SUB INP/OBS CARE 2/35MIN Diagnoses Acute blood loss anemia D62
[2023-11-04 06:34] LABS: Basophils # (auto) 0.07 K/uL (0.00-0.20); Basophils % (auto) 1.3 %; Eosinophils # (auto) 0.23 K/uL (0.00-0.50); Eosinophils % (auto) 4.4 %; Hematocrit (blood only) 30.1 % (42.0-52.0); Hemoglobin 9.8 g/dl (14.0-18.0); Immature Granulocytes # (auto) 0.03 K/uL (0.01-0.20); Immature Granulocytes % (auto) 0.6 %; Lymphocytes # (auto) 0.85 K/uL (1.20-3.40); Lymphocytes % (auto) 16.1 %; Mean Corpuscular Hemoglobin 29.8 pg (25.0-34.0); Mean Corpuscular Hgb Conc 32.6 g/dL (32.0-36.0); Mean Corpuscular Volume 91.5 fL (80.0-100.0); Mean Platelet Volume 11.8 fL (9.4-12.4); Monocytes # (auto) 0.63 K/uL (0.11-0.59); Monocytes % (auto) 11.9 %; Neutrophils # (auto) 3.47 K/uL (1.40-6.50); Neutrophils % (auto) 65.7 %; Platelet Count 197 K/uL (130-400); RDW Coefficient of Variation 14.2 % (11.5-14.5); RDW Standard Deviation 46.5 fL (36.4-46.3); Red Blood Count 3.29 M/uL (4.70-6.10); White Blood Count 5.28 K/ul (4.8-10.8)
[2023-11-04 06:59] LABS: BUN Creatinine Ratio 17.9 (10-20); Calcium 8.9 mg/dl (8.6-10.3); Creatinine Clr Calc Pharmacy 51.8 ml/min; Est GFR (African American) 81.9 ml/min; Est GFR (Non-African American) 70.7 ml/min; Potassium 4.1 mmol/L (3.5-5.1)
--- NOTE | 2023-11-04 08:40 | Hospitalist Progress Note ---
Date of Service November 04, 2023 Assessment & Plan (1) Acute upper gastrointestinal bleeding: (2) Acute blood loss anemia: (3) History of pulmonary embolism: (4) Ischemic stroke: (5) History of seizure: (6) Bipolar 1 disorder: (7) BPH (benign prostatic hyperplasia): (8) Anxiety and depression: (9) Hypothyroidism: Plan: This is an 88yo M from [facility] with a PMH of PAF and history of DVT/PE anticoagulated with Xarelto, HTN, chronic sinus bradycardia, history of CVA, history of cerebral aneurysm clipping, hyperlipidemia, history of MGUS, chronic anemia, anxiety/mood disorder, BPH, past tobacco abuse and cognitive impairment who presents to ED from [facility] for reports of rectal bleeding over the past week. Melena Acute blood loss anemia status post 2 units of packed RBC transfusion Hgb 6. 2/ hct 20.6% on presentation Abd/pelvis CTA with : 1. No acute abnormalities and in particular no evidence of active extravasation into the chest or intestinal tract. 2. Large hiatal hernia. 3. Diverticulosis without diverticulitis Recent admission with possible bleed, hgb 8-9, no endoscopic eval at that time Endoscopy done on 11/02/2023- examined esophagus was modertaly tortuous; large hiatal hernia, duodenum normal Nuclear GI bleeding scan did not show any evidence of active GI bleeding Hemoglobin currently stable around 8-9 Continue on Protonix twice daily for the time being Monitor for rebleeding Hold Xarelto. Will start prophylactic heparin if patient's hemoglobin continues to be stable. Plan for flex sigmoidoscopy tomorrow. NPO from midnight. History of PE Paroxysmal A fib EKG on admission personally reviewed; normal sinus rhythm; QTc of 418 Hold Xarelto Monitor on telemetry Hypertension Stable. Continue amlodipine History of CVA History of cerebral aneurysm clipping Hyperlipidemia Continue statin Anxiety/mood disorder Stable. Continue Zoloft, Seroquel, PRN ativan past tobacco abuse DVT Ppx: SCDs for now Code status: DNR/DNI PCP: Rufina Dispo: Admitted to PCU. PT OT ordered Please note the above document was generated using voice recognition software. It may contain grammatical, syntax or spelling errors. Any formal questions or concerns about the content, text or information contained within the body of this dictation should be directly addressed to the provider for clarification Admission and Anticipated Discharge Date Admission Date: November 01, 2023 Subjective Patient seen and examined at bedside. Comfortable; not in distress. Denies fever, chills, chest pain, shortness of breath, abdominal pain or urinary symptoms. No significant overnight events Hemoglobin continues to be stable Review of Systems Review of Systems: All systems reviewed & are unremarkable except as noted in Subjective Physical Exam Physical Exam: General Appearance: WD/WN, vitals as above, NAD, sitting up in bed, pleasant, conversing easily Neck: normal visual inspection, trachea midline, no thyromegaly Respiratory: normal respiratory effort, lungs clear to auscultation, no wheeze, rales, rhonchi. No accessory muscle use Cardiovascular: regular rate, rhythm, + systolic murmur, normal peripheral pulses, no BLE edema Chest: normal inspection of chest Abdomen/GI: normal bowel sounds, soft, nontender, no hepatosplenomegaly Extremities/Musculoskeletal: no cyanosis or clubbing, extremities motor strength 5/5 Neurologic: PERRL, EOMI, accommodation nl, no face palsy, no dysarthria, CN's II-XI intact bilaterally and moves all extremities Skin: no rashes, + pale , warm/dry Results & Data Results & Data Vital Signs (Past 12 Hours) Vital Signs Temp Pulse Pulse Pulse Resp BP Pulse Ox 11/04/23 07:38 36.9 C 61 18 162/53 H 96 11/04/23 02:57 36.9 C 56 L 17 144/69 H 96 11/03/23 23:28 62 11/03/23 22:39 36.8 C 55 L 18 176/64 H 96 O2 Del Method O2 Flow Rate 11/04/23 07:38 Nasal Cannula 2 11/04/23 02:57 Nasal Cannula 2 11/03/23 23:28 11/03/23 22:39 Nasal Cannula 2
--- NOTE | 2023-11-04 11:06 | History & Physical Bridge Note ---
Date of Service November 04, 2023 History & Physical Bridge Note Hgb stable but off xarelto. Still with small volume RB. Pt likely too frial for colonoscopy but accepting of flex sig. NPO p MN. Will need enemas ordered in am pending endoscopy suite schedule.
[2023-11-05 06:08] LABS: Basophils # (auto) 0.07 K/uL (0.00-0.20); Basophils % (auto) 1.4 %; Eosinophils # (auto) 0.21 K/uL (0.00-0.50); Eosinophils % (auto) 4.1 %; Hematocrit (blood only) 29.9 % (42.0-52.0); Hemoglobin 9.5 g/dl (14.0-18.0); Immature Granulocytes # (auto) 0.01 K/uL (0.01-0.20); Immature Granulocytes % (auto) 0.2 %; Lymphocytes # (auto) 1.01 K/uL (1.20-3.40); Lymphocytes % (auto) 19.8 %; Mean Corpuscular Hgb Conc 31.8 g/dL (32.0-36.0); Mean Corpuscular Volume 91.2 fL (80.0-100.0); Mean Platelet Volume 11.4 fL (9.4-12.4); Monocytes # (auto) 0.63 K/uL (0.11-0.59); Monocytes % (auto) 12.4 %; Neutrophils # (auto) 3.16 K/uL (1.40-6.50); Neutrophils % (auto) 62.1 %; Platelet Count 194 K/uL (130-400); RDW Coefficient of Variation 14.3 % (11.5-14.5); RDW Standard Deviation 46.2 fL (36.4-46.3); Red Blood Count 3.28 M/uL (4.70-6.10); White Blood Count 5.09 K/ul (4.8-10.8)
[2023-11-05 06:27] LABS: BUN Creatinine Ratio 21.9 (10-20); Calcium 8.9 mg/dl (8.6-10.3); Creatinine Clr Calc Pharmacy 48.2 ml/min; Est GFR (African American) 80.9 ml/min; Est GFR (Non-African American) 69.8 ml/min; Potassium 4.1 mmol/L (3.5-5.1)
--- NOTE | 2023-11-05 08:44 | Hospitalist Progress Note ---
Date of Service November 05, 2023 Assessment & Plan (1) Acute upper gastrointestinal bleeding: (2) Acute blood loss anemia: (3) History of pulmonary embolism: (4) Ischemic stroke: (5) History of seizure: (6) Bipolar 1 disorder: (7) BPH (benign prostatic hyperplasia): (8) Anxiety and depression: (9) Hypothyroidism: Plan: This is an 88yo M from [facility] with a PMH of PAF and history of DVT/PE anticoagulated with Xarelto, HTN, chronic sinus bradycardia, history of CVA, history of cerebral aneurysm clipping, hyperlipidemia, history of MGUS, chronic anemia, anxiety/mood disorder, BPH, past tobacco abuse and cognitive impairment who presents to ED from [facility] for reports of rectal bleeding over the past week. Melena Acute blood loss anemia status post 2 units of packed RBC transfusion Hgb 6. 2/ hct 20.6% on presentation Abd/pelvis CTA with : 1. No acute abnormalities and in particular no evidence of active extravasation into the chest or intestinal tract. 2. Large hiatal hernia. 3. Diverticulosis without diverticulitis Endoscopy done on 11/02/2023- examined esophagus was modertaly tortuous; large hiatal hernia, duodenum normal Nuclear GI bleeding scan did not show any evidence of active GI bleeding Hemoglobin currently stable around 8-9 Continue on Protonix twice daily for the time being Monitor for rebleeding Hold Xarelto. Will start prophylactic heparin if patient's hemoglobin continues to be stable. Plan for flex sigmoidoscopy today History of PE Paroxysmal A fib EKG on admission personally reviewed; normal sinus rhythm; QTc of 418 Hold Xarelto Monitor on telemetry Hypertension Stable. Continue amlodipine History of CVA History of cerebral aneurysm clipping Hyperlipidemia Continue statin Anxiety/mood disorder Stable. Continue Zoloft, Seroquel, PRN ativan past tobacco abuse DVT Ppx: SCDs for now Code status: DNR/DNI PCP: Rufina Dispo: Admitted to PCU. PT OT ordered Please note the above document was generated using voice recognition software. It may contain grammatical, syntax or spelling errors. Any formal questions or concerns about the content, text or information contained within the body of this dictation should be directly addressed to the provider for clarification Admission and Anticipated Discharge Date Admission Date: November 01, 2023 Subjective Patient seen and examined at bedside. Comfortable; not in distress. Denies fever, chills, chest pain, shortness of breath, abdominal pain or urinary symptoms. No significant overnight events Hemoglobin continues to be stable Review of Systems Review of Systems: All systems reviewed & are unremarkable except as noted in Subjective Physical Exam Physical Exam: General Appearance: WD/WN, vitals as above, NAD, sitting up in bed, pleasant, conversing easily Neck: normal visual inspection, trachea midline, no thyromegaly Respiratory: normal respiratory effort, lungs clear to auscultation, no wheeze, rales, rhonchi. No accessory muscle use Cardiovascular: regular rate, rhythm, + systolic murmur, normal peripheral pulses, no BLE edema Chest: normal inspection of chest Abdomen/GI: normal bowel sounds, soft, nontender, no hepatosplenomegaly Extremities/Musculoskeletal: no cyanosis or clubbing, extremities motor strength 5/5 Neurologic: PERRL, EOMI, accommodation nl, no face palsy, no dysarthria, CN's II-XI intact bilaterally and moves all extremities Skin: no rashes, + pale , warm/dry Results & Data Results & Data Vital Signs (Past 12 Hours) Vital Signs Temp Pulse Pulse Resp BP Pulse Ox O2 Del Method 11/05/23 07:54 36.7 C 101 H 18 176/65 H 97 Nasal Cannula 11/05/23 05:45 64 11/05/23 04:10 36.8 C 61 18 140/69 95 Nasal Cannula 11/04/23 23:15 36.9 C 62 18 143/70 H 96 Nasal Cannula 11/04/23 21:41 66 11/04/23 20:50 Nasal Cannula O2 Flow Rate 11/05/23 07:54 2 11/05/23 05:45 11/05/23 04:10 2 11/04/23 23:15 2 11/04/23 21:41 11/04/23 20:50 2
--- NOTE | 2023-11-05 10:11 | Gastroenterology Progress Note ---
Date of Service November 05, 2023 Assessment & Plan (1) Acute blood loss anemia: Plan: 88 year old male with history of paroxysmal A fib, DVT/PE on Xarelto, HTN, chronic sinus bradycardia, CVA history, cerebral aneurysm clipping, HLD, MGUS, chronic anemia, anxiety, BPH & tobacco use in the past admitted with anemia, reports of both hematochezia and melena. - Two tap water enemas - Maintain NPO status - Flex sig today - He is feeling frustrated with ongoing medical interventions and testing, empowered him and offered to arrange family meeting/goals of care discussion but he would now like to proceed with Flex Sig today We appreciate assistance in the management of any serological abnormality and corrections to include: hemoglobin >7, INR <2, platelets >50,000, potassium levels >3.5 but <5.3, and sodium levels within 5 points of the reference range prior to endoscopic evaluation. Thank you for allowing us to participate in the care of this patient. Please call with any acute changes, questions or concerns. Please see addendum below with additional recommendation from my supervising physician. 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 Flex sig as unwilling to do colonoscopy or egd. Subjective Pt was seen and evaluated, chart reviewed. Is NPO for Flex Sig today. Tells me he is still agreeable to procedure but has been feeling frustrated. Offered to contact family, hospitalist about discussing goals of care. He is not interested at this time. EGD 2023: The examined esophagus was moderately tortuous. - A large hiatal hernia was present. The entire stomach was intra- thoracic. - The examined duodenum was normal. Review of Systems Review of Systems: All other findings negative except as noted in HPI. Physical Exam Constitutional: WD/WN, vitals as above Respiratory: normal respiratory effort, lungs clear to auscultation Cardiovascular: Rate/Rhythm: regular rate and regular rhythm Gastrointestinal (Abdomen): normal bowel sounds, soft, nontender, no hepatospl enomegaly Skin: no rashes, warm and dry Results & Data Results & Data Vital Signs (Past 12 Hours) Vital Signs Temp Pulse Pulse Resp BP Pulse Ox O2 Del Method 11/05/23 09:01 63 11/05/23 09:01 Room Air 11/05/23 07:54 36.7 C 101 H 18 176/65 H 97 Nasal Cannula 11/05/23 05:45 64 11/05/23 04:10 36.8 C 61 18 140/69 95 Nasal Cannula 11/04/23 23:15 36.9 C 62 18 143/70 H 96 Nasal Cannula O2 Flow Rate 11/05/23 09:01 11/05/23 09:01 11/05/23 07:54 2 11/05/23 05:45 11/05/23 04:10 2 11/04/23 23:15 2 PG Care Time/CCT Total # of Minutes Spent Total Time Spent with Patient: Total time spent is greater than 50% in coordination of care (as documented) at patient's floor/unit and/or counseling patient: Coding Level of Care Code None Diagnoses Acute blood loss anemia D62
--- NOTE | 2023-11-05 13:58 | Anesthesiology Consultation ---
Date of Service November 05, 2023 Assessment & Plan Chart Review Chart Review: Acceptable Risk for Surgery, Patient NOT seen in Pre Admission Testing and entry analyst initiated Consults Requested none ASA ASA4 Proposed Anesthesia Anesthesia Type: MAC History Surgery Operation Date: 11/02/23 16:45 Proposed Procedures p Esophagogastroduodenoscopy Mounika - Chiqui Ribera MD Operation Date: 11/05/23 16:45 Proposed Procedures p Flexible Sigmoidoscopy Karissa - Ej Hancock MD Height/Weight Height: 5 ft 11 in Weight: 65.3 kg Allergies Allergy/AdvReac Type Severity Reaction Status Date / Time No Known Allergies Allergy Verified 11/02/23 11:12 Medications Home Medications Medication Instructions Recorded Confirmed Last Taken acetaminophen 325 mg tablet 650 mg PO BID 01/05/23 11/01/23 Unknown (Tylenol) amlodipine 5 mg tablet 5 mg PO DAILY 01/05/23 11/01/23 Unknown amoxicillin 500 mg capsule 2,000 mg PO UD 01/05/23 11/01/23 Unknown ascorbic acid (vitamin C) 1,000 mg 1 g PO DAILY 01/05/23 11/01/23 Unknown tablet (Vitamin C) calcium carbonate (Calcium 600) 600 mg PO DAILY 01/05/23 11/01/23 Unknown cholecalciferol (vitamin D3) 25 25 mcg PO DAILY 01/05/23 11/01/23 Unknown mcg (1,000 unit) tablet (Vitamin D3) cyanocobalamin (vitamin B-12) 500 500 mcg PO DAILY 01/05/23 11/01/23 Unknown mcg tablet (Vitamin B-12) docusate sodium 100 mg capsule 100 mg PO BID 01/05/23 11/01/23 Unknown doxazosin 4 mg tablet 4 mg PO DAILY 01/05/23 11/01/23 Unknown ferrous sulfate 325 mg (65 mg 325 mg PO TID 01/05/23 11/01/23 Unknown iron) tablet finasteride 5 mg tablet 5 mg PO QAM 01/05/23 11/01/23 Unknown levothyroxine 25 mcg tablet 25 mcg PO DAILY 01/05/23 11/01/23 Unknown loperamide 2 mg capsule 2 mg PO Q4H PRN Diarrhea 01/05/23 11/01/23 Unknown lorazepam 0.5 mg tablet 0.5 mg PO TID PRN Anxiety 01/05/23 11/01/23 Unknown quetiapine 50 mg tablet 50 mg PO HS 01/05/23 11/01/23 Unknown rivaroxaban 20 mg tablet (Xarelto) 20 mg PO QPM 01/05/23 11/01/23 Unknown sennosides 8.6 mg-docusate sodium 2 tab-cap PO BID 01/05/23 11/01/23 Unknown 50 mg capsule (Senna Plus) sertraline 100 mg tablet 100 mg PO DAILY 01/05/23 11/01/23 Unknown simvastatin 40 mg tablet 40 mg PO QPM 01/05/23 11/01/23 Unknown tramadol 50 mg tablet 50 mg PO Q6H PRN Pain 01/05/23 11/01/23 Unknown vit C 250 mg-vit E 90 mg-zinc 40 1 tab PO BID 01/05/23 11/01/23 Unknown mg-copper 1 [id number] capsule (PreserVision AREDS-2) sucralfate 1 gram tablet 1 g PO ACHS 06/18/23 11/01/23 Unknown sertraline 50 mg tablet 50 mg PO DAILY 09/14/23 11/01/23 Unknown pantoprazole 40 mg tablet,delayed 40 mg PO BID #60 tabs 09/20/23 11/01/23 Unknown release sodium chloride 5 % eye drops 1 drp OPB BID 11/01/23 11/01/23 Unknown (Mik 128) vit C 250 mg-vit E 90 mg-zinc 40 1 tab PO BID 11/01/23 11/01/23 Unknown mg-copper 1 [id number] capsule (PreserVision AREDS-2) Active Medications Generic Name Dose Route Start Last Admin Trade Name Freq PRN Reason Stop Dose Admin Docusate Sodium 100 mg 11/01/23 21:00 11/05/23 08:35 Docusate Sodium 100 Mg Cap PO 12/01/23 20:59 100 mg BID TONIE Administration Mupirocin 1 appln 11/02/23 09:00 11/05/23 08:31 Mupirocin 2% Oint 22 Gm Tube EXT 11/07/23 08:59 1 appln BID TONIE Administration Pantoprazole Sodium 40 mg 11/02/23 21:00 11/05/23 08:30 Pantoprazole 40 Mg Tab PO 12/02/23 20:59 40 mg BID TONIE Administration Quetiapine Fumarate 50 mg 11/01/23 21:00 11/04/23 20:05 Quetiapine Fumarate 25 Mg Tablet PO 12/01/23 20:59 50 mg HS TONIE Administration Sertraline HCl 150 mg 11/02/23 09:00 11/05/23 08:30 Sertraline Hcl 100 Mg Tablet PO 12/02/23 08:59 150 mg DAILY TONIE Administration Simvastatin 40 mg 11/01/23 21:00 11/04/23 20:05 Simvastatin 40 Mg Tab PO 12/01/23 20:59 40 mg QPM TONIE Administration Sodium Chloride 1 drops 11/01/23 21:00 11/05/23 08:32 Sodium Chloride 5% Op Soln 15 Ml Btl OPB 12/01/23 20:59 1 drops BID TONIE Administration NPO Last Intake of Fluids Comment: sips Past Medical History Medical History Seizure Hx of pulmonary embolus Exercise / Class Metabolic Activity IV < 2 Limit ADL/Bedbound Past Family History Family History Family/Other No pertinent family history Past Surgical History Surgical History History of brain surgery Social History Smoking Status: Former smoker Smoking cigarettes per day: 28 Do You Dip or Chew Tobacco: No Hx Alcohol Use: No Hx Substance Use: No substance use type: does not use Physical Exam Vital Signs Last Vital Signs Temp 36.6 C 11/05/23 11:53 Pulse 76 11/05/23 11:53 Resp 18 11/05/23 11:53 BP 148/78 H 11/05/23 11:53 Pulse Ox 92 11/05/23 11:53 O2 Del Method Room Air 11/05/23 11:53 O2 Flow Rate 2 11/05/23 07:54 Testing Laboratory Results 11/05/23 05:31 11/05/23 05:31 PT 11.0 Seconds (9.0-12.0) 11/01/23 12:30 INR 1.0 (0.9-1.1) 11/01/23 12:30 APTT 25 Seconds (21-31) 11/01/23 12:30 Blood Type A Positive 11/01/23 12:29 Antibody Screen NEGATIVE 11/01/23 12:29 Electrocardiogram Date: 11/01/23 Normal sinus rhythm Anteroseptal infarct (cited on or before 01-NOV-2023) Abnormal ECG When compared with ECG of 13-SEP-2023 20:12, No significant change was found Confirmed by Anthony Burgos ([id number]) on 11/01/2023 10:19:44 PM Chest X-Ray Date: 11/01/23 XR chest 1V portable CLINICAL HISTORY: UGIB TECHNIQUE: Single frontal radiograph of the chest was obtained. Comparison: Comparison is made to chest radiograph 09/17/2023 FINDINGS: No lines and tubes are seen. Cardiomegaly is noted. The aortic arch is calcified. Prominent hiatal hernia is seen. The lungs are clear. No evidence of pleural effusion or pneumothorax. IMPRESSION: No acute chest disease. Prominent hiatal hernia again noted. Stable cardiomegaly. Echocardiogram Date: 02/02/23 EF: 65-70 LV Function: normal RWMA: + none Other Findings: + diastolic dysfunction (Grade 1) Valvular Disease: + (mild) and + MR (mild)
--- NOTE | 2023-11-05 15:05 | GI REPORT ---
[facility] Patient: DAVID MOY : 1935 Sex at : Male Age: 88 Years Procedure: Flexible Sigmoidoscopy Date: 11/05/2023 Attending Physician: Ej Hancock MD Referring MD: Conner Alvarado Indications: - Rectal hemorrhage Medications: - See the Anesthesia note for documentation of the administered medications Complications: - No immediate complications. Estimated Blood Loss: - Estimated blood loss was minimal. Procedure: - After reviewing the risks and benefits, the patient was deemed in satisfactory condition to undergo the procedure. - ASA Grade Assessment: IV - A patient with severe systemic disease that is a constant threat to life. - Prior to the procedure, a History and Physical was performed, and patient medications and allergies were reviewed. The patient's tolerance of previous anesthesia was also reviewed. The risks and benefits of the procedure and the sedation options and risks were discussed with the patient. All questions were answered, and informed consent was obtained. Anticoagulants: The patient has taken Xarelto (rivaroxaban). [Discussed With] it was decided not to withhold this medication prior to procedure. ASA Grade Assessment: IV - A patient with severe systemic disease that is a constant threat to life. After reviewing the risks and benefits, the patient was deemed in satisfactory condition to undergo the procedure. - The pediatric colonoscope was introduced through the anus and advanced to the left transverse colon. - The flexible sigmoidoscopy was accomplished without difficulty. - The quality of the bowel preparation was poor. - The patient tolerated the procedure well. Findings: - Hemorrhoids were found on perianal exam. - Internal hemorrhoids were found during retroflexion. The hemorrhoids were Grade II (internal hemorrhoids that prolapse but reduce spontaneously). - Biopsies for histology were taken with a cold forceps from the left colon for evaluation of microscopic colitis. Estimated blood loss was minimal. - Solid stool was found in the transverse colon. - Liquid stool brown in left colon. NO ischemic colitis and no masses noted. Impression: - Preparation of the colon was poor. - Hemorrhoids found on perianal exam. - Internal hemorrhoids. - Biopsies were taken with a cold forceps from the left colon for evaluation of microscopic colitis. - Stool in the transverse colon. - Liquid stool brown in left colon. NO ischemic colitis and no masses noted. Recommendation: - Await pathology results. Procedure Code(s): - 41381, Sigmoidoscopy, flexible; with biopsy, single or multiple Diagnosis Code(s): - K62.5, Hemorrhage of anus and rectum - K64.1, Second degree hemorrhoids CPT(R) - 2022 copyright [employer]. All Rights Reserved. The CPT codes, CCI edits and ICD codes generated are intended as suggestions and were generated based on input data. These codes are preliminary and upon bending frame operator review may be revised to meet current compliance and payer requirements. The provider is responsible for the final determination of appropriate codes, and modifiers. Ej Hancock MD This document has been electronically signed. Note Initiated:11/05/2023 Note Completed:11/05/2023 3:05 PM \\[email or web address]\[email or web address]\[id number]
--- NOTE | 2023-11-05 15:57 | Anesthesiology Progress Note ---
Date of Service November 05, 2023 Anesthesia Post Procedure Vital Signs Vital Signs: Temp Pulse Pulse Resp BP BP Pulse Ox 11/05/23 15:47 36.9 C 64 16 184/82 H 94 11/05/23 15:18 62 16 181/89 H 94 11/05/23 15:05 60 16 178/80 H 94 11/05/23 14:50 66 16 134/61 98 11/05/23 13:45 36.5 C 65 16 175/61 H 95 11/05/23 13:05 62 11/05/23 11:53 36.6 C 76 18 148/78 H 92 11/05/23 09:01 63 11/05/23 09:01 11/05/23 07:54 36.7 C 101 H 18 176/65 H 97 11/05/23 05:45 64 11/05/23 04:10 36.8 C 61 18 140/69 95 11/04/23 23:15 36.9 C 62 18 143/70 H 96 11/04/23 21:41 66 11/04/23 20:50 11/04/23 20:24 36.8 C 71 18 140/62 96 O2 Del Method O2 Flow Rate 11/05/23 15:47 Room Air 11/05/23 15:18 Room Air 11/05/23 15:05 Room Air 11/05/23 14:50 Room Air 11/05/23 13:45 Room Air 11/05/23 13:05 11/05/23 11:53 Room Air 11/05/23 09:01 11/05/23 09:01 Room Air 11/05/23 07:54 Nasal Cannula 2 11/05/23 05:45 11/05/23 04:10 Nasal Cannula 2 11/04/23 23:15 Nasal Cannula 2 11/04/23 21:41 11/04/23 20:50 Nasal Cannula 2 11/04/23 20:24 Nasal Cannula 2 Transfer of Care Handoff Completed per policy Notes Mental Status: alert / awake / arousable Patient Amnestic to Procedure: Yes Nausea / Vomiting: adequately controlled Pain: adequately controlled Airway Patency, RR, SpO2: stable & adequate BP & HR: stable & adequate Hydration State: stable & adequate Anesthetic Complications: no major complications apparent and Pt Satisfied with anesthetic care
[2023-11-05] MEDS: HEPARIN SOD 5,000 UNIT/0.5 ML VIAL SQ SCH (19:39)
--- NOTE | 2023-11-06 09:05 | Hospitalist Progress Note ---
Date of Service November 06, 2023 Assessment & Plan (1) Acute upper gastrointestinal bleeding: (2) Acute blood loss anemia: (3) History of pulmonary embolism: (4) Ischemic stroke: (5) History of seizure: (6) Bipolar 1 disorder: (7) BPH (benign prostatic hyperplasia): (8) Anxiety and depression: (9) Hypothyroidism: Plan: This is an 88yo M from [facility] with a PMH of PAF and history of DVT/PE anticoagulated with Xarelto, HTN, chronic sinus bradycardia, history of CVA, history of cerebral aneurysm clipping, hyperlipidemia, history of MGUS, chronic anemia, anxiety/mood disorder, BPH, past tobacco abuse and cognitive impairment who presents to ED from [facility] for reports of rectal bleeding over the past week. Melena Acute blood loss anemia status post 2 units of packed RBC transfusion Hgb 6. 2/ hct 20.6% on presentation Abd/pelvis CTA with : 1. No acute abnormalities and in particular no evidence of active extravasation into the chest or intestinal tract. 2. Large hiatal hernia. 3. Diverticulosis without diverticulitis Endoscopy done on 11/02/2023- examined esophagus was modertaly tortuous; large hiatal hernia, duodenum normal Nuclear GI bleeding scan did not show any evidence of active GI bleeding Sigmoidoscopy on November 04 showed internal hemorrhoids; no active source of bleeding found Hemoglobin currently stable around 8-9 Continue on Protonix twice daily for the time being Discussed with patient's daughter over the phone on November 06, 2023 regarding patient's clinical course. Patient had multiple hospitalization over the course of one year for anemia requiring blood transfusion and hospitalization. Workup for GI bleed has been negative so far. Patient is on Xarelto for history of PE and atrial fibrillation. We discussed regarding benefits and risks associated with coagulation. Benefit of anticoagulation includes decreased risks of stroke from atrial fibrillation, prevention of pulmonary embolism and DVT. The risks are blood loss anemia, life-threatening bleeds, blood transfusions. Decision was made after discussion to place patient on reduced dose of Xarelto (prophylactic dose of 10 mg once a day ) with the hopes of preventing future admission with blood loss anemia. Plan was to monitor patient for a day while on Xarelto 10 mg for bleeding episodes. History of PE Paroxysmal A fib EKG on admission personally reviewed; normal sinus rhythm; QTc of 418 On Xarelto 10mg once a day. Monitor on telemetry Hypertension Stable. Continue amlodipine History of CVA History of cerebral aneurysm clipping Hyperlipidemia Continue statin Anxiety/mood disorder Stable. Continue Zoloft, Seroquel, PRN ativan past tobacco abuse DVT Ppx: Xarelto Code status: DNR/DNI PCP: Rufina Dispo: Admitted to PCU. Monitor for further GI bleeding episode. Possible DC in am if Hb is stable. Please note the above document was generated using voice recognition software. It may contain grammatical, syntax or spelling errors. Any formal questions or concerns about the content, text or information contained within the body of this dictation should be directly addressed to the provider for clarification Admission and Anticipated Discharge Date Admission Date: November 01, 2023 Subjective Patient seen and examined at bedside. Comfortable; not in distress. Denies fever, chills, chest pain, shortness of breath, abdominal pain or urinary symptoms. No signs or symptoms of bleeding overnight Frustrated being the hospital. Review of Systems Review of Systems: All systems reviewed & are unremarkable except as noted in Subjective Physical Exam Physical Exam: General Appearance: AO X2, comfortable; not in any distress Neck: normal visual inspection, trachea midline, no thyromegaly Respiratory: normal respiratory effort, lungs clear to auscultation, no wheeze, rales, rhonchi. No accessory muscle use Cardiovascular: regular rate, rhythm, + systolic murmur, normal peripheral pulses, no BLE edema Chest: normal inspection of chest Abdomen/GI: normal bowel sounds, soft, nontender, no hepatosplenomegaly Extremities/Musculoskeletal: no cyanosis or clubbing, extremities motor strength 5/5 Neurologic: PERRL, EOMI, accommodation nl, no face palsy, no dysarthria, CN's II-XI intact bilaterally and moves all extremities Skin: no rashes, + pale , warm/dry Results & Data Results & Data Vital Signs (Past 12 Hours) Vital Signs Temp Pulse Pulse Pulse Resp BP Pulse Ox 11/06/23 07:45 36.5 C 67 18 147/67 H 93 11/06/23 07:35 72 11/06/23 03:07 36.9 C 60 16 141/64 H 94 11/05/23 23:10 65 11/05/23 22:47 36.5 C 59 L 16 133/65 94 O2 Del Method 11/06/23 07:45 Room Air 11/06/23 07:35 11/06/23 03:07 Room Air 11/05/23 23:10 11/05/23 22:47 Room Air
[2023-11-06 09:41] LABS: Basophils # (auto) 0.08 K/uL (0.00-0.20); Basophils % (auto) 1.9 %; Eosinophils # (auto) 0.19 K/uL (0.00-0.50); Eosinophils % (auto) 4.5 %; Hematocrit (blood only) 33.4 % (42.0-52.0); Hemoglobin 10.5 g/dl (14.0-18.0); Immature Granulocytes # (auto) 0.01 K/uL (0.01-0.20); Immature Granulocytes % (auto) 0.2 %; Lymphocytes # (auto) 0.76 K/uL (1.20-3.40); Lymphocytes % (auto) 18.1 %; Mean Corpuscular Hemoglobin 28.7 pg (25.0-34.0); Mean Corpuscular Hgb Conc 31.4 g/dL (32.0-36.0); Mean Corpuscular Volume 91.3 fL (80.0-100.0); Monocytes # (auto) 0.44 K/uL (0.11-0.59); Monocytes % (auto) 10.5 %; Neutrophils # (auto) 2.73 K/uL (1.40-6.50); Neutrophils % (auto) 64.8 %; Platelet Count 240 K/uL (130-400); RDW Coefficient of Variation 14.3 % (11.5-14.5); Red Blood Count 3.66 M/uL (4.70-6.10); White Blood Count 4.21 K/ul (4.8-10.8)
[2023-11-06] MEDS: RIVAROXABAN 10 MG TABLET PO SCH (20:50)
[2023-11-07 06:52] LABS: Basophils # (auto) 0.09 K/uL (0.00-0.20); Eosinophils # (auto) 0.18 K/uL (0.00-0.50); Eosinophils % (auto) 3.9 %; Hematocrit (blood only) 30.5 % (42.0-52.0); Hemoglobin 9.8 g/dl (14.0-18.0); Immature Granulocytes # (auto) 0.02 K/uL (0.01-0.20); Immature Granulocytes % (auto) 0.4 %; Lymphocytes # (auto) 1.02 K/uL (1.20-3.40); Lymphocytes % (auto) 22.4 %; Mean Corpuscular Hgb Conc 32.1 g/dL (32.0-36.0); Mean Corpuscular Volume 90.2 fL (80.0-100.0); Mean Platelet Volume 10.8 fL (9.4-12.4); Monocytes # (auto) 0.68 K/uL (0.11-0.59); Monocytes % (auto) 14.9 %; Neutrophils # (auto) 2.57 K/uL (1.40-6.50); Neutrophils % (auto) 56.4 %; Platelet Count 197 K/uL (130-400); RDW Standard Deviation 45.2 fL (36.4-46.3); Red Blood Count 3.38 M/uL (4.70-6.10); White Blood Count 4.56 K/ul (4.8-10.8)
[2023-11-07 15:19] LABS: Hematocrit (blood only) 34.9 % (42.0-52.0); Hemoglobin 10.9 g/dl (14.0-18.0)
--- NOTE | 2023-11-07 16:11 | Hospitalist Progress Note ---
Date of Service November 07, 2023 Assessment & Plan (1) Acute upper gastrointestinal bleeding: (2) Acute blood loss anemia: (3) History of pulmonary embolism: (4) Ischemic stroke: (5) History of seizure: (6) Bipolar 1 disorder: (7) BPH (benign prostatic hyperplasia): (8) Anxiety and depression: (9) Hypothyroidism: Plan: 88 yo M from [facility] with a PMH of PAF and history of DVT/PE anticoagulated with Xarelto, HTN, chronic sinus bradycardia, history of CVA, history of cerebral aneurysm clipping, hyperlipidemia, history of MGUS, chronic anemia, anxiety/mood disorder, BPH, past tobacco abuse and cognitive impairment who presents to ED from [facility] for reports of rectal bleeding over the past week. He is being managed for the following: Melena Acute blood loss anemia Status post 2 units of packed RBC transfusion Hgb 6. 2/ hct 20.6% on presentation Abd/pelvis CTA with : 1. No acute abnormalities and in particular no evidence of active extravasation into the chest or intestinal tract. 2. Large hiatal hernia. 3. Diverticulosis without diverticulitis Endoscopy done on 11/02/2023- examined esophagus was modertaly tortuous; large hiatal hernia, duodenum normal Nuclear GI bleeding scan did not show any evidence of active GI bleeding Sigmoidoscopy on November 04 showed internal hemorrhoids; no active source of bleeding found Hemoglobin currently stable around 9-10 Continue on Protonix twice daily for the time being Per prior attending - Discussed with patient's daughter over the phone on November 06, 2023 regarding patient's clinical course. Patient had multiple hospitalization over the course of one year for anemia requiring blood transfusion and hospitalization. Workup for GI bleed has been negative so far. Patient is on Xarelto for history of PE and atrial fibrillation. We discussed regarding benefits and risks associated with coagulation. Benefit of anticoagulation includes decreased risks of stroke from atrial fibrillation, prevention of pulmonary embolism and DVT. The risks are blood loss anemia, life-threatening bleeds, blood transfusions. Decision was made after discussion to place patient on reduced dose of Xarelto (prophylactic dose of 10 mg once a day ) with the hopes of preventing future admission with blood loss anemia. Plan was to monitor patient for a day while on Xarelto 10 mg for bleeding episodes. History of PE Paroxysmal A fib EKG on admission personally reviewed; normal sinus rhythm; QTc of 418 On Xarelto 10mg once a day. Monitor on telemetry Hypertension: Stable. Continue amlodipine History of CVA History of cerebral aneurysm clipping Hyperlipidemia Continue statin Anxiety/mood disorder: Stable. Continue Zoloft, Seroquel, PRN ativan DVT Ppx: Xarelto Code status: DNR/DNI PCP: Rufina Dispo: Admitted to PCU. Monitor for further GI bleeding episode. Possible DC in am if Hb is stable. Please note the above document was generated using voice recognition software. It may contain grammatical, syntax or spelling errors. Any formal questions or concerns about the content, text or information contained within the body of this dictation should be directly addressed to the provider for clarification Admission and Anticipated Discharge Date Admission Date: November 01, 2023 Subjective Patient seen and examined at bedside. Comfortable; not in distress. Denies fever, chills, chest pain, shortness of breath, abdominal pain or urinary symptoms. No signs or symptoms of bleeding overnight. Per RN BM yesterday which was brown/formed. Physical Exam Physical Exam: General Appearance: AO X2, comfortable; not in any distress Neck: normal visual inspection, trachea midline, no thyromegaly Respiratory: normal respiratory effort, lungs clear to auscultation, no wheeze, rales, rhonchi. No accessory muscle use Cardiovascular: regular rate, rhythm, + systolic murmur, normal peripheral pulses, no BLE edema Chest: normal inspection of chest Abdomen/GI: normal bowel sounds, soft, nontender, no hepatosplenomegaly Extremities/Musculoskeletal: no cyanosis or clubbing, extremities motor strength 5/5 Neurologic: PERRL, EOMI, accommodation nl, no face palsy, no dysarthria, CN's II-XI intact bilaterally and moves all extremities Skin: no rashes, + pale , warm/dry Results & Data Results & Data Vital Signs (Past 12 Hours) Vital Signs Temp Pulse Pulse Resp BP Pulse Ox O2 Del Method 11/07/23 15:41 36.7 C 72 18 150/71 H 96 Room Air 11/07/23 13:59 78 11/07/23 11:42 36.6 C 59 L 18 168/68 H 95 Room Air 11/07/23 08:51 Room Air 11/07/23 07:54 60 11/07/23 07:45 37.0 C 62 18 194/75 H 92 Room Air
[2023-11-07] MEDS: ACETAMINOPHEN 325 MG TAB PO PRN (20:28)
[2023-11-08 06:51] LABS: Hematocrit (blood only) 30.8 % (42.0-52.0); Hemoglobin 9.8 g/dl (14.0-18.0); Mean Corpuscular Hemoglobin 28.2 pg (25.0-34.0); Mean Corpuscular Hgb Conc 31.8 g/dL (32.0-36.0); Mean Corpuscular Volume 88.5 fL (80.0-100.0); Mean Platelet Volume 12.2 fL (9.4-12.4); Platelet Count 162 K/uL (130-400); RDW Coefficient of Variation 14.2 % (11.5-14.5); RDW Standard Deviation 45.4 fL (36.4-46.3); Red Blood Count 3.48 M/uL (4.70-6.10); White Blood Count 4.78 K/ul (4.8-10.8)
[2023-11-08 07:18] LABS: Creatinine Clr Calc Pharmacy 43.8 ml/min; Est GFR (African American) 71.8 ml/min; Est GFR (Non-African American) 61.9 ml/min
[2023-11-08 07:55] VITALS: RESP 16; TEMP 97.9; O2SAT 95
--- NOTE | 2023-11-08 11:43 | Electrocardiogram Report ---
Test Reason : Blood Pressure : */* mmHG Vent. Rate : 64 BPM Atrial Rate : 64 BPM P-R Int : 180 ms QRS Dur : 98 ms QT Int : 406 ms P-R-T Axes : -20 64 45 degrees QTcB Int : 418 ms Normal sinus rhythm with sinus arrhythmia Incomplete right bundle branch block Abnormal ECG When compared with ECG of 01-Nov-2023 12:28, No significant change was found Confirmed by rPakash Frank ([id number]) on 11/08/2023 11:43:27 AM Referred By: Conner Muñoz [place] Confirmed By: Prakash Frank
[2023-11-08 11:49] VITALS: BP 178/83; PULSE 60
[2023-11-08] MEDS: amLODIPine BESYLATE 5 MG TAB PO SCH (12:01)
--- NOTE | 2023-11-08 12:03 | Discharge Summary ---
Date of Service November 08, 2023 Admission HPI Per Admitting Provider This is an 88yo M from [facility] with a PMH of PAF and history of DVT/PE anticoagulated with Xarelto, HTN, chronic sinus bradycardia, history of CVA, history of cerebral aneurysm clipping, hyperlipidemia, history of MGUS, chronic anemia, anxiety/mood disorder, BPH, past tobacco abuse and cognitive impairment who presents to ED from [facility] for reports of rectal bleeding over the past week. Patient endorsing bright red blood per rectum intermittently at the beginning of the week with straining. Struggles with constipation at baseline. Over the past 3 days, states blood per rectum has been darker but has only totaled to 3 episodes. Using the bedpan during interview. Endorses fatigue and mild diffuse abdominal discomfort but not pain. No F/C, lightheadedness, CP, SOB, N/V, dysuria. In ED, found to have hemoglobin of 6.2. Consented, typed and crossed and ordered 2 units PRBCs by ED provider. Admission Exam Per Admitting Provider General Appearance: WD/WN, vitals as above, NAD, sitting up in bed, pleasant, conversing easily Head: normocephalic, atraumatic Eyes: normal inspection, PERRL, conjunctivae normal, anicteric sclerae ENT: external ear and nose normal, oropharynx normal Neck: normal visual inspection, trachea midline, no thyromegaly Respiratory: normal respiratory effort, lungs clear to auscultation, no wheeze, rales, rhonchi. No accessory muscle use Cardiovascular: regular rate, rhythm, + systolic murmur, normal peripheral pulses, no BLE edema Chest: normal inspection of chest Abdomen/GI: normal bowel sounds, soft, nontender, no hepatosplenomegaly Extremities/Musculoskeletal: no cyanosis or clubbing, extremities motor strength 5/5 Neurologic: PERRL, EOMI, accommodation nl, no face palsy, no dysarthria, CN's II-XI intact bilaterally and moves all extremities Psychiatric: A+Ox3, poor insight, euthymic affect Skin: no rashes, + pale , warm/dry Principal Diagnosis Melena Acute blood loss anemia History of PE Paroxysmal A fib Discharge Exam General Appearance: AO X2, comfortable; not in any distress Neck: normal visual inspection, trachea midline, no thyromegaly Respiratory: normal respiratory effort, lungs clear to auscultation, no wheeze, rales, rhonchi. No accessory muscle use Cardiovascular: regular rate, rhythm, + systolic murmur, normal peripheral pulses, no BLE edema Chest: normal inspection of chest Abdomen/GI: normal bowel sounds, soft, nontender, no hepatosplenomegaly Extremities/Musculoskeletal: no cyanosis or clubbing, extremities motor strength 5/5 Neurologic: PERRL, EOMI, accommodation nl, no face palsy, no dysarthria, CN's II-XI intact bilaterally and moves all extremities Skin: no rashes, + pale , warm/dry Discharge Data Allergies Allergy/AdvReac Type Severity Reaction Status Date / Time No Known Allergies Allergy Verified 11/02/23 11:12 Consultations 11/01/23 13:53 ED Decision to Admit Stat 11/01/23 14:08 Consult Gastroenterology Routine Procedures Performed Operation Date: 11/05/23 16:45 Actual Procedures p Flexible Sigmoidoscopy Biopsy - Ej Hancock MD Ordered Studies 11/01/23 14:26 CT angio abd pelvis wo/w con Stat Hospital Course (1) Acute upper gastrointestinal bleeding: (2) Acute blood loss anemia: (3) History of pulmonary embolism: (4) Ischemic stroke: (5) History of seizure: (6) Bipolar 1 disorder: (7) BPH (benign prostatic hyperplasia): (8) Anxiety and depression: (9) Hypothyroidism: 88 yo M from [facility] with a PMH of PAF and history of DVT/PE anticoagulated with Xarelto, HTN, chronic sinus bradycardia, history of CVA, history of cerebral aneurysm clipping, hyperlipidemia, history of MGUS, chronic anemia, anxiety/mood disorder, BPH, past tobacco abuse and cognitive impairment who presents to ED from [facility] for reports of rectal bleeding over the past week. He was managed for the following: Melena Acute blood loss anemia Status post 2 units of packed RBC transfusion Hgb 6. 2/ hct 20.6% on presentation Abd/pelvis CTA with : 1. No acute abnormalities and in particular no evidence of active extravasation into the chest or intestinal tract. 2. Large hiatal hernia. 3. Diverticulosis without diverticulitis Endoscopy done on 11/02/2023- examined esophagus was modertaly tortuous; large hiatal hernia, duodenum normal Nuclear GI bleeding scan did not show any evidence of active GI bleeding Sigmoidoscopy on November 04 showed internal hemorrhoids; no active source of bleeding found Hemoglobin currently stable around 9-10 Continue on Protonix twice daily Per prior attending - Discussed with patient's daughter over the phone on November 06, 2023 regarding patient's clinical course. Patient had multiple hospitalization over the course of one year for anemia requiring blood transfusion and hospitalization. Workup for GI bleed has been negative so far. Patient is on Xarelto for history of PE and atrial fibrillation. We discussed regarding benefits and risks associated with coagulation. Benefit of anticoagulation includes decreased risks of stroke from atrial fibrillation, prevention of pulmonary embolism and DVT. The risks are blood loss anemia, life-threatening bleeds, blood transfusions. Decision was made after discussion to place patient on reduced dose of Xarelto (prophylactic dose of 10 mg once a day ) with the hopes of preventing future admission with blood loss anemia. Plan was to monitor patient for a day while on Xarelto 10 mg for bleeding episodes. History of PE Paroxysmal A fib EKG on admission personally reviewed; normal sinus rhythm; QTc of 418 On Xarelto 10mg once a day. continue. Monitor on telemetry Hypertension: Stable. Continue amlodipine History of CVA History of cerebral aneurysm clipping Hyperlipidemia Continue statin Anxiety/mood disorder: Stable. Continue Zoloft, Seroquel, PRN ativan DVT Ppx: Xarelto Code status: DNR/DNI PCP: Rufina Patient is being discharged to facility with following instructions at the point of discharge: Follow-up with your primary care physician within a week time and likely you will need labs CBC/CMP/magnesium/phosphorus. Given recurrent GI bleed issues, your xarelto has been decreased to prophylactic dose of 10 mg daily. If you still have recurrent issues on this reduced dose, you will need to have risk/benefit conversation with your physician regarding continuing any blood thinner. Take your medications as prescribed. Please make sure that you are able to get your medications today by calling your pharmacy before you leave the hospital so that your treatment continuity is not broken. Please note the above document was generated using voice recognition software. It may contain grammatical, syntax or spelling errors. Any formal questions or concerns about the content, text or information contained within the body of this dictation should be directly addressed to the provider for clarification. Home Health Attestation I certify that this patient is under my care and that I, or a physicians contract administrative assistant working with me, had a face to-face encounter that meets the home health [id number] encounter requirements with this patient. The encounter with the patient was in whole, or in part, for the following medical condition, which is the primary reason for home health care (list medical condition): I certify that, based on my findings, the following services are medically necessary home health services: My clinical findings support the need for the above services because: Further, I certify that my clinical findings support that this patient is homebound (i.e. absences from home require considerable and taxing effort and are for medical reasons or caodaism services or infrequently or of short duration when for other reasons) because: Certification for Home Health Services: Based on the above findings, I certify that this patient is confined to the home and needs intermittent detention care, physical therapy and/or speech therapy or continues to need occupational therapy. The patient is under my care, and I have initiated the establishment of the plan of care. This patient will be followed by a physician who will periodically review the plan of care. Total Time Total Time Spent Total Time Spent (In Minutes): 45 Discharge Plan Discharge Items Patient Disposition: [facility] Reason For Visit: GI BLEED Discharge Diagnosis: Melena Acute blood loss anemia History of PE Paroxysmal A fib Activity: Resume your previous activity Non-emergency contact: Primary Care Provider Call non-emergency contact if: you have any medication questions and your symptoms worsen Follow-up/Referrals: Conner Elias [Primary Care Provider] - Diet: Regular Diet Texture: Mechanical soft (ground) Addtl Attending Provider Instructions: Follow-up with your primary care physician within a week time and likely you will need labs CBC/CMP/magnesium/phosphorus. Given recurrent GI bleed issues, your xarelto has been decreased to prophylactic dose of 10 mg daily. If you still have recurrent issues on this reduced dose, you will need to have risk/benefit conversation with your physician regarding continuing any blood thinner. Take your medications as prescribed. Please make sure that you are able to get your medications today by calling your pharmacy before you leave the hospital so that your treatment continuity is not broken. Pending Studies at Discharge: No Stand-Alone Forms: My [employer], Smoking Cessation Skilled Items Patient informed of condition?: Yes DNR: Yes Discharge Level of Care: Other Communicable Disease: No Discharge Prognosis: Stable Lines: None Urinary Catheter: No Medications and DC Order Prescriptions: New Xarelto 10 mg Tablet 10 mg PO QPM Qty: 30 0RF Continued ascorbic acid (vitamin C) [Vitamin C] 1,000 mg Tablet 1 g PO DAILY acetaminophen [Tylenol] 325 mg Tablet 650 mg PO BID MDD 3G/24HR loperamide 2 mg Capsule 2 mg PO Q4H PRN (Reason: Diarrhea) Rx Instructions: administer after each loose stool until symptoms controlled; do not exceed 8 mg per 24 hrs sertraline 100 mg tablet 100 mg PO DAILY amlodipine 5 mg tablet 5 mg PO DAILY tramadol 50 mg Tablet 50 mg PO Q6H PRN (Reason: Pain) simvastatin 40 mg tablet 40 mg PO QPM levothyroxine 25 mcg tablet 25 mcg PO DAILY calcium carbonate [Calcium 600] 600 mg calcium (1,500 mg) Tablet 600 mg PO DAILY lorazepam 0.5 mg tablet 0.5 mg PO TID PRN (Reason: Anxiety) cyanocobalamin (vitamin B-12) [Vitamin B-12] 500 mcg Tablet 500 mcg PO DAILY ferrous sulfate 325 mg (65 mg iron) Tablet 325 mg PO TID docusate sodium 100 mg Capsule 100 mg PO BID doxazosin 4 mg tablet 4 mg PO DAILY finasteride 5 mg tablet 5 mg PO QAM quetiapine 50 mg tablet 50 mg PO HS cholecalciferol (vitamin D3) [Vitamin D3] 25 mcg (1,000 unit) Tablet 25 mcg PO DAILY PreserVision AREDS-2 250-90-40-1 mg Capsule 1 tab PO BID Senna Plus 8.6-50 mg Capsule 2 tab-cap PO BID sertraline 50 mg tablet 50 mg PO DAILY pantoprazole 40 mg tablet,delayed release (DR/EC) 40 mg PO BID Qty: 60 0RF sucralfate 1 gram tablet 1 g PO ACHS sodium chloride [Mik 128] 5 % Drops 1 drp OPB BID PreserVision AREDS-2 250-90-40-1 mg Capsule 1 tab PO BID Discontinued amoxicillin 500 mg Capsule 2,000 mg PO UD Rx Instructions: Take 1 hour prior to dental procedure. Xarelto 20 mg tablet 20 mg PO QPM Hold Instructions: Do not restart until recommended by your physician Discharge Orders: Discharge Order (Routine); Ordered 11/08/23 Ordered By: Erick Funez/Other Patient Handouts: GI Bleeding Causes and Tests, Anticoagulants Admission Data Admit Date/Time: 11/01/23 14:00 Attending Provider: Erick Alvarez Admit Provider: Johan Bella Primary Care Provider: Conner Elias Other Providers: Johan Bella; Chiqui Ribera Other Interventions: Discharge Summary Assessment (RN) Last Done: 11/08/23 11:46
== END 2023-11-08 12:29 | disposition home or self-care (01) | DRG 378 ==
LOC: ED 12:08 → SUATTDRO 14:00 → EDINP 14:00 → 2E 20:03

== ENCOUNTER 2023-11-24 21:07 | Observation (INO) ==
--- NOTE | 2023-11-24 21:16 | Emergency Department Note ---
Impression & Plan Chest pain, Nausea, Hiatal hernia with GERD and esophagitis, Dementia ED Provider Note NAME: DAVID MOY AGE: 88 SEX: M : 1935 ARRIVES VIA: Ambulance INFORMANT: Patient ED PROVIDER(S): Ronald Jean Baptiste MD CHIEF COMPLAINT: Chest/abdominal pain, referred. PLAN: Disposition: Admit MEDICAL DECISION MAKING: The patient is a pleasant 88-year-old gentleman with a past medical history of a large hiatal hernia, pAfib, history of pulmonary embolism on Xarelto, BPH, reactive airway disease, hypertension, hyperlipidemia, dementia, Bipolar disorder I, h/o seizure, CVA who presents to the emergency department via EMS from his personal assisted at [facility] for evaluation of chest tightness/abdominal pain with nausea that began this afternoon. Patient reports radiation to his back. Denies any recent fevers, chills, cough, congestion. Patient was admitted to this facility 2 weeks ago for GI bleeding where he did receive a blood transfusion and had been changed to prophylactic dosing of his Xarelto. Patient reports he has remained constipated and having hard stool and straining. On evaluation patient is no acute distress, afebrile with blood pressure 140s/70s and vitals otherwise stable. O2 saturation is 88% on room air and placed on nasal cannula. He appears clinically dry. Patient has mild upper abdominal discomfort without discrete tenderness to palpation without guarding or rebound. EKG without overt acute ischemia. Chest x-ray demonstrates patient's known large hiatal hernia with suspected increase in size compared to prior provide preliminary independent or potation. WBC and platelets within normal limits. H/H similar to prior. Chemistry without metabolic acidosis. Electrolytes and LFTs unremarkable. High- sensitivity troponin is 4.4, within normal limits. Lipase 91, nonspecific. CTA of the chest and CT of the abdomen pelvis were performed and demonstrate the patient's known large hiatal hernia which contains the entire stomach as well as components of the transverse colon. Evidence of esophagitis is also described. I did review the patient's findings with the patient at the bedside and while the CT does not show evidence of gastric outlet obstruction the patient confirms that he would not want surgery even if this were the case. I further discussed the patient's evaluation with his daughter over the phone and she confirms that they have been aware of patient's large hiatal hernia in the past and that he would not be a surgical candidate due to his comorbidities, risk, and DNR status. Upon reevaluation patient was feeling more comfortable after initial IV fluid duration, IV famotidine, APAP, Zofran. Case [facility] will [facility] the patient for admission. Further management per admitting team. Triage Nursing notes reviewed and agree them. Prior/external medical records reviewed Vital Signs: reviewed Differential diagnosis: Cardiac ischemia, aortic dissection, pulmonary embolism, pneumothorax, pneumonia, pericarditis, myocarditis, esophageal rupture, GERD, cholecystitis, pancreatitis, musculoskeletal, as well as other pathologies. ER treatment provided: See below. Diagnostics interpreted by me: ECG: Normal sinus rhythm, 68 bpm, no ectopy, incomplete right bundle wrench block, no overt ST ovation or depression, QTc 414 QRS 90. Cardiac Monitoring: An order for continuous cardiac monitoring was placed and demonstrated Normal sinus rhythm, 68 bpm, no ectopy. Laboratory studies: See below Imaging studies: See below Consultation(s): [facility] HPI: The patient is a pleasant 88-year-old gentleman with a past medical history of a large hiatal hernia, pAfib, history of pulmonary embolism on Xarelto, BPH, reactive airway disease, hypertension, hyperlipidemia, dementia, Bipolar disorder I, h/o seizure, CVA who presents to the emergency department via EMS from his personal assisted at [facility] for evaluation of chest tightness/abdominal pain with nausea that began this afternoon. Patient reports radiation to his back. Denies any recent fevers, chills, cough, congestion. Patient was admitted to this facility 2 weeks ago for GI bleeding where he did receive a blood transfusion and had been changed to prophylactic dosing of his Xarelto. Patient reports he has remained constipated and having hard stool and straining. ROS: See above HPI for pertinent positives & negatives. A total of 10 systems reviewed and were otherwise negative. VITALS:See Below PHYSICAL EXAMINATION: GENERAL: Awake, alert, uncomfortable-appearing, in no distress HENT: Normocephalic, atraumatic. Oropharynx with dry mucous membranes and otherwise unremarkable. EYES: Normal conjunctiva. Sclera non-icteric. NECK: Supple. No nuchal rigidity. FROM. No JVD. RESPIRATORY: Clear to auscultation. CARDIAC: Regular rate, normal rhythm. Extremities warm and well perfused. Pulses equal. ABDOMEN: Mild upper abdominal discomfort without discrete tenderness to palpation without guarding or rebound. MUSCULOSKELETAL: Chest examination reveals no tenderness. The back is symmetrical on inspection without obvious abnormality. There is no CVA tenderness to palpation. No joint edema. LOWER EXTREMITIES: Calves are equal size bilaterally and non-tender. No edema. No discoloration. NEURO: Normal sensorium. No sensory or motor deficits noted. SKIN: No rash or jaundice noted. Ronald Jean Baptiste MD Past Med/Surg History Problem List (Updated 11/25/23 @ 00:41 by Ronald Jean Baptiste MD) Dementia (Acute) Hiatal hernia with GERD and esophagitis (Acute) Nausea (Acute) Chest pain (Acute) Acute blood loss anemia Weakness (Acute) Anemia (Acute) Acute upper gastrointestinal bleeding (Acute) Hypoxia (Acute) Symptomatic anemia Acute GI bleeding Anemia (Acute) Acute lower GI bleeding (Acute) Cellulitis of right leg (Acute) Anxiety and depression Hiatal hernia History of ischemic stroke History of seizure Epistaxis History of pulmonary embolism Ischemic stroke Vitamin D deficiency Bipolar 1 disorder Dysphagia Encounter for monitoring anticonvulsant therapy History of cerebral aneurysm repair BPH (benign prostatic hyperplasia) Anemia Reactive airway disease Hypothyroidism Dental abscess HTN (hypertension), benign History of pulmonary embolism Acute CVA (cerebrovascular accident) Facial droop (Acute) Ataxia (Acute) Dysarthria (Acute) Multiple falls (Acute) Hyperlipidemia (Chronic) Pulmonary embolism Medical History Seizure Hx of pulmonary embolus Surgical History History of brain surgery Family History Family/Other No pertinent family history Social History Smoking Status: Former smoker Tobacco Type: Cigarettes packs per day: 1; Cigarettes Per Day: 28; Second Hand Exposure: No; Do You Dip or Chew Tobacco: No; Hx Alcohol Use: No Hx Substance Use: No Preferred Language: [place] Communication Ability: Effective 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 Beliefs That Will Affect Care: None marital status: Single Current Living Situation: Alf Current Living Situation Comment: [facility] Feels Safe at Home: Yes Assistive Devices: Walker Allergies Allergies Allergy/AdvReac Type Severity Reaction Status Date / Time No Known Allergies Allergy Verified 11/02/23 11:12 Home Meds Home Medications Medication Instructions Recorded Confirmed acetaminophen 325 mg tablet 650 mg PO BID 01/05/23 11/24/23 (Tylenol) amlodipine 5 mg tablet 5 mg PO DAILY 01/05/23 11/24/23 ascorbic acid (vitamin C) 1,000 mg 1 g PO DAILY 01/05/23 11/24/23 tablet (Vitamin C) calcium carbonate (Calcium 600) 600 mg PO DAILY 01/05/23 11/24/23 cholecalciferol (vitamin D3) 25 25 mcg PO DAILY 01/05/23 11/24/23 mcg (1,000 unit) tablet (Vitamin D3) cyanocobalamin (vitamin B-12) 500 500 mcg PO DAILY 01/05/23 11/24/23 mcg tablet (Vitamin B-12) docusate sodium 100 mg capsule 100 mg PO BID 01/05/23 11/24/23 doxazosin 4 mg tablet 4 mg PO DAILY 01/05/23 11/24/23 ferrous sulfate 325 mg (65 mg 325 mg PO BID 01/05/23 11/24/23 iron) tablet finasteride 5 mg tablet 5 mg PO QAM 01/05/23 11/24/23 levothyroxine 25 mcg tablet 25 mcg PO DAILY 01/05/23 11/24/23 loperamide 2 mg capsule 2 mg PO Q4H PRN Diarrhea 01/05/23 11/24/23 lorazepam 0.5 mg tablet 0.5 mg PO TID PRN Anxiety 01/05/23 11/24/23 quetiapine 50 mg tablet 50 mg PO HS 01/05/23 11/24/23 sennosides 8.6 mg-docusate sodium 2 tab-cap PO BID 01/05/23 11/24/23 50 mg capsule (Senna Plus) sertraline 100 mg tablet 100 mg PO DAILY 01/05/23 11/24/23 simvastatin 40 mg tablet 40 mg PO QPM 01/05/23 11/24/23 tramadol 50 mg tablet 50 mg PO Q6H PRN Pain 01/05/23 11/24/23 sucralfate 1 gram tablet 1 g PO ACHS 06/18/23 11/24/23 sertraline 50 mg tablet 50 mg PO DAILY 09/14/23 11/24/23 sodium chloride 5 % eye drops 1 drp OPB BID 11/01/23 11/24/23 (Mik 128) vit C 250 mg-vit E 90 mg-zinc 40 1 tab PO DAILY 11/01/23 11/24/23 mg-copper 1 [id number] capsule (PreserVision AREDS-2) aspirin 81 mg tablet,delayed 81 mg PO DAILY 11/24/23 11/24/23 release [id number]-[id number] 1 tab PO DAILY 11/24/23 11/24/23 3,300 unit-5 mg-200mg-75 unit tablet ER (ICaps) Previous Rx's Medication Instructions Recorded pantoprazole 40 mg tablet,delayed 40 mg PO BID #60 tabs 09/20/23 release rivaroxaban 10 mg tablet (Xarelto) 10 mg PO QPM #30 tabs 11/08/23 Results & Data (ED) Vital Signs Vital Signs - 24 hr 11/24/23 21:11 11/24/23 21:12 11/24/23 21:18 Temperature 36.9 C Temperature Source Oral Pulse Rate 70 68 Respiratory Rate 20 Respiratory Effort / Characteristics Non-Labored Spontaneous Respiratory Depth Normal Blood Pressure 153/59 H Blood Pressure Mean 90 Pulse Oximetry 95 93 Oxygen Delivery Method Room Air Room Air Oxygen Flow Rate Sepsis Recent Fever Within 48 Hours No Sepsis New/Unexplained Change in Mental Status N/A Sepsis Action Taken by Nursing No Action Required 11/24/23 21:30 11/24/23 22:36 11/24/23 22:42 Temperature Temperature Source Pulse Rate 67 68 Respiratory Rate 18 24 Respiratory Effort / Characteristics Respiratory Depth Blood Pressure 144/76 H Blood Pressure Mean 98 Pulse Oximetry 93 88 L 96 Oxygen Delivery Method Room Air Nasal Cannula Oxygen Flow Rate 2 Sepsis Recent Fever Within 48 Hours Sepsis New/Unexplained Change in Mental Status Sepsis Action Taken by Nursing 11/24/23 23:00 11/24/23 23:30 11/25/23 00:00 Temperature Temperature Source Pulse Rate 69 81 95 H Respiratory Rate 18 20 24 Respiratory Effort / Characteristics Respiratory Depth Blood Pressure 157/90 H 157/79 H 134/59 L Blood Pressure Mean 132 122 110 Pulse Oximetry 97 97 97 Oxygen Delivery Method Nasal Cannula Nasal Cannula Oxygen Flow Rate 2 2 Sepsis Recent Fever Within 48 Hours Sepsis New/Unexplained Change in Mental Status Sepsis Action Taken by Nursing Laboratory Data Attestation: I reviewed the patient's lab results. 11/24/23 21:00 11/24/23 21:00 Lab Results 11/24/23 Range/Units 21:00 WBC 4.97 (4.8-10.8) K/ul RBC 3.13 L (4.70-6.10) M/uL Hgb 9.1 L (14.0-18.0) g/dl Hct 28.2 L (42.0-52.0) % MCV 90.1 (80.0-100.0) fL MCH 29.1 (25.0-34.0) pg MCHC 32.3 (32.0-36.0) g/dL RDW Std Deviation 50.1 H (36.4-46.3) fL RDW Coeff of Luis 15.7 H (11.5-14.5) % Plt Count 143 (130-400) K/uL MPV 11.6 (9.4-12.4) fL Immature Gran % (Auto) 0.2 % Neut % (Auto) 57.0 % Lymph % (Auto) 24.5 % [place] % (Auto) 12.5 % Eos % (Auto) 4.2 % Baso % (Auto) 1.6 % Neut # (Auto) 2.83 (1.40-6.50) K/uL Lymph # (Auto) 1.22 (1.20-3.40) K/uL [place] # (Auto) 0.62 H (0.11-0.59) K/uL Eos # (Auto) 0.21 (0.00-0.50) K/uL Baso # (Auto) 0.08 (0.00-0.20) K/uL Immature Gran # (Auto) 0.01 (0.01-0.20) K/uL PT 11.7 (9.0-12.0) Seconds INR 1.1 (0.9-1.1) Sodium 137 (136-145) mmol/L Potassium 4.1 (3.5-5.1) mmol/L Chloride 103 (98-107) mmol/L Carbon Dioxide 27 (21-32) mmol/L Anion Gap 7 (3-11) BUN 26 H (6-23) mg/dl Creatinine 0.96 (0.6-1.4) mg/dl Est Cr Clr Drug Dosing 54.2 ml/min Est GFR ( Amer) 80.9 ml/min Est GFR (Non-Af Amer) 69.8 ml/min BUN/Creatinine Ratio 27.1 H (10-20) Glucose 95 (70-99(Fasting)) mg/dl Calcium 8.9 (8.6-10.3) mg/dl Magnesium 2.2 (1.7-2.4) mg/dl Total Bilirubin 0.2 (0.2-1.0) mg/dl AST 14 (13-39) U/L ALT 7 (7-52) U/L Alkaline Phosphatase 46 (34-104) U/L Troponin I High Sens 4.4 (0-20) pg/ml Total Protein 7.1 (6.0-8.3) gm/dl Albumin 3.5 (3.4-5.0) gm/dl Globulin 3.6 (2.5-4.0) gm/dl Albumin/Globulin Ratio 1.0 (0.9-2) Lipase 91 H (11-82) U/L Administered Medications Discontinued Medications Sodium Chloride (Nss) 500 mls @ 999 mls/hr IV .Q31M ONE Stop: 11/24/23 21:45 Last Infusion: 11/24/23 22:25 Dose: Infused Documented By: Admin: 11/24/23 21:54 Dose: 999 mls/hr Documented By: BECKY Famotidine (Pepcid 20mg Iv Push) 20 mg in 5 mls @ 2.5 mls/min IV NOW STA Stop: 11/24/23 21:48 Last Admin: 11/24/23 21:56 Dose: 2.5 mls/min Documented By: BECKY Acetaminophen (Ofirmev) 1,000 mg in 100 mls @ 400 mls/hr IV NOW STA Stop: 11/24/23 22:01 Last Infusion: 11/24/23 22:13 Dose: Infused Documented By: Admin: 11/24/23 21:58 Dose: 400 mls/hr Documented By: BECKY Ioversol (Optiray 320 125ml) 117 ml IV ONCE ONE Stop: 11/24/23 22:21 Last Admin: 11/24/23 22:21 Dose: 117 ml Documented By: WALLY Ondansetron HCl (Ondansetron Inj 2 Mg/Ml 2 Ml Vial) 4 mg IV NOW STA Stop: 11/24/23 21:48 Last Admin: 11/24/23 21:53 Dose: 4 mg Documented By: BECKY Imaging Data Radiologist's Impression: Abdomen/Pelvis CT 11/24/23 21:43 Exam(s): CT ABDOMEN + PELVIS With Contrast IV Amt: 117 ml optiray 320 EXAM: CT Abdomen and Pelvis With Intravenous Contrast CLINICAL HISTORY: Reason for exam: abd pain, nausea, sob. TECHNIQUE: Axial computed tomography images of the abdomen and pelvis with intravenous contrast. CTDI is 16.48 mGy and DLP is 1284.18 mGy-cm. Automated exposure control was utilized for the study. A dose lowering technique was utilized adhering to the principles of ALARA. CONTRAST: Patient received 117 ml optiray 320 of IV contrast COMPARISON: CTA abdomen and pelvis: 11/01/2023 there is a massive hiatal hernia containing the entire distended stomach and a significant portion of the transverse colon. FINDINGS: Lung bases: Unremarkable. No mass. No consolidation. ABDOMEN: Liver: There is suggestion of periportal edema. No mass. Gallbladder and bile ducts: Unremarkable. No calcified stones. No ductal dilation. Pancreas: Unremarkable. No mass. No ductal dilation. Spleen: Unremarkable. No splenomegaly. Adrenals: Unremarkable. No mass. Kidneys and ureters: Unremarkable. No solid mass. No hydronephrosis. Stomach and bowel: There are a few scattered sigmoid colon diverticula. No bowel thickening or obstruction. No free air or abscess identified. The appendix is not visualized. However no pericecal inflammatory changes are noted. PELVIS: Appendix: See above. Bladder: There is a diffuse bladder wall thickening which may be partially related to incomplete distention. Correlation with urinalysis recommended.. Reproductive: Unremarkable as visualized. ABDOMEN and PELVIS: Intraperitoneal space: See above. Bones/joints: There is advanced lumbar degenerative disc disease with mild degenerative levoscoliotic curvature of spine. No acute fracture. No dislocation. Soft tissues: Unremarkable. Vasculature: There are moderate at aortoiliac and branch vessel atherosclerotic calcifications. No aneurysm identified. Lymph nodes: Unremarkable. No enlarged lymph nodes. IMPRESSION: 1. There is a massive hiatal hernia as described above. 2. There is a mild urinary bladder wall thickening which may be related to incomplete distention. Correlation with urinalysis recommended. 3. Sigmoid colon diverticulosis. 4. There is suggestion of diffuse periportal edema. Clinical correlation and follow-up recommended. Electronically signed by: Gama Machado MD 11/24/23 23:58 PM Chest CTA 11/24/23 21:43 Exam(s): CTA CHEST IV Amt: 117 ml optiray 320 EXAM: CT Angiography Chest With Intravenous Contrast CLINICAL HISTORY: Reason for exam: abd pain, nausea, sob, r/o PE. TECHNIQUE: Axial computed tomographic angiography images of the chest with intravenous contrast. CTDI is 16.48 mGy and DLP is 1284.18 mGy-cm. Automated exposure control was utilized for the study. A dose lowering technique was utilized adhering to the principles of ALARA. MIP reconstructed images were created and reviewed. COMPARISON: CTA chest: 09/13/2023 FINDINGS: Pulmonary arteries: Unremarkable. No pulmonary embolism. Aorta: No acute findings. No thoracic aortic aneurysm. Lungs: There is a 2.2 cm calcified granuloma in the lateral right upper lobe. There is dependent lower lobe atelectasis/scar. No mass. Pleural space: Unremarkable. No significant effusion. No pneumothorax. Heart: There is a mass-effect on the part secondary to the large hiatal hernia.. No significant pericardial effusion. No evidence of RV dysfunction. Mediastinum: There is a massive hiatal hernia. There is thickening of the esophagus suggestive of possible esophagitis. Follow-up recommended. Bones/joints: No acute fracture. No dislocation. Soft tissues: Unremarkable. Lymph nodes: Unremarkable. No enlarged lymph nodes. IMPRESSION: 1. There is a massive hiatal hernia with segmental thickening of the esophagus suggestive of associated esophagitis. Clinical correlation. 2. 2.2 cm calcified nodule/granuloma in the lateral right upper lobe. 3. Mild lower lobe subsegmental atelectasis/scarring. No acute cardiopulmonary abnormality identified. 4. No pulmonary artery embolism, thoracic aortic aneurysm or dissection. Electronically signed by: Gama Machado MD 11/25/23 00:04 AM Discharge Plan Visit Data Chief Complaint: Cardiac Assessment Stated Complaint: Chest Tightness, SOB ED Provider: Ronald Jean Baptiste Discharge Problem: Chest pain, Nausea, Hiatal hernia with GERD and esophagitis, Dementia Forms Stand Alone Forms: [facility] Prescriptions Prescriptions: No Action ascorbic acid (vitamin C) [Vitamin C] 1,000 mg Tablet 1 g PO DAILY acetaminophen [Tylenol] 325 mg Tablet 650 mg PO BID MDD 3G/24HR loperamide 2 mg Capsule 2 mg PO Q4H PRN (Reason: Diarrhea) Rx Instructions: administer after each loose stool until symptoms controlled; do not exceed 8 mg per 24 hrs sertraline 100 mg tablet 100 mg PO DAILY amlodipine 5 mg tablet 5 mg PO DAILY tramadol 50 mg Tablet 50 mg PO Q6H PRN (Reason: Pain) simvastatin 40 mg tablet 40 mg PO QPM levothyroxine 25 mcg tablet 25 mcg PO DAILY calcium carbonate [Calcium 600] 600 mg calcium (1,500 mg) Tablet 600 mg PO DAILY lorazepam 0.5 mg tablet 0.5 mg PO TID PRN (Reason: Anxiety) cyanocobalamin (vitamin B-12) [Vitamin B-12] 500 mcg Tablet 500 mcg PO DAILY ferrous sulfate 325 mg (65 mg iron) Tablet 325 mg PO BID docusate sodium 100 mg Capsule 100 mg PO BID doxazosin 4 mg tablet 4 mg PO DAILY finasteride 5 mg tablet 5 mg PO QAM quetiapine 50 mg tablet 50 mg PO HS cholecalciferol (vitamin D3) [Vitamin D3] 25 mcg (1,000 unit) Tablet 25 mcg PO DAILY Senna Plus 8.6-50 mg Capsule 2 tab-cap PO BID sertraline 50 mg tablet 50 mg PO DAILY pantoprazole 40 mg tablet,delayed release (DR/EC) 40 mg PO BID Qty: 60 0RF aspirin [Aspir-Low] 81 mg Tablet,Delayed Release (Dr/Ec) 81 mg PO DAILY ICaps 3,519-0-603-75 [id number]-br-unit Tablet Extended Release 1 tab PO DAILY sucralfate 1 gram tablet 1 g PO ACHS sodium chloride [Mik 128] 5 % Drops 1 drp OPB BID PreserVision AREDS-2 250-90-40-1 mg Capsule 1 tab PO DAILY Xarelto 10 mg Tablet 10 mg PO QPM Qty: 30 0RF Referrals Referrals: Conner Elias [Primary Care Provider] - Discharge Problem: Chest pain Qualifiers: Chest pain type: unspecified Qualified Code(s): R07.9 - Chest pain, unspecified Dementia Qualifiers: Dementia type: unspecified type Dementia severity: unspecified severity D ementia behavioral or psychological symptom: without behavioral, psychotic, or mood disturbance or anxiety Qualified Code(s): F03.90 - Unspecified dementia, unspecified severity, without behavioral disturbance, psychotic disturbance, mood disturbance, and anxiety
[2023-11-24 21:45] LABS: Basophils # (auto) 0.08 K/uL (0.00-0.20); Basophils % (auto) 1.6 %; Eosinophils # (auto) 0.21 K/uL (0.00-0.50); Eosinophils % (auto) 4.2 %; Hematocrit (blood only) 28.2 % (42.0-52.0); Hemoglobin 9.1 g/dl (14.0-18.0); INR 1.1 (0.9-1.1); Immature Granulocytes # (auto) 0.01 K/uL (0.01-0.20); Immature Granulocytes % (auto) 0.2 %; Lymphocytes # (auto) 1.22 K/uL (1.20-3.40); Lymphocytes % (auto) 24.5 %; Mean Corpuscular Hemoglobin 29.1 pg (25.0-34.0); Mean Corpuscular Hgb Conc 32.3 g/dL (32.0-36.0); Mean Corpuscular Volume 90.1 fL (80.0-100.0); Mean Platelet Volume 11.6 fL (9.4-12.4); Monocytes # (auto) 0.62 K/uL (0.11-0.59); Monocytes % (auto) 12.5 %; Neutrophils # (auto) 2.83 K/uL (1.40-6.50); Platelet Count 143 K/uL (130-400); Prothrombin Time 11.7 Seconds (9.0-12.0); RDW Coefficient of Variation 15.7 % (11.5-14.5); RDW Standard Deviation 50.1 fL (36.4-46.3); Red Blood Count 3.13 M/uL (4.70-6.10); White Blood Count 4.97 K/ul (4.8-10.8)
[2023-11-24] MEDS: ONDANSETRON INJ 2 MG/ML 2 ML VIAL IV STA (21:53)
[2023-11-24] MEDS: SODIUM CHLORIDE 0.9% 500 ML IV ONE (21:54)
[2023-11-24] MEDS: FAMOTIDINE 20MG IV PUSH 20 MG/5 ML SYR IV STA (21:56)
[2023-11-24] MEDS: ACETAMINOPHEN 1,000 MG/100 ML VIAL IV STA (21:58)
[2023-11-24 22:08] LABS: Albumin Level 3.5 gm/dl (3.4-5.0); BUN Creatinine Ratio 27.1 (10-20); Bilirubin,Total 0.2 mg/dl (0.2-1.0); Calcium 8.9 mg/dl (8.6-10.3); Creatinine Clr Calc Pharmacy 54.2 ml/min; Est GFR (African American) 80.9 ml/min; Est GFR (Non-African American) 69.8 ml/min; Globulin 3.6 gm/dl (2.5-4.0); Magnesium 2.2 mg/dl (1.7-2.4); Potassium 4.1 mmol/L (3.5-5.1); Total Protein 7.1 gm/dl (6.0-8.3)
[2023-11-24 22:14] LABS: Troponin I High Sensitivity 4.4 pg/ml (0-20)
[2023-11-24] MEDS: OPTIRAY 320 125ml IV ONE (22:21)
--- NOTE | 2023-11-25 | CT Scan Report ---
Exam(s): CT ABDOMEN + PELVIS With Contrast IV Amt: 117 ml optiray 320 EXAM: CT Abdomen and Pelvis With Intravenous Contrast CLINICAL HISTORY: Reason for exam: abd pain, nausea, sob. TECHNIQUE: Axial computed tomography images of the abdomen and pelvis with intravenous contrast. CTDI is 16.48 mGy and DLP is 1284.18 mGy-cm. Automated exposure control was utilized for the study. A dose lowering technique was utilized adhering to the principles of ALARA. CONTRAST: Patient received 117 ml optiray 320 of IV contrast COMPARISON: CTA abdomen and pelvis: 11/01/2023 there is a massive hiatal hernia containing the entire distended stomach and a significant portion of the transverse colon. FINDINGS: Lung bases: Unremarkable. No mass. No consolidation. ABDOMEN: Liver: There is suggestion of periportal edema. No mass. Gallbladder and bile ducts: Unremarkable. No calcified stones. No ductal dilation. Pancreas: Unremarkable. No mass. No ductal dilation. Spleen: Unremarkable. No splenomegaly. Adrenals: Unremarkable. No mass. Kidneys and ureters: Unremarkable. No solid mass. No hydronephrosis. Stomach and bowel: There are a few scattered sigmoid colon diverticula. No bowel thickening or obstruction. No free air or abscess identified. The appendix is not visualized. However no pericecal inflammatory changes are noted. PELVIS: Appendix: See above. Bladder: There is a diffuse bladder wall thickening which may be partially related to incomplete distention. Correlation with urinalysis recommended.. Reproductive: Unremarkable as visualized. ABDOMEN and PELVIS: Intraperitoneal space: See above. Bones/joints: There is advanced lumbar degenerative disc disease with mild degenerative levoscoliotic curvature of spine. No acute fracture. No dislocation. Soft tissues: Unremarkable. Vasculature: There are moderate at aortoiliac and branch vessel atherosclerotic calcifications. No aneurysm identified. Lymph nodes: Unremarkable. No enlarged lymph nodes. IMPRESSION: 1. There is a massive hiatal hernia as described above. 2. There is a mild urinary bladder wall thickening which may be related to incomplete distention. Correlation with urinalysis recommended. 3. Sigmoid colon diverticulosis. 4. There is suggestion of diffuse periportal edema. Clinical correlation and follow-up recommended. Electronically signed by: Gama Machado MD 11/24/23 23:58 PM
--- NOTE | 2023-11-25 00:05 | CT Scan Report ---
Exam(s): CTA CHEST IV Amt: 117 ml optiray 320 EXAM: CT Angiography Chest With Intravenous Contrast CLINICAL HISTORY: Reason for exam: abd pain, nausea, sob, r/o PE. TECHNIQUE: Axial computed tomographic angiography images of the chest with intravenous contrast. CTDI is 16.48 mGy and DLP is 1284.18 mGy-cm. Automated exposure control was utilized for the study. A dose lowering technique was utilized adhering to the principles of ALARA. MIP reconstructed images were created and reviewed. COMPARISON: CTA chest: 09/13/2023 FINDINGS: Pulmonary arteries: Unremarkable. No pulmonary embolism. Aorta: No acute findings. No thoracic aortic aneurysm. Lungs: There is a 2.2 cm calcified granuloma in the lateral right upper lobe. There is dependent lower lobe atelectasis/scar. No mass. Pleural space: Unremarkable. No significant effusion. No pneumothorax. Heart: There is a mass-effect on the part secondary to the large hiatal hernia.. No significant pericardial effusion. No evidence of RV dysfunction. Mediastinum: There is a massive hiatal hernia. There is thickening of the esophagus suggestive of possible esophagitis. Follow-up recommended. Bones/joints: No acute fracture. No dislocation. Soft tissues: Unremarkable. Lymph nodes: Unremarkable. No enlarged lymph nodes. IMPRESSION: 1. There is a massive hiatal hernia with segmental thickening of the esophagus suggestive of associated esophagitis. Clinical correlation. 2. 2.2 cm calcified nodule/granuloma in the lateral right upper lobe. 3. Mild lower lobe subsegmental atelectasis/scarring. No acute cardiopulmonary abnormality identified. 4. No pulmonary artery embolism, thoracic aortic aneurysm or dissection. Electronically signed by: Gama Machado MD 11/25/23 00:04 AM
[2023-11-25 00:41] LABS: Appearance Urine Clear (Clear); Bilirubin Urine Negative (Negative); Blood Urine Negative (Negative); Color Urine Yellow; Glucose Urine UA Negative (Negative); Ketones Urine Negative (Negative); Leukocyte Esterase Urine Negative (Negative); Nitrite Urine Negative (Negative); Protein Urine Negative (Negative); Specific Gravity Urine > 1.045 (1.000-1.030); Urobilinogen Urine Negative (Negative)
[2023-11-25] MEDS: SODIUM CHLORIDE 0.9% 1,000 ML IV STA (00:44)
[2023-11-25 00:55] LABS: Partial Thromboplastin Ratio 1.2; Partial Thromboplastin Time 31 Seconds (21-31)
--- NOTE | 2023-11-25 01:11 | History & Physical Report ---
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, TTE 2022) CVA, history of cerebral aneurysm clipping hypertension, slight elevated hyperlipidemia, on statin Rx Hypothyroidism, euthyroid as of today's TSH hx cognitive impairment hx MGUS GERD/hiatal hernia, patient not a surgical candidate as per outpatient [facility] [place] Surgery [place] from last year Anxiety/mood disorder at baseline Recurrent admissions, frailty past tobacco abuse OBS Medical telemetry Unasyn followed by Augmentin Aspiration precautions, 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 Daughter agreeable to consultation. DVT prophylaxis SCDs while Xarelto on hold DNR as per patient prior directives. Patient daughter requesting updates providers. Ms. Emma Givens, contact #[phone]. Text document was generated using [employer] voice recognition software. It may contain grammatical or spelling errors. Kindly contact undersigned for clarification of any documentation item in question. History of Present Illness Chief Complaint: SOB as per patient Chest and abdominal pain as per records Primary Care Provider: Wanda Prieto History obtained from patient, family, and records. Patient is a fair historian. 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 Recent confinement 2 weeks ago for anemia secondary to UGIB presenting as melena. EGD showed moderately tortuous esophagus with large hiatal hernia. Normal duodenum as per report. Nuclear GI bleed scan did not show any evidence of active GI bleed. Sigmoidoscopy showed internal hemorrhoids. Patient discharged on reduced Xarelto dose for history of PAF PE/DVT after discussion with family. Patient noted SOB symptoms associated with junky cough symptoms yesterday. Admits to cough symptoms from food/water intake from time to time. Left-sided chest/abdominal pain last night as per report. Patient denies reported pain complaints. Patient brought to ER for evaluation. Dried blood noted on patient's mouth. Personal care facility staff unaware of hematemesis/coffee-ground emesis/melena/hematochezia at home. Patient went for a dental appointment last week as per daughter. Patient denies oral pain and is unaware of mouth bleeding. Medical History as above Surgical History : Cerebral aneurysm clipping Family History : Cannot be obtained due to cognitive impairment Personal/Social history : Past tobacco abuse, no EtOH intake, personal care facility resident Allergies Allergy/AdvReac Type Severity Reaction Status Date / Time No Known Allergies Allergy Verified 11/02/23 11:12 Home Medications Medication Instructions Recorded Confirmed Type acetaminophen 325 mg tablet 650 mg PO BID 01/05/23 11/24/23 History (Tylenol) amlodipine 5 mg tablet 5 mg PO DAILY 01/05/23 11/24/23 History ascorbic acid (vitamin C) 1,000 mg 1 g PO DAILY 01/05/23 11/24/23 History tablet (Vitamin C) calcium carbonate (Calcium 600) 600 mg PO DAILY 01/05/23 11/24/23 History cholecalciferol (vitamin D3) 25 25 mcg PO DAILY 01/05/23 11/24/23 History mcg (1,000 unit) tablet (Vitamin D3) cyanocobalamin (vitamin B-12) 500 500 mcg PO DAILY 01/05/23 11/24/23 History mcg tablet (Vitamin B-12) docusate sodium 100 mg capsule 100 mg PO BID 01/05/23 11/24/23 History doxazosin 4 mg tablet 4 mg PO DAILY 01/05/23 11/24/23 History ferrous sulfate 325 mg (65 mg 325 mg PO BID 01/05/23 11/24/23 History iron) tablet finasteride 5 mg tablet 5 mg PO QAM 01/05/23 11/24/23 History levothyroxine 25 mcg tablet 25 mcg PO DAILY 01/05/23 11/24/23 History loperamide 2 mg capsule 2 mg PO Q4H PRN Diarrhea 01/05/23 11/24/23 History lorazepam 0.5 mg tablet 0.5 mg PO TID PRN Anxiety 01/05/23 11/24/23 History quetiapine 50 mg tablet 50 mg PO HS 01/05/23 11/24/23 History sennosides 8.6 mg-docusate sodium 2 tab-cap PO BID 01/05/23 11/24/23 History 50 mg capsule (Senna Plus) sertraline 100 mg tablet 100 mg PO DAILY 01/05/23 11/24/23 History simvastatin 40 mg tablet 40 mg PO QPM 01/05/23 11/24/23 History tramadol 50 mg tablet 50 mg PO Q6H PRN Pain 01/05/23 11/24/23 History sucralfate 1 gram tablet 1 g PO ACHS 06/18/23 11/24/23 History pantoprazole 40 mg tablet,delayed 40 mg PO BID #60 tabs 09/20/23 11/24/23 Rx release sodium chloride 5 % eye drops 1 drp OPB BID 11/01/23 11/24/23 History (Mik 128) vit C 250 mg-vit E 90 mg-zinc 40 1 tab PO DAILY 11/01/23 11/24/23 History mg-copper 1 tx-ctvoke-olxypk capsule (PreserVision AREDS-2) rivaroxaban 10 mg tablet (Xarelto) 10 mg PO QPM #30 tabs 11/08/23 11/24/23 Rx aspirin 81 mg tablet,delayed 81 mg PO DAILY 11/24/23 11/24/23 History release [id number]-[id number]-[id number]-L-ilafyq-mkufltt-min 1 tab PO DAILY 11/24/23 11/24/23 History 3,300 unit-5 mg-200mg-75 unit tablet ER (ICaps) Past Med/Surg History Problem List (Updated 11/25/23 @ 05:39 by Santiago Schaffer MD) SOB (shortness of breath) Dementia (Acute) Hiatal hernia with GERD and esophagitis (Acute) Nausea (Acute) Chest pain (Acute) Acute blood loss anemia Weakness (Acute) Anemia (Acute) Acute upper gastrointestinal bleeding (Acute) Hypoxia (Acute) Symptomatic anemia Acute GI bleeding Anemia (Acute) Acute lower GI bleeding (Acute) Cellulitis of right leg (Acute) Anxiety and depression Hiatal hernia History of ischemic stroke History of seizure Epistaxis History of pulmonary embolism Ischemic stroke Vitamin D deficiency Bipolar 1 disorder Dysphagia Encounter for monitoring anticonvulsant therapy History of cerebral aneurysm repair BPH (benign prostatic hyperplasia) Anemia Reactive airway disease Hypothyroidism Dental abscess HTN (hypertension), benign History of pulmonary embolism Acute CVA (cerebrovascular accident) Facial droop (Acute) Ataxia (Acute) Dysarthria (Acute) Multiple falls (Acute) Hyperlipidemia (Chronic) Pulmonary embolism Medical History Seizure Hx of pulmonary embolus Surgical History History of brain surgery Family History Family/Other No pertinent family history Social History Smoking Status: Former smoker Tobacco Type: Cigarettes packs per day: 1; Cigarettes Per Day: 28; Second Hand Exposure: No; Do You Dip or Chew Tobacco: No; Hx Alcohol Use: No Hx Substance Use: No Preferred Language: Setswana Communication Ability: Effective 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 Required: No Beliefs That Will Affect Care: None marital status: Single Current Living Situation: Correction Current Living Situation Comment: [facility] Other Information That Helps Us Care for You: No Feels Safe at Home: Yes Safety Concerns: Feels Safe At This Time Assistive Devices: Walker and Wheelchair Review of Systems Review of Systems: Could not be reliably obtained secondary to cognitive impairment Physical Exam Physical Exam: GENERAL: Slightly uncomfortable, frail, oriented to place, no respiratory distress SKIN: Pallor, warm HEENT: Pale palpebral conjunctivae, no ptosis, chronic right facial droop, dry buccal mucosa, dried blood over right lip NECK : Supple, no tenderness CHEST : Decreased breath sounds, no tenderness HEART : RRR, systolic murmur ABDOMEN: Some distention, nontender EXTREMITIES : No LE swelling, no other conspicuous deformities noted NEUROLOGIC : oriented to place, chronic right facial droop, gait and stance not assessed Results & Data Results & Data Vital Signs (Past 12 Hours) Vital Signs Temp Pulse Resp BP Pulse Ox O2 Del Method O2 Flow Rate 11/25/23 00:00 95 H 24 134/59 L 97 11/24/23 23:30 81 20 157/79 H 97 Nasal Cannula 2 11/24/23 23:00 69 18 157/90 H 97 Nasal Cannula 2 11/24/23 22:42 68 24 96 Nasal Cannula 2 11/24/23 22:36 88 L Room Air 11/24/23 21:30 67 18 144/76 H 93 11/24/23 21:18 93 Room Air 11/24/23 21:12 68 11/24/23 21:11 36.9 C 70 20 153/59 H 95 Room Air Laboratory Results Laboratory Results WBC 4.97 K/ul (4.8-10.8) 11/24/23 21:00 RBC 3.13 M/uL (4.70-6.10) L 11/24/23 21:00 Hgb 9.1 g/dl (14.0-18.0) L 11/24/23 21:00 Hct 28.2 % (42.0-52.0) L 11/24/23 21:00 MCV 90.1 fL (80.0-100.0) 11/24/23 21:00 MCH 29.1 pg (25.0-34.0) 11/24/23 21:00 MCHC 32.3 g/dL (32.0-36.0) 11/24/23 21:00 RDW Std Deviation 50.1 fL (36.4-46.3) H 11/24/23 21:00 RDW Coeff of Luis 15.7 % (11.5-14.5) H 11/24/23 21:00 Plt Count 143 K/uL (130-400) 11/24/23 21:00 MPV 11.6 fL (9.4-12.4) 11/24/23 21:00 Immature Gran % (Auto) 0.2 % 11/24/23 21:00 Neut % (Auto) 57.0 % 11/24/23 21:00 Lymph % (Auto) 24.5 % 11/24/23 21:00 [place] % (Auto) 12.5 % 11/24/23 21:00 Eos % (Auto) 4.2 % 11/24/23 21:00 Baso % (Auto) 1.6 % 11/24/23 21:00 Neut # (Auto) 2.83 K/uL (1.40-6.50) 11/24/23 21:00 Lymph # (Auto) 1.22 K/uL (1.20-3.40) 11/24/23 21:00 [place] # (Auto) 0.62 K/uL (0.11-0.59) H 11/24/23 21:00 Eos # (Auto) 0.21 K/uL (0.00-0.50) 11/24/23 21:00 Baso # (Auto) 0.08 K/uL (0.00-0.20) 11/24/23 21:00 Immature Gran # (Auto) 0.01 K/uL (0.01-0.20) 11/24/23 21:00 PT 11.7 Seconds (9.0-12.0) 11/24/23 21:00 INR 1.1 (0.9-1.1) 11/24/23 21:00 APTT 31 Seconds (21-31) 11/24/23 21:00 PTT Ratio 1.2 11/24/23 21:00 Sodium 137 mmol/L (136-145) 11/24/23 21:00 Potassium 4.1 mmol/L (3.5-5.1) 11/24/23 21:00 Chloride 103 mmol/L (98-107) 11/24/23 21:00 Carbon Dioxide 27 mmol/L (21-32) 11/24/23 21:00 Anion Gap 7 (3-11) 11/24/23 21:00 BUN 26 mg/dl (6-23) H 11/24/23 21:00 Creatinine 0.96 mg/dl (0.6-1.4) 11/24/23 21:00 Est Cr Clr Drug Dosing 54.2 ml/min 11/24/23 21:00 Est GFR ( Amer) 80.9 ml/min 11/24/23 21:00 Est GFR (Non-Af Amer) 69.8 ml/min 11/24/23 21:00 BUN/Creatinine Ratio 27.1 (10-20) H 11/24/23 21:00 Glucose 95 mg/dl (70-99(Fasting)) 11/24/23 21:00 Calcium 8.9 mg/dl (8.6-10.3) 11/24/23 21:00 Magnesium 2.2 mg/dl (1.7-2.4) 11/24/23 21:00 Total Bilirubin 0.2 mg/dl (0.2-1.0) 11/24/23 21:00 AST 14 U/L (13-39) 11/24/23 21:00 ALT 7 U/L (7-52) 11/24/23 21:00 Alkaline Phosphatase 46 U/L (34-104) 11/24/23 21:00 Troponin I High Sens 4.4 pg/ml (0-20) 11/24/23 21:00 Total Protein 7.1 gm/dl (6.0-8.3) 11/24/23 21:00 Albumin 3.5 gm/dl (3.4-5.0) 11/24/23 21:00 Globulin 3.6 gm/dl (2.5-4.0) 11/24/23 21:00 Albumin/Globulin Ratio 1.0 (0.9-2) 11/24/23 21:00 Lipase 91 U/L (11-82) H 11/24/23 21:00 Urine Color Yellow 11/25/23 00:30 Urine Appearance Clear (Clear) 11/25/23 00:30 Urine pH 6.0 (4.5-7.5) 11/25/23 00:30 Ur Specific [place] > 1.045 (1.000-1.030) H 11/25/23 00:30 Urine Protein Negative (Negative) 11/25/23 00:30 Urine Glucose (UA) Negative (Negative) 11/25/23 00:30 Urine Ketones Negative (Negative) 11/25/23 00:30 Urine Blood Negative (Negative) 11/25/23 00:30 Urine Nitrite Negative (Negative) 11/25/23 00:30 Urine Bilirubin Negative (Negative) 11/25/23 00:30 Urine Urobilinogen Negative (Negative) 11/25/23 00:30 Ur Leukocyte Esterase Negative (Negative) 11/25/23 00:30 Impressions Abdomen/Pelvis CT 11/24/23 21:43 Exam(s): CT ABDOMEN + PELVIS With Contrast IV Amt: 117 ml optiray 320 EXAM: CT Abdomen and Pelvis With Intravenous Contrast CLINICAL HISTORY: Reason for exam: abd pain, nausea, sob. TECHNIQUE: Axial computed tomography images of the abdomen and pelvis with intravenous contrast. CTDI is 16.48 mGy and DLP is 1284.18 mGy-cm. Automated exposure control was utilized for the study. A dose lowering technique was utilized adhering to the principles of ALARA. CONTRAST: Patient received 117 ml optiray 320 of IV contrast COMPARISON: CTA abdomen and pelvis: 11/01/2023 there is a massive hiatal hernia containing the entire distended stomach and a significant portion of the transverse colon. FINDINGS: Lung bases: Unremarkable. No mass. No consolidation. ABDOMEN: Liver: There is suggestion of periportal edema. No mass. Gallbladder and bile ducts: Unremarkable. No calcified stones. No ductal dilation. Pancreas: Unremarkable. No mass. No ductal dilation. Spleen: Unremarkable. No splenomegaly. Adrenals: Unremarkable. No mass. Kidneys and ureters: Unremarkable. No solid mass. No hydronephrosis. Stomach and bowel: There are a few scattered sigmoid colon diverticula. No bowel thickening or obstruction. No free air or abscess identified. The appendix is not visualized. However no pericecal inflammatory changes are noted. PELVIS: Appendix: See above. Bladder: There is a diffuse bladder wall thickening which may be partially related to incomplete distention. Correlation with urinalysis recommended.. Reproductive: Unremarkable as visualized. ABDOMEN and PELVIS: Intraperitoneal space: See above. Bones/joints: There is advanced lumbar degenerative disc disease with mild degenerative levoscoliotic curvature of spine. No acute fracture. No dislocation. Soft tissues: Unremarkable. Vasculature: There are moderate at aortoiliac and branch vessel atherosclerotic calcifications. No aneurysm identified. Lymph nodes: Unremarkable. No enlarged lymph nodes. IMPRESSION: 1. There is a massive hiatal hernia as described above. 2. There is a mild urinary bladder wall thickening which may be related to incomplete distention. Correlation with urinalysis recommended. 3. Sigmoid colon diverticulosis. 4. There is suggestion of diffuse periportal edema. Clinical correlation and follow-up recommended. Electronically signed by: Gama Machado MD 11/24/23 23:58 PM Chest CTA 11/24/23 21:43 Exam(s): CTA CHEST IV Amt: 117 ml optiray 320 EXAM: CT Angiography Chest With Intravenous Contrast CLINICAL HISTORY: Reason for exam: abd pain, nausea, sob, r/o PE. TECHNIQUE: Axial computed tomographic angiography images of the chest with intravenous contrast. CTDI is 16.48 mGy and DLP is 1284.18 mGy-cm. Automated exposure control was utilized for the study. A dose lowering technique was utilized adhering to the principles of ALARA. MIP reconstructed images were created and reviewed. COMPARISON: CTA chest: 09/13/2023 FINDINGS: Pulmonary arteries: Unremarkable. No pulmonary embolism. Aorta: No acute findings. No thoracic aortic aneurysm. Lungs: There is a 2.2 cm calcified granuloma in the lateral right upper lobe. There is dependent lower lobe atelectasis/scar. No mass. Pleural space: Unremarkable. No significant effusion. No pneumothorax. Heart: There is a mass-effect on the part secondary to the large hiatal hernia.. No significant pericardial effusion. No evidence of RV dysfunction. Mediastinum: There is a massive hiatal hernia. There is thickening of the esophagus suggestive of possible esophagitis. Follow-up recommended. Bones/joints: No acute fracture. No dislocation. Soft tissues: Unremarkable. Lymph nodes: Unremarkable. No enlarged lymph nodes. IMPRESSION: 1. There is a massive hiatal hernia with segmental thickening of the esophagus suggestive of associated esophagitis. Clinical correlation. 2. 2.2 cm calcified nodule/granuloma in the lateral right upper lobe. 3. Mild lower lobe subsegmental atelectasis/scarring. No acute cardiopulmonary abnormality identified. 4. No pulmonary artery embolism, thoracic aortic aneurysm or dissection. Electronically signed by: Gama Machado MD 11/25/23 00:04 AM Diagnostic Findings EKG as per my interpretation :Rate 70, NSR, normal axis, incomplete RBBB, tyler septal infarct, low voltage
[2023-11-25] MEDS: AMPICILLIN/SULBACTAM SOD 3,000 MG/100 ML BAG IV STA (01:13)
[2023-11-25] MEDS ORDERED: PROMETHAZINE 6.25 MG/50.25 ML BAG IV PRN (01:15)
[2023-11-25] MEDS ORDERED: oxyCODONE HCL IR 5 MG TAB (IMMEDIATE RELEASE) PO PRN (01:15)
[2023-11-25] MEDS ORDERED: ACETAMINOPHEN 325 MG TAB PO PRN (01:15)
[2023-11-25] MEDS: ALBUT/IPRATROP 3MG/0.5MG NEB 3 ML VIAL NEB STA (01:45)
[2023-11-25 01:58] LABS: Adenovirus PCR Not Detected (NotDetected); Bordetella parapertussis PCR Not Detected (NotDetected); Bordetella pertussis PCR Not Detected (NotDetected); Chlamydia pneumoniae PCR Not Detected (NotDetected); Coronavirus 229E PCR Not Detected (NotDetected); Coronavirus CoV-2 (COVID19)PCR Not Detected (NotDetected); Coronavirus HKU1 PCR Not Detected (NotDetected); Coronavirus NL63 PCR Not Detected (NotDetected); Coronavirus OC43PCR Not Detected (NotDetected); Human Metapneumovirus PCR Not Detected (NotDetected); Influenza A PCR Not Detected (NotDetected); Influenza B PCR Not Detected (NotDetected); Mycoplasma pneumoniae PCR Not Detected (NotDetected); Parainfluenza Virus 1 PCR Not Detected (NotDetected); Parainfluenza Virus 2 PCR Not Detected (NotDetected); Parainfluenza Virus 3 PCR Not Detected (NotDetected); Parainfluenza Virus 4 PCR Not Detected (NotDetected); Respiratory Syncytial VirusPCR Not Detected (NotDetected); Rhinovirus/Enterovirus PCR Not Detected (NotDetected)
[2023-11-25 02:27] LABS: Hematocrit (blood only) 26.5 % (42.0-52.0); Hemoglobin 8.5 g/dl (14.0-18.0)
[2023-11-25] MEDS ORDERED: LORazepam 0.5 MG TAB PO PRN (03:29)
[2023-11-25] MEDS: QUEtiapine FUMARATE 25 MG TABLET PO SCH (05:59)
[2023-11-25 07:28] LABS: BUN Creatinine Ratio 22.5 (10-20); Calcium 8.3 mg/dl (8.6-10.3); Creatinine Clr Calc Pharmacy 58.5 ml/min; Est GFR (African American) 87.9 ml/min; Est GFR (Non-African American) 75.8 ml/min; Potassium 4.1 mmol/L (3.5-5.1)
[2023-11-25] MEDS: SUCRALFATE 1 GM TAB PO SCH (07:30)
[2023-11-25] MEDS: LEVOTHYROXINE SODIUM 25 MCG TABLET PO SCH (07:30)
[2023-11-25 07:40] LABS: Basophils # (auto) 0.09 K/uL (0.00-0.20); Basophils % (auto) 1.5 %; Eosinophils # (auto) 0.18 K/uL (0.00-0.50); Eosinophils % (auto) 2.9 %; Hematocrit (blood only) 27.6 % (42.0-52.0); Hemoglobin 8.6 g/dl (14.0-18.0); Immature Granulocytes # (auto) 0.01 K/uL (0.01-0.20); Immature Granulocytes % (auto) 0.2 %; Lymphocytes # (auto) 1.38 K/uL (1.20-3.40); Lymphocytes % (auto) 22.4 %; Mean Corpuscular Hemoglobin 28.3 pg (25.0-34.0); Mean Corpuscular Hgb Conc 31.2 g/dL (32.0-36.0); Mean Corpuscular Volume 90.8 fL (80.0-100.0); Monocytes # (auto) 0.56 K/uL (0.11-0.59); Monocytes % (auto) 9.1 %; Neutrophils # (auto) 3.93 K/uL (1.40-6.50); Neutrophils % (auto) 63.9 %; Platelet Count 137 K/uL (130-400); Platelet Estimate Decreased (Normal); RDW Coefficient of Variation 15.9 % (11.5-14.5); RDW Standard Deviation 52.2 fL (36.4-46.3); Red Blood Count 3.04 M/uL (4.70-6.10); White Blood Count 6.15 K/ul (4.8-10.8)
--- NOTE | 2023-11-25 08:08 | XRay Report ---
XR chest 1V portable HISTORY: Chest pain, nonspecific COMPARISON: Chest 11/01/2023. FINDINGS: No pneumothorax. No pleural effusions. There is a large hiatus hernia, unchanged. The heart is normal in size. Calcified granuloma within the periphery the right upper lobe again noted. There is also a calcified granuloma within the left lower lobe. IMPRESSION: 1. No acute process within the chest. 2. Large hiatus hernia, unchanged. ACT 112: Negative or not required by law. Electronically signed by: Antoni Salguero M.D. 11/25/2023 8:07 AM
[2023-11-25] MEDS: SODIUM CHLORIDE 5% OP SOLN 15 ML BTL OPB SCH (08:36)
[2023-11-25] MEDS: SERTRALINE HCL 100 MG TABLET PO SCH (08:36)
[2023-11-25] MEDS: PANTOprazole 40 MG TAB PO SCH (08:37)
[2023-11-25] MEDS: DOXAZosin MESYLATE 4 MG TAB PO SCH (08:37)
[2023-11-25] MEDS: FINASTERIDE 5 MG TAB PO SCH (08:37)
[2023-11-25] MEDS: CYANOCOBALAMIN (B-12) 500 MCG TABLET PO SCH (08:38)
[2023-11-25] MEDS: DOCUSATE SODIUM 100 MG CAP PO SCH (08:38)
[2023-11-25] MEDS: ACETAMINOPHEN 325 MG TAB PO SCH (08:38)
[2023-11-25] MEDS: amLODIPine BESYLATE 5 MG TAB PO SCH (08:38)
[2023-11-25] MEDS ORDERED: NON-FORMULARY MEDICATION (Vit C,E-Zn-Coppr-Lutein-Zeaxan [Preservision Areds-2] 250-90-40- PO SCH (09:00)
[2023-11-25] MEDS ORDERED: [UNRECOGNIZED DRUG - OTHER] PO SCH (09:00)
[2023-11-25] MEDS: POLYETHYLENE (MIRALAX) 17 GM PACK PO SCH (09:51)
[2023-11-25] MEDS: FAMOTIDINE 20 MG TAB PO SCH (09:51)
--- NOTE | 2023-11-25 15:13 | Communication Note ---
Date of Service: November 25, 2023 Communication patient seen and examined at the bedside Shortness of breath, chest/upper abdominal pain resolved Patient seen resting in bed, comfortable, not in distress, good spirits, conversant States he feels better overall just tired No other new complaints Symptoms likely secondary to large hiatal hernia Add famotidine Continue Protonix and sucralfate Augmentin twice daily for possible aspiration pneumonitis Speech therapy evaluation-full liquids for now, will need to discuss risk of aspiration with patient and family David Lerner MD
[2023-11-25] MEDS: AMOXICILLIN/CLAVULANATE 875 MG TAB PO SCH (16:33)
[2023-11-26 06:35] LABS: Basophils # (auto) 0.08 K/uL (0.00-0.20); Basophils % (auto) 1.8 %; Eosinophils # (auto) 0.29 K/uL (0.00-0.50); Eosinophils % (auto) 6.5 %; Hematocrit (blood only) 29.9 % (42.0-52.0); Hemoglobin 9.5 g/dl (14.0-18.0); Immature Granulocytes # (auto) 0.01 K/uL (0.01-0.20); Immature Granulocytes % (auto) 0.2 %; Lymphocytes # (auto) 1.22 K/uL (1.20-3.40); Lymphocytes % (auto) 27.5 %; Mean Corpuscular Hemoglobin 28.9 pg (25.0-34.0); Mean Corpuscular Hgb Conc 31.8 g/dL (32.0-36.0); Mean Corpuscular Volume 90.9 fL (80.0-100.0); Monocytes # (auto) 0.49 K/uL (0.11-0.59); Neutrophils # (auto) 2.35 K/uL (1.40-6.50); Platelet Count 113 K/uL (130-400); RDW Coefficient of Variation 15.7 % (11.5-14.5); RDW Standard Deviation 51.8 fL (36.4-46.3); Red Blood Count 3.29 M/uL (4.70-6.10); White Blood Count 4.44 K/ul (4.8-10.8)
[2023-11-26 06:43] LABS: BUN Creatinine Ratio 14.1 (10-20); Calcium 8.8 mg/dl (8.6-10.3); Creatinine Clr Calc Pharmacy 56.6 ml/min; Est GFR (African American) 85.2 ml/min; Est GFR (Non-African American) 73.5 ml/min; Potassium 4.7 mmol/L (3.5-5.1)
[2023-11-26] MEDS ORDERED: bisacodyL 10 MG SUPP PR PRN (10:36)
[2023-11-26] MEDS: bisacodyL 10 MG SUPP PR ONE (10:39)
[2023-11-26 11:08] LABS: Thyroid Stimulating Hormone 4.162 uIu/ml (0.300-4.500)
--- NOTE | 2023-11-26 17:51 | Hospitalist Progress Note ---
Date of Service November 26, 2023 delayed entry date of service noted above Assessment & Plan (1) SOB (shortness of breath): Plan: (1) SOB (shortness of breath): Plan: Episode of shortness of breath, chest pain Likely secondary to episodic flare of large hiatal hernia Symptoms resolved at the ED CT chest: 1. There is a massive hiatal hernia with segmental thickening of the esophagus suggestive of associated esophagitis. Clinical correlation. 2. 2.2 cm calcified nodule/granuloma in the lateral right upper lobe. 3. Mild lower lobe subsegmental atelectasis/scarring. No acute cardiopulmonary abnormality identified. 4. No pulmonary artery embolism, thoracic aortic aneurysm or dissection. 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 Disposition Anticipate return to personal-[facility]ail with hospice care referral tomorrow Admission and Anticipated Discharge Date Admission Date: November 26, 2023 Subjective ff up for chest pain, shortness of breath episode et seen resting in bed, sitting up conversant, in good spirits, oriented states he feels fine overall no recurrence of chest pain, shortness of breath no coughing, choking, dysphagia today no other symptoms Review of Systems Review of Systems: all noted and negative except for above Physical Exam Physical Exam: General- oriented x 2, not in distress, speaks in sentences with no effort or accessory muscle use Eyes- anicteric Neck- no JVD Lungs- clear breath sounds bilaterally, no crackles or wheezing Heart- normal rate, regular rhythm; no murmurs Abdomen- normal bowel sounds, nondistended, soft, nontender Extremities- no pretibial edema, no calf tenderness Neuro- alert, oriented x 2; no gross focal neurologic deficits Skin- warm & dry Results & Data Results & Data Vital Signs (Past 12 Hours) Vital Signs Temp Pulse Pulse Resp BP Pulse Ox O2 Del Method 11/26/23 16:24 36.7 C 68 16 154/81 H 91 Room Air 11/26/23 12:59 58 L 11/26/23 11:49 36.5 C 56 L 20 163/73 H 96 Room Air 11/26/23 07:44 36.7 C 52 L 16 161/99 H 98 Nasal Cannula 11/26/23 07:27 98 Room Air, Nasal Cannula 11/26/23 07:27 Room Air O2 Flow Rate 11/26/23 16:24 11/26/23 12:59 11/26/23 11:49 11/26/23 07:44 2 11/26/23 07:27 2 11/26/23 07:27 all noted and reviewed including below
[2023-11-26] MEDS: RIVAROXABAN 10 MG TABLET PO SCH (21:25)
--- NOTE | 2023-11-27 09:53 | Palliative Care Consultation ---
Date of Consultation November 27, 2023 Assessment & Plan (1) Dyspnea and respiratory abnormalities: (2) Altered mental status: Altered mental status type: delirium Qualified Code(s): R41.0 - Disorientation, unspecified (3) Weakness generalized: (4) Bipolar 1 disorder: (5) Discussion about advance care planning held with family member: A 45 -minute [id number] advance care planning meeting was held with patient's son/POABrady and and daughter Carter, son-in-law Dalton. Meeting was held in the family waiting room due to patient's cognitive impairment. Paris from case management was also able to join us for most of this discussion. We reviewed the following facts about dementia: * Dementia is a terminal illness. Aggressive medical treatment for residents with advanced dementia is often inappropriate for medical reasons, has a low rate of success, and can have negative outcomes that hasten functional decline and . * Tube feeding in residents with advanced dementia does not increase survival. It does not prevent aspiration pneumonia, malnutrition or pressure ulcers. It does not reduce the risk of infections or improve functional status or comfort of the patient. * Simple strategies involving hands-on care by well-trained staff such as massage, oral hygiene, changes in diet, and hand-feeding -- can prevent infection and manage feeding problems without resort to tube-feeding. * Tube feeding does not prevent aspiration pneumonia and might actually increase its incidence, and does not prevent the consequences of malnutrition * Hand feeding can be provided until the beginning of the dying process when all physiological processes shut down, note that cognitively intact cancer patients indicate that dying residents do not feel hunger and thirst. * Voluntary refusal of food and liquids is often initiated by hospice patients and does not result in discomfort * The majority of older Americans whose underlying cause of is attributab le to dementia on their certificate in nursing homes. State-level factors, including the availability of hospital and skilled nursing beds and the age of decedents in the population, explain, in part, the wide [id number] variability in the proportion of dementia-related deaths occurring in the hospital. * Older adults with dementia frequently receive acute care in their last year of life although Hospice care was more common for home/FDC residents. Overall time in hospice remains short due to the underutilization of the hospice benefit for terminal dementia * Home Hospice is a valuable option for terminal dementia who desire to have peaceful EOL at home. Home hospice care for advanced dementia can improve symptom management and caregiver satisfaction, while decreasing caregiver bu rden, preventing hospitalizations and discontinuing unnecessary medications Multiple organizations, including the [employer] [employer] and the [employer] [employer], have released statements endorsing the following approach to nutritional support in advanced dementia: Dont recommend percutaneous feeding tubes in patients with advanced dementia; instead, offer oral assisted feeding. Family states that in the recent year, patient has been expressing a desire to remain at home and not pursue aggressive medical interventions. He has also been expressing that he feels his time is coming to an end and he is ready. He does not feel he has as good a quality of life as he would like especially as his debility worsens. He is happy at his current [facility] and they feel that working towards a plan of care that would allow him to stay there without frequent returns to the hospital would be best. We discussed the addition of hospice as a way to ensure high-quality end-of-life care. They were in agreement for this after the discussion of hospice services was provided. They do not want further return to the hospital. They would like his symptoms managed at the skilled nursing and controlled to relieve any distress or suffering. They understand that with the risk of aspiration, it is potentially higher risk of mortality although, in general terms of just his dementia alone, we would anticipate mortality in a space of 6 or more months. All questions were answered to their apparent satisfaction. They are in agreement for plan of care with a focus on comfort and quality of life. We will make him comfort care status today with a plan to return to personal care tomorrow with the addition of [facility]. After speaking with the family and reviewing the above recommendations and plan of care, I then returned to patient's room to discuss with him privately at the request of family. He recognized the impact of the swallowing problems and the risks of aspiration. He tells me "I am cognizantly aware that the things are getting worse but I just want to be comfortable. I do not want to keep coming back here." I reviewed that we are planning to send him back to the [facility] with the addition of visiting nurses to help make sure that he is able to stay comfortable and has good quality of life while he is there and avoid returning to the hospital. He was in agreement with this plan and expressed appreciation for the efforts that everyone here is making on his behalf. He is looking forward to returning to his personal [facility] soon. (6) Palliative care by specialist: Discussed Palliative Medicine provides specialized medical care for patients with a serious illness. We offer a focus on quality of life through reduction of symptom burden/more control over their illness, for patients and their family. Palliative Medicine interventions can be given along with curative treatment. I specifically clarified we are not hospice, which is a visiting nurse service that focuses on care delivered at the very end of life. History of Present Illness Reason for Consultation: goals Attending Physician: David Lerner MD History of Present Illness Suhas Velazquez is an 88-year-old gentleman admitted 11/25/2023 with worsening shortness of breath likely due to an aspiration pneumonitis. He has a history of esophageal dysfunction. He also carries a medical history of PAF, PE, DVT for which she is on Xarelto, valvular heart disease with mild , mild MR, mild TR from echo in 2022, CVA with history of cerebral aneurysm clipping, hypertension, hyperlipidemia, hypothyroid, cognitive impairment/dementia, MGUS, GERD, anxiety, mood disorder, frailty, and prior tobacco use. He resides at [facility] in [place]/[facility]. He is not a reliable historian. He had a recent admission a few weeks ago for anemia secondary to an upper GI bleed. His EGD at that time demonstrated moderately tortuous esophagus and a large hiatal hernia. His duodenum was normal. Nuclear GI bleed scan did not show any evidence of an active bleed. He was discharged on reduced Xarelto. His symptoms at the time of admission included a bronchitic cough, left-sided chest and abdominal pain, worsening shortness of breath. 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 he denies acute pain or dyspnea he asks when he can return home Allergies Allergy/AdvReac Type Severity Reaction Status Date / Time No Known Allergies Allergy Verified 11/02/23 11:12 Home Medications Medication Instructions Recorded Confirmed Type acetaminophen 325 mg tablet 650 mg PO BID 01/05/23 11/24/23 History (Tylenol) amlodipine 5 mg tablet 5 mg PO DAILY 01/05/23 11/24/23 History ascorbic acid (vitamin C) 1,000 mg 1 g PO DAILY 01/05/23 11/24/23 History tablet (Vitamin C) calcium carbonate (Calcium 600) 600 mg PO DAILY 01/05/23 11/24/23 History cholecalciferol (vitamin D3) 25 25 mcg PO DAILY 01/05/23 11/24/23 History mcg (1,000 unit) tablet (Vitamin D3) cyanocobalamin (vitamin B-12) 500 500 mcg PO DAILY 01/05/23 11/24/23 History mcg tablet (Vitamin B-12) docusate sodium 100 mg capsule 100 mg PO BID 01/05/23 11/24/23 History doxazosin 4 mg tablet 4 mg PO DAILY 01/05/23 11/24/23 History ferrous sulfate 325 mg (65 mg 325 mg PO BID 01/05/23 11/24/23 History iron) tablet finasteride 5 mg tablet 5 mg PO QAM 01/05/23 11/24/23 History levothyroxine 25 mcg tablet 25 mcg PO DAILY 01/05/23 11/24/23 History loperamide 2 mg capsule 2 mg PO Q4H PRN Diarrhea 01/05/23 11/24/23 History lorazepam 0.5 mg tablet 0.5 mg PO TID PRN Anxiety 01/05/23 11/24/23 History quetiapine 50 mg tablet 50 mg PO HS 01/05/23 11/24/23 History sennosides 8.6 mg-docusate sodium 2 tab-cap PO BID 01/05/23 11/24/23 History 50 mg capsule (Senna Plus) sertraline 100 mg tablet 100 mg PO DAILY 01/05/23 11/24/23 History simvastatin 40 mg tablet 40 mg PO QPM 01/05/23 11/24/23 History tramadol 50 mg tablet 50 mg PO Q6H PRN Pain 01/05/23 11/24/23 History sucralfate 1 gram tablet 1 g PO ACHS 06/18/23 11/24/23 History pantoprazole 40 mg tablet,delayed 40 mg PO BID #60 tabs 09/20/23 11/24/23 Rx release sodium chloride 5 % eye drops 1 drp OPB BID 11/01/23 11/24/23 History (Mik 128) vit C 250 mg-vit E 90 mg-zinc 40 1 tab PO DAILY 11/01/23 11/24/23 History mg-copper 1 za-itqluh-ptcabx capsule (PreserVision AREDS-2) rivaroxaban 10 mg tablet (Xarelto) 10 mg PO QPM #30 tabs 11/08/23 11/24/23 Rx aspirin 81 mg tablet,delayed 81 mg PO DAILY 11/24/23 11/24/23 History release nelF-K0-D-I-yxqdro-lowyqug-min 1 tab PO DAILY 11/24/23 11/24/23 History 3,300 unit-5 mg-200mg-75 unit tablet ER (ICaps) Patient History Medical History Seizure Hx of pulmonary embolus Surgical History History of brain surgery Family History Family/Other No pertinent family history Social History Smoking Status: Former smoker Tobacco Type: Cigarettes packs per day: 1; Cigarettes Per Day: 28; Second Hand Exposure: No; Do You Dip or Chew Tobacco: No; Hx Alcohol Use: No Hx Substance Use: No Preferred Language: Gambian Communication Ability: Effective Medical Transcription Supervisor Required: No Beliefs That Will Affect Care: None marital status: Single Current Living Situation: Senior Living Current Living Situation Comment: [facility] Other Information That Helps Us Care for You: No Feels Safe at Home: Yes Safety Concerns: Feels Safe At This Time Assistive Devices: Walker and Wheelchair Review of Systems Review of Systems: Unobtainable due to cognitive status Physical Exam Physical Exam: Chronically ill-appearing elderly male, resting in bed, semireclined. Bitemporal wasting. Forgetful but pleasant and cooperative with exam. Pupils are equal, round and reactive to light. Extraocular movements are intact. There is a right facial droop consistent with his history of prior stroke. Neck is supple and without stridor. There are some gurgling secretions which he clears occasionally with a cough. Respiratory effort is normal without use of accessory muscles at rest. No conversational dyspnea is noted. Breath sounds are diminished with a few scattered rhonchi. No overt wheezing is noted. Heart tones S1-S2, slightly irregular. No overt JVD noted. Abdomen is soft and nontender. Bowel sounds are present. Extremities with intact movement. Generalized weakness noted. Planner Scheduler is intact. Skin is pale but cool to touch. There are some scattered ecchymoses noted. He is awake and alert to self, r ecognizes that he is in a hospital but cannot tell me which hospital he is in. He was unsure of today's date. Results & Data Vital Signs (Past 12 Hours) Vital Signs Temp Pulse Pulse Resp BP BP Pulse Ox 11/27/23 07:24 36.9 C 59 L 16 122/67 93 11/27/23 07:02 11/27/23 05:51 45 L 11/27/23 02:32 36.9 C 60 16 150/63 H 92 11/26/23 22:15 57 L 11/26/23 21:56 36.8 C 52 L 18 105/60 94 O2 Del Method 11/27/23 07:24 Room Air 11/27/23 07:02 Room Air 11/27/23 05:51 11/27/23 02:32 Room Air 11/26/23 22:15 11/26/23 21:56 Room Air Laboratory Results 11/26/23 11/25/23 11/25/23 Range/Units 05:38 06:13 02:08 WBC 4.44 L 6.15 (4.8-10.8) K/ul RBC 3.29 L 3.04 L (4.70-6.10) M/uL Hgb 9.5 L 8.6 L 8.5 L (14.0-18.0) g/dl Hct 29.9 L 27.6 L 26.5 L (42.0-52.0) % MCV 90.9 90.8 (80.0-100.0) fL MCH 28.9 28.3 (25.0-34.0) pg MCHC 31.8 L 31.2 L (32.0-36.0) g/dL RDW Std Deviation 51.8 H 52.2 H (36.4-46.3) fL RDW Coeff of Luis 15.7 H 15.9 H (11.5-14.5) % Plt Count 113 L 137 (130-400) K/uL MPV 12.0 (9.4-12.4) fL Immature Gran % (Auto) 0.2 0.2 % Neut % (Auto) 53.0 63.9 % Lymph % (Auto) 27.5 22.4 % [place] % (Auto) 11.0 9.1 % Eos % (Auto) 6.5 2.9 % Baso % (Auto) 1.8 1.5 % Neut # (Auto) 2.35 3.93 (1.40-6.50) K/uL Lymph # (Auto) 1.22 1.38 (1.20-3.40) K/uL [place] # (Auto) 0.49 0.56 (0.11-0.59) K/uL Eos # (Auto) 0.29 0.18 (0.00-0.50) K/uL Baso # (Auto) 0.08 0.09 (0.00-0.20) K/uL Immature Gran # (Auto) 0.01 0.01 (0.01-0.20) K/uL Platelet Estimate Decreased L (Normal) PT (9.0-12.0) Seconds INR (0.9-1.1) APTT (21-31) Seconds PTT Ratio Sodium 139 138 (136-145) mmol/L Potassium 4.7 4.1 (3.5-5.1) mmol/L Chloride 104 104 (98-107) mmol/L Carbon Dioxide 33 H 30 (21-32) mmol/L Anion Gap 2 L 4 (3-11) BUN 13 20 (6-23) mg/dl Creatinine 0.92 0.89 (0.6-1.4) mg/dl Est Cr Clr Drug Dosing 56.6 58.5 ml/min Est GFR ( Amer) 85.2 87.9 ml/min Est GFR (Non-Af Amer) 73.5 75.8 ml/min BUN/Creatinine Ratio 14.1 22.5 H (10-20) Glucose 93 99 (70-99(Fasting)) mg/dl Calcium 8.8 8.3 L (8.6-10.3) mg/dl Magnesium (1.7-2.4) mg/dl Total Bilirubin (0.2-1.0) mg/dl AST (13-39) U/L ALT (7-52) U/L Alkaline Phosphatase (34-104) U/L Troponin I High Sens (0-20) pg/ml Total Protein (6.0-8.3) gm/dl Albumin (3.4-5.0) gm/dl Globulin (2.5-4.0) gm/dl Albumin/Globulin Ratio (0.9-2) Lipase (11-82) U/L TSH 4.162 (0.300-4.500) uIu/ml Urine Color Urine Appearance (Clear) Urine pH (4.5-7.5) Ur Specific Marion (1.000-1.030) Urine Protein (Negative) Urine Glucose (UA) (Negative) Urine Ketones (Negative) Urine Blood (Negative) Urine Nitrite (Negative) Urine Bilirubin (Negative) Urine Urobilinogen (Negative) Ur Leukocyte Esterase (Negative) Adenovirus (PCR) (NotDetected) B. pertussis DNA (PCR) (NotDetected) B.parapertussis DNA PCR (NotDetected) C. pneumoniae DNA (PCR) (NotDetected) Coronavirus OC43 (PCR) (NotDetected) Coronavirus HKU1 (PCR) (NotDetected) Coronavirus 229E (PCR) (NotDetected) SARS-CoV-2 (PCR) (NotDetected) Coronavirus NL63 (PCR) (NotDetected) Human Metapneumovir PCR (NotDetected) Influenza Type A (PCR) (NotDetected) Influenza Type B (PCR) (NotDetected) M. pneumoniae (PCR) (NotDetected) Parainfluenza 1 (PCR) (NotDetected) Parainfluenza 2 (PCR) (NotDetected) Parainfluenza 3 (PCR) (NotDetected) Parainfluenza 4 (PCR) (NotDetected) RSV (PCR) (NotDetected) Entero/Rhino (PCR) (NotDetected) Blood Type A Positive Antibody Screen NEGATIVE 11/25/23 11/25/23 11/24/23 Range/Units 01:00 00:30 21:00 WBC 4.97 (4.8-10.8) K/ul RBC 3.13 L (4.70-6.10) M/uL Hgb 9.1 L (14.0-18.0) g/dl Hct 28.2 L (42.0-52.0) % MCV 90.1 (80.0-100.0) fL MCH 29.1 (25.0-34.0) pg MCHC 32.3 (32.0-36.0) g/dL RDW Std Deviation 50.1 H (36.4-46.3) fL RDW Coeff of Luis 15.7 H (11.5-14.5) % Plt Count 143 (130-400) K/uL MPV 11.6 (9.4-12.4) fL Immature Gran % (Auto) 0.2 % Neut % (Auto) 57.0 % Lymph % (Auto) 24.5 % [place] % (Auto) 12.5 % Eos % (Auto) 4.2 % Baso % (Auto) 1.6 % Neut # (Auto) 2.83 (1.40-6.50) K/uL Lymph # (Auto) 1.22 (1.20-3.40) K/uL [place] # (Auto) 0.62 H (0.11-0.59) K/uL Eos # (Auto) 0.21 (0.00-0.50) K/uL Baso # (Auto) 0.08 (0.00-0.20) K/uL Immature Gran # (Auto) 0.01 (0.01-0.20) K/uL Platelet Estimate (Normal) PT 11.7 (9.0-12.0) Seconds INR 1.1 (0.9-1.1) APTT 31 (21-31) Seconds PTT Ratio 1.2 Sodium 137 (136-145) mmol/L Potassium 4.1 (3.5-5.1) mmol/L Chloride 103 (98-107) mmol/L Carbon Dioxide 27 (21-32) mmol/L Anion Gap 7 (3-11) BUN 26 H (6-23) mg/dl Creatinine 0.96 (0.6-1.4) mg/dl Est Cr Clr Drug Dosing 54.2 ml/min Est GFR ( Amer) 80.9 ml/min Est GFR (Non-Af Amer) 69.8 ml/min BUN/Creatinine Ratio 27.1 H (10-20) Glucose 95 (70-99(Fasting)) mg/dl Calcium 8.9 (8.6-10.3) mg/dl Magnesium 2.2 (1.7-2.4) mg/dl Total Bilirubin 0.2 (0.2-1.0) mg/dl AST 14 (13-39) U/L ALT 7 (7-52) U/L Alkaline Phosphatase 46 (34-104) U/L Troponin I High Sens 4.4 (0-20) pg/ml Total Protein 7.1 (6.0-8.3) gm/dl Albumin 3.5 (3.4-5.0) gm/dl Globulin 3.6 (2.5-4.0) gm/dl Albumin/Globulin Ratio 1.0 (0.9-2) Lipase 91 H (11-82) U/L TSH (0.300-4.500) uIu/ml Urine Color Yellow Urine Appearance Clear (Clear) Urine pH 6.0 (4.5-7.5) Ur Specific Marion > 1.045 H (1.000-1.030) Urine Protein Negative (Negative) Urine Glucose (UA) Negative (Negative) Urine Ketones Negative (Negative) Urine Blood Negative (Negative) Urine Nitrite Negative (Negative) Urine Bilirubin Negative (Negative) Urine Urobilinogen Negative (Negative) Ur Leukocyte Esterase Negative (Negative) Adenovirus (PCR) Not Detected (NotDetected) B. pertussis DNA (PCR) Not Detected (NotDetected) B.parapertussis DNA PCR Not Detected (NotDetected) C. pneumoniae DNA (PCR) Not Detected (NotDetected) Coronavirus OC43 (PCR) Not Detected (NotDetected) Coronavirus HKU1 (PCR) Not Detected (NotDetected) Coronavirus 229E (PCR) Not Detected (NotDetected) SARS-CoV-2 (PCR) Not Detected (NotDetected) Coronavirus NL63 (PCR) Not Detected (NotDetected) Human Metapneumovir PCR Not Detected (NotDetected) Influenza Type A (PCR) Not Detected (NotDetected) Influenza Type B (PCR) Not Detected (NotDetected) M. pneumoniae (PCR) Not Detected (NotDetected) Parainfluenza 1 (PCR) Not Detected (NotDetected) Parainfluenza 2 (PCR) Not Detected (NotDetected) Parainfluenza 3 (PCR) Not Detected (NotDetected) Parainfluenza 4 (PCR) Not Detected (NotDetected) RSV (PCR) Not Detected (NotDetected) Entero/Rhino (PCR) Not Detected (NotDetected) Blood Type Antibody Screen Diagnostic Findings Chest X-Ray 11/24/23 21:14 XR chest 1V portable HISTORY: Chest pain, nonspecific COMPARISON: Chest 11/01/2023. FINDINGS: No pneumothorax. No pleural effusions. There is a large hiatus hernia, unchanged. The heart is normal in size. Calcified granuloma within the periphery the right upper lobe again noted. There is also a calcified granuloma within the left lower lobe. IMPRESSION: 1. No acute process within the chest. 2. Large hiatus hernia, unchanged. ACT 112: Negative or not required by law. Electronically signed by: Antoni Salguero M.D. 11/25/2023 8:07 AM Abdomen/Pelvis CT 11/24/23 21:43 Exam(s): CT ABDOMEN + PELVIS With Contrast IV Amt: 117 ml optiray 320 EXAM: CT Abdomen and Pelvis With Intravenous Contrast CLINICAL HISTORY: Reason for exam: abd pain, nausea, sob. TECHNIQUE: Axial computed tomography images of the abdomen and pelvis with intravenous contrast. CTDI is 16.48 mGy and DLP is 1284.18 mGy-cm. Automated exposure control was utilized for the study. A dose lowering technique was utilized adhering to the principles of ALARA. CONTRAST: Patient received 117 ml optiray 320 of IV contrast COMPARISON: CTA abdomen and pelvis: 11/01/2023 there is a massive hiatal hernia containing the entire distended stomach and a significant portion of the transverse colon. FINDINGS: Lung bases: Unremarkable. No mass. No consolidation. ABDOMEN: Liver: There is suggestion of periportal edema. No mass. Gallbladder and bile ducts: Unremarkable. No calcified stones. No ductal dilation. Pancreas: Unremarkable. No mass. No ductal dilation. Spleen: Unremarkable. No splenomegaly. Adrenals: Unremarkable. No mass. Kidneys and ureters: Unremarkable. No solid mass. No hydronephrosis. Stomach and bowel: There are a few scattered sigmoid colon diverticula. No bowel thickening or obstruction. No free air or abscess identified. The appendix is not visualized. However no pericecal inflammatory changes are noted. PELVIS: Appendix: See above. Bladder: There is a diffuse bladder wall thickening which may be partially related to incomplete distention. Correlation with urinalysis recommended.. Reproductive: Unremarkable as visualized. ABDOMEN and PELVIS: Intraperitoneal space: See above. Bones/joints: There is advanced lumbar degenerative disc disease with mild degenerative levoscoliotic curvature of spine. No acute fracture. No dislocation. Soft tissues: Unremarkable. Vasculature: There are moderate at aortoiliac and branch vessel atherosclerotic calcifications. No aneurysm identified. Lymph nodes: Unremarkable. No enlarged lymph nodes. IMPRESSION: 1. There is a massive hiatal hernia as described above. 2. There is a mild urinary bladder wall thickening which may be related to incomplete distention. Correlation with urinalysis recommended. 3. Sigmoid colon diverticulosis. 4. There is suggestion of diffuse periportal edema. Clinical correlation and follow-up recommended. Electronically signed by: Gama Machado MD 11/24/23 23:58 PM Chest CTA 11/24/23 21:43 Exam(s): CTA CHEST IV Amt: 117 ml optiray 320 EXAM: CT Angiography Chest With Intravenous Contrast CLINICAL HISTORY: Reason for exam: abd pain, nausea, sob, r/o PE. TECHNIQUE: Axial computed tomographic angiography images of the chest with intravenous contrast. CTDI is 16.48 mGy and DLP is 1284.18 mGy-cm. Automated exposure control was utilized for the study. A dose lowering technique was utilized adhering to the principles of ALARA. MIP reconstructed images were created and reviewed. COMPARISON: CTA chest: 09/13/2023 FINDINGS: Pulmonary arteries: Unremarkable. No pulmonary embolism. Aorta: No acute findings. No thoracic aortic aneurysm. Lungs: There is a 2.2 cm calcified granuloma in the lateral right upper lobe. There is dependent lower lobe atelectasis/scar. No mass. Pleural space: Unremarkable. No significant effusion. No pneumothorax. Heart: There is a mass-effect on the part secondary to the large hiatal hernia.. No significant pericardial effusion. No evidence of RV dysfunction. Mediastinum: There is a massive hiatal hernia. There is thickening of the esophagus suggestive of possible esophagitis. Follow-up recommended. Bones/joints: No acute fracture. No dislocation. Soft tissues: Unremarkable. Lymph nodes: Unremarkable. No enlarged lymph nodes. IMPRESSION: 1. There is a massive hiatal hernia with segmental thickening of the esophagus suggestive of associated esophagitis. Clinical correlation. 2. 2.2 cm calcified nodule/granuloma in the lateral right upper lobe. 3. Mild lower lobe subsegmental atelectasis/scarring. No acute cardiopulmonary abnormality identified. 4. No pulmonary artery embolism, thoracic aortic aneurysm or dissection. Electronically signed by: Gama Machado MD 11/25/23 00:04 AM PG Care Time/CCT Total # of Minutes Spent Total Time Spent with Patient: Total time spent is greater than 50% in coordination of care (as documented) at patient's floor/unit and/or counseling patient: I spent 115 minutes overall addressing this case: 20 min in medical data review/discussion with referring provider(s) and/or preparation for the visit 20 min in direct interaction with the patient/exam 45 min in Advance Care Planning/Goals of Care discussions as detailed above in note (must be >16min) 15 min in subsequent review and synthesis of assessment and plan 15 min communicating with other providers regarding the edward appiah's case: Primary team, nursing, care management Advanced Care Planning 34942 Advanced Care Planning 30 Min 20174 Advanced Care Planning Additional 30 [place] [address] IN/OBS CONSULT LVL 5,80M (25 - SIGNIFICANT, SEPARATELY IDENTIFIABLE ) Patient Type New History Comprehensive Exam Comprehensive Medical Decision Making High Complexity Diagnoses Dyspnea and respiratory abnormalities R06.00; R06.89 Delirium R41.0 Altered mental status type: delirium Weakness generalized R53.1 Bipolar 1 disorder F31.9 Discussion about advance care planning held with family member Z71.0 Palliative care by specialist Z51.5 Additional Codes Advanced Care Planning - 56116 Advanced Care Planning 30 Min: 21942 Advanced Care Planning 30 Min ([id number]) Advanced Care Planning - 03996 Advanced Care Planning Additional 30 Min: [id number] Advanced Care Planning Additional 30 Min ([id number])
[2023-11-27 11:22] VITALS: RESP 18
--- NOTE | 2023-11-27 16:48 | Hospitalist Progress Note ---
Date of Service November 27, 2023 Assessment & Plan (1) SOB (shortness of breath): Plan: Episode of shortness of breath, chest pain Likely secondary to episodic flare of large hiatal hernia Symptoms resolved at the ED CT chest: 1. There is a massive hiatal hernia with segmental thickening of the esophagus suggestive of associated esophagitis. Clinical correlation. 2. 2.2 cm calcified nodule/granuloma in the lateral right upper lobe. 3. Mild lower lobe subsegmental atelectasis/scarring. No acute cardiopulmonary abnormality identified. 4. No pulmonary artery embolism, thoracic aortic aneurysm or dissection. Famotidine daily added Augmentin twice daily also started for possible aspiration component Patient's quickly improved while admitted Did not require any O2 supplement Speech therapy service consulted, clear liquids versus permissive aspiration Patient prefers to continue with easy to chew diet, aspiration precautions Doing fine overall Palliative care service consulted, plan to return to personal-custodial with hospice referral, case management on board, anticipate return to personal-custodial tomorrow History esophageal dysfunction Dried blood per [place]- resolved Recent dental procedure Recent admission for UGIB 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 Disposition Anticipate return to personal-custodial with hospice care referral tomorrow Admission and Anticipated Discharge Date Admission Date: November 26, 2023 Subjective Follow-up for chest pain, shortness of breath, likely secondary to large hiatal hernia, etc. Seen resting in bed, sitting up, comfortable, not in distress States he feels better overall No recurrence of chest pain or shortness of breath, tolerating easy to chew diet well, denies choking or coughing Ambulated with physical therapist in the hallways with no problems No other new symptoms States he would like to be discharged today Review of Systems Review of Systems: all noted and negative except for above Physical Exam Physical Exam: General- oriented x 2, not in distress, speaks in sentences with no effort or accessory muscle use Eyes- anicteric Neck- no JVD Lungs- clear breath sounds bilaterally, no rales/wheezes Heart- normal rate, regular rhythm; no murmurs Abdomen- normal bowel sounds, nondistended, soft, no tenderness Extremities- no pretibial edema, no calf tenderness Neuro- alert, oriented x 2; no gross focal neurologic deficits Skin- warm & dry Results & Data Results & Data Vital Signs (Past 12 Hours) Vital Signs Temp Pulse Pulse Resp BP BP Pulse Ox 11/27/23 15:53 36.7 C 74 18 149/76 H 90 11/27/23 11:21 36.6 C 58 L 18 134/74 91 11/27/23 07:24 36.9 C 59 L 16 122/67 93 11/27/23 07:02 11/27/23 05:51 45 L O2 Del Method 11/27/23 15:53 Room Air 11/27/23 11:21 Room Air 11/27/23 07:24 Room Air 11/27/23 07:02 Room Air 11/27/23 05:51 all noted and reviewed including below
[2023-11-27] MEDS: ADVANCED PROBIOTIC 625 MG CAPSULE PO SCH (17:28)
[2023-11-28 11:14] VITALS: PULSE 58; TEMP 97.9; O2SAT 96
[2023-11-28 13:17] VITALS: BP 125/74
--- NOTE | 2023-11-28 13:52 | Discharge Summary ---
Date of Service November 28, 2023 Admission HPI Per Admitting Provider History obtained from patient, family, and records. Patient is a fair historian. 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 Recent confinement 2 weeks ago for anemia secondary to UGIB presenting as melena. EGD showed moderately tortuous esophagus with large hiatal hernia. Normal duodenum as per report. Nuclear GI bleed scan did not show any evidence of active GI bleed. Sigmoidoscopy showed internal hemorrhoids. Patient discharged on reduced Xarelto dose for history of PAF PE/DVT after discussion with family. Patient noted SOB symptoms associated with junky cough symptoms yesterday. Admits to cough symptoms from food/water intake from time to time. Left-sided chest/abdominal pain last night as per report. Patient denies reported pain complaints. Patient brought to ER for evaluation. Dried blood noted on patient's mouth. Personal care facility staff unaware of hematemesis/coffee-ground emesi s/melena/hematochezia at home. Patient went for a dental appointment last week as per daughter. Patient denies oral pain and is unaware of mouth bleeding. Medical History as above Surgical History : Cerebral aneurysm clipping Family History : Cannot be obtained due to cognitive impairment Personal/Social history : Past tobacco abuse, no EtOH intake, personal care facility resident Admission Exam Per Admitting Provider GENERAL: Slightly uncomfortable, frail, oriented to place, no respiratory distress SKIN: Pallor, warm HEENT: Pale palpebral conjunctivae, no ptosis, chronic right facial droop, dry buccal mucosa, dried blood over right lip NECK : Supple, no tenderness CHEST : Decreased breath sounds, no tenderness HEART : RRR, systolic murmur ABDOMEN: Some distention, nontender EXTREMITIES : No LE swelling, no other conspicuous deformities noted NEUROLOGIC : oriented to place, chronic right facial droop, gait and stance not assessed Principal Diagnosis Possible aspiration pneumonitis Discharge Exam General- oriented x 3, not in distress, speaks in sentences with no effort or accessory muscle use Eyes- anicteric Neck- no JVD Lungs- clear breath sounds bilaterally, no rales/wheezes Heart- normal rate, regular rhythm; no murmurs Abdomen- normal bowel sounds, nondistended, soft, no tenderness Extremities- no pretibial edema, no calf tenderness Neuro- alert, oriented x 3; chronic right facial droop Skin- warm & dry Discharge Data Allergies Allergy/AdvReac Type Severity Reaction Status Date / Time No Known Allergies Allergy Verified 11/02/23 11:12 Consultations 11/25/23 00:41 ED Decision to Admit Stat 11/25/23 01:18 Consult Palliative Care Routine Ordered Studies 11/24/23 21:43 CT abd pelvis IV con only Stat CT angio chest PE protocol Stat Hospital Course (1) SOB (shortness of breath): Episode of shortness of breath, chest pain Likely secondary to episodic flare of large hiatal hernia Patient was referred to the hospital due to episodic shortness of breath and chest pain. CT chest showed massive hiatal hernia with possible associated esophagitis. It also showed mild lower lobe subsegmental atelectasis/scarring. Patient was treated with antibiotics for pneumonia; [employer] eval was done. Patient preferred Easy to chew diet which was continued with permissive aspiration Patient reported frustration of being in the hospital multiple times in the last few months and reported that he does not want to keep coming back to the hospital. Patient was discharged to personal group home on hospice care. Please note the above document was generated using voice recognition software. It may contain grammatical, syntax or spelling errors. Any formal questions or concerns about the content, text or information contained within the body of this dictation should be directly addressed to the provider for clarification Total Time Total Time Spent Total Time Spent (In Minutes): 35 Total Time Includes: Examination of the Patient, Discharge Planning, Medication Reconciliation, Communication With Other Providers and Other Discharge Plan Discharge Items Patient Disposition: Hospice - Medical Facility Reason For Visit: SOB Discharge Diagnosis: Hiatal hernia Activity: Resume your previous activity Non-emergency contact: Primary Care Provider Call non-emergency contact if: you have any medication questions and your symptoms worsen Follow-up/Referrals: Conner Elias [Primary Care Provider] - Diet: Regular Addtl Attending Provider Instructions: You were admitted to the hospital due to concern for shortness of breath. You were prescribed antibiotic for 3 more days to complete the treatment course. Please continue to take Protonix twice daily. Pending Studies at Discharge: No Stand-Alone Forms: My [facility] Skilled Items Patient informed of condition?: Yes DNR: Yes Discharge Level of Care: Skilled Communicable Disease: No Discharge Prognosis: Stable Lines: None Urinary Catheter: No Medications and DC Order Prescriptions: New polyethylene glycol 3350 [Miralax] 17 gram Powder In Packet 17 g PO DAILY PRN (Reason: constipation) Qty: 30 0RF amoxicillin-pot clavulanate 875-125 mg Tablet 1 tab PO BIDM 3 Days Qty: 6 0RF Continued ascorbic acid (vitamin C) [Vitamin C] 1,000 mg Tablet 1 g PO DAILY acetaminophen [Tylenol] 325 mg Tablet 650 mg PO BID MDD 3G/24HR loperamide 2 mg Capsule 2 mg PO Q4H PRN (Reason: Diarrhea) Rx Instructions: administer after each loose stool until symptoms controlled; do not exceed 8 mg per 24 hrs sertraline 100 mg tablet 100 mg PO DAILY amlodipine 5 mg tablet 5 mg PO DAILY tramadol 50 mg Tablet 50 mg PO Q6H PRN (Reason: Pain) simvastatin 40 mg tablet 40 mg PO QPM levothyroxine 25 mcg tablet 25 mcg PO DAILY calcium carbonate [Calcium 600] 600 mg calcium (1,500 mg) Tablet 600 mg PO DAILY lorazepam 0.5 mg tablet 0.5 mg PO TID PRN (Reason: Anxiety) cyanocobalamin (vitamin B-12) [Vitamin B-12] 500 mcg Tablet 500 mcg PO DAILY ferrous sulfate 325 mg (65 mg iron) Tablet 325 mg PO BID docusate sodium 100 mg Capsule 100 mg PO BID doxazosin 4 mg tablet 4 mg PO DAILY finasteride 5 mg tablet 5 mg PO QAM quetiapine 50 mg tablet 50 mg PO HS cholecalciferol (vitamin D3) [Vitamin D3] 25 mcg (1,000 unit) Tablet 25 mcg PO DAILY Senna Plus 8.6-50 mg Capsule 2 tab-cap PO BID pantoprazole 40 mg tablet,delayed release (DR/EC) 40 mg PO BID Qty: 60 0RF aspirin 81 mg Tablet,Delayed Release (Dr/Ec) 81 mg PO DAILY ICaps 3,484-5-929-75 [id number]-unit Tablet Extended Release 1 tab PO DAILY sucralfate 1 gram tablet 1 g PO ACHS sodium chloride [Mik 128] 5 % Drops 1 drp OPB BID PreserVision AREDS-2 250-90-40-1 mg Capsule 1 tab PO DAILY Xarelto 10 mg Tablet 10 mg PO QPM Qty: 30 0RF Discharge Orders: Discharge Order (Routine); Ordered 11/28/23 Ordered By: Alan Mejia Admission Data Admit Date/Time: 11/26/23 16:33 Attending Provider: Alan Mejia Admit Provider: Santiago Schaffer Primary Care Provider: Conner Elias Other Providers: Santiago Schaffer; Chel Bush
--- NOTE | 2023-11-28 15:42 | Electrocardiogram Report ---
Test Reason : Blood Pressure : */* mmHG Vent. Rate : 68 BPM Atrial Rate : 68 BPM P-R Int : 176 ms QRS Dur : 98 ms QT Int : 390 ms P-R-T Axes : -29 86 37 degrees QTcB Int : 414 ms Normal sinus rhythm Left atrial enlargement Low voltage QRS Incomplete right bundle branch block Cannot rule out Anteroseptal infarct (cited on or before 22-Jun-2018) Abnormal ECG When compared with ECG of 07-Nov-2023 20:33, No significant change was found Confirmed by Herlinda Hutton ([id number]) on 11/25/2023 6:55:34 PM Referred By: Conner Muñoz [place] Confirmed By: Herlinda Hutton
== END 2023-11-28 14:07 | disposition hospice, home (50) | DRG 179 ==
LOC: ED 21:07 → EDINP 21:07 → SUATTDRO 11-25 01:14 → 2W 11-25 03:29 → SUATTDRO 11-26 16:33